=== PATIENT | female | born 1995 | race Caucasian/White ===

== ENCOUNTER 2021-01-29 19:41 | Emergency (ER) | payer OTHER, SELFPAY ==
[2021-01-29 20:25] VITALS: BP 160/96; PULSE 84; RESP 18; TEMP 36.7; O2SAT 100; BMI 58.4
--- NOTE | 2021-01-29 21:35 | ED.DIZZY ---
HPI - Dizziness General Chief Complaint: Dizziness Stated Complaint: dizziness Time Seen by Provider: 01/29/21 21:34 Source: patient Mode of arrival: ambulatory Limitations: no limitations History of Present Illness HPI Narrative: Patient complaining of sudden onset of dizziness since last night get worse when head movements feels the room is spinning feels head is heavy patient with vague complaints feels headachy head is fuzzy. Also said that she has not taken her medication for anxiety not giving her details seen the therapist 2 days ago MD elicited complaint: dizziness Onset (ago): day(s) Timing: sudden onset Severity: moderate Description: sense of movement and room spinning Context: change in body position History of similar symptoms: No Exacerbating factors: movement/ambulation and change in body position Relieving factors: remaining still Associated symptoms: denies other symptoms Related Data Allergies Allergy/AdvReac Type Severity Reaction Status Date / Time ENVIRONMENTAL Allergy Mild HIVES, Uncoded 07/14/20 19:06 ITCH EYES, REDNESS Review of Systems Review of Systems: Constitutional : No Weight loss, No Fever, No Chills ENT/Mouth : No sore throat, No Rhinorrhea Eyes: No Eye Pain, No Swelling Cardiovascular : No Chest Pain, no palpitations Respiratory : No Cough, No Sputum, no shortness of breath Gastrointestinal : no Nausea, No Vomiting, No Diarrhea, No abdominal Pain, no black stools Genitourinary : No Dysuria, No Urinary Frequency Musculoskeletal : No joint pain, No Myalgias, No Joint Swelling Skin : No Skin Lesions, No rash Neuro : No Weakness, No Numbness, + Dizziness, No Headache Psych : + Anxiety/Panic, No Depression Heme/Lymph: No Bruising, No Lymphadenopathy Endocrine : No Polyuria, No Polydipsia All other systems reviewed and are negative [facility] Past Medical History Medical History Anxiety Asthma delivery delivered IBS (irritable bowel syndrome) Surgical History History of appendectomy Social History Social History Alcohol intake: never Smoking Status: Never smoker Use of substances other than those prescribed or required for medical reasons: No Advance Directives: No Physical Exam Vital Signs: Vital Signs: Last Vital Signs Temp 98.0 F 01/29/21 22:10 Pulse 86 01/30/21 00:00 Resp 16 01/30/21 00:00 BP 135/65 01/30/21 00:00 Pulse Ox 97 01/30/21 00:00 Body Mass Index 58.4 Appearance: Alert. Oriented X3. No acute distress. Anxious , patient very vague and difficult to examine Eyes: Pupils equal, round and reactive to light. No nystagmus ENT: Pharynx normal. Neck: Normal inspection. Neck supple. CVS: Normal heart rate and rhythm. Pulses normal. Respiratory: No respiratory distress. Breath sounds normal. Abdomen: Soft and nontender. Bowel sounds are present, no mass palpable, no CVA tenderness Skin: Skin warm and dry. Normal skin color. Normal skin turgor. Extremities: No lower extremity edema. Neuro: Oriented X 3. No motor deficit. No sensory deficit. No abnormal movements MDM - Dizziness MDM Narrative Medical decision making narrative: Patient with benign positional vertigo clinically also has some psychological issues which she has not explaining to us very well says that she is not taking her medications and she has a therapist patient's boyfriend was called who does not have any idea about her medical condition. Will do basic labs and get the care team evaluation Patient labs are stable awaiting for care team evaluation Differential Diagnosis Differential diagnosis: Likely benign paroxysmal positional vertigo Lab Data Attestation: I reviewed the patient's lab results. Result diagrams: 01/30/21 00:33 01/30/21 00:33 Labs: Lab Results 01/30/21 01/30/21 Range/Units 00:33 00:33 WBC 7.9 (4.8-10.8) X10*3/uL RBC 4.50 (4.20-5.50) X10*6/uL Hgb 12.7 (12.0-16.0) g/dl Hct 38.8 (37-47) % MCV 86.2 (80-98) fL MCH 28.2 (27.0-33.0) pg MCHC 32.7 (31.0-35.0) g/dl RDW 12.8 (11.0-16.0) % Plt Count 255 (160-400) X10*3/uL MPV 9.5 (9.4-12.3) fL Immature Gran % (Auto) 0.1 (0.0-0.4) % Neut % (Auto) 64.8 (45-73) % Lymph % (Auto) 24.6 (20-40) % [place] % (Auto) 6.7 (2-11) % Eos % (Auto) 3.3 (0-4) % Baso % (Auto) 0.5 (0-2) % Lymph # (Auto) 1.9 (1.2-4.9) X10*3/uL [place] # (Auto) 0.5 (0.1-1.2) X10*3/uL Eos # (Auto) 0.3 (0.0-0.4) X10*3/uL Baso # (Auto) 0.0 (0.0-0.2) X10*3/uL Abs Immat Gran (auto) 0.01 (0.00-0.03) X10*3/uL Absolute Neuts (auto) 5.1 (2.0-8.3) X10*3/uL Absolute Nucleated RBC 0.000 (0.0-0.012) X10*3/uL Nucleated RBC % (auto) 0.0 (0.0-0.2) /100WBC Sodium 141 (135-145) mmol/L Potassium 3.7 (3.3-5.1) mmol/L Chloride 107 (96-108) mmol/L Carbon Dioxide 25 (22-29) mmol/L Anion Gap 13 (12-20) BUN 12 (9-16) mg/dL Creatinine 0.71 (0.5-1.4) mg/dL Estim Creat Clear Calc 171.5 Estimated GFR > 60 Random Glucose 93 (60-115) mg/dL Calcium 9.0 (8.4-10.2) mg/dL Total Bilirubin 0.4 (0.0-1.0) mg/dL AST 25 (5-31) U/L ALT 42 H (0-31) U/L Alkaline Phosphatase 94 (39-117) U/L Total Protein 6.5 (6.5-8.0) g/dL Albumin 4.2 (3.5-5.0) g/dL Discharge Plan Discharge Clinical Impression: Anxiety Benign paroxysmal positional vertigo Qualifiers: Laterality: unspecified laterality Qualified Code(s): H81.10 - Benign paroxysmal vertigo, unspecified ear
[2021-01-29 22:10] VITALS: BP 130/59; PULSE 76; RESP 15; TEMP 36.7
[2021-01-29] MEDS: LORazepam 1 MG TABLET PO (22:12)
[2021-01-29] MEDS: Meclizine HCl 25 MG TABLET 50 MG PO (22:12)
--- NOTE | 2021-01-29 23:30 | PC.NURSE ---
ATTEMPTING TO AMBULATE PATIENT AFTER SHE REPORTS DIZZINESS IS BETTER. PATIENT STATING SHE DOES NOT WANT TO AT THIS TIME. ASKING WHAT IS WRONG WITH ME? ASKING PATIENT WHAT SHE MEANT BY THAT. STATING THERE ARE PEOPLE IN MY BRAIN . STATING THAT SHE SAW HER THERAPIST ON SATURDAY AND TOLD THEM THAT SHE HAS STOPPED TAKING HER MEDICATIONS BECAUSE THEY ARENT HELPING HER. STATING SHE STILL REMAINS ON GABAPENTIN. PLAN IS FOR PATIENT TO HAVE LABS DRAWN AND TO MEET WITH CARE TEAM BASED ON THE FACT THAT HER AFFECT IS OFF. STATING SHE DID NOT WANT TO STAY AND TALK TO SOMEONE BUT THEN ASKING AGAIN WHAT IS WRONG WITH HER. PATIENT TOLD SHE WILL BE STATING FOR BLOOD WORK AND TO TALK TO THE CARE [facility]
[2021-01-30] VITALS: BP 135/65; PULSE 86; RESP 16; O2SAT 97
[2021-01-30 00:37] LABS: MANUAL DIFF FLAG NO
[2021-01-30 00:38] LABS: Basophils Percent Auto 0.5 % (0-2); Eosinophils Absolute Auto 0.3 X10*3/uL (0.0-0.4); Eosinophils Percent Auto 3.3 % (0-4); Hematocrit 38.8 % (37-47); Hemoglobin 12.7 g/dl (12.0-16.0); Imm Gran Abs Auto 0.01 X10*3/uL (0.00-0.03); Imm Gran Pct Auto 0.1 % (0.0-0.4); Lymphocytes Absolute Auto 1.9 X10*3/uL (1.2-4.9); Lymphocytes Percent Auto 24.6 % (20-40); Mean Corpuscular HGB Conc 32.7 g/dl (31.0-35.0); Mean Corpuscular Hemoglobin 28.2 pg (27.0-33.0); Mean Corpuscular Volume 86.2 fL (80-98); Mean Platelet Volume 9.5 fL (9.4-12.3); Monocytes Absolute Auto 0.5 X10*3/uL (0.1-1.2); Monocytes Percent Auto 6.7 % (2-11); Neutrophils Absolute Auto 5.1 X10*3/uL (2.0-8.3); Neutrophils Percent Auto 64.8 % (45-73); Platelet Count 255 X10*3/uL (160-400); Red Cell Distribution Width 12.8 % (11.0-16.0); White Blood Count 7.9 X10*3/uL (4.8-10.8)
[2021-01-30 01:07] LABS: Alanine Aminotransferase 42 U/L (0-31); Albumin Level 4.2 g/dL (3.5-5.0); Alkaline Phosphatase 94 U/L (39-117); Anion Gap 13 (12-20); Aspartate Amino Transferase 25 U/L (5-31); Bilirubin Total 0.4 mg/dL (0.0-1.0); Blood Urea Nitrogen 12 mg/dL (9-16); Carbon Dioxide 25 mmol/L (22-29); Chloride 107 mmol/L (96-108); Creatinine Clr Calc Pharmacy 171.5; Estimated Glomerular Filt Rate > 60; Glucose Random 93 mg/dL (60-115); Potassium 3.7 mmol/L (3.3-5.1); Sodium 141 mmol/L (135-145); Total Protein 6.5 g/dL (6.5-8.0)
[2021-01-30 02:00] VITALS: BP 129/68; PULSE 75; RESP 16; O2SAT 98
--- NOTE | 2021-01-30 02:25 | MHC.CARE ---
CARE team consult requested for pt who presented to ED with complaints of dizziness, then made statements about having stopped taking her psychiatric medications and wanting to speak with someone. This card writer hand met with pt in ED room 20. Pt reported that she had stopped taking her medications one at a time over the past couple weeks because she didn't feel good on them and she doesn't feel good off them, so she decided that she doesn't want to take medications if they don't change anything. Pt was taking Trileptil, Latuda, and Gabapentin. Pt reported that she had been taking these medications for a couple years, however was not great at remembering to take the medications and often missed doses to begin with. Pt reported that she was prescribed the gabapentin for anxiety, though wasn't sure what she was on the mood stabilizers for. This card writer hand denied having a formal diagnosis of bipolar or depression despite having been in treatment with individual therapy and psychiatry through [facility] for several years. Pt's affect and mood were changeable throughout the consultation. Pt would advocate for discharge and then when asked if she feels safe for discharge she would stare off vacantly before responding. Pt shared that she has a difficult time with men and when she is off medications she has negative and aggressive thoughts toward them. Pt denied hx of aggression toward men, however she shared that she has a hx of trauma that has a manifested response of opposition and repulsion toward most men. Pt stated that when the ED doctor entered the room this evening, she believed that he was going to hurt her, and reported that she has experienced this previously when she was not taking medications. This card writer hand discussed the likelihood that pt's symptoms are associated with her having discontinued taking her medications, even if pt hasn't taken them in two weeks. It was explained to pt that once a medication wears off symptoms don't generally return immediately and it can be a delayed response. Pt had hoped that she would be okay without the medications. This card writer hand recommended that pt follow up with her psychiatrist and her therapist re: the discontinuation of taking her prescribed meds and to contact crisis or return to the hospital if her symptoms persist or worsen. Diagnosis is likely borderline personality disorder. ED physician updated re: consult and recommendations.
== END 2021-01-30 05:00 | disposition home or self-care (01) ==
PROVIDERS: Emergency Provider Internal Medicine; PCP Internal Medicine
DX: H81.10 Benign paroxysmal vertigo, unspecified ear (principal); F41.9 Anxiety disorder, unspecified; Z91.14 Patient's other noncompliance with medication regimen
CPT/HCPCS: 36415; 80053; 85025; 99284

== ENCOUNTER 2021-08-10 10:41 | Inpatient (IN) | payer OTHER, SELFPAY ==
--- NOTE | ~2021-08-10 | US_ITS ---
EXAMINATION: US ABDOMEN LIMITED CLINICAL INFORMATION: Right upper quadrant pain. COMPARISON: None TECHNIQUE: Real-time imaging of the right upper quadrant abdominal viscera. FINDINGS: PANCREAS: Normal. LIVER: The liver is normal in size. The liver contour is normal. There is generalized increased echogenicity consistent with fatty infiltration. No focal hepatic lesion. There is no intrahepatic biliary duct dilatation seen. GALLBLADDER: Cholelithiasis is present. The gallbladder wall is borderline thickened at 3 mm diameter. No pericholecystic fluid is seen and no fluid within the gallbladder wall is noted. There is tenderness to palpation overlying the gallbladder. COMMON BILE DUCT: Normal in caliber measuring 0.4 cm in diameter. RIGHT KIDNEY: Normal. No hydronephrosis. No renal calculi or focal parenchymal lesions. The kidney measures 11.7 cm in maximum dimension. FREE FLUID: None. US/US abdomen limited IMPRESSION: Cholelithiasis with borderline thickened gallbladder wall and positive tenderness to palpation overlying the gallbladder. No pericholecystic fluid or fluid within the wall of the gallbladder. Above findings could represent early acute cholecystitis versus chronic findings. Fatty infiltration of liver.
--- NOTE | ~2021-08-10 | CT_ITS ---
EXAMINATION: CT ABDOMEN AND PELVIS WITH CONTRAST CLINICAL INFORMATION: Abdominal pain COMPARISON: Ultrasound of same day TECHNIQUE: Multidetector volumetric images were obtained from the superior aspect of the liver through the pubic symphysis following administration 85 mL of Omnipaque 350 intravenous contrast. Sagittal and coronal reformatted images were obtained on the technologist's workstation. Oral contrast: No This CT examination was performed using dose optimization techniques as appropriate, variously including the following: *Automated exposure control *Adjustment of mA and/or kV according to patient size (this includes techniques or standardized protocols for targeted exams where dose is matched to indication/reason for exam; i.e. extremities or head) *Use of iterative reconstruction technique DLP: 1154 mGy-cm FINDINGS: LUNG BASES: The lung bases appear unremarkable without acute parenchymal disease, pericardial effusion, or pleural effusion. LIVER, GALLBLADDER, AND BILIARY TREE: The liver is normal in size, shape, and attenuation. No focal hepatic lesion or biliary ductal dilatation is present. Gallbladder is distended. No definite radiographic calculi are seen as had been seen layering on gallbladder study and therefore these are likely cholesterol stones. About the inferior lateral aspect of the gallbladder there is question of a small amount of fluid adjacent to the gallbladder wall versus edematous wall with the findings suggestive of possible acute cholecystitis. No pericholecystic inflammatory streaking is evident. PANCREAS: Unremarkable. SPLEEN: Unremarkable. ADRENAL GLANDS: Unremarkable. KIDNEYS AND URETERS: The kidneys are normal in size, shape, and attenuation. No hydronephrosis, hydroureter, or calculi seen. No perinephric stranding. BLADDER: Unremarkable. GASTROINTESTINAL TRACT: No dilated loops of large or small bowel. No free air or free fluid. No pericolonic inflammatory change. Appendix not visualized. ABDOMINAL WALL: Small fat-containing umbilical hernia. LYMPH NODES: No lymphadenopathy appreciated. VASCULAR: Unremarkable. PELVIC VISCERA: Unremarkable. OSSEOUS STRUCTURES: No suspicious destructive bony lesions identified. CT/CT abdomen pelvis w con IMPRESSION: Finding suggestive of acute cholecystitis.
[2021-08-10 10:56] VITALS: BMI 53.1
[2021-08-10 11:03] VITALS: BP 150/66; PULSE 77; RESP 18; TEMP 36.7; O2SAT 98
--- NOTE | 2021-08-10 11:20 | ED_ITS ---
HPI - Abdominal Pain General Chief Complaint: Abdominal Pain Stated Complaint: rt side abd pain, white stool Time Seen by Provider: 08/10/21 11:06 History of Present Illness HPI narrative: Patient is 26 years old presents today with having abdominal pain. The pain is worse in the right upper quadrant. It is dull in nature. The wraps around to the back. Patient denies any fever chills. No coughing or congestion or upper respiratory symptoms. Been immunized for COVID. Patient also complained that her stool appears meléndez. It is solid however. Patient had some granola yesterday and then the pain started afterwards. No pain on urination. No change in urination frequency. No history of diabetes. No history of abdominal surgery. No vaginal discharge. Patient is not sexually active with men does not think she is . She is on control and her last menstrual period was over 2 months ago. Patient from home. No travel history. Related Data Previous Rx's Medication Instructions Recorded meclizine 25 mg tablet 25 mg PO TID PRN #20 tab 01/30/21 Allergies Allergy/AdvReac Type Severity Reaction Status Date / Time ENVIRONMENTAL Allergy Mild HIVES, Uncoded 07/14/20 19:06 ITCH EYES, REDNESS Review of Systems Review of Systems No fever no chills Positive abdominal pain Positive nausea All systems reviewed otherwise negative Physical Exam Vital Signs: Vital Signs: Last Vital Signs Temp 98.1 F 08/10/21 11:03 Pulse 77 08/10/21 11:03 Resp 18 08/10/21 11:03 BP 150/66 H 08/10/21 11:03 Pulse Ox 98 08/10/21 11:03 Body Mass Index 53.1 Appearance: Alert. Oriented X3. No acute distress. Eyes: Pupils equal, round and reactive to light. ENT: Pharynx normal. Neck: Normal inspection. Neck supple. No lymph nodes noted. No crepitus CVS: Normal heart rate and rhythm. Pulses normal. Normal S1 and S2 Respiratory: No respiratory distress. Breath sounds normal. No Wheezing. No rales Abdomen: Positive right upper quadrant pain. No rebound or guarding. No rigidity. No distention. good BS x4 Skin: Skin warm and dry. Normal skin color. Normal skin turgor. Extremities: No lower extremity edema. Neurovascular intact to all extremities. No Lacerations. No Rash Neuro: Oriented X 3. No motor deficit. No sensory deficit. Moving all extermities. No slurred speech MDM - Abdominal Pain MDM Narrative Medical decision making narrative: Patient's white count is normal. However pain is over the right upper quadrant. Ultrasound equivocal for cholecystitis CT scan consistent with cholecystitis. Will start patient on antibiotics. Patient evaluated by surgery. Will admit for further evaluation. Lab Data Result diagrams: 08/10/21 11:23 08/10/21 11:23 Labs: Lab Results 08/10/21 08/10/21 08/10/21 Range/Units 11:23 11:23 11:23 WBC 7.4 (4.8-10.8) X10*3/uL RBC 4.65 (4.20-5.50) X10*6/uL Hgb 13.1 (12.0-16.0) g/dl Hct 40.1 (37-47) % MCV 86.2 (80-98) fL MCH 28.2 (27.0-33.0) pg MCHC 32.7 (31.0-35.0) g/dl RDW 12.8 (11.0-16.0) % Plt Count 283 (160-400) X10*3/uL MPV 9.3 L (9.4-12.3) fL Immature Gran % (Auto) 0.1 (0.0-0.4) % Neut % (Auto) 76.1 H (45-73) % Lymph % (Auto) 15.7 L (20-40) % [place] % (Auto) 5.5 (2-11) % Eos % (Auto) 2.2 (0-4) % Baso % (Auto) 0.4 (0-2) % Lymph # (Auto) 1.2 (1.2-4.9) X10*3/uL [place] # (Auto) 0.4 (0.1-1.2) X10*3/uL Eos # (Auto) 0.2 (0.0-0.4) X10*3/uL Baso # (Auto) 0.0 (0.0-0.2) X10*3/uL Abs Immat Gran (auto) 0.01 (0.00-0.03) X10*3/uL Absolute Neuts (auto) 5.6 (2.0-8.3) X10*3/uL Absolute Nucleated RBC 0.000 (0.0-0.012) X10*3/uL Nucleated RBC % (auto) 0.0 (0.0-0.2) /100WBC Sodium 138 (135-145) mmol/L Potassium 4.3 (3.3-5.1) mmol/L Chloride 110 H (96-108) mmol/L Carbon Dioxide 19 L (22-29) mmol/L Anion Gap 13 (12-20) BUN 8 L (9-16) mg/dL Creatinine 0.77 (0.5-1.4) mg/dL Estim Creat Clear Calc 147.4 Estimated GFR > 60 Random Glucose 87 (60-115) mg/dL Calcium 9.1 (8.4-10.2) mg/dL Total Bilirubin 0.7 (0.0-1.0) mg/dL Direct Bilirubin 0.4 (0.0-0.5) mg/dL AST 66 H (5-31) U/L ALT 56 H (0-31) U/L Alkaline Phosphatase 103 (39-117) U/L Total Protein 7.0 (6.5-8.0) g/dL Albumin 4.2 (3.5-5.0) g/dL Lipase 6 L (8-78) U/L Urine Color YELLOW Urine Appearance CLEAR Urine pH 6.0 (5.0-8.0) Ur Specific [place] 1.015 (1.005-1.025) Urine Protein NEG (NEG-TRACE) MG/DL Urine Glucose (UA) NEG (NEG) MG/DL Urine Ketones NEG (NEG) MG/DL Urine Blood 1+ H (NEG) Urine Nitrite NEG (NEG) Ur Leukocyte Esterase NEG (NEG) Urine RBC 1-4 (0) /HPF Urine WBC 0-2 (0-4) /HPF Ur Squamous Epith Cells 1+ /LPF Urine Bacteria 2+ /LPF Urine Test (NEGATIVE) 08/10/21 Range/Units 11:23 WBC (4.8-10.8) X10*3/uL RBC (4.20-5.50) X10*6/uL Hgb (12.0-16.0) g/dl Hct (37-47) % MCV (80-98) fL MCH (27.0-33.0) pg MCHC (31.0-35.0) g/dl RDW (11.0-16.0) % Plt Count (160-400) X10*3/uL MPV (9.4-12.3) fL Immature Gran % (Auto) (0.0-0.4) % Neut % (Auto) (45-73) % Lymph % (Auto) (20-40) % [place] % (Auto) (2-11) % Eos % (Auto) (0-4) % Baso % (Auto) (0-2) % Lymph # (Auto) (1.2-4.9) X10*3/uL [place] # (Auto) (0.1-1.2) X10*3/uL Eos # (Auto) (0.0-0.4) X10*3/uL Baso # (Auto) (0.0-0.2) X10*3/uL Abs Immat Gran (auto) (0.00-0.03) X10*3/uL Absolute Neuts (auto) (2.0-8.3) X10*3/uL Absolute Nucleated RBC (0.0-0.012) X10*3/uL Nucleated RBC % (auto) (0.0-0.2) /100WBC Sodium (135-145) mmol/L Potassium (3.3-5.1) mmol/L Chloride (96-108) mmol/L Carbon Dioxide (22-29) mmol/L Anion Gap (12-20) BUN (9-16) mg/dL Creatinine (0.5-1.4) mg/dL Estim Creat Clear Calc Estimated GFR Random Glucose (60-115) mg/dL Calcium (8.4-10.2) mg/dL Total Bilirubin (0.0-1.0) mg/dL Direct Bilirubin (0.0-0.5) mg/dL AST (5-31) U/L ALT (0-31) U/L Alkaline Phosphatase (39-117) U/L Total Protein (6.5-8.0) g/dL Albumin (3.5-5.0) g/dL Lipase (8-78) U/L Urine Color Urine Appearance Urine pH (5.0-8.0) Ur Specific [place] (1.005-1.025) Urine Protein (NEG-TRACE) MG/DL Urine Glucose (UA) (NEG) MG/DL Urine Ketones (NEG) MG/DL Urine Blood (NEG) Urine Nitrite (NEG) Ur Leukocyte Esterase (NEG) Urine RBC (0) /HPF Urine WBC (0-4) /HPF Ur Squamous Epith Cells /LPF Urine Bacteria /LPF Urine Test NEGATIVE (NEGATIVE) Discharge Plan Discharge Clinical Impression: Cholecystitis Patient Disposition: Admitted As Inpatient Prescriptions: No Action meclizine 25 mg tablet 25 mg PO TID PRN (Reason: dizziness) Qty: 20 RF: 0 PMFSH Past Medical History Medical History Anxiety Asthma delivery delivered IBS (irritable bowel syndrome) Surgical History History of appendectomy Social History Social History Alcohol intake: unknown Patient Tobacco Use Status: Never used Tobacco Use of substances other than those prescribed or required for medical reasons: Unknown Advance Directives: No
[2021-08-10] MEDS: ondansetron HCL 4 MG/2 ML VIAL IVPUSH ×2 (11:30→15:32)
[2021-08-10] MEDS: 0.9 % Sodium Chloride 1,000 ML 999 ML IV (11:30)
[2021-08-10] MEDS: Ketorolac Tromethamine 30 MG/ML VIAL IVPUSH (11:30)
[2021-08-10 11:31] LABS: MANUAL DIFF FLAG NO
[2021-08-10 11:34] LABS: Basophils Percent Auto 0.4 % (0-2); Eosinophils Absolute Auto 0.2 X10*3/uL (0.0-0.4); Eosinophils Percent Auto 2.2 % (0-4); Hematocrit 40.1 % (37-47); Hemoglobin 13.1 g/dl (12.0-16.0); Imm Gran Abs Auto 0.01 X10*3/uL (0.00-0.03); Imm Gran Pct Auto 0.1 % (0.0-0.4); Lymphocytes Absolute Auto 1.2 X10*3/uL (1.2-4.9); Lymphocytes Percent Auto 15.7 % (20-40); Mean Corpuscular HGB Conc 32.7 g/dl (31.0-35.0); Mean Corpuscular Hemoglobin 28.2 pg (27.0-33.0); Mean Corpuscular Volume 86.2 fL (80-98); Mean Platelet Volume 9.3 fL (9.4-12.3); Monocytes Absolute Auto 0.4 X10*3/uL (0.1-1.2); Monocytes Percent Auto 5.5 % (2-11); Neutrophils Absolute Auto 5.6 X10*3/uL (2.0-8.3); Neutrophils Percent Auto 76.1 % (45-73); Platelet Count 283 X10*3/uL (160-400); Red Blood Count 4.65 X10*6/uL (4.20-5.50); Red Cell Distribution Width 12.8 % (11.0-16.0); White Blood Count 7.4 X10*3/uL (4.8-10.8)
[2021-08-10 11:37] LABS: Appearance Urine CLEAR; Color Urine YELLOW; Glucose Urine UA NEG (NEG); Leukocyte Esterase Urine NEG (NEG); Nitrite Urine NEG (NEG); Specific Gravity - Urine 1.015 (1.005-1.025); UACC Culture Trigger NO; Urine Blood 1+ (NEG); Urine Ketones NEG (NEG); Urine Protein NEG (NEG-TRACE)
[2021-08-10 11:41] LABS: UPreg QC Valid YES; Urine Pregnancy NEGATIVE (NEGATIVE)
[2021-08-10 11:55] LABS: Alanine Aminotransferase 56 U/L (0-31); Albumin Level 4.2 g/dL (3.5-5.0); Alkaline Phosphatase 103 U/L (39-117); Anion Gap 13 (12-20); Aspartate Amino Transferase 66 U/L (5-31); Bilirubin Direct 0.4 mg/dL (0.0-0.5); Bilirubin Total 0.7 mg/dL (0.0-1.0); Blood Urea Nitrogen 8 mg/dL (9-16); Calcium 9.1 mg/dL (8.4-10.2); Carbon Dioxide 19 mmol/L (22-29); Chloride 110 mmol/L (96-108); Creatinine Clr Calc Pharmacy 147.4; Estimated Glomerular Filt Rate > 60; Glucose Random 87 mg/dL (60-115); Lipase 6 U/L (8-78); Potassium 4.3 mmol/L (3.3-5.1); Sodium 138 mmol/L (135-145)
[2021-08-10 12:01] LABS: Bacteria Urine 2+ /LPF; Squamous Epithelial Cell Urine 1+ /LPF; WBC Urine 0-2 /HPF (0-4)
[2021-08-10] MEDS: iohexoL 350 MG/ML 100 ML INFUS..BTL IV (12:29)
[2021-08-10] MEDS: Metoclopramide HCl 10 MG/2 ML VIAL IVPUSH (12:37)
[2021-08-10] MEDS: HYDROmorphone HCl 0.5 MG/0.5 ML SYRINGE IVPUSH (12:37)
[2021-08-10] MEDS: cefTRIAXone sodium 1 GM in 0.9 % Sodium Chloride 50 ML IV (13:43)
[2021-08-10 13:49] VITALS: BP 112/61; PULSE 89; RESP 18; TEMP 37.3; O2SAT 95
[2021-08-10] MEDS: Dextrose 5 % and Lactated Ring 1,000 ML 125 ML IVCONT (13:56)
[2021-08-10 14:15] LABS: COVID-19 Test Negative (Negative); IDNOW Serial# 9DD0AD1C
[2021-08-10] MEDS: metroNIDAZOLE/NS 500 MG/100 ML PIGGYBACK 100 MG IV (14:31)
[2021-08-10] MEDS: Piperacillin Sodium/Tazobactam 3.375 GM in 0.9 % Sodium Chloride 50 ML IV ×2 (15:32→21:29)
--- NOTE | 2021-08-10 15:49 | P.HPGS_ITS ---
History of Present Illness History of Present Illness Date of Service: 08/10/21 Chief complaint: rt side abd pain, white stool Narrative: Sumaya Ugarte is a 26 year old female presenting with complaints of abdominal pain in the epigastrium and right upper quadrant. The pain is been developing over the past several weeks and increasing in severity. Food is brought on by eating food and she notes even eating mesh potatoes is causing the pain. She has a known history of gallstones and now feels the pain is becoming unbearable. She denies fever, chills, but has had nausea and vomiting. She denies changes in her bowel habits although she tends to have diarrhea. She presented to the emergency department and was noted to have gallstones with a thickened gallbladder wall on both CT and ultrasound suggestive of acute cholecystitis. Laboratories were normal however. She is admitted to the surgical service for further management of acute cholecystitis. Review of Systems Review of Systems: Yes all other systems are reviewed and are negative Constitutional: Constitutional: Reports anorexia, Denies chills, Denies fever(s) and Reports poor appetite ENT: Reports system reviewed and no additional complaints, except as documented Cardiovascular: Cardiovascular: Reports no additional cardiovascular complaints Respiratory: Comments: History of asthma Gastrointestinal: Gastrointestinal: Reports as per HPI, Reports abdominal pain, Denies hematochezia, Denies change in stool character, Denies constipation, Reports diarrhea, Reports nausea and Reports vomiting Genitourinary: Genitourinary: Reports no additional female genitourinary complaints Musculoskeletal: Musculoskeletal: Reports no additional musculoskeletal complaints [facility] Past Medical History Medical History (Updated 08/10/21 @ 15:59 by Facundo Lugo MD) Anxiety Asthma delivery delivered Cholecystitis IBS (irritable bowel syndrome) Surgical History Surgical History History of appendectomy Social History Social History Alcohol intake: unknown Patient Tobacco Use Status: Never used Tobacco Meds Allergies Allergy/AdvReac Type Severity Reaction Status Date / Time ENVIRONMENTAL Allergy Mild HIVES, Uncoded 07/14/20 19:06 ITCH EYES, REDNESS Active Medications: Current Medications Acetaminophen (Acetaminophen 325 Mg Tablet) 650 mg PO QID PRN PRN Reason: headache, temp > 101 Dextrose/Lactated Ringer's (D5lr) 1,000 mls @ 125 mls/hr IVCONT .Q8H ZHANNA Last Admin: 08/10/21 13:56 Dose: 125 mls/hr Documented by: Piperacillin Sod/Tazobactam (Sod 3.375 gm/ Sodium Chloride) 50 mls @ 100 mls/hr IV Q6H ZHANNA Last Admin: 08/10/21 15:32 Dose: 100 mls/hr Documented by: Ondansetron HCl (Ondansetron Hcl 4 Mg/2 Ml Vial) 4 mg IVPUSH Q8H PRN PRN Reason: Nausea Last Admin: 08/10/21 15:32 Dose: 4 mg Documented by: Zolpidem Tartrate (Zolpidem Tartrate 5 Mg Tablet) 5 mg PO BEDTIME PRN PRN Reason: Insomnia Physical Exam Vital Signs: Vital Signs: Last Vital Signs Temp 99.2 F 08/10/21 13:49 Pulse 89 08/10/21 13:49 Resp 18 08/10/21 13:49 BP 112/61 08/10/21 13:49 Pulse Ox 95 08/10/21 13:49 Body Mass Index 53.1 Const: General: acute distress Nutritional Appearance: obese Orientation/consciousness: patient oriented x3 Limitations: no limitations HENMT: Head: Yes normocephalic and Yes atraumatic Ears: hearing grossly normal bilaterally Neck: Neck: Yes no lymphadenopathy and Yes trachea midline Resp: Effort & Inspection: normal respiratory effort, no audible wheezes, no cough and no respiratory distress GI: Inspection: Yes normal to inspection Palpation (GI): Soft to palpation and Tenderness to palpation present (GI) in the epigastrum, in the RUQ and Leiva's sign positive; Negative for with no rebound tenderness Percussion: Yes normal to percussion Auscultation: normal bowel sounds Rectal Exam - Female: deferred Skin: General skin exam: no rashes or lesions noted and dry skin Neuro: General: patient oriented x3 Extrem: General: Yes no clubbing, cyanosis or edema Results Results Labs: Short CBC 08/10/21 Range/Units 11:23 WBC 7.4 (4.8-10.8) X10*3/uL Hgb 13.1 (12.0-16.0) g/dl Hct 40.1 (37-47) % Plt Count 283 (160-400) X10*3/uL BMP 08/10/21 11:23 Sodium 138 Potassium 4.3 Chloride 110 H Carbon Dioxide 19 L BUN 8 L Creatinine 0.77 Calcium 9.1 Liver Function 08/10/21 Range/Units 11:23 Total Bilirubin 0.7 (0.0-1.0) mg/dL Direct Bilirubin 0.4 (0.0-0.5) mg/dL AST 66 H (5-31) U/L ALT 56 H (0-31) U/L Alkaline Phosphatase 103 (39-117) U/L Albumin 4.2 (3.5-5.0) g/dL Urine 08/10/21 08/10/21 Range/Units 11:23 11:23 Urine Color YELLOW Urine Appearance CLEAR Urine pH 6.0 (5.0-8.0) Ur Specific [place] 1.015 (1.005-1.025) Urine Protein NEG (NEG-TRACE) MG/DL Urine Glucose (UA) NEG (NEG) MG/DL Urine Test NEGATIVE (NEGATIVE) Assessment and Plan (1) Cholecystitis, acute with cholelithiasis: Status: Acute (2) Morbid obesity: Status: Acute 26-year-old female patient with progressive increase in abdominal pain in the right upper quadrant epigastrium found to have gallstones and thickened gallbladder wall suggestive of acute cholecystitis. Patient has persistent pain despite IV pain medications and is requesting cholecystectomy. After discussion of the procedure, risks, and alternatives, she consents to a laparoscopic or possible open cholecystectomy. She will be admitted to the surgical service and placed on operative schedule for tomorrow as an add on. She expressed understanding and agrees with the plan. Quality Stroke Does the patient have a stroke diagnosis?: No VTE Prior VTE?: No VTE Risk Level:: Surgical - moderate VTE Device Contraindication: N/A - Device Ordered VTE Drug Contraindication: Treatment Not Indicated Procedures Date of Service Date of Service: 08/10/21
--- NOTE | 2021-08-10 16:39 | PHA.MEDREC ---
Pharmacy Consult ? Medication Reconciliation Pharmacy has completed the medication reconciliation. Spoke with patient in ED. control non - formulary... asked if patient could have someone bring it in.
[2021-08-10 18:34] VITALS: BP 145/63; PULSE 78; RESP 18; TEMP 37; O2SAT 97
--- NOTE | 2021-08-10 18:35 | PC.NURSE ---
Pt appears to be in NAD. VS obtained. Pt offered pain med for 5/10 abd pain but declined at this time. IVF infusing.
[2021-08-10 19:31] VITALS: RESP 20
[2021-08-10] MEDS: Morphine Sulfate 4 MG/ML CARTRIDGE IVPUSH (19:31)
--- NOTE | 2021-08-10 20:05 | MHC.CM.PN ---
CM met with admitted patient, with bed assignment pending. IMM reviewed and signed per protocol 08/10/21@2226. Pt has [employer] insurance. Pt lives with her brother. Uses no DME or services. No HCP. Education provided, patient declines at this time. Pt is fully vaccinated with Pfizer. D/C plan is home without services. Patient to arrange transportation home. CM to follow for d/c needs.
--- NOTE | 2021-08-10 20:09 | PC.NURSE ---
patient ate 100 % of meal
[2021-08-10 20:22] VITALS: BP 153/92; PULSE 85; RESP 16; TEMP 36.5; O2SAT 99
[2021-08-10 22:00] VITALS: BP 122/98; PULSE 69; RESP 16; TEMP 36.7; O2SAT 95
[2021-08-11] VITALS (21 sets, daily range): BP systolic 127–179; BP diastolic 61–100; PULSE 70–101; RESP 17–20; TEMP 36.1–36.9; O2SAT 93–100
[2021-08-11] MEDS: ondansetron HCL 4 MG/2 ML VIAL IVPUSH
--- NOTE | 2021-08-11 00:03 | PC.NURSE ---
Patient a/o x4, in NAD, endorses RUQ pain, morhine given per order, vitals obtained/charted. IVF infusing at this time. Pt made aware of NPO diet starting at midnight. Will continue to monitor.
[2021-08-11] MEDS: Piperacillin Sodium/Tazobactam 3.375 GM in 0.9 % Sodium Chloride 50 ML IV (04:58)
[2021-08-11] MEDS: Acetaminophen 325 MG TABLET 650 MG PO (08:22)
--- NOTE | 2021-08-11 08:24 | PC.NURSE ---
REPORT TO OR. PT C/O H/A. TYLENOL GIVEN. IV PATENT, SITE GOOD
--- NOTE | 2021-08-11 10:31 | MHC.SHP ---
Pre-Procedural Eval Section A Date of Service: 08/11/21 The patient is an INPATIENT: Yes Changes since office visit: Yes Patient answered all questions; No Cold of Flu in the past 2 weeks, No New Medical Problems and No Changes in Medication The History & Physical has been completed within 30 days and I have reviewed it.: Yes Section B Chief Complaint: acute cholecystitis, cholelithiasis Allergies: Allergies Allergy/AdvReac Type Severity Reaction Status Date / Time ENVIRONMENTAL Allergy Mild HIVES, Uncoded 07/14/20 19:06 ITCH EYES, REDNESS Plan Diagnosis/Plan: Unchanged I have reviewed the history and physical and performed a pertinent physical examination on my patient. No changes have occurred unless specified.
--- NOTE | 2021-08-11 10:55 | P.CONAN_ITS ---
HPI - Anesthesia Eval Consult details Narrative: 26 yo female patient for laparoscopic cholecystectomy PMFSH Active Problems Active Problems: All Active Problems (Updated 08/10/21 @ 15:59 by Facundo fay MD) Cholecystitis, acute with cholelithiasis (Acute) Asthma (Acute). Controlled Morbid obesity. BMI 53.1 . Denies h/o RAMEZ Anxiety (Chronic) Past Medical History Medical History (Updated 08/10/21 @ 15:59 by Facundo Lugo MD) Anxiety Asthma delivery delivered Cholecystitis IBS (irritable bowel syndrome) Family History Family history of problems with anesthesia: No Surgical History Surgical History (Updated 08/11/21 @ 11:27 by Carmen Jamison MD) H/O: History of appendectomy History of Problems with Anesthesia: No Social History Social History Alcohol intake: unknown Patient Tobacco Use Status: Never used Tobacco Use of substances other than those prescribed or required for medical reasons: Yes Substance Use Frequency: Daily Are you DNR?: Yes Advance Directives: No Advance Directives Information Provided: No service: No Current occupational status: unemployed Meds Allergies Allergy/AdvReac Type Severity Reaction Status Date / Time carboprost [From Hemabate] Allergy Severe Anaphylaxis Verified 08/11/21 10:53 ENVIRONMENTAL Allergy Mild HIVES, Uncoded 07/14/20 19:06 ITCH EYES, REDNESS Active Medications: Current Medications Acetaminophen (Acetaminophen 325 Mg Tablet) 650 mg PO QID PRN PRN Reason: headache, temp > 101 Last Admin: 08/11/21 08:22 Dose: 650 mg Documented by: Dextrose/Lactated Ringer's (D5lr) 1,000 mls @ 125 mls/hr IVCONT .Q8H ZHANNA Last Admin: 08/11/21 06:15 Dose: Not Given Documented by: Piperacillin Sod/Tazobactam (Sod 3.375 gm/ Sodium Chloride) 50 mls @ 100 mls/hr IV Q6H ZHANNA Last Infusion: 08/11/21 05:35 Dose: Infused Documented by: Morphine Sulfate (Morphine Sulfate 4 Mg/Ml Cartridge) 4 mg IVPUSH Q4H PRN; Protocol PRN Reason: Pain, Severe (Pain Scale 7-10) Last Admin: 08/11/21 00:00 Dose: 4 mg Documented by: Ondansetron HCl (Ondansetron Hcl 4 Mg/2 Ml Vial) 4 mg IVPUSH Q8H PRN PRN Reason: Nausea Last Admin: 08/11/21 00:00 Dose: 4 mg Documented by: Oxycodone HCl (Oxycodone Hcl Immed Release 5 Mg Tablet) 5 mg PO Q6H PRN PRN Reason: Pain, Moderate (Pain Scale 4-6 Pharmacy Consult (Consult Rx Perform Med Rec) 1 each MISCELLANE ONCE PRN PRN Reason: Consult order Zolpidem Tartrate (Zolpidem Tartrate 5 Mg Tablet) 5 mg PO BEDTIME PRN PRN Reason: Insomnia Home Medications Medication Instructions Recorded Confirmed Last Taken Type L norgest/E estradiol-E estrad 1 tab PO DAILY 08/10/21 08/10/21 08/09/21 History 0.15 mg-30 mcg (84)/10 mcg(7) tabs,3mos albuterol sulfate 90 mcg/actuation 2 inh INHALATION Q4H PRN 08/10/21 08/10/21 Unknown History aerosol inhaler fluticasone propionate 230 2 puff INHALATION BID 08/10/21 08/10/21 08/09/21 History mcg-salmeterol 21 mcg/actuation HFA inhaler (Advair HFA) lamotrigine 100 mg tablet 1 tab PO BID 08/10/21 08/10/21 08/09/21 History Exam Exam Date and Time: August 11, 2021 1055 Height,Weight and Vital Signs: Height 5 ft 3 in Weight 136.078 kg Last Vital Signs Temp 98.4 F 08/11/21 10:37 Pulse 76 08/11/21 10:37 Resp 18 08/11/21 10:37 BP 133/71 08/11/21 10:37 Pulse Ox 97 08/11/21 10:37 Pertinent Lab Results Pertinent Lab Results: Laboratory Tests 08/10/21 08/10/21 08/10/21 11:23 11:23 11:23 WBC 7.4 RBC 4.65 Hgb 13.1 Hct 40.1 MCV 86.2 MCH 28.2 MCHC 32.7 RDW 12.8 Plt Count 283 MPV 9.3 L Immature Gran % (Auto) 0.1 Neut % (Auto) 76.1 H Lymph % (Auto) 15.7 L [place] % (Auto) 5.5 Eos % (Auto) 2.2 Baso % (Auto) 0.4 Lymph # (Auto) 1.2 [place] # (Auto) 0.4 Eos # (Auto) 0.2 Baso # (Auto) 0.0 Abs Immat Gran (auto) 0.01 Absolute Neuts (auto) 5.6 Absolute Nucleated RBC 0.000 Nucleated RBC % (auto) 0.0 Sodium 138 Potassium 4.3 Chloride 110 H Carbon Dioxide 19 L Anion Gap 13 BUN 8 L Creatinine 0.77 Estim Creat Clear Calc 147.4 Estimated GFR > 60 Random Glucose 87 Calcium 9.1 Total Bilirubin 0.7 Direct Bilirubin 0.4 AST 66 H ALT 56 H Alkaline Phosphatase 103 Total Protein 7.0 Albumin 4.2 Lipase 6 L Urine Color YELLOW Urine Appearance CLEAR Urine pH 6.0 Ur Specific [place] 1.015 Urine Protein NEG Urine Glucose (UA) NEG Urine Ketones NEG Urine Blood 1+ H Urine Nitrite NEG Ur Leukocyte Esterase NEG Urine RBC 1-4 Urine WBC 0-2 Ur Squamous Epith Cells 1+ Urine Bacteria 2+ Urine Test COVID-19 (HELEN) COVID-SD [employer] 08/10/21 08/10/21 11:23 13:50 WBC RBC Hgb Hct MCV MCH MCHC RDW Plt Count MPV Immature Gran % (Auto) Neut % (Auto) Lymph % (Auto) [place] % (Auto) Eos % (Auto) Baso % (Auto) Lymph # (Auto) [place] # (Auto) Eos # (Auto) Baso # (Auto) Abs Immat Gran (auto) Absolute Neuts (auto) Absolute Nucleated RBC Nucleated RBC % (auto) Sodium Potassium Chloride Carbon Dioxide Anion Gap BUN Creatinine Estim Creat Clear Calc Estimated GFR Random Glucose Calcium Total Bilirubin Direct Bilirubin AST ALT Alkaline Phosphatase Total Protein Albumin Lipase Urine Color Urine Appearance Urine pH Ur Specific [place] Urine Protein Urine Glucose (UA) Urine Ketones Urine Blood Urine Nitrite Ur Leukocyte Esterase Urine RBC Urine WBC Ur Squamous Epith Cells Urine Bacteria Urine Test NEGATIVE COVID-19 (HELEN) Negative COVID-19 Clin Com See Note Airway Mallampati Class: III (Small mouth) TM Dist: >3cm Neck ROM: Full Loose/Missing/Broken Teeth: No Heart: RRR Lungs: CTAB Assessment and Plan Assessment Anesthesia Assessment: Anesthesia Plan Discussed and Chart Reviewed Final Anesthetic Review Family History of Problems with Anesthesia: No History of Problems with Anesthesia: No NPO: Yes ASA Class: III Final Preanesthetic Review: No Changes in Pt Med Stat, Meds/Allgs Chart Reviewed, Consent Obtained/Reviewed and Anes Risks/Benef Reviewed Patient Risk: Intermediate Procedure Risk: Intermediate Assessment/Block/Sedation in SS: Assess/Block/Sedation-SS Anesthetic Plan Anesthetic Plan: GA Disposition: Standard PACU
[2021-08-11] MEDS: Lactated Ringers 1,000 ML 100 ML IVCONT (11:01)
[2021-08-11] MEDS: HYDROmorphone HCl 0.5 MG/0.5 ML SYRINGE 0.25 MG IVPUSH ×2 (13:05→13:27)
[2021-08-11] MEDS: oxyCODONE HCl Immed Release 5 MG TABLET PO (13:06)
--- NOTE | 2021-08-11 13:36 | W.PM.OPN ---
Operative Note Operative Note Date of Service: 08/11/21 Narrative: Preoperative diagnosis: Acute cholecystitis, cholelithiasis Postoperative diagnosis: Same Procedure: Laparoscopic cholecystectomy Surgeon: Facundo Lugo MD Gear Milling Machine Set Up Operator: BLAKE Aguilar Anesthesia: General endotracheal Indications for procedure: 26-year-old female presenting with complaints of abdominal pain in the right upper quadrant Of increasing severity associated with eating of all foods. Patient reports nausea and vomiting but denies fever or chills. On examination the patient is tender in the right upper quadrant with a Leiva sign. Radiologic studies confirmed a thickened gallbladder wall with gallstones suggestive of acute cholecystitis. Operative findings: Acutely inflamed gallbladder with multiple stones noted at the neck of the gallbladder. Specimen: gallbladder Estimated blood loss: 2 mL Complications: none Procedure details: Patient was brought to the OR and placed in a supine position. After administering general anesthesia the patient's abdomen was prepped with ChloraPrep and draped in a sterile fashion. Local anesthesia consisting of 0.5% Sensorcaine without epinephrine was infiltrated in a periumbilical region. A 5 mm incision was made above the umbilicus in a transverse fashion. The Veress needle was then inserted while elevating abdominal cavity with towel clips. After positive drop test the abdomen was insufflated to a pressure of 15 mm of mercury. The Veress needle was then removed and a 5 mm trocar inserted. The camera was inserted in the abdomen explored. No injury was noted from the trocar insertion site. A 12 mm trocar was then placed in the epigastrium and two 5 mm trocars placed in the right upper quadrant all under direct vision. The patient was placed in reverse Trendelenburg positioning and rotated to the left. The gallbladder was grasped with the fundus and retracted cephalad.. The infundibulum was then grasped and retracted away from the liver bed. The Dolphin dissected was then used to dissect the peritoneum off the infundibulum to reveal the junction with the cystic duct. Cystic artery was noted slightly medial and posterior to the cystic duct. After obtaining a critical view the cystic duct was doubly clipped and divided. The cystic artery was then doubly clipped and divided. The gallbladder was then dissected off the liver bed using electrocautery with an L hook. Hemostasis was assured all times using the electrocautery. When the gallbladder is completely dissected off the liver bed was placed in an Endo-Catch bag and brought out through the epigastric incision. The gallbladder was sent to pathology for further examination. The abdomen was then re-examined. The liver bed was irrigated and suctioned dry. No bleeding or bile leak could be identified. CO2 was then evacuated and all trocars removed. Fascia was closed at the epigastric incision using a [id number] 0 Polysorb suture. Skin was closed in all incisions using a subcuticular 4 0 Polysorb suture. Sterile dressings consisting of Steri-Strips, 2 x 2 gauze, and Tegaderm were then applied. The patient tolerated the procedure well. Sponge instrument and needle counts reported as correct. The patient was transferred to PACU in stable condition.
[2021-08-11] MEDS: fentaNYL citrate/PF 100 MCG/2 ML VIAL 25 MCG IVPUSH (14:20)
[2021-08-11] MEDS: Dextrose 5 % and Lactated Ring 1,000 ML 125 ML IVCONT ×2 (14:57→22:17)
[2021-08-11] MEDS: Morphine Sulfate 4 MG/ML CARTRIDGE IVPUSH ×2 (17:07)
[2021-08-11] MEDS: lamoTRIgine 100 MG TABLET PO ×2 (20:41→20:43)
[2021-08-12] VITALS (9 sets, daily range): BP systolic 138–162; BP diastolic 72–98; PULSE 60–90; RESP 16–20; TEMP 36–37.1; O2SAT 96–99
--- NOTE | 2021-08-12 | ECG_ITS ---
Test Reason : CHEST PAIN Blood Pressure : / mmHG Vent. Rate : 070 BPM Atrial Rate : 070 BPM P-R Int : 132 ms QRS Dur : 090 ms QT Int : 376 ms P-R-T Axes : 057 026 010 degrees QTc Int : 406 ms Normal sinus rhythm with sinus arrhythmia RSR' or QR pattern in V1 suggests right ventricular conduction delay Otherwise normal ECG No previous ECGs available Referred By: Lizbet Donato Electronically Signed By:GABRIELLA REGALADO MD
[2021-08-12] MEDS: Dextrose 5 % and Lactated Ring 1,000 ML 125 ML IVCONT ×2 (06:19→14:01)
[2021-08-12] MEDS: Fluticasone/Vilanterol 200/25 BLST.W.DEV 1 PUFF INHALE (07:52)
[2021-08-12] MEDS: Morphine Sulfate 4 MG/ML CARTRIDGE IVPUSH ×3 (07:58→20:19)
--- NOTE | 2021-08-12 11:15 | PM.PNGS ---
Subjective Subjective Date of Service: 08/12/21 Interval history: Has not been able to eat or drink much yet. No nausea, but appetite poor. Remains on IV fluids. Feels generally achy due to fibromyalgia. Reports good control of incisional pain. Physical Exam Vital Signs: Vital Signs: Last Vital Signs Temp 98.8 F 08/12/21 07:59 Pulse 90 08/12/21 07:59 Resp 18 08/12/21 07:59 BP 162/98 H 08/12/21 07:59 Pulse Ox 99 08/12/21 07:59 Body Mass Index 53.1 Const: Other: Alert an oriented, appears uncomfortable Resp: Effort & Inspection: normal respiratory effort Auscultation: clear to auscultation bilaterally Cardio: Rate: regular rate Rhythm: regular rhythm GI: Other: Obese, soft, dressings clean, dry and intact. Appropriate incisional tenderness. Normal bowel sounds. Skin: Other: Warm and dry General skin exam: no rashes or lesions noted Procedures Date of Service Date of Service: 08/12/21 Progress Note: A&P Assessment and plan (1) Cholecystitis, acute with cholelithiasis: Status: Acute (2) Morbid obesity: Status: Acute Assessment and Plan: Day 1 post laparoscopic cholecystectomy. She appears stable postoperatively, but has not been able to take much in by mouth. Will continue IV fluid and analgesics. Anticipate discharge either later today or more likely tomorrow. Fall Risk Details Current Medications: Current Medications Acetaminophen (Acetaminophen 325 Mg Tablet) 650 mg PO QID PRN PRN Reason: headache, temp > 101 Last Admin: 08/11/21 08:22 Dose: 650 mg Documented by: Albuterol Sulfate (Albuterol Sulfate 90 Mcg 8 Gm Inhaler) 2 puff INHALE Q4H PRN PRN Reason: Shortness Of Breath Fluticasone/Vilanterol (Fluticasone/Vilanterol 200/25 Blst.W.Dev) 1 puff INHALE RDAILY COUNTS INCLUDE 234 BEDS AT THE [facility] Last Admin: 08/12/21 07:52 Dose: 1 puff Documented by: Dextrose/Lactated Ringer's (D5lr) 1,000 mls @ 125 mls/hr IVCONT .Q8H COUNTS INCLUDE 234 BEDS AT THE [facility] Last Admin: 08/12/21 06:19 Dose: 125 mls/hr Documented by: Lamotrigine (Lamotrigine 100 Mg Tablet) 100 mg PO BID ZHANNA Last Admin: 08/11/21 20:43 Dose: 100 mg Documented by: Morphine Sulfate (Morphine Sulfate 4 Mg/Ml Cartridge) 4 mg IVPUSH Q4H PRN; Protocol PRN Reason: Pain, Severe (Pain Scale 7-10) Last Admin: 08/12/21 07:58 Dose: 4 mg Documented by: Ondansetron HCl (Ondansetron Hcl 4 Mg/2 Ml Vial) 4 mg IVPUSH Q8H PRN PRN Reason: Nausea Last Admin: 08/11/21 00:00 Dose: 4 mg Documented by: Oxycodone HCl (Oxycodone Hcl Immed Release 5 Mg Tablet) 5 mg PO Q6H PRN PRN Reason: Pain, Moderate (Pain Scale 4-6 Last Admin: 08/11/21 13:06 Dose: 5 mg Documented by: Pharmacy Consult (Consult Rx Perform Med Rec) 1 each MISCELLANE ONCE PRN PRN Reason: Consult order Zolpidem Tartrate (Zolpidem Tartrate 5 Mg Tablet) 5 mg PO BEDTIME PRN PRN Reason: Insomnia Time Spent With Patient Time: Total time spent is greater than 50% in coordination of care (as documented) at patient's floor/unit and/or counseling patient: Time with patient: less than 15 minutes Quality Stroke Does the patient have a stroke diagnosis?: No VTE Prior VTE?: No VTE Risk Level:: Surgical - moderate VTE Device Contraindication: N/A - Device Ordered VTE Drug Contraindication: Treatment Not Indicated
--- NOTE | 2021-08-12 15:20 | PM.EVENT ---
Event Note Date of Service: 08/12/21 Event Note: She reports that she has been having squeezing central chest pain on and off since this morning. No shortness of breath, cough. No pleuritic component. She also reports some neck and bilateral shoulder pain as well as groin and upper thigh pain. Appetite remains poor with intermittent nausea. bp 139/92, hr 76, R 16, O2 sat 99 She is alert and does not appear to be in any acute distress Lungs-clear to auscultation Heart-regular rate and rhythm without audible murmurs Chest-symmetrical, some mild tenderness with sternal compression EKG-no acute changes seen on my review, awaiting official reading Chest pain, etiology unclear but likely to be musculoskeletal in origin. She has a history of anxiety, which is a possible cause as well. Doubt cardiac. Pain is not reminiscent of preoperative biliary colic so doubt retained stone as source. Will check lab studies, CBC, basic metabolic profile and liver profile. Blood pressure has been elevated. Plan early follow-up with PCP.
[2021-08-12] MEDS: ondansetron HCL 4 MG/2 ML VIAL IVPUSH (15:30)
[2021-08-12 16:19] LABS: Hematocrit 38.2 % (37-47); Hemoglobin 12.8 g/dl (12.0-16.0); Mean Corpuscular HGB Conc 33.5 g/dl (31.0-35.0); Mean Corpuscular Volume 86.4 fL (80-98); Mean Platelet Volume 9.4 fL (9.4-12.3); Platelet Count 253 X10*3/uL (160-400); Red Blood Count 4.42 X10*6/uL (4.20-5.50); White Blood Count 7.8 X10*3/uL (4.8-10.8)
[2021-08-12 16:41] LABS: Alanine Aminotransferase 80 U/L (0-31); Albumin Level 4.1 g/dL (3.5-5.0); Alkaline Phosphatase 136 U/L (39-117); Anion Gap 16 (12-20); Aspartate Amino Transferase 93 U/L (5-31); Bilirubin Direct 0.5 mg/dL (0.0-0.5); Bilirubin Total 0.8 mg/dL (0.0-1.0); Blood Urea Nitrogen 6 mg/dL (9-16); Calcium 9.3 mg/dL (8.4-10.2); Carbon Dioxide 22 mmol/L (22-29); Chloride 106 mmol/L (96-108); Creatinine Clr Calc Pharmacy 141.9; Estimated Glomerular Filt Rate > 60; Glucose Random 120 mg/dL (60-115); Potassium 3.6 mmol/L (3.3-5.1); Sodium 140 mmol/L (135-145); Total Protein 6.6 g/dL (6.5-8.0)
[2021-08-12] MEDS: lamoTRIgine 100 MG TABLET PO (20:18)
[2021-08-12] MEDS: Docusate Sodium 100 MG CAPSULE PO (20:18)
[2021-08-12] MEDS: Zolpidem Tartrate 5 MG TABLET PO (22:41)
[2021-08-13] VITALS (7 sets, daily range): BP systolic 132–151; BP diastolic 70–85; PULSE 62–92; RESP 16–18; TEMP 36–36.4; O2SAT 95–97
[2021-08-13] MEDS: ondansetron HCL 4 MG/2 ML VIAL IVPUSH ×2 (00:11→10:22)
[2021-08-13] MEDS: Dextrose 5 % and Lactated Ring 1,000 ML 125 ML IVCONT ×2 (00:11→07:45)
[2021-08-13] MEDS: lamoTRIgine 100 MG TABLET PO (07:45)
[2021-08-13] MEDS: Morphine Sulfate 4 MG/ML CARTRIDGE IVPUSH ×2 (07:45→13:28)
[2021-08-13 08:02] LABS: SARS COV2 IgG Negative (Negative)
--- NOTE | 2021-08-13 08:42 | HO.POSTANES ---
Post Anesthesia Evaluation Post Anesthesia Evaluation Vital Signs: Vital Signs Temp Pulse Resp BP Pulse Ox 08/13/21 07:51 97.5 F 70 16 132/82 96 08/13/21 04:00 97.1 F 63 17 143/72 H 96 08/13/21 00:00 96.8 F 62 17 133/70 95 Anesthesia: General Endotracheal-GETA and General Mental Status: Awake Pain Control: Satisfactory Nausea/Vomiting: None Hydration: Adequate Anesthesia-Related Issues: No Anes. Related Issues
[2021-08-13] MEDS: Fluticasone/Vilanterol 200/25 BLST.W.DEV 1 PUFF INHALE (08:57)
--- NOTE | 2021-08-13 11:34 | P.PNGS_ITS ---
Subjective Subjective Date of Service: 08/13/21 Interval history: Looks well. Reports generalized achiness and intermittent nausea. Not taking much p.o. Physical Exam Vital Signs: Vital Signs: Last Vital Signs Temp 97.5 F 08/13/21 07:51 Pulse 70 08/13/21 07:51 Resp 16 08/13/21 07:51 BP 132/82 08/13/21 07:51 Pulse Ox 96 08/13/21 07:51 Body Mass Index 53.1 Laboratory Results - last 24 hr 08/10/21 08/12/21 08/12/21 17:33 16:14 16:14 WBC 7.8 RBC 4.42 Hgb 12.8 Hct 38.2 MCV 86.4 MCH 29.0 MCHC 33.5 RDW 13.0 Plt Count 253 MPV 9.4 Absolute Nucleated RBC 0.000 Nucleated RBC % (a uto) 0.0 Sodium 140 Potassium 3.6 Chloride 106 Carbon Dioxide 22 Anion Gap 16 BUN 6 L Creatinine 0.80 Estim Creat Clear Calc 141.9 Estimated GFR > 60 Random Glucose 120 H Calcium 9.3 Total Bilirubin 0.8 Direct Bilirubin 0.5 AST 93 H ALT 80 H Alkaline Phosphata se 136 H D Total Protein 6.6 Albumin 4.1 SARS-CoV-2 IgG Ab Negative Const: Other: Alert, appears comfortable Resp: Effort & Inspection: normal respiratory effort Auscultation: clear to auscultation bilaterally Cardio: Rate: regular rate Rhythm: regular rhythm Skin: Other: Normal color, warm and dry General skin exam: no rashes or lesions noted Procedures Date of Service Date of Service: 08/13/21 Progress Note: A&P Assessment and plan (1) Cholecystitis, acute with cholelithiasis: Status: Acute (2) Morbid obesity: Status: Acute Assessment and Plan: 26-year-old female now postoperative day 2 following laparoscopic cholecystectomy for acute cholecystitis. She appears well clinically, but con tinues to have difficulty with nausea. P.o. intake has not been adequate for discharge. She had an episode of chest pain yesterday, etiology unclear. Did not appear to be cardiac in origin. She reports no recurrence. Blood pressure had been elevated. Improved today. Discharge home when able to tolerate adequate p.o. Fall Risk Details Current Medications: Current Medications Acetaminophen (Acetaminophen 325 Mg Tablet) 650 mg PO QID PRN PRN Reason: headache, temp > 101 Last Admin: 08/11/21 08:22 Dose: 650 mg Documented by: Albuterol Sulfate (Albuterol Sulfate 90 Mcg 8 Gm Inhaler) 2 puff INHALE Q4H PRN PRN Reason: Shortness Of Breath Docusate Sodium (Docusate Sodium 100 Mg Capsule) 100 mg PO BID [facility] Last Admin: 08/13/21 07:45 Dose: Not Given Documented by: Fluticasone/Vilanterol (Fluticasone/Vilanterol 200/25 Blst.W.Dev) 1 puff INHALE RDAILY [facility] Last Admin: 08/13/21 08:57 Dose: 1 puff Documented by: Dextrose/Lactated Ringer's (D5lr) 1,000 mls @ 125 mls/hr IVCONT .Q8H [facility] Last Admin: 08/13/21 07:45 Dose: 125 mls/hr Documented by: Lamotrigine (Lamotrigine 100 Mg Tablet) 100 mg PO BID [facility] Last Admin: 08/13/21 07:45 Dose: 100 mg Documented by: Morphine Sulfate (Morphine Sulfate 4 Mg/Ml Cartridge) 4 mg IVPUSH Q4H PRN; Protocol PRN Reason: Pain, Severe (Pain Scale 7-10) Last Admin: 08/12/21 20:19 Dose: 4 mg Documented by: Ondansetron HCl (Ondansetron Hcl 4 Mg/2 Ml Vial) 4 mg IVPUSH Q8H PRN PRN Reason: Nausea Last Admin: 08/13/21 10:22 Dose: 4 mg Documented by: Oxycodone HCl (Oxycodone Hcl Immed Release 5 Mg Tablet) 5 mg PO Q6H PRN PRN Reason: Pain, Moderate (Pain Scale 4-6 Last Admin: 08/11/21 13:06 Dose: 5 mg Documented by: Pharmacy Consult (Consult Rx Perform Med Rec) 1 each MISCELLANE ONCE PRN PRN Reason: Consult order Zolpidem Tartrate (Zolpidem Tartrate 5 Mg Tablet) 5 mg PO BEDTIME PRN PRN Reason: Insomnia Last Admin: 08/12/21 22:41 Dose: 5 mg Documented by: Time Spent With Patient Time: Total time spent is greater than 50% in coordination of care (as documented) at patient's floor/unit and/or counseling patient: Time with patient: less than 15 minutes Quality Stroke Does the patient have a stroke diagnosis?: No VTE Prior VTE?: No VTE Risk Level:: Surgical - moderate VTE Device Contraindication: N/A - Device Ordered VTE Drug Contraindication: Treatment Not Indicated
--- NOTE | 2021-08-13 14:07 | MHC.CM.PN ---
Addendum entered by Rosaura Polk 08/13/21 14:26: PATIENT AWARE OF HER DC. SHE ASKS IF SHE IS ABLE TO DRIVE HERSELF HOME. PATIENT RECENTLY ADMINISTERED MORPHINE. AGREES TO REMAIN AT [facility] [place]IL AFTER DINNER (ORDERED) IF PATIENT IS NOT SAFE TO DRIVE SELF HOME AT THIS TIME, SHE MAY BE ABLE TO HAVE [id number] TO DRIVE HER HOME. RN AWARE OF CONVERSATION. Original Note: PATIENT IS RETURNING HOME - SELF CARE. RN AWARE. IMM 08/12 IN CHART.
--- NOTE | 2021-08-17 09:23 | P.DS_ITS ---
DS: Providers Provider Date of Service: 08/13/21 Date of admission: 08/10/21 15:47 Primary care physician: Tran Donald MD Attending physician on admission: Facundo Lugo Attending physician on discharge: Lizbet Donato DS: Diagnosis Discharge Diagnosis (1) Cholecystitis, acute with cholelithiasis: Status: Acute (2) Morbid obesity: Status: Acute DS: Summary Hospital Course Hospital Course: BRIEF HPI: Sumaya Ugarte is a 26 year old female presenting with complaints of abdominal pain in the epigastrium and right upper quadrant.? The pain is been developing over the past several weeks and increasing in severity.? Food is brought on by eating food and she notes even eating mesh potatoes is causing the pain.? She has a known history of gallstones and now feels the pain is becoming unbearable.? She denies fever, chills, but has had nausea and vomiting.? She denies changes in her bowel habits although she tends to have diarrhea.? She presented to the emergency department and was noted to have gallstones with a thickened gallbladder wall on both CT and ultrasound suggestive of acute cholecystitis.? Laboratories were normal however.? HOSPITAL COURSE: She was admitted to the surgical service for further management of acute cholecystitis. Patient had persistent pain despite IV pain medications and was requesting cholecystectomy.? Laparoscopic or possible open c holecystectomy was planned and she was added onto the operative schedule for the following day as an add on.?She expressed understanding and agreed with the plan. On 08/11/21, a laparoscopic cholecystectomy was performed by Dr. Facundo Lugo without complication. The patient tolerated the procedure well, completed routine recovery in PACU and was admitted back to the medical/surgical floor for observation. She had an uncomplicated but slow recovery course. On POD#1, she had some difficulty with nausea and poor PO intake. She was clinically appearing well with a benign abd exam, appropriate post op tenderness and clean incisions. She was continued on IVF and diet as tolerated. She later developed chest pain which was thought likely to be musculoskeletal in origin.? CBC, basic metabolic p rofile and liver profile were obtained which were WNL with the exception of a mild transaminitis and EKG showed normal sinus rhythm with sinus arrhythmia without any acute changes. The chest pain resolved. She felt better the following day however she still had persistent nausea and her PO intake wasn't adequate that morning. She was reassessed later in the day and felt improved with better PO intake of liquids and some solids. She felt ready for discharge. She was discharged to home on 08/13/21 in stable condition. She is to follow up with Dr. Lugo in office in 1 week. She also had an elevated SBP during her stay and was instructed to have an early follow up with her PCP regarding further evaluation. Status at Discharge Functional status at discharge: independent ambulation Overall status at discharge: patient is progressing back to baseline Time Spent with Patient Time attestation: Total time spent providing and/or coordinating discharge services: Discharge coordination time: Greater than 30 minutes Quality: Stroke Does the patient have a stroke diagnosis?: No Physical Exam Vital Signs: Vital Signs: Last Vital Signs Temp 97.5 F 08/13/21 15:26 Pulse 72 08/13/21 15:26 Resp 17 08/13/21 15:26 BP 144/81 H 08/13/21 15:26 Pulse Ox 95 08/13/21 15:26 Body Mass Index 53.1 DS: Data Data Completed and Pending Completed studies during hospitalization [Text1]: 08/11/21 12:12 Surgical [PTH] Routine Gallbladder, cholecystectomy: Chronic cholecystitis; cholelithiasis. Discharge Plan Discharge Patient Disposition: Home, Self-Care Discharge Diagnosis: acute cholecystitis s/p laparoscopic cholecystectomy Referrals: Tran Donald MD [Primary Care Provider] - 1 Week Facundo Lugo MD [Physician] - 1 Week Discharge Medications: New oxycodone 5 mg Tablet 5 mg PO Q6H PRN (Reason: Pain, Moderate (Pain Scale 4-6) Qty: 12 RF: 0 ondansetron 4 mg tablet,disintegrating 4 mg PO Q8H PRN (Reason: nausea and vomiting) Qty: 10 RF: 0 Continued albuterol sulfate 90 mcg/actuation HFA aerosol inhaler 2 inh inhalation Q4H PRN (Reason: Shortness Of Breath) RF: 0 lamotrigine 100 mg tablet 1 tab PO BID RF: 0 L norgest/e.estradiol-e.estrad 0.15 mg-30 mcg (84)/10 mcg (7) tablets,dose pack,3 month 1 tab PO DAILY RF: 0 Advair HFA 230-21 mcg/actuation HFA aerosol inhaler 2 puff inhalation BID RF: 0 Discharge Orders: Discharge Order (Routine); Ordered 08/13/21 Ordered By: Lizbet Donato Diet: low fat, low cholesterol Activity on Discharge: No heavy lifting Stand Alone Forms: Patient Portal Discharge page Activity Restrictions/Additional Instructions: If the incision area is tender, you may apply an ice pack for short intervals (No more than 20 minutes on, followed by at least 20 minutes off). Do not apply heat. Do not use creams, lotions, or topical antibiotics unless instructed to do so by your surgeon. These can cause infection or allergic reaction. Ok to shower. Remove clear dressings 3 days following your procedure. You have steri strips (small white cloth strips) covering your incision- these will fall off ~1 week. No heavy lifting (>10lbs)! Follow up in office with Dr. Lugo in 1 week. ([phone]) Call Your Doctor If: -Your temperature exceeds 101.5? F -You experience excessive pain or swelling -You have an unexpected reaction to medication -You have excessive bleeding -You experience continued vomiting/nausea -Your incision begins to separate -Your incision shows signs of infection such as increased redness, swelling, excessive pain, drainage (light blood or clear fluid is normal) or heat Care Plan Goals: Return to baseline health and gradual return to activity following recovery period. Health Concerns: acute cholecystitis, s/p laparoscopic cholecystectomy Plan of Treatment: Discharge to home, f/u in office Assessment: Doing well post op. Discharge Date/Time: 08/13/21 17:04
== END 2021-08-13 17:04 | disposition home or self-care (01) | DRG 418 ==
LOC: HO.ED 13:51 → HO.EDOVER 16:14 → HO.S3 08-11 14:14
PROVIDERS: Surgery; Admitting Provider Surgery; Emergency Provider Emergency Medicine Emergency Medical Services; PCP Internal Medicine; Visit Provider Surgery
PROC: 0FT44ZZ Resection of Gallbladder, Percutaneous Endoscopic Approach (ICD-10-PCS; CPT 47562; principal; 2021-08-11 10:30)
DX: K80.00 Calculus of gallbladder with acute cholecystitis without obstruction (principal); Z68.43 Body mass index [BMI] 50.0-59.9, adult; E66.01 Morbid (severe) obesity due to excess calories; Z20.822 Contact with and (suspected) exposure to COVID-19; Z79.3 Long term (current) use of hormonal contraceptives; Z79.899 Other long term (current) drug therapy
CPT/HCPCS: 36415; 74177; 76705; 80048; 80076; 81001; 81025; 83690; 85025; 85027; 86769; 87635; 88304; 93005; 96361; 96365; 96375; 99024; 99285; J0696; J1100; J1170; J1885; J2250; J2270; J2405; J2543; J2550; J2765; J3010; Q9967

== ENCOUNTER 2021-09-18 11:49 | Emergency (ER) | payer OTHER, SELFPAY ==
--- NOTE | ~2021-09-18 | CT_ITS ---
EXAMINATION: CT ABDOMEN AND PELVIS WITH CONTRAST CLINICAL INFORMATION: Abdominal pain and vomiting post gallbladder removal COMPARISON: CT abdomen pelvis 08/10/2021 TECHNIQUE: Multidetector volumetric images were obtained from the superior aspect of the liver through the pubic symphysis following administration 85 mL of Omnipaque 350 intravenous contrast. Sagittal and coronal reformatted images were obtained on the technologist's workstation. Oral contrast: No This CT examination was performed using dose optimization techniques as appropriate, variously including the following: *Automated exposure control *Adjustment of mA and/or kV according to patient size (this includes techniques or standardized protocols for targeted exams where dose is matched to indication/reason for exam; i.e. extremities or head) *Use of iterative reconstruction technique DLP: 1179 mGy-cm FINDINGS: LUNG BASES: The visualized lung bases are unremarkable. LIVER, GALLBLADDER, AND BILIARY TREE: The liver is mildly enlarged at 19 cm but normal in shape and attenuation. No focal hepatic lesion or biliary ductal dilatation is present. Interval cholecystectomy without fluid collection in the gallbladder bed. Tiny amount of subdiaphragmatic fluid around the liver has decreased when compared to the prior study. PANCREAS: Unremarkable. SPLEEN: Unremarkable. ADRENAL GLANDS: Unremarkable. KIDNEYS AND URETERS: The kidneys are normal in size, shape, and attenuation. No hydronephrosis, hydroureter, or calculi seen. No perinephric stranding. BLADDER: Unremarkable. GASTROINTESTINAL TRACT: The small and large bowel are unremarkable aside from colonic diverticula without diverticulitis.. The appendix is none seen but there is no evidence of appendicitis.. ABDOMINAL WALL: No significant hernia is appreciated. There is a small periumbilical hernia seen containing only fat. LYMPH NODES: No retroperitoneal lymphadenopathy. VASCULAR: Unremarkable. PELVIC VISCERA: Normal anteverted uterus. An abnormal adnexal mass is not seen. No free intraperitoneal fluid or air is present. OSSEOUS STRUCTURES: Unremarkable. CT/CT abdomen pelvis w con IMPRESSION: Status post cholecystectomy. No postop complication to account for abdominal pain and nausea. Fleischner guidelines were followed.
[2021-09-18 13:04] VITALS: BP 175/100; PULSE 101; RESP 20; TEMP 36.6; O2SAT 98; BMI 49.6
--- NOTE | 2021-09-18 14:00 | ED_ITS ---
HPI - Nausea/Vomiting/Diarrhea General Chief complaint: Abdominal Pain Stated complaint: Vomiting/abd pain Time Seen by Provider: 09/18/21 13:51 Source: patient Mode of arrival: ambulatory Limitations: no limitations History of Present Illness MD elicited complaint: nausea, vomiting and abdominal pain Pertinent past history: other (hx of same in past thought her GB surgery in july would fix it but she still has symptoms) Onset (ago): week(s) (2) Description of vomiting: food contents and watery Associated nausea: Yes Associated abdominal pain: Yes Location of pain: epigastric Pain consistency: constant Severity: moderate Quality: stabbing Exacerbating factors: eating Relieving factors: none Context: recent surgery/procedure and history of abdominal surgery Associated symptoms: loss of appetite and nausea/vomiting Related Data Home Medications Medication Instructions Recorded Confirmed L norgest/E estradiol-E estrad 1 tab PO DAILY 08/10/21 08/10/21 0.15 mg-30 mcg (84)/10 mcg(7) tabs,3mos albuterol sulfate 90 mcg/actuation 2 inh INHALATION Q4H PRN 08/10/21 08/10/21 aerosol inhaler fluticasone propionate 230 2 puff INHALATION BID 08/10/21 08/10/21 mcg-salmeterol 21 mcg/actuation HFA inhaler (Advair HFA) lamotrigine 100 mg tablet 1 tab PO BID 08/10/21 08/10/21 Previous Rx's Medication Instructions Recorded ondansetron 4 mg disintegrating 4 mg PO Q8H PRN #10 tab 08/13/21 tablet oxycodone 5 mg tablet 5 mg PO Q6H PRN #12 tab 08/13/21 Allergies Allergy/AdvReac Type Severity Reaction Status Date / Time carboprost [From Hemabate] Allergy Severe Anaphylaxis Verified 08/11/21 10:53 ENVIRONMENTAL Allergy Mild HIVES, Uncoded 07/14/20 19:06 ITCH EYES, REDNESS Review of Systems Review of Systems: Constitutional : No Weight loss, No Fever, No Chills ENT/Mouth : No sore throat, No Rhinorrhea Eyes: No Swelling, No Redness Cardiovascular : No Chest Pain, No SOB, NoEdema Respiratory : No Cough, No Sputum, No Wheezing Gastrointestinal : Positive Nausea, pos Vomiting, no Diarrhea, positive abdominal Pain, No Hematochezia, No Melena Genitourinary : No Dysuria, No Urinary Frequency, No Hematuria, No Urgency Musculoskeletal : No joint pain, No Myalgias, No Joint Swelling Skin : No Skin Lesions, No rash Neuro : No Weakness, No Numbness, No Dizziness, No Headache Psych : No Anxiety/Panic, No Depression Heme/Lymph: No Bruising, No Lymphadenopathy Endocrine : No Polyuria, No Polydipsia All other systems reviewed and are negative. Gastrointestinal: Gastrointestinal: Reports nausea PMFSH Past Medical History Attestation statement: The following information was validated with the patient. Medical History Anxiety Asthma delivery delivered Cholecystitis Fibromyalgia IBS (irritable bowel syndrome) Surgical History H/O: History of appendectomy Social History Social History Alcohol intake: unknown Patient Tobacco Use Status: Never used Tobacco Advance Directives: No Advance Directives Information Provided: No Patient : No service: No Current occupational status: unemployed Physical Exam Vital Signs: Vital Signs: Last Vital Signs Temp 97.8 F 09/18/21 13:04 Pulse 101 H 09/18/21 13:04 Resp 20 09/18/21 13:04 BP 175/100 H 09/18/21 13:04 Pulse Ox 98 09/18/21 13:04 Body Mass Index 49.6 Appearance: Alert. Oriented X3. No acute distress. Eyes: Pupils equal, round and reactive to light. ENT: Pharynx normal. Neck: Normal inspection. Neck supple. CVS: Normal heart rate and rhythm. Pulses normal. Respiratory: No respiratory distress. Breath sounds normal. Abdomen: Soft and moderate epigastric ttp Skin: Skin warm and dry. Normal skin color. Normal skin turgor. Extremities: No lower extremity edema. No calf ttp Neuro: Oriented X 3. No motor deficit. No sensory deficit. Course Course Course Narrative: signed out to Nikkie REES pending further workup MDM - Nausea/Vomiting/Diarrhea MDM Narrative Medical decision making narrative: 26 yo female here with c/o n/v and upper abdominal pain which were the symptoms she was having prior to cholecystectomy at this time will obtain labs, hydrate, anti-emetics. CT scan for obstructi on/biloma. The patient will need workup including gastric emptying study along with h pylori testing which she can do through her GI or PCP if today's workup is negative. Lab Data Result diagrams: 09/18/21 14:20 09/18/21 14:20 Labs: Lab Results 09/18/21 09/18/21 Range/Units 14:20 14:20 WBC 10.0 (4.8-10.8) X10*3/uL RBC 4.73 (4.20-5.50) X10*6/uL Hgb 13.5 (12.0-16.0) g/dl Hct 40.8 (37.0-47.0) % MCV 86.3 (80.0-98.0) fL MCH 28.5 (27.0-33.0) pg MCHC 33.1 (31.0-35.0) g/dl RDW 12.3 (11.0-16.0) % Plt Count 320 (160-400) X10*3/uL MPV 9.4 (9.4-12.3) fL Immature Gran % (Auto) 0.2 (0.0-0.4) % Neut % (Auto) 77.6 H (45-73) % Lymph % (Auto) 15.9 L (20-40) % [place] % (Auto) 5.5 (2-11) % Eos % (Auto) 0.4 (0-4) % Baso % (Auto) 0.4 (0-2) % Lymph # (Auto) 1.6 (1.2-4.9) X10*3/uL [place] # (Auto) 0.6 (0.1-1.2) X10*3/uL Eos # (Auto) 0.0 (0.0-0.4) X10*3/uL Baso # (Auto) 0.0 (0.0-0.2) X10*3/uL Abs Immat Gran (auto) 0.02 (0.00-0.03) X10*3/uL Absolute Neuts (auto) 7.8 (2.0-8.3) x10*3/uL Absolute Nucleated RBC 0.000 (0.0-0.012) X10*3/uL Nucleated RBC % (auto) 0.0 (0.0-0.2) /100WBC Sodium 139 (135-145) mmol/L Potassium 4.1 (3.3-5.1) mmol/L Chloride 105 (96-108) mmol/L Carbon Dioxide 22 (22-29) mmol/L Anion Gap 16 (12-20) BUN 8 L (9-16) mg/dL Creatinine 0.83 (0.5-1.4) mg/dL Estim Creat Clear Calc 131.0 Estimated GFR > 60 Random Glucose 91 (60-115) mg/dL Calcium 9.7 (8.4-10.2) mg/dL Magnesium 2.0 (1.6-2.6) mg/dL Total Bilirubin 0.5 (0.0-1.0) mg/dL Direct Bilirubin 0.2 (0.0-0.5) mg/dL AST 18 D (5-31) U/L ALT 19 (0-31) U/L Alkaline Phosphatase 83 D (39-117) U/L Total Protein 7.4 (6.5-8.0) g/dL Albumin 4.7 (3.5-5.0) g/dL Lipase 5 L (8-78) U/L Discharge Plan Discharge Clinical Impression: Abdominal pain Qualifiers: Abdominal location: epigastric Qualified Code(s): R10.13 - Epigastric pain Vomiting Qualifiers: Vomiting type: unspecified Vomiting Intractability: non-intractable Nausea presence: with nausea Qualified Code(s): R11.2 - Nausea with vomiting, unspecified Instructions: Acute Nausea and Vomiting (ED), Acute Abdominal Pain (ED) Prescriptions: No Action albuterol sulfate 90 mcg/actuation HFA aerosol inhaler 2 inh inhalation Q4H PRN (Reason: Shortness Of Breath) RF: 0 lamotrigine 100 mg tablet 1 tab PO BID RF: 0 L norgest/e.estradiol-e.estrad 0.15 mg-30 mcg (84)/10 mcg (7) tablets,dose pack,3 month 1 tab PO DAILY RF: 0 Advair HFA 230-21 mcg/actuation HFA aerosol inhaler 2 puff inhalation BID RF: 0 oxycodone 5 mg Tablet 5 mg PO Q6H PRN (Reason: Pain, Moderate (Pain Scale 4-6) Qty: 12 RF: 0 ondansetron 4 mg tablet,disintegrating 4 mg PO Q8H PRN (Reason: nausea and vomiting) Qty: 10 RF: 0
[2021-09-18 14:23] LABS: MANUAL DIFF FLAG NO
[2021-09-18 14:26] LABS: Basophils Percent Auto 0.4 % (0-2); Eosinophils Percent Auto 0.4 % (0-4); Hematocrit 40.8 % (37.0-47.0); Hemoglobin 13.5 g/dl (12.0-16.0); Imm Gran Abs Auto 0.02 X10*3/uL (0.00-0.03); Imm Gran Pct Auto 0.2 % (0.0-0.4); Lymphocytes Absolute Auto 1.6 X10*3/uL (1.2-4.9); Lymphocytes Percent Auto 15.9 % (20-40); Mean Corpuscular HGB Conc 33.1 g/dl (31.0-35.0); Mean Corpuscular Hemoglobin 28.5 pg (27.0-33.0); Mean Corpuscular Volume 86.3 fL (80.0-98.0); Mean Platelet Volume 9.4 fL (9.4-12.3); Monocytes Absolute Auto 0.6 X10*3/uL (0.1-1.2); Monocytes Percent Auto 5.5 % (2-11); Neutrophils Absolute Auto 7.8 x10*3/uL (2.0-8.3); Neutrophils Percent Auto 77.6 % (45-73); Platelet Count 320 X10*3/uL (160-400); Red Blood Count 4.73 X10*6/uL (4.20-5.50); Red Cell Distribution Width 12.3 % (11.0-16.0)
[2021-09-18] MEDS: 0.9 % Sodium Chloride 1,000 ML 999 ML IVCONT (14:28)
[2021-09-18] MEDS: diphenhydrAMINE HCL 50 MG/ML VIAL 25 MG IVPUSH (14:29)
[2021-09-18] MEDS: Famotidine/PF 20 MG/2 ML VIAL IVPUSH (14:29)
[2021-09-18] MEDS: Prochlorperazine Edisylate 10 MG/2 ML VIAL IVPUSH (14:29)
[2021-09-18 14:50] LABS: Alanine Aminotransferase 19 U/L (0-31); Albumin Level 4.7 g/dL (3.5-5.0); Alkaline Phosphatase 83 U/L (39-117); Anion Gap 16 (12-20); Aspartate Amino Transferase 18 U/L (5-31); Bilirubin Direct 0.2 mg/dL (0.0-0.5); Bilirubin Total 0.5 mg/dL (0.0-1.0); Blood Urea Nitrogen 8 mg/dL (9-16); Calcium 9.7 mg/dL (8.4-10.2); Carbon Dioxide 22 mmol/L (22-29); Chloride 105 mmol/L (96-108); Estimated Glomerular Filt Rate > 60; Glucose Random 91 mg/dL (60-115); Lipase 5 U/L (8-78); Potassium 4.1 mmol/L (3.3-5.1); Sodium 139 mmol/L (135-145); Total Protein 7.4 g/dL (6.5-8.0)
[2021-09-18 16:46] LABS: HCG Quantitative < 2 mIU/mL
[2021-09-18] MEDS: iohexoL 350 MG/ML 100 ML INFUS..BTL IV (17:05)
[2021-09-18 17:41] VITALS: BP 121/62; PULSE 63; RESP 15; TEMP 36.1; O2SAT 97
== END 2021-09-18 18:52 | disposition home or self-care (01) ==
PROVIDERS: Emergency Provider Emergency Medicine; PCP Internal Medicine
DX: R10.13 Epigastric pain (principal); R11.2 Nausea with vomiting, unspecified; E66.01 Morbid (severe) obesity due to excess calories
CPT/HCPCS: 36415; 74177; 80048; 80076; 83690; 83735; 84702; 85025; 96361; 96374; 96375; 99284; J1200; Q9967

== ENCOUNTER 2022-01-16 10:21 | Outpatient (REF) | payer OTHER, SELFPAY ==
[2022-01-16 11:33] LABS: MANUAL DIFF FLAG NO
[2022-01-16 11:44] LABS: Basophils Percent Auto 0.4 % (0-2); Eosinophils Absolute Auto 0.2 X10*3/uL (0.0-0.4); Eosinophils Percent Auto 2.6 % (0-4); Hematocrit 41.7 % (37.0-47.0); Hemoglobin 13.5 g/dl (12.0-16.0); Imm Gran Abs Auto 0.04 X10*3/uL (0.00-0.03); Imm Gran Pct Auto 0.5 % (0.0-0.4); Lymphocytes Absolute Auto 1.4 X10*3/uL (1.2-4.9); Lymphocytes Percent Auto 17.4 % (20-40); Mean Corpuscular HGB Conc 32.4 g/dl (31.0-35.0); Mean Corpuscular Hemoglobin 28.4 pg (27.0-33.0); Mean Corpuscular Volume 87.8 fL (80.0-98.0); Mean Platelet Volume 9.7 fL (9.4-12.3); Monocytes Absolute Auto 0.5 X10*3/uL (0.1-1.2); Monocytes Percent Auto 5.8 % (2-11); Neutrophils Percent Auto 73.3 % (45-73); Platelet Count 302 X10*3/uL (160-400); Red Blood Count 4.75 X10*6/uL (4.20-5.50); Red Cell Distribution Width 12.9 % (11.0-16.0); White Blood Count 8.2 X10*3/uL (4.8-10.8)
[2022-01-16 12:10] LABS: TSH reflex Free T4 0.83 uIU/mL (0.32-4.0)
[2022-01-16 12:21] LABS: Alanine Aminotransferase 32 U/L (0-31); Albumin Level 4.4 g/dL (3.5-5.0); Alkaline Phosphatase 99 U/L (39-117); Anion Gap 14 (12-20); Aspartate Amino Transferase 22 U/L (5-31); Bilirubin Total 0.4 mg/dL (0.0-1.0); Blood Urea Nitrogen 14 mg/dL (9-16); Calcium 9.8 mg/dL (8.4-10.2); Carbon Dioxide 24 mmol/L (22-29); Chloride 106 mmol/L (96-108); Cholesterol 224 mg/dL; Estimated Glomerular Filt Rate > 60; Glucose Fasting 93 mg/dL (60-99); HDL Cholesterol 64 mg/dL; LDL Cholesterol Calculated 137 mg/dl; Potassium 4.5 mmol/L (3.3-5.1); Sodium 139 mmol/L (135-145); Total Protein 7.1 g/dL (6.5-8.0); Triglycerides 118 mg/dL
== END 2022-01-16 10:22 | disposition home or self-care (01) ==
LOC: HO.HMGCLDS 10:21
PROVIDERS: Visit Provider Nurse Practitioner Family
DX: I10 Essential (primary) hypertension (principal); J45.909 Unspecified asthma, uncomplicated; E78.00 Pure hypercholesterolemia, unspecified; Z91.09 Other allergy status, other than to drugs and biological substances
CPT/HCPCS: 36415; 80053; 80061; 84443; 85025

== ENCOUNTER 2022-04-05 09:35 | Outpatient (REF) | payer OTHER, SELFPAY ==
--- NOTE | ~2022-04-05 | XR_ITS ---
EXAMINATION: XR LUMBOSACRAL SPINE CLINICAL INFORMATION: Low back pain COMPARISON: None TECHNIQUE: Three views of the lumbosacral spine. FINDINGS: The vertebral bodies and posterior elements are normal. The disc spaces are preserved and the vertebral alignment is normal. The paraspinal soft tissues are normal. XR/XR lumbar spine 2-3V IMPRESSION: Unremarkable examination.
== END 2022-04-05 09:36 | disposition home or self-care (01) ==
LOC: HO.XRAY 09:35
PROVIDERS: PCP Nurse Practitioner Family; Visit Provider Nurse Practitioner Family
DX: M54.50 Low back pain, unspecified (principal)
CPT/HCPCS: 72100

== ENCOUNTER 2022-07-14 17:09 | Emergency (ER) | payer OTHER, SELFPAY ==
--- NOTE | ~2022-07-14 | CT_ITS ---
EXAMINATION: CT HEAD WITHOUT CONTRAST CLINICAL INFORMATION: New onset hypertension, headache. COMPARISON: None TECHNIQUE: Contiguous axial imaging was performed from the skull base to vertex without intravenous administration of contrast. This CT examination was performed using dose optimization techniques as appropriate, variously including the following: *Automated exposure control *Adjustment of mA and/or kV according to patient size (this includes techniques or standardized protocols for targeted exams where dose is matched to indication/reason for exam; i.e. extremities or head) *Use of iterative reconstruction technique DLP: 640 mGy-cm FINDINGS: There is no acute intra-axial, extra-axial bleed, masses or midline shift. Both lateral ventricles are symmetrical in size and configuration without enlargement. Bone windows reveal no calvarial abnormality no scalp abnormality seen. Bilateral paranasal sinuses and mastoid air cells are well-aerated. CT/CT head/brain wo IV con IMPRESSION: No acute intracranial process seen.
[2022-07-14 17:12] VITALS: BP 192/135; PULSE 125; RESP 16; TEMP 36.4; O2SAT 96; BMI 52.2
--- NOTE | 2022-07-14 18:15 | ECG_ITS ---
Test Reason : HYPERTENSION Blood Pressure : / mmHG Vent. Rate : 094 BPM Atrial Rate : 094 BPM P-R Int : 128 ms QRS Dur : 086 ms QT Int : 350 ms P-R-T Axes : 053 038 018 degrees QTc Int : 437 ms Normal sinus rhythm Normal ECG When compared with ECG of 12-AUG-2021 14:59, No significant change was found Referred By: Sarthak Shaw Electronically Signed By:LINDY SUTTON
[2022-07-14] MEDS: LORazepam 1 MG TABLET 2 MG PO (18:23)
[2022-07-14 18:30] LABS: MANUAL DIFF FLAG NO
[2022-07-14 18:32] LABS: Basophils Percent Auto 0.5 % (0-2); Eosinophils Absolute Auto 0.2 X10*3/uL (0.0-0.4); Eosinophils Percent Auto 2.1 % (0-4); Hematocrit 39.3 % (37.0-47.0); Hemoglobin 13.1 g/dl (12.0-16.0); Imm Gran Abs Auto 0.02 X10*3/uL (0.00-0.03); Imm Gran Pct Auto 0.2 % (0.0-0.4); Lymphocytes Percent Auto 22.5 % (20-40); Mean Corpuscular HGB Conc 33.3 g/dl (31.0-35.0); Mean Corpuscular Volume 86.9 fL (80.0-98.0); Mean Platelet Volume 9.2 fL (9.4-12.3); Monocytes Absolute Auto 0.6 X10*3/uL (0.1-1.2); Monocytes Percent Auto 7.3 % (2-11); Neutrophils Absolute Auto 5.9 x10*3/uL (2.0-8.3); Neutrophils Percent Auto 67.4 % (45-73); Platelet Count 290 X10*3/uL (160-400); Red Blood Count 4.52 X10*6/uL (4.20-5.50); Red Cell Distribution Width 12.4 % (11.0-16.0); White Blood Count 8.7 X10*3/uL (4.8-10.8)
[2022-07-14 18:46] VITALS: BP 141/84
[2022-07-14 18:48] LABS: Alanine Aminotransferase 44 U/L (0-31); Albumin Level 4.2 g/dL (3.5-5.0); Alkaline Phosphatase 116 U/L (39-117); Anion Gap 14 (12-20); Aspartate Amino Transferase 24 U/L (5-31); Bilirubin Total 0.3 mg/dL (0.0-1.0); Blood Urea Nitrogen 17 mg/dL (9-16); Calcium 9.3 mg/dL (8.4-10.2); Carbon Dioxide 25 mmol/L (22-29); Chloride 105 mmol/L (96-108); Creatinine Clr Calc Pharmacy 135.7; Estimated Glomerular Filt Rate > 60; Glucose Random 99 mg/dL (60-115); Lipase 10 U/L (8-78); Potassium 4.2 mmol/L (3.3-5.1); Sodium 140 mmol/L (135-145); Total Protein 6.7 g/dL (6.5-8.0)
[2022-07-14 20:31] LABS: Appearance Urine Cloudy; Color Urine Yellow; Glucose Urine UA Negative (Negative); Leukocyte Esterase Urine Trace (Negative); Nitrite Urine Negative (Negative); PH 7.5 (5.0-9.0); Specific Gravity - Urine 1.025 (1.005-1.025); UMIC TRIGGER UACC YES; Urine Blood Moderate (2+) (Negative); Urine Ketones Trace mg/dL (Negative); Urine Protein Trace mg/dL (Neg-Trace)
--- NOTE | 2022-07-14 20:32 | ED_ITS ---
HPI - General Adult General Chief complaint: Altered Mental Status Stated complaint: elevated blood pressure,headache Time Seen by Provider: 07/14/22 17:50 Source: patient Mode of arrival: ambulatory Limitations: no limitations History of Present Illness HPI narrative: 27-year-old female who presents emergency department for evaluation of headache and high blood pressure. Patient states that earlier in the day she had a ?weird ? sensation in her head. She describes the sensation as ?a strange pressure-like feeling ?. She states that she does have a history of headaches but this felt different than her normal headaches. The patient states that she takes her blood pressure every morning since past she had high blood pressure when she was on control pills but this resolved after stopping her control pill. She states that her blood pressure was 180/100 which was high for her. She states she then took multiple blood pressures throughout the day which continued to be high. This made her very concerned so she came to the emergency department for evaluation. At the time my evaluation she states that she has a foggy feeling in her brain but denied pressure or pain. She denied fever, ch ills, rhinorrhea, sore throat, cough. She states that she has nausea vomiting and diarrhea daily and this is secondary to her IBS. She states she does have anxiety and agoraphobia. Related Data Home Medications Medication Instructions Recorded Confirmed albuterol sulfate 90 mcg/actuation 2 inh inhalation Q4H PRN Shortness 08/10/21 04/05/22 aerosol inhaler Of Breath cetirizine 10 mg tablet 10 mg PO DAILY 01/15/22 04/05/22 bupropion HCl 300 mg 24 hr tablet, 300 mg PO DAILY PRN 05/05/22 extended release Previous Rx's Medication Instructions Recorded fluticasone propionate 230 2 puff inhalation BID #12 grams 01/15/22 mcg-salmeterol 21 mcg/actuation HFA inhaler (Advair HFA) sodium chloride 0.65 % nasal spray 1 spray intranasal BID PRN dry 01/15/22 aerosol (Saline Nasal) nasal passages #44 mL acetaminophen 500 mg tablet 500 - 1,000 mg PO Q6H PRN pain #30 04/05/22 tabs tizanidine 2 mg tablet 2 - 4 mg PO BEDTIME PRN muscle 05/03/22 spasticity #20 tabs ketorolac 10 mg tablet 10 mg PO ONCE pain 7 days #7 tabs 05/05/22 fluticasone propionate 50 2 spray intranasal DAILY PRN for 05/11/22 mcg/actuation nasal allergies #16 mL spray,suspension Allergies Allergy/AdvReac Type Severity Reaction Status Date / Time carboprost [From Hemabate] Allergy Severe Anaphylaxis Verified 05/05/22 09:28 gluten Allergy Mild celiac Verified 05/05/22 09:28 disease ENVIRONMENTAL Allergy Mild HIVES, Uncoded 05/05/22 09:28 ITCH EYES, REDNESS Review of Systems Review of Systems: Yes all other systems are reviewed and are negative [facility] Past Medical History [facility] Narrative: Past medical history: Reviewed below, she also has Chronic lower back pain, agoraphobia. Past surgical history: Reviewed below. Social history: She denies tobacco and alcohol use. She states she smokes marijuana once or twice a week. Medical History Anxiety Asthma delivery delivered Cholecystitis Fibromyalgia IBS (irritable bowel syndrome) Surgical History H/O: History of appendectomy History of cholecystectomy Family History Family History Mother Arthritis Substance use disorder Father HTN (hypertension) Substance use disorder Maternal Grandmother Cancer Other Mental health disorder Social History Social History Housing: House Alcohol intake: never Patient Tobacco Use Status: Former Tobacco user e-Cigarette/Vaping Use: Never Used Second Hand Smoke Exposure: No Advance Directives: No Advance Directives Information Provided: No service: No Current occupational status: unemployed Cognitive needs: No Hearing needs: No Vision needs: Yes (glasses) Physical Exam ED Vital Signs: Vital Signs - 24 hr 07/14/22 17:12 07/14/22 18:46 Temperature 97.5 F Pulse Rate 125 H Respiratory Rate 16 Blood Pressure 192/135 H 141/84 H Pulse Oximetry 96 Oxygen Delivery Method Room Air BMI result Body Mass Index 52.2 Const General: cooperative and no acute distress Orientation/consciousness: oriented to person and oriented to place Limitations: no limitations HENMT Head: Yes normal to inspection, Yes normocephalic and Yes atraumatic Ears: external ears normal General nose exam: Normal external nose present Face and sinus: Yes normal facial exam Mouth: Normal oral and palatal mucosa present Throat: Yes posterior oropharynx normal Eyes General: appearance normal, both eyes and all related structures Pupils: Equal, round and reactive pupils present Neck Neck: Yes normal visual inspection, Yes no lymphadenopathy, Yes trachea midline and Yes supple Chest Chest palpation & inspection: normal inspection of the chest and normal palpation of entire chest wall Resp Effort & Inspection: normal respiratory effort and able to speak in complete sentences Auscultation: clear to auscultation bilaterally Cardio Rate: regular rate Rhythm: regular rhythm Heart sounds: S1 normal heart sound present, S2 normal heart sound present and no murmurs GI Inspection: Yes normal to inspection Palpation (GI): Soft to palpation, nontender and no guarding Auscultation: normal bowel sounds General: Yes no CVA tenderness Back/Spine/Pelvis Back: no CVA tenderness Skin General skin exam: no rashes or lesions noted Neuro General: oriented to person and oriented to place Cranial nerves: Yes CN's II-XII intact bilaterally and Yes Equal, round and reactive pupils present Cognition (Neuro): normal cognition Motor exam (neuro): 5/5 motor strength present throughout Extrem General: Yes normal to inspection Psych Appearance: grossly normal Speech and movement: Normal speech and movement present Affect: normal affect Attitude: cooperative Thought process: Normal thought process present Thought content: Normal thought content present Course Course Course Narrative: 27-year-old female who presents emergency department for evaluation of headache and elevated blood pressure. The patient had a history in the past of elevated blood pressure which was felt to be secondary to her control pills which she has since discontinued and now has normal blood pressure . She did take blood pressures throughout the day which were elevated this concerned her causing her to come to the emergency department. The patient's initial blood pressure was elevated at 192/135 with an elevated pulse of 125.. Patient's exam was otherwise unremarkable with a normal neurologic exam. The the the patient was treated with Ativan 2 mg orally and repeat blood pressure is improved to 141/84 but her pulse remains elevated. I did order laboratory evaluation to include CBC, CMP, CK, lipase, urinalysis. [address] scan was also ordered. 2038: Laboratory evaluation: CBC was normal. CMP was unremarkable. CK was only slightly elevated at 189. Urinalysis revealed 2+ blood, trace leukocyte esterase 2113: Radiology evaluation: CT scan of the brain was interpreted by the radiologist has ?no acute intracranial process seen ?. The patient is feeling better after being treated with Ativan orally. The patient's symptoms are most likely secondary to anxiety and I did discuss this with the patient. The patient was discharged home with printed and verbal instructions. Medical Decision Making Medical Records Medical records reviewed: Yes I reviewed the patient's medical records. Lab Data Lab results reviewed: Yes I reviewed the patient's lab results. Result diagrams: 07/14/22 18:23 07/14/22 18:23 Labs: Lab Results 07/14/22 07/14/22 07/14/22 Range/Units 18:23 18:23 20:13 WBC 8.7 (4.8-10.8) X10*3/uL RBC 4.52 (4.20-5.50) X10*6/uL Hgb 13.1 (12.0-16.0) g/dl Hct 39.3 (37.0-47.0) % MCV 86.9 (80.0-98.0) fL MCH 29.0 (27.0-33.0) pg MCHC 33.3 (31.0-35.0) g/dl RDW 12.4 (11.0-16.0) % Plt Count 290 (160-400) X10*3/uL MPV 9.2 L (9.4-12.3) fL Immature Gran % (Auto) 0.2 (0.0-0.4) % Neut % (Auto) 67.4 (45-73) % Lymph % (Auto) 22.5 (20-40) % [place] % (Auto) 7.3 (2-11) % Eos % (Auto) 2.1 (0-4) % Baso % (Auto) 0.5 (0-2) % Lymph # (Auto) 2.0 (1.2-4.9) X10*3/uL [place] # (Auto) 0.6 (0.1-1.2) X10*3/uL Eos # (Auto) 0.2 (0.0-0.4) X10*3/uL Baso # (Auto) 0.0 (0.0-0.2) X10*3/uL Abs Immat Gran (auto) 0.02 (0.00-0.03) X10*3/uL Absolute Neuts (auto) 5.9 (2.0-8.3) x10*3/uL Absolute Nucleated RBC 0.000 (0.0-0.012) X10*3/uL Nucleated RBC % (auto) 0.0 (0.0-0.2) /100WBC Sodium 140 (135-145) mmol/L Potassium 4.2 (3.3-5.1) mmol/L Chloride 105 (96-108) mmol/L Carbon Dioxide 25 (22-29) mmol/L Anion Gap 14 (12-20) BUN 17 H (9-16) mg/dL Creatinine 0.82 (0.5-1.4) mg/dL Estim Creat Clear Calc 135.7 Estimated GFR > 60 Random Glucose 99 (60-115) mg/dL Calcium 9.3 (8.4-10.2) mg/dL Total Bilirubin 0.3 (0.0-1.0) mg/dL AST 24 (5-31) U/L ALT 44 H (0-31) U/L Alkaline Phosphatase 116 (39-117) U/L Total Creatine Kinase 189 H (26-140) U/L Total Protein 6.7 (6.5-8.0) g/dL Albumin 4.2 (3.5-5.0) g/dL Lipase 10 (8-78) U/L Urine Color Yellow Urine Appearance Cloudy Urine pH 7.5 (5.0-9.0) Ur Specific [place] 1.025 (1.005-1.025) Urine Protein Trace (Neg-Trace) mg/dL Urine Glucose (UA) Negative (Negative) mg/dL Urine Ketones Trace (Negative) mg/dL Urine Blood Moderate (2+) H (Negative) Urine Nitrite Negative (Negative) Ur Leukocyte Esterase Trace H (Negative) ECG Data Attestation: I personally reviewed and interpreted this ECG as follows: Interpretation: 2002: Normal sinus rhythm with a rate of 94, normal TN interval, QRS duration QTC interval, inverted T-wave in lead 3 and V1, no ST segment elevation, no ST s egment depression, no PACs, no PVCs, this is a normal EKG. Discharge Plan Discharge Clinical Impression: Headache, Anxiety Patient Disposition: Home, Self-Care Additional Instructions: Your laboratory evaluation was unremarkable. Your EKG was normal. The CT scan of your brain was normal as well. This is very reassuring, at this time, I suspect that your blood pressure was high secondary to anxiety and also probably triggered by your headache. Take ibuprofen 200 mg pills, 3 pills every 6 hours as needed for pain. Take Tylenol (acetaminophen) 500 mg pills, 2 pills every 4 to 6 hours as needed for pain. Follow-up with your doctor in 2 days. Please return to the emergency department if your symptoms get worse or if you develop any symptoms that are concerning to you. Prescriptions: No Action tizanidine 2 mg tablet 2 - 4 mg PO BEDTIME PRN (Reason: muscle spasticity) Qty: 20 0RF fluticasone propionate 50 mcg/actuation spray,suspension 2 spray intranasal DAILY PRN (Reason: for allergies) Qty: 16 1RF albuterol sulfate 90 mcg/actuation HFA aerosol inhaler 2 inh inhalation Q4H PRN (Reason: Shortness Of Breath) acetaminophen 500 mg tablet 500 - 1,000 mg PO Q6H PRN (Reason: pain) Qty: 30 0RF bupropion HCl 300 mg tablet extended release 24 hr 300 mg PO DAILY PRN ketorolac 10 mg tablet 10 mg PO ONCE 7 Days Qty: 7 0RF cetirizine 10 mg tablet 10 mg PO DAILY Saline Nasal 0.65 % aerosol,spray 1 spray intranasal BID PRN (Reason: dry nasal passages) Qty: 44 1RF Advair HFA 230-21 mcg/actuation HFA aerosol inhaler 2 puff inhalation BID Qty: 12 1RF
[2022-07-14 22:50] LABS: Bacteria Urine None Seen (None Seen); Hyaline Casts Urine 0-2 /LPF (0-2); Other Crystals Urine Present; Squamous Epithelial Cell Urine 0-2 /HPF (0-2); WBC Urine 0-5 /HPF (0-5)
== END 2022-07-14 21:50 | disposition home or self-care (01) ==
PROVIDERS: Emergency Provider Emergency Medicine Emergency Medical Services
DX: R51.9 Headache, unspecified (principal); F41.9 Anxiety disorder, unspecified; Z79.899 Other long term (current) drug therapy
CPT/HCPCS: 36415; 70450; 80053; 81001; 82550; 83690; 85025; 87040; 87147; 87205; 93005; 99283; 99284

== ENCOUNTER → 2022-08-28 10:47 | Outpatient (BNVA) | payer OTHER, SELFPAY | PROVIDERS: PCP Nurse Practitioner Family; Referring Provider Nurse Practitioner Family; Visit Provider Physician Assistant | DX: E66.01 Morbid (severe) obesity due to excess calories (principal); M79.7 Fibromyalgia; K58.9 Irritable bowel syndrome, unspecified; F41.9 Anxiety disorder, unspecified; F32.A Depression, unspecified; J45.909 Unspecified asthma, uncomplicated; Z68.43 Body mass index [BMI] 50.0-59.9, adult | CPT/HCPCS: 99202; 99211 ==

== ENCOUNTER 2022-08-28 14:54 | Outpatient (REF) | payer OTHER, SELFPAY ==
[2022-08-29 12:17] LABS: H Pylori Breath Test Negative (Negative)
== END 2022-08-28 14:55 | disposition home or self-care (01) ==
LOC: HO.LNP 14:54
PROVIDERS: Visit Provider Physician Assistant
DX: K21.9 Gastro-esophageal reflux disease without esophagitis (principal); E66.01 Morbid (severe) obesity due to excess calories; J45.998 Other asthma; Z68.43 Body mass index [BMI] 50.0-59.9, adult; Z11.0 Encounter for screening for intestinal infectious diseases
CPT/HCPCS: 83013

== ENCOUNTER 2022-08-29 08:39 | Outpatient (REF) | payer OTHER, SELFPAY ==
--- NOTE | ~2022-08-29 | XR_ITS ---
EXAMINATION: XR CHEST CLINICAL INFORMATION: Gastroesophageal reflux disease COMPARISON: Previous chest x-ray October 2019 TECHNIQUE: 2 views of the chest were obtained. FINDINGS: No significant abnormality is noted involving the heart, lungs, mediastinum, bony thorax or soft tissues. XR/XR chest 2V IMPRESSION: Unremarkable examination.
[2022-08-29 08:55] LABS: MANUAL DIFF FLAG NO
[2022-08-29 09:33] LABS: Basophils Percent Auto 0.4 % (0-2); Eosinophils Absolute Auto 0.2 X10*3/uL (0.0-0.4); Eosinophils Percent Auto 2.3 % (0-4); Hematocrit 40.1 % (37.0-47.0); Hemoglobin 13.4 g/dl (12.0-16.0); Imm Gran Abs Auto 0.02 X10*3/uL (0.00-0.03); Imm Gran Pct Auto 0.3 % (0.0-0.4); Lymphocytes Absolute Auto 1.4 X10*3/uL (1.2-4.9); Lymphocytes Percent Auto 18.5 % (20-40); Mean Corpuscular HGB Conc 33.4 g/dl (31.0-35.0); Mean Corpuscular Hemoglobin 29.2 pg (27.0-33.0); Mean Corpuscular Volume 87.4 fL (80.0-98.0); Mean Platelet Volume 9.6 fL (9.4-12.3); Monocytes Absolute Auto 0.5 X10*3/uL (0.1-1.2); Monocytes Percent Auto 6.5 % (2-11); Neutrophils Absolute Auto 5.5 x10*3/uL (2.0-8.3); Platelet Count 273 X10*3/uL (160-400); Red Blood Count 4.59 X10*6/uL (4.20-5.50); Red Cell Distribution Width 12.3 % (11.0-16.0); White Blood Count 7.7 X10*3/uL (4.8-10.8)
[2022-08-29 09:59] LABS: Estimated Average Glucose 94 mg/dL; Hemoglobin A1c % 4.9 %
[2022-08-29 10:19] LABS: Alanine Aminotransferase 23 U/L (0-31); Albumin Level 4.4 g/dL (3.5-5.0); Alkaline Phosphatase 99 U/L (39-117); Anion Gap 14 (12-20); Aspartate Amino Transferase 21 U/L (5-31); Bilirubin Total 0.6 mg/dL (0.0-1.0); Blood Urea Nitrogen 12 mg/dL (9-16); C Reactive Protein 0.49 mg/dL (< or = 0.50); Calcium 9.5 mg/dL (8.4-10.2); Carbon Dioxide 23 mmol/L (22-29); Chloride 106 mmol/L (96-108); Cholesterol 188 mg/dL; Estimated Glomerular Filt Rate > 60; Glucose Random 90 mg/dL (60-115); HDL Cholesterol 52 mg/dL; Iron 85 mcg/dL (30-160); LDL Cholesterol Calculated 120 mg/dl; Percent Iron Saturation 19 % (15-50); Potassium 4.1 mmol/L (3.3-5.1); Sodium 139 mmol/L (135-145); Total Iron Binding Capacity 451 mcg/dL (228-428); Total Protein 6.8 g/dL (6.5-8.0); Triglycerides 81 mg/dL; Unsaturated Iron Binding 366 ug/dL
[2022-08-29 10:23] LABS: Ferritin 78 ng/mL (10-122); Insulin 16 uU/mL (2-29); TSH reflex Free T4 1.34 uIU/mL (0.32-4.0); Vitamin D 25-OH Total 17.3 ng/mL (>30)
[2022-08-29 10:37] LABS: Folate 16.2 ng/mL (> or = 4.0); Vitamin B12 210 pg/mL (200-900)
[2022-08-30 15:57] LABS: Calcium (PTHI) 9.6 mg/dL (8.6-10.2); PTHI 85 pg/mL (16-77)
[2022-09-01 16:06] LABS: Zinc 65 mcg/dL (60-130)
[2022-09-02 10:27] LABS: Vitamin B1 22 nmol/L (8-30)
[2022-09-05 23:26] LABS: Vitamin A 43 mcg/dL (38-98)
== END 2022-08-29 08:40 | disposition home or self-care (01) ==
LOC: HO.LAB 08:39
PROVIDERS: PCP Nurse Practitioner Family; Visit Provider Physician Assistant
DX: K21.9 Gastro-esophageal reflux disease without esophagitis (principal); E66.01 Morbid (severe) obesity due to excess calories; J45.998 Other asthma; Z68.43 Body mass index [BMI] 50.0-59.9, adult
CPT/HCPCS: 36415; 71046; 80053; 80061; 82306; 82607; 82728; 82746; 83036; 83525; 83540; 83970; 84425; 84443; 84590; 84630; 85025; 86140

== ENCOUNTER 2022-08-31 08:39 | Outpatient (REF) | payer OTHER, SELFPAY ==
--- NOTE | ~2022-08-31 | US_ITS ---
EXAMINATION: US COMPLETE ABDOMEN WITH LIVER ELASTOGRAPHY CLINICAL INFORMATION: Morbid obesity COMPARISON: CT abdomen pelvis 09/18/2021 TECHNIQUE: Real-time imaging of the abdominal viscera. Noninvasive ultrasound liver fibrosis assessment is performed using [employer] ElastPQ point quantification shear wave elastography (2D-SWE) with a C5-2 MHz transducer. Multiple elastography samples are obtained. FINDINGS: PANCREAS: Normal. The visualized pancreatic head and body are normal in appearance. The remainder of the pancreas is obscured from visualization by the overlying bowel gas. ABDOMINAL AORTA: Visualized proximal and mid aorta are normal. Distal aorta obscured by bowel gas. INFERIOR VENA CAVA: Visualized portions are normal. LIVER: Diffusely increased hepatic echogenicity and sound attenuation consistent with diffuse hepatic steatosis. No focal lesion seen. Smooth hepatic contour. The right lobe measures 18.6 cm in length. The left lobe measures 12.4 cm in length. Portal flow is towards the liver (hepatopetal). Shear wave liver elastography median stiffness is 1.57 m/s (reference: normal median stiffness is 1.3 m/s or less). IQR/median stiffness to assess sampling precision is 0.1 (reference: good quality data set is IQR/median stiffness of 0.15 or less). GALLBLADDER: Surgically absent. COMMON BILE DUCT: Normal in caliber measuring 0.4 cm in diameter. RIGHT KIDNEY: Normal. No hydronephrosis. No renal calculi or focal parenchymal lesions. The kidney measures 11.1 cm in maximum dimension. LEFT KIDNEY: Normal. No hydronephrosis. No renal calculi or focal parenchymal lesions. The kidney measures 11.7 cm in maximum dimension. SPLEEN: Normal. The spleen measures 13.4 cm in maximum dimension. FREE FLUID: None. US/US abdomen comp w elastography IMPRESSION: 1. Sonographic appearance consistent with diffuse hepatic steatosis. 2. Liver elastography: In the absence of other known clinical signs, measurements rule out compensated advanced chronic liver disease. If there are known clinical signs, further testing may be needed for confirmation. No prior elastography for comparison. REFERENCE: Society of Radiologists in Ultrasound Liver Stiffness Thresholds (2020): LIVER STIFFNESS THRESHOLDS: *Liver Stiffness equal or less than 1.3 m/s: High probability of being normal. *Liver Stiffness less than 1.7 m/s: In the absence of other known clinical signs, rules out compensated advanced chronic liver disease. *Liver Stiffness 1.7-2.1 m/s: Suggestive of compensated advanced chronic liver disease but need further test for confirmation. *Liver Stiffness over 2.1 m/s: Rules in compensated advanced chronic liver disease. *Liver Stiffness over 2.4 m/s: Suggestive of clinically significant portal hypertension. QUALITY OF DATA SET: *IQR/Median value equal or less than 0.15 implies a quality data set. *IQR/Median value over 0.15 implies a poor quality data set. SIGNIFICANT CHANGE FROM PRIOR EXAM: Significant change if liver stiffness measurement is 10% or greater from prior exam. OTHER CONSIDERATIONS: The stage of liver fibrosis may be overestimated in the setting of acute hepatitis, liver inflammation, elevated liver function tests, hepatic vascular congestion, obstructive cholestasis, non-fasting state, and infiltrative diseases such as amyloidosis and lymphoma. In some patients with NAFLD, the liver stiffness thresholds for compensated advanced chronic liver disease may be lower. In causes other than viral hepatitis and NAFLD, liver stiffness thresholds are not well established.
--- NOTE | ~2022-08-31 | FL_ITS ---
PROCEDURE: XR FLUOROSCOPY UPPER GI WITH AIR CLINICAL INFORMATION: Heartburn/reflux. COMPARISON: None TECHNIQUE: Air-contrast upper GI examination. FINDINGS: There was normal apposition of the vocal cords while saying E . There is normal elevation of the soft palate while saying candy . Patient swallowed thin and thick barium and half-inch diameter barium tablet without difficulty. No nasopharyngeal reflux or tracheal aspiration identified. There was esophageal hypomotility present. No evidence of persistent stricture or ulcerations/erosions. No hiatal hernia was identified. There is noted to be mild gastroesophageal reflux within the distal third of the esophagus which cleared slowly. The stomach demonstrated normal distensibility without evidence of abnormal mass or ulceration. There was no delay in gastric emptying. The duodenal bulb and sweep appeared unremarkable. FLUOROSCOPY TIME: 1.6 minutes DOSE AREA PRODUCT: 18.755 Gy-cm2 (mleéndez-centimeter squared) FL/FL upper GI w air IMPRESSION: Mild esophageal hypomotility. Gastroesophageal reflux within the distal third of the esophagus.
== END 2022-08-31 08:40 | disposition home or self-care (01) ==
LOC: HO.US 08:39
PROVIDERS: PCP Nurse Practitioner Family; Visit Provider Physician Assistant
DX: E66.01 Morbid (severe) obesity due to excess calories (principal); Z68.43 Body mass index [BMI] 50.0-59.9, adult; J45.998 Other asthma; K21.9 Gastro-esophageal reflux disease without esophagitis
CPT/HCPCS: 74246; 76705; 76981

== ENCOUNTER → 2022-09-18 09:00 | Outpatient (BNVA) | payer OTHER, SELFPAY | PROVIDERS: PCP Nurse Practitioner Family; Visit Provider Counselor Mental Health | DX: F43.10 Post-traumatic stress disorder, unspecified (principal); F33.1 Major depressive disorder, recurrent, moderate; E66.01 Morbid (severe) obesity due to excess calories; Z68.43 Body mass index [BMI] 50.0-59.9, adult | CPT/HCPCS: 90791 ==

== ENCOUNTER → 2022-09-26 11:03 | Outpatient (BNVA) | payer OTHER, SELFPAY | PROVIDERS: PCP Nurse Practitioner Family; Visit Provider Dietitian, Registered | DX: E66.01 Morbid (severe) obesity due to excess calories (principal) | CPT/HCPCS: 97802 ==

== ENCOUNTER → 2022-10-09 11:30 | Outpatient (BNVA) | payer OTHER, SELFPAY | PROVIDERS: PCP Nurse Practitioner Family; Visit Provider Counselor Mental Health | DX: F43.10 Post-traumatic stress disorder, unspecified (principal); F33.1 Major depressive disorder, recurrent, moderate; E66.01 Morbid (severe) obesity due to excess calories; Z68.43 Body mass index [BMI] 50.0-59.9, adult | CPT/HCPCS: 90832 ==

== ENCOUNTER 2022-10-26 20:38 | Emergency (ER) | payer OTHER, SELFPAY ==
--- NOTE | ~2022-10-26 | XR_ITS ---
EXAMINATION: XR CHEST CLINICAL INFORMATION: Shortness of breath COMPARISON: Chest x-ray 08/29/2022 TECHNIQUE: 2 views of the chest were obtained. FINDINGS: No significant abnormality is noted involving the heart, lungs, mediastinum, bony thorax or soft tissues. XR/XR chest 2V IMPRESSION: Unremarkable examination.
[2022-10-26 20:40] VITALS: BP 152/101; PULSE 106; RESP 22; TEMP 36.1; O2SAT 94; BMI 49.6
--- NOTE | 2022-10-26 20:40 | ED_ITS ---
HPI - Asthma General Chief Complaint: Asthma Stated Complaint: Shortness of breath Time Seen by Provider: 10/26/22 21:49 Related Data Home Medications Medication Instructions Recorded Confirmed cetirizine 10 mg tablet 10 mg PO DAILY 01/15/22 08/15/22 bupropion HCl 300 mg 24 hr tablet, 350 mg PO DAILY PRN 08/15/22 08/15/22 extended release lorazepam 0.5 mg tablet (Ativan) 0.5 mg PO DAILY PRN 08/15/22 08/15/22 aripiprazole 2 mg tablet 2 mg PO DAILY 08/22/22 bupropion HCl 150 mg 24 hr tablet, 150 mg PO QAM 08/22/22 extended release Previous Rx's Medication Instructions Recorded fluticasone propionate 230 2 puff inhalation BID #12 grams 01/15/22 mcg-salmeterol 21 mcg/actuation HFA inhaler (Advair HFA) sodium chloride 0.65 % nasal spray 1 spray intranasal BID PRN dry 01/15/22 aerosol (Saline Nasal) nasal passages #44 mL acetaminophen 500 mg tablet 500 - 1,000 mg PO Q6H PRN pain #30 04/05/22 tabs ketorolac 10 mg tablet 10 mg PO ONCE pain 7 days #7 tabs 05/05/22 albuterol sulfate 90 mcg/actuation 2 inh inhalation Q4H PRN Shortness 08/15/22 aerosol inhaler Of Breath #8.5 grams cholecalciferol (vitamin D3) 50 50 mcg PO DAILY #30 caps 08/30/22 mcg (2,000 unit) capsule cyanocobalamin (vitamin B-12) 500 500 mcg PO DAILY #30 tabs 08/30/22 mcg tablet albuterol sulfate 2.5 mg/3 mL 2.5 mg (3 mL) inhalation Q6H #75 mL 10/26/22 (0.083 %) solution for nebulization albuterol sulfate 90 mcg/actuation 2 inh inhalation Q4-6H PRN 10/26/22 breath activated powder inhaler shortness of breath or wheezing #1 ea prednisone 20 mg tablet 40 mg PO DAILY 5 days #10 tabs 10/26/22 Allergies Allergy/AdvReac Type Severity Reaction Status Date / Time carboprost [From Hemabate] Allergy Severe Anaphylaxis Verified 10/26/22 20:42 gluten Allergy Mild celiac Verified 10/26/22 20:42 disease ENVIRONMENTAL Allergy Mild HIVES, Uncoded 10/26/22 20:42 ITCH EYES, REDNESS PMFSH Past Medical History Medical History Anxiety Asthma delivery delivered Cholecystitis Fibromyalgia IBS (irritable bowel syndrome) Surgical History H/O: History of appendectomy History of cholecystectomy Family History Family History Mother Arthritis Substance use disorder Father HTN (hypertension) Substance use disorder Maternal Grandmother Cancer Other Mental health disorder Social History Social History Housing: House Alcohol intake: never Patient Tobacco Use Status: Former Tobacco user Smoked in Last 30 Days: No e-Cigarette/Vaping Use: Never Used Second Hand Smoke Exposure: No Use of substances other than those prescribed or required for medical reasons: No Advance Directives: No Advance Directives Information Provided: No Patient : No service: No Current occupational status: unemployed Cognitive needs: No Hearing needs: No Vision needs: Yes (glasses) Physical Exam Vital Signs: Vital Signs: Last Vital Signs Temp 96.9 F 10/26/22 20:40 Pulse 89 10/26/22 22:48 Resp 18 10/26/22 22:48 BP 125/65 10/26/22 22:48 Pulse Ox 99 10/26/22 22:48 O2 Del Method 10/26/22 20:40 BMI result Body Mass Index 49.6 Course Course Course Narrative: This is an RME: Additional HPI, ROS, PE not included below will be deferred to primary provider. Patient is a 27-year-old female with a past medical history of asthma presenting to emergency department with complaints of asthma exacerbation. Symptom onset 5 days ago, progressively worsening. Reporting shortness of breath, cough, back pain. Feels consistent with asthma exacerbation. Last used inhaler nebulizer 1 hour ago without improvement. Reports she took canal who COVID-19 test which wa s negative. Denies fevers, chills, sore throat, chest pain. Reports son has been recently ill with similar symptoms. PE: Lung sounds are type a bilaterally with expiratory wheezing, mildly tachycardic 105, O2 saturation 95% on room air. Plan: Viral testing, chest x-ray, albuterol nebulizer, prednisone Medications Administered Discontinued Medications Generic Name Dose Route Start Last Admin Trade Name Freq PRN Reason Stop Dose Admin Albuterol Sulfate 5 mg/ 7.5 mg 10/26/22 20:44 10/26/22 21:58 Albuterol Sulfate 2.5 mg INHALE 10/26/22 20:45 7.5 mg ONCE ONE Administration Albuterol Sulfate 7.5 mg/ 10 mg 10/26/22 22:30 10/26/22 22:54 Albuterol Sulfate 2.5 mg INHALE 10/26/22 22:31 10 mg ONCE ONE Administration Albuterol/Ipratropium 3 ml 10/26/22 20:44 10/26/22 21:58 Albuterol/Iprat 2.5/0.5mg 3 Ml Ampul.Neb INHALE 10/26/22 20:45 3 ml ONCE ONE Administration Medical Decision Making Lab Data Result Diagrams: 10/26/22 22:20 10/26/22 22:20 Labs: Lab Results 10/26/22 10/26/22 10/26/22 Range/Units 20:58 20:58 22:20 WBC 9.2 (4.8-10.8) X10*3/uL RBC 4.96 (4.20-5.50) X10*6/uL Hgb 14.3 (12.0-16.0) g/dl Hct 43.2 (37.0-47.0) % MCV 87.1 (80.0-98.0) fL MCH 28.8 (27.0-33.0) pg MCHC 33.1 (31.0-35.0) g/dl RDW 12.2 (11.0-16.0) % Plt Count 242 (160-400) X10*3/uL MPV 9.3 L (9.4-12.3) fL Immature Gran % (Auto) 0.2 (0.0-0.4) % Neut % (Auto) 74.2 H (45-73) % Lymph % (Auto) 14.2 L (20-40) % [place] % (Auto) 7.2 (2-11) % Eos % (Auto) 3.7 (0-4) % Baso % (Auto) 0.5 (0-2) % Lymph # (Auto) 1.3 (1.2-4.9) X10*3/uL [place] # (Auto) 0.7 (0.1-1.2) X10*3/uL Eos # (Auto) 0.3 (0.0-0.4) X10*3/uL Baso # (Auto) 0.1 (0.0-0.2) X10*3/uL Abs Immat Gran (auto) 0.02 (0.00-0.03) X10*3/uL Absolute Neuts (auto) 6.8 (2.0-8.3) x10*3/uL Absolute Nucleated RBC 0.000 (0.0-0.012) X10*3/uL Nucleated RBC % (auto) 0.0 (0.0-0.2) /100WBC D-Dimer High Sensitivty NG/ML Sodium (135-145) mmol/L Potassium (3.3-5.1) mmol/L Chloride (96-108) mmol/L Carbon Dioxide (22-29) mmol/L Anion Gap (12-20) BUN (9-16) mg/dL Creatinine (0.5-1.4) mg/dL Estim Creat Clear Calc Estimated GFR Random Glucose (60-115) mg/dL Calcium (8.4-10.2) mg/dL Total Bilirubin (0.0-1.0) mg/dL AST (5-31) U/L ALT (0-31) U/L Alkaline Phosphatase (39-117) U/L Troponin I High Sens (<3.5-17.0) ng/L B-Natriuretic Peptide (<100) pg/mL Total Protein (6.5-8.0) g/dL Albumin (3.5-5.0) g/dL COVID-19 (HELEN) Negative (Negative) COVID-19 Clin Com See Note Influenza Type A (ATIYA) Negative (Negative) Influenza Type B (ATIYA) Negative (Negative) Influenza A & B Note See Note 10/26/22 10/26/22 10/26/22 Range/Units 22:20 22:20 22:20 WBC (4.8-10.8) X10*3/uL RBC (4.20-5.50) X10*6/uL Hgb (12.0-16.0) g/dl Hct (37.0-47.0) % MCV (80.0-98.0) fL MCH (27.0-33.0) pg MCHC (31.0-35.0) g/dl RDW (11.0-16.0) % Plt Count (160-400) X10*3/uL MPV (9.4-12.3) fL Immature Gran % (Auto) (0.0-0.4) % Neut % (Auto) (45-73) % Lymph % (Auto) (20-40) % Newport % (Auto) (2-11) % Eos % (Auto) (0-4) % Baso % (Auto) (0-2) % Lymph # (Auto) (1.2-4.9) X10*3/uL [place] # (Auto) (0.1-1.2) X10*3/uL Eos # (Auto) (0.0-0.4) X10*3/uL Baso # (Auto) (0.0-0.2) X10*3/uL Abs Immat Gran (auto) (0.00-0.03) X10*3/uL Absolute Neuts (auto) (2.0-8.3) x10*3/uL Absolute Nucleated RBC (0.0-0.012) X10*3/uL Nucleated RBC % (auto) (0.0-0.2) /100WBC D-Dimer High Sensitivty < 150 NG/ML Sodium 142 (135-145) mmol/L Potassium 4.0 (3.3-5.1) mmol/L Chloride 108 (96-108) mmol/L Carbon Dioxide 25 (22-29) mmol/L Anion Gap 13 (12-20) BUN 18 H (9-16) mg/dL Creatinine 0.90 (0.5-1.4) mg/dL Estim Creat Clear Calc 119.7 Estimated GFR > 60 Random Glucose 97 (60-115) mg/dL Calcium 9.5 (8.4-10.2) mg/dL Total Bilirubin 0.5 (0.0-1.0) mg/dL AST 20 (5-31) U/L ALT 20 (0-31) U/L Alkaline Phosphatase 112 (39-117) U/L Troponin I High Sens < 3.5 (<3.5-17.0) ng/L B-Natriuretic Peptide (<100) pg/mL Total Protein 7.2 (6.5-8.0) g/dL Albumin 4.6 (3.5-5.0) g/dL COVID-19 (HELEN) (Negative) COVID-19 Clin Com Influenza Type A (ATIYA) (Negative) Influenza Type B (ATIYA) (Negative) Influenza A & B Note 10/26/22 Range/Units 22:20 WBC (4.8-10.8) X10*3/uL RBC (4.20-5.50) X10*6/uL Hgb (12.0-16.0) g/dl Hct (37.0-47.0) % MCV (80.0-98.0) fL MCH (27.0-33.0) pg MCHC (31.0-35.0) g/dl RDW (11.0-16.0) % Plt Count (160-400) X10*3/uL MPV (9.4-12.3) fL Immature Gran % (Auto) (0.0-0.4) % Neut % (Auto) (45-73) % Lymph % (Auto) (20-40) % Newport % (Auto) (2-11) % Eos % (Auto) (0-4) % Baso % (Auto) (0-2) % Lymph # (Auto) (1.2-4.9) X10*3/uL [place] # (Auto) (0.1-1.2) X10*3/uL Eos # (Auto) (0.0-0.4) X10*3/uL Baso # (Auto) (0.0-0.2) X10*3/uL Abs Immat Gran (auto) (0.00-0.03) X10*3/uL Absolute Neuts (auto) (2.0-8.3) x10*3/uL Absolute Nucleated RBC (0.0-0.012) X10*3/uL Nucleated RBC % (auto) (0.0-0.2) /100WBC D-Dimer High Sensitivty NG/ML Sodium (135-145) mmol/L Potassium (3.3-5.1) mmol/L Chloride (96-108) mmol/L Carbon Dioxide (22-29) mmol/L Anion Gap (12-20) BUN (9-16) mg/dL Creatinine (0.5-1.4) mg/dL Estim Creat Clear Calc Estimated GFR Random Glucose (60-115) mg/dL Calcium (8.4-10.2) mg/dL Total Bilirubin (0.0-1.0) mg/dL AST (5-31) U/L ALT (0-31) U/L Alkaline Phosphatase (39-117) U/L Troponin I High Sens (<3.5-17.0) ng/L B-Natriuretic Peptide 29 (<100) pg/mL Total Protein (6.5-8.0) g/dL Albumin (3.5-5.0) g/dL COVID-19 (HELEN) (Negative) COVID-19 Clin Com Influenza Type A (ATIYA) (Negative) Influenza Type B (ATIYA) (Negative) Influenza A & B Note Discharge Plan Discharge Clinical Impression: Asthma, Viral infection Patient Disposition: Home, Self-Care Instructions: Asthma (ED), Viral Syndrome (ED) Additional Instructions: Take your medications as prescribed. If you were prescribed antibiotics today, it is important that you take your medication to their entirety, do not skip any doses, do not finish them early. Follow-up with your primary care provider this week. Return to the emergency department with new or worsening symptoms. Such as fevers, chills, chest pain, shortness of breath, nausea, vomiting, dizziness, headache, vision changes, lethargy In case of emergency call 911 Prednisone and albuterol have been sent to her pharmacy, please take these as prescribed. Return with new or worsening symptoms. Prescriptions: New albuterol sulfate 2.5 mg /3 mL (0.083 %) solution for nebulization 2.5 mg inhalation Q6H Qty: 75 0RF albuterol sulfate 90 mcg/actuation aerosol powdr breath activated 2 inh inhalation Q4-6H PRN (Reason: shortness of breath or wheezing) Qty: 1 0RF prednisone 20 mg tablet 40 mg PO DAILY 5 Days Qty: 10 0RF No Action cholecalciferol (vitamin D3) 50 mcg (2,000 unit) capsule 50 mcg PO DAILY Qty: 30 5RF cyanocobalamin (vitamin B-12) 500 mcg tablet 500 mcg PO DAILY Qty: 30 5RF acetaminophen 500 mg tablet 500 - 1,000 mg PO Q6H PRN (Reason: pain) Qty: 30 0RF ketorolac 10 mg tablet 10 mg PO ONCE 7 Days Qty: 7 0RF bupropion HCl 300 mg tablet extended release 24 hr 350 mg PO DAILY PRN lorazepam [Ativan] 0.5 mg tablet 0.5 mg PO DAILY PRN albuterol sulfate 90 mcg/actuation HFA aerosol inhaler 2 inh inhalation Q4H PRN (Reason: Shortness Of Breath) Qty: 8.5 1RF cetirizine 10 mg tablet 10 mg PO DAILY Saline Nasal 0.65 % aerosol,spray 1 spray intranasal BID PRN (Reason: dry nasal passages) Qty: 44 1RF Advair HFA 230-21 mcg/actuation HFA aerosol inhaler 2 puff inhalation BID Qty: 12 1RF aripiprazole 2 mg tablet 2 mg PO DAILY bupropion HCl 150 mg tablet extended release 24 hr 150 mg PO QAM Referrals: Physician,Unknown J [Primary Care Provider] - 1 week Stand Alone Forms: Work/School Release Interventions: ED Discharge Assessment Last Done: 10/26/22 23:18 Discharge Date/Time: 10/26/22 23:19
--- OUTSIDE RECORDS SUMMARY | 2022-10-26 21:04 | XMS_ITS ---
:1995 Author Organization [facility] Address [address] [place] [address] Care Team Providers Name Role Phone SOCORRO DAVIS Unavailable Unavailable PROBLEMS Type Condition ICD9-CM Code [id number] Code Onset Condition SNO MED Code Dates Status Problem Tachycardia, R00.0 Active 5349302 unspecified Problem Eating disorder, F50.9 Active 723 78597 unspecified Problem Body mass index Z68.43 Active 4085 28967 (BMI) 50-59.9 , adult Problem Bipolar II F31.81 Active 04184508 disorder Problem Insomnia, G47.00 Active 103949974 unspecified Problem Body mass index Z68.42 Active 4085 83273 (BMI) 45.0-49.9, adult ALLERGIES Substance Reaction Event Type Date Status cat dander Unknown Non Drug Allergy Apr, Active wheat Unknown Non Drug Allergy Apr, Active dog dander Unknown Non Drug Allergy Apr, Active dust mites Unknown Non Drug Allergy Apr, Active ENCOUNTERS Encounter Location Date Diagnosis [facility] [address] [facility] Apr, [place] [address] [facility] [address] [facility] Apr, Body mass index (BMI) [place] 45.0-49.9, adult Z68.42 [id number] and Dietary coun seling and surveillance Z71 .[address] Mar, [place] [address] [facility] [address] [facility] Mar, Body mass index (BMI) [place] 45.0-49.9, adult Z68.42 [address] and Dietary coun seling and surveillance Z71 .[address] February, [place] [facility] [address] [facility] February, Body mass index (BMI) ALDO James 45.0-49.9, adult Z68.42 [id number] and Dietary coun seling and surveillance Z71 .[address] Jan, [place] [address] Jan, Body mas s index (BMI) ALDO JAMES 45.0-49.9, adult Z68.42 [id number] [facility] [address] [facility] Jan, Body mass index (BMI) ALDO James 45.0-49.9, adult Z68.42 ; [address] Tachycardia, uns pecified R00.0 and Eating disorder, unspecified F50. [address] Dec, Body mas s index (BMI) [place] JAMES 45.0-49.9, adult Z68.42 [id number] Dec, LONGALDO ZAVALA [address] Dec, Body mas s index (BMI) [place] J[place] 45.0-49.9, adult Z68.42 [id number] [facility] [address] [facility] Dec, Body mass index (BMI) ALDO James 45.0-49.9, adult Z68.42 [address] and Dietary coun seling and surveillance Z71 .3 [facility] [address] [facility] Nov, Body mass index (BMI) ALDO James 45.0-49.9, adult Z68.42 [address] and Dietary coun seling and surveillance Z71 .[address] Nov, Body mas s index (BMI) ALDO JAMES 45.0-49.9, adult Z68.42 [phone] Oct, Body mass index (BMI) ALDO James 45.0-49.9, adult Z68.42 [address] and Dietary coun seling and surveillance Z71 .[address] Apr, Body mas s index (BMI) ALDO JAMES 50-59.9 , adult Z68.43 ; [address] Bipolar II disor jamaal F31.81 ; Insomnia, unsp ecified G47.00 and Dieta ry counseling and surveillance Z71 .[address] Mar, Body mas s index (BMI) ALDO JAMES 50-59.9 , adult Z68.43 ; [address] Bipolar II disor jamaal F31.81 ; Insomnia, unsp ecified G47.00 and Dieta ry counseling and surveillance Z71 .[address] February, Body mas s index (BMI) ALDO JAMES 50-59.9 , adult Z68.43 ; [address] Bipolar II disor jamaal F31.81 and Dietary coun seling and surveillance Z71 .[address] February, [place] [phone] February, Morbid ( severe) obesity ALDO JAMES due to excess ca lories E66.01 and Body mass index (BMI) 50-59.9 , adult Z68.43 IMMUNIZATIONS No Known Immunizations SOCIAL HISTORY Qualifiers Date Never Smoker REASON FOR REFERRAL FUNCTIONAL STATUS PLAN OF CARE Activity Details Follow Up 4 Weeks Reason: Future Test Phosphorus, Serum 20180318 Future Test Vitamin D, 25-Hydroxy Future Test TSH 20180318 Future Test Magnesium, Serum 20180318 Future Test CBC 20180318 Future Test COMPREHENSIVE METABOLIC PANE L 20180318 Future Test Lipid Panel [id number] VITAL SIGNS Heart Rate 91 /min 2019-04-28 Heart Rate 87 /min 2019-04-07 Heart Rate 89 /min 2019-03-04 Heart Rate 105 /min 2019-02-04 Heart Rate 90 /min 2019-01-07 Heart Rate 99 /min 2018-12-10 Heart Rate 92 /min 2018-11-25 Heart Rate 96 /min 2018-05-06 Heart Rate 90 /min 2018-04-08 Heart Rate 90 /min 2018-03-25 Heart Rate 98 /min 2018-03-18 Weight 269.5 lbs 2019-04-28 Weight 268.8 lbs 2019-04-07 Weight 269.7 lbs 2019-03-04 Weight 274.4 lbs 2019-02-04 Weight 278.7 lbs 2019-01-07 Weight 278.9 lbs 2018-12-10 Weight 276.4 lbs 2018-11-25 Weight 312.10 lbs 2018-05-06 Weight 320.90 lbs 2018-04-08 Weight 329.10 lbs 2018-03-25 Weight 331.3 lbs 2018-03-18 BMI 46.46 kg/m2 2019-04-28 BMI 46.34 kg/m2 2019-04-07 BMI 46.49 kg/m2 2019-03-04 BMI 47.3 kg/m2 2019-02-04 BMI 48.04 kg/m2 2019-01-07 BMI 48.08 kg/m2 2018-12-10 BMI 47.65 kg/m2 2018-11-25 BMI 53.8 kg/m2 2018-05-06 BMI 55.32 kg/m2 2018-04-08 BMI 56.73 kg/m2 2018-03-25 BMI 58.22 kg/m2 2018-03-18 Height 63.86 in 2019-04-28 Height 63.86 in 2019-04-07 Height 63.86 in 2019-03-04 Height 63.86 in 2019-02-04 Height 63.86 in 2019-01-07 Height 63.86 in 2018-12-10 Height 63.86 in 2018-11-25 Height 63.86 in 2018-05-06 Height 63.86 in 2018-04-08 Height 63.86 in 2018-03-25 Height 5'3.25 in 2018-03-18 Oximetry 100 % 2019-04-28 Oximetry 99 % 2019-04-07 Oximetry 100 % 2019-03-04 Oximetry 99 % 2019-02-04 Oximetry 99 % 2019-01-07 Oximetry 99 % 2018-12-10 Oximetry 98 % 2018-11-25 Oximetry 98 % 2018-05-06 Oximetry 98 % 2018-04-08 Oximetry 98 % 2018-03-25 Oximetry 98 % 2018-03-18 Blood pressure systolic 108 mm Hg 2019-04-28 Blood pressure diastolic 68 mm Hg 2019-04-28 MEDICATIONS Medication Instructions Dosage Frequency Start End Duration Statu s Date Date Phentermine HCl Orally Once a 1 capsule 24h Mar, Active 15 MG day 2018 Topamax 100 MG Orally bid as directed 12h 90 Ac tive Niacin 500 MG Orally Once a 1 tablet 24h Act aysha day with food Vitamin B6 200 MG Orally Once a 1 tablet 24h Active day Trileptal 600 MG Orally three 1 tablet 8h 30 day(s) Active times a day Accolate 20 MG Orally Twice a 1 tablet 12h A ctive day after meals Magnesium 400 MG as directed Act aysha Triamcinolone as directed Active Acetonide 50 MG/ML Vitamin B-12 5000 Orally Once a 1 tablet 24h 30 day( s) Active MCG day Latuda 120 MG Orally Once a 1 tablet 24h 30 day(s) A ctive day with food metFORMIN HCl ER Orally Once a 1 tablet 24h 90 Active 500 MG day with evening meal Vitamin C 1000 MG Orally Once a 1 tablet 24h Active day Zinc 100 MG Orally Once a 1 tablet 24h Activ e day Vitamin D 2000 Orally Once a 1 tablet 24h 30 day(s) Active UNIT day Multivitamin as directed Active Adults - Prazosin HCl 5 MG Orally Once a 2 capsule 24h 30 day (s) Active day at bedtime Fetzima 80 MG Orally Once a 1 capsule 24h 30 day(s) Active day PROCEDURES Procedure Date Ordered Result Body Site P/M 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, JABARI 15 MIN March 18, 2018 RESULTS Name Result Date Reference Range 25OH VITAMIN D 2019-02-04 25OH VITAMIN D 26.6 (20-50) COMPREHENSIVE METABOLIC PANEL 2019-02-04 GLUCOSE 94 (70-99) BUN 17 (6-20) CREATININE 0.9 (0.5-1.0) SODIUM 142 (133-145) POTASSIUM 4.4 (3.6-5.2) CHLORIDE 109 (98-107) BICARBONATE 22 (22-29) ANION GAP 11 (4-17) ALBUMIN 4.8 (3.4-4.8) CALCIUM 9.4 (8.6-10.5) BILIRUBIN,TOTAL 0.2 (0-1.2) TOTAL PROTEIN 7.2 (6.2-8.2) AG RATIO 2.0 AST 28 (0-32) ALK PHOS 119 (35-104) ALT 43 (0-33) EST GFR NON 89 EST GFR 103 LIPID PANEL 2019-02-04 CHOLESTEROL, TOTAL 181 (<200) TRIGLYCERIDE 66 (<150) HDL CHOL 68 (>39) LDL CHOLESTEROL, CALCULATED 100 (0-1 30) NON HDL CHOLESTEROL (CALC) 113 (<160 ) TSH 2019-02-04 TSH 2.30 (0.40-4.00) MAGNESIUM 2019-02-04 MAGNESIUM 2.2 (1.6-2.3) CBC (COMPLETE BLOOD COUNT) 2019-02-04 WBC 6.1 (4.0-11.0) RBC 4.50 (4.20-5.40) HGB 12.9 (11.7-15.5) HCT 40.8 (35.7-45.8) MCV 90.7 (80.0-100.0) MCH 28.7 (27.0-34.0) MCHC 31.6 (33.0-37.0) PLT 214 (150-460) RDW-SD 46.1 (<47.0) MPV 9.7 (9.4-12.4) AUTOMATED NRBC 0.0 ABS. NRBC 0.0 PHOSPHORUS 2019-02-04 PHOSPHORUS 3.5 (2.5-4.5) REASON FOR VISIT weight management, weight management, weight management, pt is on Topamax 100 mg BID, Metformin 500 mg, and Phentermine 15 mg, pt has lost a total of 62 lbs, gained 1 lb since last visit, weight management, pt is on Metformin 500 and Topamax 100 mg, pt has lost a total of 63 lbs, 1 lb since last visit, 4 weeks, weight management, pt is on Topamax 100mg BID, she has lost a total of 62 lbs, 5 lbs sincelast visit, weight management, pt is on Phentermine 15 mg, and Topamax 100 BID, pt has lost a total of 57 lbs, 4 lbs since last visit, weight management, pt is on Topamax 50 BID, she has lost a total of 52 lbs, 0 lbs since last visit, weight management, pt is on Topamax 25 mg BID, pt has lost a total o f 53 lbs, she gained 2 lbs since last visit, 2 WEEKS, weight management, pt is no longer on any weight loss medications. pt has not seen us since April due to insurance, pt has lost a total of 54.9 lbs according to our records but since she has been trying to loose weight it is 60 lbs total, she lost 35.7 since last visit, weight management, weight management, Pt is on Phentermine 37.5 mg, she has lost 19 lbs, weight management, weight management, weight management Insurance Providers [facility] Health Member Patient Patient Patient Patient Patient Subscriber Subscriber Subscriber Group Insurance Plan Plan Plan Plan ID Relationship Address Phone Name Date of ID Name Date of No Type Insurance Insurance Insurance Coverage to Subscriber Address Phone Name Dates Medicare [address] Medicare self Sumaya 1995 [id number] [place] [address] [facility] [address] [facility] self Sumaya 1994 [id number] tts Shanel 6 Medicaid [place] [id number] [place] [phone] Hannah self Sumaya 1995 [id number] Medical [id number] Medical Shanel [facility] [address] Health Plan I Plan I
[2022-10-26 21:17] LABS: COVID-19 Test Negative (Negative); IDNOW Serial# 55D5AD1C
[2022-10-26 21:18] LABS: IDNOW Serial# 6674DD1D; Influenza A Negative (Negative); Influenza B2 Negative (Negative)
[2022-10-26] MEDS: Albuterol Sulfate 5 MG, Albuterol Sulfate (0.083%) 2.5 MG 7.5 MG INHALE (21:58)
[2022-10-26] MEDS: Albuterol/Iprat 2.5/0.5MG 3 ML AMPUL.NEB INHALE (21:58)
[2022-10-26 22:25] LABS: MANUAL DIFF FLAG NO
[2022-10-26 22:27] LABS: Basophils Absolute Auto 0.1 X10*3/uL (0.0-0.2); Basophils Percent Auto 0.5 % (0-2); Eosinophils Absolute Auto 0.3 X10*3/uL (0.0-0.4); Eosinophils Percent Auto 3.7 % (0-4); Hematocrit 43.2 % (37.0-47.0); Hemoglobin 14.3 g/dl (12.0-16.0); Imm Gran Abs Auto 0.02 X10*3/uL (0.00-0.03); Imm Gran Pct Auto 0.2 % (0.0-0.4); Lymphocytes Absolute Auto 1.3 X10*3/uL (1.2-4.9); Lymphocytes Percent Auto 14.2 % (20-40); Mean Corpuscular HGB Conc 33.1 g/dl (31.0-35.0); Mean Corpuscular Hemoglobin 28.8 pg (27.0-33.0); Mean Corpuscular Volume 87.1 fL (80.0-98.0); Mean Platelet Volume 9.3 fL (9.4-12.3); Monocytes Absolute Auto 0.7 X10*3/uL (0.1-1.2); Monocytes Percent Auto 7.2 % (2-11); Neutrophils Absolute Auto 6.8 x10*3/uL (2.0-8.3); Neutrophils Percent Auto 74.2 % (45-73); Platelet Count 242 X10*3/uL (160-400); Red Blood Count 4.96 X10*6/uL (4.20-5.50); Red Cell Distribution Width 12.2 % (11.0-16.0); White Blood Count 9.2 X10*3/uL (4.8-10.8)
--- NOTE | 2022-10-26 22:32 | ED.ASTHMA ---
HPI - Asthma General Chief Complaint: Asthma Stated Complaint: Shortness of breath Time Seen by Provider: 10/26/22 21:49 Source: patient Mode of arrival: ambulatory Limitations: no limitations History of Present Illness HPI Narrative: 27-year-old female history of depression, asthma, obesity, GERD, anxiety, IBS, fibromyalgia presented to the emergency department with complaints of shortness of 4 continue. Patient also reports associated congestion, dry cough. She tells me her shortness of breath improved after an albuterol treatment which was given to her in triage. She denies any sick contacts. Patient denies chest pain, lower extremity swelling, fevers, chills, nausea, vomiting, headache, vision changes, dizziness, weakness, abdominal pain. Eating and drinking well. Related Data Home Medications Medication Instructions Recorded Confirmed cetirizine 10 mg tablet 10 mg PO DAILY 01/15/22 08/15/22 bupropion HCl 300 mg 24 hr tablet, 350 mg PO DAILY PRN 08/15/22 08/15/22 extended release lorazepam 0.5 mg tablet (Ativan) 0.5 mg PO DAILY PRN 08/15/22 08/15/22 aripiprazole 2 mg tablet 2 mg PO DAILY 08/22/22 bupropion HCl 150 mg 24 hr tablet, 150 mg PO QAM 08/22/22 extended release Previous Rx's Medication Instructions Recorded fluticasone propionate 230 2 puff inhalation BID #12 grams 01/15/22 mcg-salmeterol 21 mcg/actuation HFA inhaler (Advair HFA) sodium chloride 0.65 % nasal spray 1 spray intranasal BID PRN dry 01/15/22 aerosol (Saline Nasal) nasal passages #44 mL acetaminophen 500 mg tablet 500 - 1,000 mg PO Q6H PRN pain #30 04/05/22 tabs ketorolac 10 mg tablet 10 mg PO ONCE pain 7 days #7 tabs 05/05/22 albuterol sulfate 90 mcg/actuation 2 inh inhalation Q4H PRN Shortness 08/15/22 aerosol inhaler Of Breath #8.5 grams cholecalciferol (vitamin D3) 50 50 mcg PO DAILY #30 caps 08/30/22 mcg (2,000 unit) capsule cyanocobalamin (vitamin B-12) 500 500 mcg PO DAILY #30 tabs 08/30/22 mcg tablet albuterol sulfate 2.5 mg/3 mL 2.5 mg (3 mL) inhalation Q6H #75 mL 10/26/22 (0.083 %) solution for nebulization albuterol sulfate 90 mcg/actuation 2 inh inhalation Q4-6H PRN 10/26/22 breath activated powder inhaler shortness of breath or wheezing #1 ea prednisone 20 mg tablet 40 mg PO DAILY 5 days #10 tabs 10/26/22 Allergies Allergy/AdvReac Type Severity Reaction Status Date / Time carboprost [From Hemabate] Allergy Severe Anaphylaxis Verified 10/26/22 20:42 gluten Allergy Mild celiac Verified 10/26/22 20:42 disease ENVIRONMENTAL Allergy Mild HIVES, Uncoded 10/26/22 20:42 ITCH EYES, REDNESS Review of Systems Review of Systems: Constitutional : No Weight loss, No Fever, No Chills, No Fatigue, No Malaise ENT/Mouth : No sore throat, No Rhinorrhea, + congestion Eyes: No Eye Pain, No Swelling, No Redness Cardiovascular : No Chest Pain, + SOB, No Dyspnea on Exertion, No Orthopnea, No Edema, No Palpitations Respiratory : + Cough, No Sputum, No Wheezing Gastrointestinal : No Nausea, No Vomiting, No Diarrhea, No Constipation, No abdominal Pain, No Hematochezia, No Melena Genitourinary : No Dysuria, No Urinary Frequency, No Hematuria, Musculoskeletal : No joint pain, No Myalgias, No Joint Swelling Skin : No Skin Lesions, No rash Neuro : No Weakness, No Numbness, No Dizziness, No Headache Psych : No Anxiety/Panic, No Depression All other systems reviewed and are negative Yes all other systems are reviewed and are negative [facility] Past Medical History Attestation statement: The following information was validated with the patient. Source: old records reviewed and nursing notes reviewed Medical History Anxiety Asthma delivery delivered Cholecystitis Fibromyalgia IBS (irritable bowel syndrome) Surgical History H/O: History of appendectomy History of cholecystectomy Family History Family History Mother Arthritis Substance use disorder Father HTN (hypertension) Substance use disorder Maternal Grandmother Cancer Other Mental health disorder Social History Social History Housing: House Alcohol intake: never Patient Tobacco Use Status: Former Tobacco user e-Cigarette/Vaping Use: Never Used Second Hand Smoke Exposure: No Advance Directives: No Advance Directives Information Provided: No service: No Current occupational status: unemployed Cognitive needs: No Hearing needs: No Vision needs: Yes (glasses) Physical Exam Vital Signs: Vital Signs: Last Vital Signs Temp 96.9 F 10/26/22 20:40 Pulse 89 10/26/22 22:48 Resp 18 10/26/22 22:48 BP 125/65 10/26/22 22:48 Pulse Ox 99 10/26/22 22:48 O2 Del Method 10/26/22 20:40 BMI result Body Mass Index 49.6 Patient is noted to be hypertensive and tachycardic tachycardia likely secondary to albuterol which patient has been taking. Appearance: Alert.? Oriented X3.? No acute distress.? Head: Normocephalic, atraumatic, no step-offs or deformities Eyes: Pupils equal, round and reactive to light.? CVS: Normal heart rate and rhythm.? Pulses normal.? Respiratory: No respiratory distress.? Breath sounds with faint expiratory wheezing bilaterally Abdomen: Soft and nontender.? Skin: Skin warm and dry.? Normal skin color.? Normal skin turgor.? Extremities: No lower extremity edema.? No calf ttp, negative Marilou bilaterally. 5/5 strength to bilateral upper and lower extremities Neuro: Oriented X 3.? No motor deficit.? No sensory deficit. CN 2-12 intact Course Reevaluation(s) Reevaluation #1: Chest x-ray unremarkable. CBC with no acute findings. Chemistry with no acute electrolyte abnormalities requiring intervention. D-dimer negative. Normal troponin and BNP. Patient receiving 2nd treatment. Time: 22:36 Reevaluation #2: Patient saturating 99% after 2nd treatment, blood pressure improved, no longer tachycardic, patient feeling much better. At this time likely asthma with superimposed viral infection. At this time patient will be discharged home advised to return with new or worsening symptoms. Educated patient on diagnosis and treatment plan, answered all question, patient verbalizes understanding. At this time patient will be discharged home, advised to return with new or worsening symptoms. Educated on worrisome signs and symptoms and when to return. At this time I feel comfortable discharge home. Time: 22:54 Medications Administered Discontinued Medications Generic Name Dose Route Start Last Admin Trade Name Kyle PRN Reason Stop Dose Admin Albuterol Sulfate 5 mg/ 7.5 mg 10/26/22 20:44 10/26/22 21:58 Albuterol Sulfate 2.5 mg INHALE 10/26/22 20:45 7.5 mg ONCE ONE Administration Albuterol/Ipratropium 3 ml 10/26/22 20:44 10/26/22 21:58 Albuterol/Iprat 2.5/0.5mg 3 Ml Ampul.Neb INHALE 10/26/22 20:45 3 ml ONCE ONE Administration Medical Decision Making Medical Decision Making [facility] Narrative: 2218 27-year-old female presents with congestion, dry cough, shortness of breath times 3-4 days. Denies sick contacts. Physical examination with faint expiratory wheezing bilaterally. Vital signs stable. She is noted to be hypertensive and tachycardic tachycardia likely secondary to albuterol treatments, hypertension likely secondary to anxiety will repeat blood pressure prior to patient's discharge. Suspected viral infection versus asthma versus bronchitis. Unlikely PE, pneumonia, ACS. Plan at this time is to give patient another albuterol treatment and re-evaluate. Lab Data Result Diagrams: 10/26/22 22:20 10/26/22 22:20 Labs: Lab Results 10/26/22 10/26/22 10/26/22 Range/Units 20:58 20:58 22:20 WBC 9.2 (4.8-10.8) X10*3/uL RBC 4.96 (4.20-5.50) X10*6/uL Hgb 14.3 (12.0-16.0) g/dl Hct 43.2 (37.0-47.0) % MCV 87.1 (80.0-98.0) fL MCH 28.8 (27.0-33.0) pg MCHC 33.1 (31.0-35.0) g/dl RDW 12.2 (11.0-16.0) % Plt Count 242 (160-400) X10*3/uL MPV 9.3 L (9.4-12.3) fL Immature Gran % (Auto) 0.2 (0.0-0.4) % Neut % (Auto) 74.2 H (45-73) % Lymph % (Auto) 14.2 L (20-40) % Liberty % (Auto) 7.2 (2-11) % Eos % (Auto) 3.7 (0-4) % Baso % (Auto) 0.5 (0-2) % Lymph # (Auto) 1.3 (1.2-4.9) X10*3/uL Liberty # (Auto) 0.7 (0.1-1.2) X10*3/uL Eos # (Auto) 0.3 (0.0-0.4) X10*3/uL Baso # (Auto) 0.1 (0.0-0.2) X10*3/uL Abs Immat Gran (auto) 0.02 (0.00-0.03) X10*3/uL Absolute Neuts (auto) 6.8 (2.0-8.3) x10*3/uL Absolute Nucleated RBC 0.000 (0.0-0.012) X10*3/uL Nucleated RBC % (auto) 0.0 (0.0-0.2) /100WBC D-Dimer High Sensitivty NG/ML Sodium (135-145) mmol/L Potassium (3.3-5.1) mmol/L Chloride (96-108) mmol/L Carbon Dioxide (22-29) mmol/L Anion Gap (12-20) BUN (9-16) mg/dL Creatinine (0.5-1.4) mg/dL Estim Creat Clear Calc Estimated GFR Random Glucose (60-115) mg/dL Calcium (8.4-10.2) mg/dL Total Bilirubin (0.0-1.0) mg/dL AST (5-31) U/L ALT (0-31) U/L Alkaline Phosphatase (39-117) U/L Troponin I High Sens (<3.5-17.0) ng/L B-Natriuretic Peptide (<100) pg/mL Total Protein (6.5-8.0) g/dL Albumin (3.5-5.0) g/dL COVID-19 (HELEN) Negative (Negative) COVID-19 Clin Com See Note Influenza Type A (ATIYA) Negative (Negative) Influenza Type B (ATIYA) Negative (Negative) Influenza A & B Note See Note 10/26/22 10/26/22 10/26/22 Range/Units 22:20 22:20 22:20 WBC (4.8-10.8) X10*3/uL RBC (4.20-5.50) X10*6/uL Hgb (12.0-16.0) g/dl Hct (37.0-47.0) % MCV (80.0-98.0) fL MCH (27.0-33.0) pg MCHC (31.0-35.0) g/dl RDW (11.0-16.0) % Plt Count (160-400) X10*3/uL MPV (9.4-12.3) fL Immature Gran % (Auto) (0.0-0.4) % Neut % (Auto) (45-73) % Lymph % (Auto) (20-40) % Liberty % (Auto) (2-11) % Eos % (Auto) (0-4) % Baso % (Auto) (0-2) % Lymph # (Auto) (1.2-4.9) X10*3/uL Liberty # (Auto) (0.1-1.2) X10*3/uL Eos # (Auto) (0.0-0.4) X10*3/uL Baso # (Auto) (0.0-0.2) X10*3/uL Abs Immat Gran (auto) (0.00-0.03) X10*3/uL Absolute Neuts (auto) (2.0-8.3) x10*3/uL Absolute Nucleated RBC (0.0-0.012) X10*3/uL Nucleated RBC % (auto) (0.0-0.2) /100WBC D-Dimer High Sensitivty < 150 NG/ML Sodium 142 (135-145) mmol/L Potassium 4.0 (3.3-5.1) mmol/L Chloride 108 (96-108) mmol/L Carbon Dioxide 25 (22-29) mmol/L Anion Gap 13 (12-20) BUN 18 H (9-16) mg/dL Creatinine 0.90 (0.5-1.4) mg/dL Estim Creat Clear Calc 119.7 Estimated GFR > 60 Random Glucose 97 (60-115) mg/dL Calcium 9.5 (8.4-10.2) mg/dL Total Bilirubin 0.5 (0.0-1.0) mg/dL AST 20 (5-31) U/L ALT 20 (0-31) U/L Alkaline Phosphatase 112 (39-117) U/L Troponin I High Sens < 3.5 (<3.5-17.0) ng/L B-Natriuretic Peptide (<100) pg/mL Total Protein 7.2 (6.5-8.0) g/dL Albumin 4.6 (3.5-5.0) g/dL COVID-19 (HELEN) (Negative) COVID-19 Clin Com Influenza Type A (ATIYA) (Negative) Influenza Type B (ATIYA) (Negative) Influenza A & B Note 10/26/22 Range/Units 22:20 WBC (4.8-10.8) X10*3/uL RBC (4.20-5.50) X10*6/uL Hgb (12.0-16.0) g/dl Hct (37.0-47.0) % MCV (80.0-98.0) fL MCH (27.0-33.0) pg MCHC (31.0-35.0) g/dl RDW (11.0-16.0) % Plt Count (160-400) X10*3/uL MPV (9.4-12.3) fL Immature Gran % (Auto) (0.0-0.4) % Neut % (Auto) (45-73) % Lymph % (Auto) (20-40) % Liberty % (Auto) (2-11) % Eos % (Auto) (0-4) % Baso % (Auto) (0-2) % Lymph # (Auto) (1.2-4.9) X10*3/uL Liberty # (Auto) (0.1-1.2) X10*3/uL Eos # (Auto) (0.0-0.4) X10*3/uL Baso # (Auto) (0.0-0.2) X10*3/uL Abs Immat Gran (auto) (0.00-0.03) X10*3/uL Absolute Neuts (auto) (2.0-8.3) x10*3/uL Absolute Nucleated RBC (0.0-0.012) X10*3/uL Nucleated RBC % (auto) (0.0-0.2) /100WBC D-Dimer High Sensitivty NG/ML Sodium (135-145) mmol/L Potassium (3.3-5.1) mmol/L Chloride (96-108) mmol/L Carbon Dioxide (22-29) mmol/L Anion Gap (12-20) BUN (9-16) mg/dL Creatinine (0.5-1.4) mg/dL Estim Creat Clear Calc Estimated GFR Random Glucose (60-115) mg/dL Calcium (8.4-10.2) mg/dL Total Bilirubin (0.0-1.0) mg/dL AST (5-31) U/L ALT (0-31) U/L Alkaline Phosphatase (39-117) U/L Troponin I High Sens (<3.5-17.0) ng/L B-Natriuretic Peptide 29 (<100) pg/mL Total Protein (6.5-8.0) g/dL Albumin (3.5-5.0) g/dL COVID-19 (HELEN) (Negative) COVID-19 Clin Com Influenza Type A (ATIYA) (Negative) Influenza Type B (ATIYA) (Negative) Influenza A & B Note Critical Care Time Critical Care Time Critical Care Time: No Discharge Plan Discharge Clinical Impression: Asthma, Viral infection Patient Disposition: Home, Self-Care Instructions: Asthma (ED), Viral Syndrome (ED) Additional Instructions: Take your medications as prescribed. If you were prescribed antibiotics today, it is important that you take your medication to their entirety, do not skip any doses, do not finish them early. Follow-up with your primary care provider this week. Return to the emergency department with new or worsening symptoms. Such as fevers, chills, chest pain, shortness of breath, nausea, vomiting, dizziness, headache, vision changes, lethargy In case of emergency call 911 Prednisone and albuterol have been sent to her pharmacy, please take these as prescribed. Return with new or worsening symptoms. Prescriptions: New albuterol sulfate 2.5 mg /3 mL (0.083 %) solution for nebulization 2.5 mg inhalation Q6H Qty: 75 0RF albuterol sulfate 90 mcg/actuation aerosol powdr breath activated 2 inh inhalation Q4-6H PRN (Reason: shortness of breath or wheezing) Qty: 1 0RF prednisone 20 mg tablet 40 mg PO DAILY 5 Days Qty: 10 0RF No Action cholecalciferol (vitamin D3) 50 mcg (2,000 unit) capsule 50 mcg PO DAILY Qty: 30 5RF cyanocobalamin (vitamin B-12) 500 mcg tablet 500 mcg PO DAILY Qty: 30 5RF acetaminophen 500 mg tablet 500 - 1,000 mg PO Q6H PRN (Reason: pain) Qty: 30 0RF ketorolac 10 mg tablet 10 mg PO ONCE 7 Days Qty: 7 0RF bupropion HCl 300 mg tablet extended release 24 hr 350 mg PO DAILY PRN lorazepam [Ativan] 0.5 mg tablet 0.5 mg PO DAILY PRN albuterol sulfate 90 mcg/actuation HFA aerosol inhaler 2 inh inhalation Q4H PRN (Reason: Shortness Of Breath) Qty: 8.5 1RF cetirizine 10 mg tablet 10 mg PO DAILY Saline Nasal 0.65 % aerosol,spray 1 spray intranasal BID PRN (Reason: dry nasal passages) Qty: 44 1RF Advair HFA 230-21 mcg/actuation HFA aerosol inhaler 2 puff inhalation BID Qty: 12 1RF aripiprazole 2 mg tablet 2 mg PO DAILY bupropion HCl 150 mg tablet extended release 24 hr 150 mg PO QAM Referrals: Physician,Unknown J [Primary Care Provider] - 1 week Stand Alone Forms: Work/School Release
[2022-10-26 22:40] LABS: D Dimer High Sensitivity < 150 NG/ML
[2022-10-26 22:43] LABS: Alanine Aminotransferase 20 U/L (0-31); Albumin Level 4.6 g/dL (3.5-5.0); Alkaline Phosphatase 112 U/L (39-117); Anion Gap 13 (12-20); Aspartate Amino Transferase 20 U/L (5-31); Bilirubin Total 0.5 mg/dL (0.0-1.0); Blood Urea Nitrogen 18 mg/dL (9-16); Calcium 9.5 mg/dL (8.4-10.2); Carbon Dioxide 25 mmol/L (22-29); Chloride 108 mmol/L (96-108); Creatinine Clr Calc Pharmacy 119.7; Estimated Glomerular Filt Rate > 60; Glucose Random 97 mg/dL (60-115); Sodium 142 mmol/L (135-145); Total Protein 7.2 g/dL (6.5-8.0)
[2022-10-26 22:48] VITALS: BP 125/65; PULSE 89; RESP 18; O2SAT 99
[2022-10-26 22:50] LABS: B Type Natriuretic Peptide 29 pg/mL (<100); Troponin-I High Sensitivity < 3.5 ng/L (<3.5-17.0)
[2022-10-26] MEDS: Albuterol Sulfate 7.5 MG, Albuterol Sulfate (0.083%) 2.5 MG 10 MG INHALE (22:54)
--- NOTE | 2022-10-26 23:17 | PC.NURSE ---
pt ambulatory at time of discharge. pt partner at bedside. VSS. work note and discharge packet provided to pt. pt verbalized understanding of discharge plan.
== END 2022-10-26 23:19 | disposition home or self-care (01) ==
PROVIDERS: Nurse Practitioner Family; Physician Assistant; Emergency Provider Emergency Medicine
DX: B34.9 Viral infection, unspecified (principal); J45.909 Unspecified asthma, uncomplicated; R06.02 Shortness of breath; R05.9 Cough, unspecified; Z20.822 Contact with and (suspected) exposure to COVID-19; Z79.899 Other long term (current) drug therapy
CPT/HCPCS: 36415; 71046; 80053; 83880; 84484; 85025; 85379; 87502; 87635; 99284; 99285

== ENCOUNTER 2023-02-09 00:33 | Inpatient (IN) | payer OTHER, SELFPAY ==
[2023-02-09] VITALS (16 sets, daily range): BP systolic 125–147; BP diastolic 64–87; PULSE 73–126; RESP 16–98; TEMP 36.1–37.1; O2SAT 18–100; BMI 53.1
--- NOTE | ~2023-02-09 | XR_ITS ---
EXAMINATION: XR CHEST CLINICAL INFORMATION: Short of breath COMPARISON: 10/26/2022 TECHNIQUE: Frontal view of the chest was obtained. FINDINGS: The lungs are well expanded. There is no focal consolidation, edema, or effusion. No pneumothorax. The cardiomediastinal silhouette is within normal limits. No acute osseous abnormality. XR/XR chest 1V IMPRESSION: Clear lungs.
--- NOTE | 2023-02-09 00:39 | ED.SOB ---
HPI - SOB/Dyspnea General Chief Complaint: Dyspnea Stated Complaint: Asthma Attack Time Seen by Provider: 02/09/23 00:33 Source: patient Mode of arrival: EMS Limitations: no limitations History of Present Illness HPI Narrative: Patient comes to the ED c/o SOB. Patient states that she has been having an asthma exacerbation for couple of days. Patient used her neb machine and her inhaler without any relief. Patient is chest pain, denies any other symptoms. Last asthma exacerbation was almost 4 years ago. Per EMS, patient's oxygen saturation was in the high 70s on RA. EMS gave the pt one albuterol neb and was given a nonrebreather mask. Related Data Home Medications Medication Instructions Recorded Confirmed cetirizine 10 mg tablet 10 mg PO DAILY 01/15/22 08/15/22 bupropion HCl 300 mg 24 hr tablet, 350 mg PO DAILY PRN 08/15/22 08/15/22 extended release lorazepam 0.5 mg tablet (Ativan) 0.5 mg PO DAILY PRN 08/15/22 08/15/22 aripiprazole 2 mg tablet 2 mg PO DAILY 08/22/22 bupropion HCl 150 mg 24 hr tablet, 150 mg PO QAM 08/22/22 extended release Previous Rx's Medication Instructions Recorded fluticasone propionate 230 2 puff inhalation BID #12 grams 01/15/22 mcg-salmeterol 21 mcg/actuation HFA inhaler (Advair HFA) sodium chloride 0.65 % nasal spray 1 spray intranasal BID PRN dry 01/15/22 aerosol (Saline Nasal) nasal passages #44 mL acetaminophen 500 mg tablet 500 - 1,000 mg PO Q6H PRN pain #30 04/05/22 tabs ketorolac 10 mg tablet 10 mg PO ONCE pain 7 days #7 tabs 05/05/22 cholecalciferol (vitamin D3) 50 50 mcg PO DAILY #30 caps 08/30/22 mcg (2,000 unit) capsule cyanocobalamin (vitamin B-12) 500 500 mcg PO DAILY #30 tabs 08/30/22 mcg tablet albuterol sulfate 2.5 mg/3 mL 2.5 mg (3 mL) inhalation Q6H #75 mL 10/26/22 (0.083 %) solution for nebulization albuterol sulfate 90 mcg/actuation 2 inh inhalation Q4-6H PRN 10/26/22 breath activated powder inhaler shortness of breath or wheezing #1 ea prednisone 20 mg tablet 40 mg PO DAILY 5 days #10 tabs 10/26/22 albuterol sulfate 90 mcg/actuation 2 inh inhalation Q4H PRN Shortness 12/06/22 aerosol inhaler Of Breath #8.5 grams Allergies Allergy/AdvReac Type Severity Reaction Status Date / Time carboprost [From Hemabate] Allergy Severe Anaphylaxis Verified 10/26/22 20:42 gluten Allergy Mild celiac Verified 10/26/22 20:42 disease ENVIRONMENTAL Allergy Mild HIVES, Uncoded 10/26/22 20:42 ITCH EYES, REDNESS Review of Systems Review of Systems: Constitutional : No Weight loss, No Fever, No Chills, No Night Sweats, No Fatigue, No Malaise ENT/Mouth : No Hearing loss, No Ear Pain, No Nasal Congestion, No Sinus Pain, No Hoarseness, No sore throat, No Rhinorrhea, No Swallowing Difficulty Eyes: No Eye Pain, No Swelling, No Redness, No Foreign Body, No Discharge, No Vision Changes Cardiovascular : No Chest Pain, No SOB, No Dyspnea on Exertion, No Orthopnea, No Edema, No Palpitations Respiratory : Cough, no sputum production, wheezing and shortness of breath/chest tightness Gastrointestinal : No Nausea, No Vomiting, No Diarrhea, No Constipation, No abdominal Pain, No Hematochezia, No Melena Genitourinary : no irregular bleeding, No Dysuria, No Urinary Frequency, No Hematuria, No Urinary Incontinence, No Urgency, No Flank Pain, No Urinary Flow Changes, No Hesitancy Musculoskeletal : No joint pain, No Myalgias, No Joint Swelling Skin : No Skin Lesions, No rash Neuro : No Weakness, No Numbness, No Paresthesias, No Loss of Consciousness, No Dizziness, No Headache Psych : No Anxiety/Panic, No Depression, No SI/HI/AH/VH, No Social Issues, Heme/Lymph: No Bruising, No Bleeding,No Lymphadenopathy Endocrine : No Polyuria, No Polydipsia, No Temperature Intolerance [facility] Past Medical History Medical History Anxiety Asthma delivery delivered Cholecystitis Fibromyalgia IBS (irritable bowel syndrome) Surgical History H/O: History of appendectomy History of cholecystectomy Family History Family History Mother Arthritis Substance use disorder Father HTN (hypertension) Substance use disorder Maternal Grandmother Cancer Other Mental health disorder Social History Social History Housing: House Alcohol intake: never Patient Tobacco Use Status: Former Tobacco user e-Cigarette/Vaping Use: Never Used Second Hand Smoke Exposure: No Advance Directives: No Advance Directives Information Provided: Yes service: No Current occupational status: unemployed Cognitive needs: No Hearing needs: No Vision needs: Yes (glasses) Physical Exam Vital Signs: Vital Signs: Last Vital Signs Pulse 123 H 02/09/23 01:59 Resp 26 H 02/09/23 01:59 BP 130/70 02/09/23 01:35 Pulse Ox 93 02/09/23 01:35 O2 Del Method Room Air 02/09/23 01:35 Oxygen Flow Rate 15 02/09/23 00:37 BMI result Body Mass Index 53.1 Const: Other: Appearance: Alert. Oriented X3. No acute distress. Eyes: Pupils equal, round and reactive to light. ENT: Pharynx normal. Neck: Normal inspection. Neck supple. No lymph nodes noted. No crepitus CVS: Normal heart rate and rhythm. Pulses normal. Normal S1 and S2 Respiratory: Mild respiratory distress, oxygen saturation 100% on a non-rebreather. Patient has significant tightness, decreased air breathing, wheezing present Abdomen: Soft and nontender. No rigidity. No distention. Skin: Skin warm and dry. Normal skin color. Normal skin turgor. Extremities: No lower extremity edema. No Lacerations. No Rash Neuro: Oriented X 3. No motor deficit. No sensory deficit. Moving all extremities. No slurred speech. CN 2 through 12 grossly intact Psych: calm, cooperative, normal affect Medications Administered Generic Name Dose Route Start Last Admin Trade Name Freq PRN Reason Stop Dose Admin Magnesium Sulfate 2 gm in 50 mls @ 25 mls/hr 02/09/23 00:38 02/09/23 00:57 Magnesium Sulfate/H2o IV 02/09/23 02:37 25 mls/hr ONCE ONE Administration Discontinued Medications Generic Name Dose Route Start Last Admin Trade Name Freq PRN Reason Stop Dose Admin Albuterol Sulfate 10 mg 02/09/23 00:38 02/09/23 00:49 Albuterol Sulfate (0.083%) 2.5 Mg/3 Ml Vial.Neb INHALE 02/09/23 00:39 10 mg ONCE ONE Administration Albuterol Sulfate 10 mg 02/09/23 01:47 02/09/23 01:57 Albuterol Sulfate (0.083%) 2.5 Mg/3 Ml Vial.Neb INHALE 02/09/23 01:48 10 mg ONCE ONE Administration Methylprednisolone Sodium Succinate 125 mg 02/09/23 00:38 02/09/23 00:51 Methylprednisolone Sod Succ 125 Mg/2 Ml Vial IVPUSH 02/09/23 00:39 125 mg ONCE ONE Administration Medical Decision Making Medical Decision Making [facility] Narrative: -on arrival, patient speaking in full sentences but still seems to be short of breath. -patient was given an hour long nebulization treatments, Solu-Medrol and magnesium. -patient's labs and chest x-ray are pending. -patient is on her 2nd our long nebulization treatment, oxygen saturation 97%. However, on physical exam, on auscultation patient is still very tight and still wheezing. -patient to be reassessed after the nebulization treatment, it is possible that patient may need to be hospitalized. -sign out given to Dr. Flaherty. Also Dr. Diaz aware of possible admission, Dr Flaherty will f/u and dispo pt Differential Diagnosis Differential Diagnoses: The differential diagnosis associated with the presentation includes (Asthma) Lab Data 02/09/23 01:57 02/09/23 01:57 Discharge Plan Discharge Clinical Impression: Asthma Patient Disposition: Still a Patient Prescriptions: No Action cholecalciferol (vitamin D3) 50 mcg (2,000 unit) capsule 50 mcg PO DAILY Qty: 30 5RF cyanocobalamin (vitamin B-12) 500 mcg tablet 500 mcg PO DAILY Qty: 30 5RF albuterol sulfate 90 mcg/actuation HFA aerosol inhaler 2 inh inhalation Q4H PRN (Reason: Shortness Of Breath) Qty: 8.5 1RF albuterol sulfate 2.5 mg /3 mL (0.083 %) solution for nebulization 2.5 mg inhalation Q6H Qty: 75 0RF albuterol sulfate 90 mcg/actuation aerosol powdr breath activated 2 inh inhalation Q4-6H PRN (Reason: shortness of breath or wheezing) Qty: 1 0RF prednisone 20 mg tablet 40 mg PO DAILY 5 Days Qty: 10 0RF acetaminophen 500 mg tablet 500 - 1,000 mg PO Q6H PRN (Reason: pain) Qty: 30 0RF ketorolac 10 mg tablet 10 mg PO ONCE 7 Days Qty: 7 0RF bupropion HCl 300 mg tablet extended release 24 hr 350 mg PO DAILY PRN lorazepam [Ativan] 0.5 mg tablet 0.5 mg PO DAILY PRN cetirizine 10 mg tablet 10 mg PO DAILY Saline Nasal 0.65 % aerosol,spray 1 spray intranasal BID PRN (Reason: dry nasal passages) Qty: 44 1RF Advair HFA 230-21 mcg/actuation HFA aerosol inhaler 2 puff inhalation BID Qty: 12 1RF aripiprazole 2 mg tablet 2 mg PO DAILY bupropion HCl 150 mg tablet extended release 24 hr 150 mg PO QAM
[2023-02-09] MEDS: Albuterol Sulfate (0.083%) 2.5 MG/3 ML VIAL.NEB 10 MG INHALE ×2 (00:49→01:57)
[2023-02-09] MEDS: methylPREDNISolone Sod Succ 125 MG/2 ML VIAL IVPUSH (00:51)
[2023-02-09] MEDS: Magnesium Sulfate/H2O 2 GM/50 ML PIGGYBACK IV (00:57)
--- NOTE | 2023-02-09 01:34 | PC.NURSE ---
Addendum entered by Kelle Cummings 02/09/23 01:37: Pt with oxygen saturation of 91-93% on room air. Dr. Blount made aware and plan for additional hour long neb tx. Respiratory called. Original Note: Pt relates feeling better after neb tx.
[2023-02-09 02:06] LABS: MANUAL DIFF FLAG NO
[2023-02-09 02:17] LABS: Basophils Absolute Auto 0.1 X10*3/uL (0.0-0.2); Basophils Percent Auto 0.4 % (0-2); Eosinophils Absolute Auto 0.2 X10*3/uL (0.0-0.4); Eosinophils Percent Auto 1.9 % (0-4); Hematocrit 37.4 % (37.0-47.0); Hemoglobin 12.2 g/dl (12.0-16.0); Imm Gran Abs Auto 0.04 X10*3/uL (0.00-0.03); Imm Gran Pct Auto 0.4 % (0.0-0.4); Lymphocytes Absolute Auto 0.9 X10*3/uL (1.2-4.9); Lymphocytes Percent Auto 7.7 % (20-40); Mean Corpuscular HGB Conc 32.6 g/dl (31.0-35.0); Mean Corpuscular Hemoglobin 28.4 pg (27.0-33.0); Mean Platelet Volume 9.3 fL (9.4-12.3); Monocytes Absolute Auto 0.4 X10*3/uL (0.1-1.2); Monocytes Percent Auto 3.2 % (2-11); Neutrophils Absolute Auto 9.8 x10*3/uL (2.0-8.3); Neutrophils Percent Auto 86.4 % (45-73); Platelet Count 250 X10*3/uL (160-400); Red Cell Distribution Width 12.9 % (11.0-16.0); White Blood Count 11.4 X10*3/uL (4.8-10.8)
[2023-02-09 02:23] LABS: Anion Gap 13 (12-20); Blood Urea Nitrogen 15 mg/dL (9-16); Calcium 8.6 mg/dL (8.4-10.2); Carbon Dioxide 24 mmol/L (22-29); Chloride 109 mmol/L (96-108); Creatinine Clr Calc Pharmacy 126.4; Estimated Glomerular Filt Rate > 60; Glucose Random 156 mg/dL (60-115); Potassium 3.7 mmol/L (3.3-5.1); Sodium 142 mmol/L (135-145)
--- NOTE | 2023-02-09 04:32 | P.HPHOSP_ITS ---
History of Present Illness Date of Service: 02/09/23 Chief Complaint: Dyspnea This is a 27-year-old female with pertinent history of asthma, mood disorder presents to the emergency department for evaluation of dyspnea. Patient states she has been having shortness of breath, worse with exertion for the last 2 days . It has been progressive and not relieved with home inhalers. She has been having associated wheezing. Patient denies fever, chills, cough, chest discomfort, palpitations, abdominal pain, changes in urinary or bowel habits. Patient states she has never been hospitalized for asthma exacerbation. Patient was found to be satting in the 70s as per EMS on room air. In the emergency department, patient requiring 2 L supplemental oxygen Review of Systems Constitutional: Constitutional: Reports no additional constitutional complaints Cardiovascular: Cardiovascular: Reports no additional cardiovascular complaints and Reports dyspnea on exertion Respiratory: Respiratory: Reports dyspnea on exertion and Reports wheezing Gastrointestinal: Gastrointestinal: Reports no additional gastrointestinal complaints Genitourinary: Genitourinary: Reports no additional female genitourinary complaints Allergic/Immunologic: Allergic/Immunologic: Reports wheezing [facility] Medical History Anxiety Asthma delivery delivered Cholecystitis Fibromyalgia IBS (irritable bowel syndrome) Functional capacity: independent ambulation Family History Mother Arthritis Substance use disorder Father HTN (hypertension) Substance use disorder Maternal Grandmother Cancer Other Mental health disorder Surgical History H/O: History of appendectomy History of cholecystectomy Social History Housing: House Alcohol intake: never Patient Tobacco Use Status: Former Tobacco user e-Cigarette/Vaping Use: Never Used Second Hand Smoke Exposure: No Advance Directives: No Advance Directives Information Provided: Yes service: No Current occupational status: unemployed Cognitive needs: No Hearing needs: No Vision needs: Yes (glasses) Meds Allergies Allergy/AdvReac Type Severity Reaction Status Date / Time carboprost [From Hemabate] Allergy Severe Anaphylaxis Verified 10/26/22 20:42 gluten Allergy Mild celiac Verified 10/26/22 20:42 disease ENVIRONMENTAL Allergy Mild HIVES, Uncoded 10/26/22 20:42 ITCH EYES, REDNESS Active Medications: Current Medications Acetaminophen (Acetaminophen 325 Mg Tablet) 650 mg PO Q6H PRN PRN Reason: Pain, Mild (Pain Scale 1-3) Sodium Chloride (Ns) 1,000 mls @ 999 mls/hr IV .Q1H1M ONE Stop: 02/09/23 05:29 Melatonin (Melatonin 3 Mg Tablet) 6 mg PO BEDTIME PRN PRN Reason: Insomnia Ondansetron HCl (Ondansetron Hcl 4 Mg/2 Ml Vial) 4 mg IVPUSH Q8H PRN PRN Reason: Nausea and Vomiting Pharmacy Consult (Consult Rx Perform Med Rec) 1 each MISCELLANE ONCE PRN PRN Reason: Consult order Sodium Chloride (0.9 % Sodium Chloride Flush 3 Ml Syringe) 3 ml IVFLUSH [facility] Medications Medication Instructions Recorded Confirmed Last Taken Type cetirizine 10 mg tablet 10 mg PO DAILY 01/15/22 08/15/22 Unknown History bupropion HCl 300 mg 24 hr tablet, 350 mg PO DAILY PRN 08/15/22 08/15/22 Unknown History extended release lorazepam 0.5 mg tablet (Ativan) 0.5 mg PO DAILY PRN 08/15/22 08/15/22 Unknown History aripiprazole 2 mg tablet 2 mg PO DAILY 08/22/22 Unknown History bupropion HCl 150 mg 24 hr tablet, 150 mg PO QAM 08/22/22 Unknown History extended release Physical Exam Vital Signs and Narrative: Vital Signs: Last Vital Signs Temp 98.3 F 02/09/23 03:52 Pulse 125 H 02/09/23 03:52 Resp 24 H 02/09/23 03:52 BP 147/83 H 02/09/23 03:52 Pulse Ox 95 02/09/23 03:52 O2 Del Method Nasal Cannula 02/09/23 03:52 O2 Flow Rate 2 02/09/23 03:52 Oxygen Flow Rate 15 02/09/23 00:37 BMI result Body Mass Index 53.1 Middle-aged female lying in bed in mild distress on supplemental oxygen Neck supple, no JVD Regular rate and rhythm, S1-S2 heard Bilateral wheezing without crackles Abdomen soft nontender, no guarding, no rigidity Patient is awake, alert and oriented to self, place, time and person ; no focal motor deficit Psych: Normal mood No pedal edema Results Labs 02/09/23 01:57 02/09/23 01:57 Labs: Laboratory Results - last 24 hr 02/09/23 02/09/23 01:57 01:57 MCV 87.0 MCH 28.4 MCHC 32.6 RDW 12.9 Plt Count 250 MPV 9.3 L Immature Gran % (Auto) 0.4 Neut % (Auto) 86.4 H Lymph % (Auto) 7.7 L [place] % (Auto) 3.2 Eos % (Auto) 1.9 Baso % (Auto) 0.4 Lymph # (Auto) 0.9 L [place] # (Auto) 0.4 Eos # (Auto) 0.2 Baso # (Auto) 0.1 Abs Immat Gran (auto) 0.04 H Absolute Neuts (auto) 9.8 H Absolute Nucleated RBC 0.000 Nucleated RBC % (auto) 0.0 Anion Gap 13 Estim Creat Clear Calc 126.4 Estimated GFR > 60 Random Glucose 156 H Calcium 8.6 D Imaging Radiologist's Impressions: Impressions Chest X-Ray 02/09/23 02:26 IMPRESSION: Clear lungs. Assessment and Plan (1) Asthma: Status: Acute Plan This is a 27-year-old female with pertinent history of asthma, mood disorder presents to the emergency department for evaluation of dyspnea. #. Acute hypoxemic respiratory failure secondary to acute asthma exacerbation: Will admit patient with supplemental oxygen. Scheduled and p.r.n. DuoNebs. Continue systemic steroids and home inhaler. Monitor and wean oxygen as tolerated #. Mood disorder: Continue home mood stabilizers #. Morbid obesity: Counseled regarding weight loss #. Reactive leukocytosis Med rec pending DVT prophylaxis: None. Patient is ambulatory Full code Regular diet Admit as inpatient and will require two night minimum hospital stay for supplemental oxygen Time Spent With Patient Time: Total time managing care of this patient today ____ minutes. Quality Stroke Does the patient have a stroke diagnosis?: No VTE Prior VTE?: No VTE Risk Level:: Medical - low VTE Device Contraindication: Treatment Not Indicated VTE Drug Contraindication: Treatment Not Indicated
[2023-02-09] MEDS: 0.9 % Sodium Chloride 1,000 ML 999 ML IV (04:34)
[2023-02-09 05:48] LABS: Basophils Percent Auto 0.3 % (0-2); Eosinophils Percent Auto 0.1 % (0-4); Hematocrit 37.7 % (37.0-47.0); Hemoglobin 12.6 g/dl (12.0-16.0); Imm Gran Abs Auto 0.05 X10*3/uL (0.00-0.03); Imm Gran Pct Auto 0.4 % (0.0-0.4); Lymphocytes Absolute Auto 0.4 X10*3/uL (1.2-4.9); MANUAL DIFF FLAG SCAN; Mean Corpuscular HGB Conc 33.4 g/dl (31.0-35.0); Mean Corpuscular Hemoglobin 28.8 pg (27.0-33.0); Mean Corpuscular Volume 86.3 fL (80.0-98.0); Mean Platelet Volume 9.2 fL (9.4-12.3); Monocytes Absolute Auto 0.1 X10*3/uL (0.1-1.2); Monocytes Percent Auto 0.7 % (2-11); Neutrophils Absolute Auto 11.9 x10*3/uL (2.0-8.3); Neutrophils Percent Auto 95.5 % (45-73); Platelet Count 254 X10*3/uL (160-400); Red Blood Count 4.37 X10*6/uL (4.20-5.50); SCAN SMEAR FLAG 1; White Blood Count 12.4 X10*3/uL (4.8-10.8)
[2023-02-09 06:00] LABS: Anion Gap 13 (12-20); Blood Urea Nitrogen 14 mg/dL (9-16); Calcium 8.7 mg/dL (8.4-10.2); Carbon Dioxide 20 mmol/L (22-29); Chloride 110 mmol/L (96-108); Estimated Glomerular Filt Rate > 60; Glucose Random 145 mg/dL (60-115); Potassium 3.4 mmol/L (3.3-5.1); Sodium 140 mmol/L (135-145)
[2023-02-09 06:11] LABS: COVID-19 Test Negative (Negative); IDNOW Serial# BCCEAD1C
[2023-02-09 06:14] LABS: SLIDE REVIEW VERIFIED
[2023-02-09] MEDS: methylPREDNISolone Sod Succ 40 MG/ML VIAL IVPUSH (06:16)
--- NOTE | 2023-02-09 06:20 | PC.NURSE ---
Pt ambulatory to restroom with steady gait. Relates SOB after returning to room. Oxygen saturation 97% on 2L.
[2023-02-09] MEDS: Albuterol Sulfate (0.083%) 2.5 MG/3 ML VIAL.NEB INHALE ×3 (08:12→16:09)
--- NOTE | 2023-02-09 09:00 | PHA.MEDREC ---
Addendum entered by Afia Bull RPh 02/09/23 09:31: REVIEWED BY [facility] Original Note: Pharmacy Consult ? Medication Reconciliation Pharmacy has completed the medication reconciliation. spoke with patient. Her clonidine 0.1 mg is prescribed for 1 tablet at bedtime however she claims to take 2 tablets as needed.
[2023-02-09] MEDS: Acetaminophen 325 MG TABLET 650 MG PO ×2 (09:23→15:48)
[2023-02-09] MEDS: methylPREDNISolone Sod Succ 125 MG/2 ML VIAL 60 MG IVPUSH ×3 (09:23→20:37)
--- NOTE | 2023-02-09 12:34 | PM.EVENT ---
Event Note Date of Service: 02/09/23 Event Note: Chart reviewed; patient examined. Agree with history and physical exam and plan as outlined. Time Spent With Patient Time: Total time managing care of this patient today ____ minutes.
--- NOTE | 2023-02-09 12:54 | MHC.CM.PN ---
PT REPORTS SHE LIVES WITH FAMILY AND IS INDEPENDENT WITH CARE SHE HAS A NEBULIZER FOR DME AND A CCA CM THAT CHECKS IN A COUPLE OF TIMES PER YEAR SHE DECLINES TO COMPLETE A HCP SHE IS COVID [facility] PCP: EZEQUIEL TSAI IMM DELIVERED CURRENT DC PLAN IS HOME WITH NO SERVICES [facility] TO TRANSPORT
[2023-02-09] MEDS: 0.9 % Sodium Chloride Flush 3 ML SYRINGE IVFLUSH ×2 (15:49→20:36)
[2023-02-10] MEDS: methylPREDNISolone Sod Succ 125 MG/2 ML VIAL 60 MG IVPUSH ×2 (02:26→09:41)
[2023-02-10 03:32] VITALS: BP 132/67; PULSE 86; RESP 17; TEMP 36.3; O2SAT 95
[2023-02-10 07:58] VITALS: BP 121/62; PULSE 70; RESP 19; TEMP 36.3; O2SAT 92
[2023-02-10] MEDS: Albuterol Sulfate (0.083%) 2.5 MG/3 ML VIAL.NEB INHALE (07:58)
[2023-02-10 07:59] VITALS: PULSE 70; RESP 18; O2SAT 92
[2023-02-10] MEDS: buPROPion HCl XL 150 MG TAB.ER.24H PO (09:39)
[2023-02-10] MEDS: ARIPiprazole 2 MG TABLET PO (09:39)
[2023-02-10] MEDS: Methylphenidate HCl 10 MG TABLET 20 MG PO (09:39)
[2023-02-10] MEDS: Escitalopram Oxalate 10 MG TABLET PO (09:39)
[2023-02-10] MEDS: 0.9 % Sodium Chloride Flush 3 ML SYRINGE IVFLUSH (09:40)
--- NOTE | 2023-02-10 09:53 | PM.DS ---
DS: Providers Provider Date of Service: 02/10/23 Date of admission: 02/09/23 04:30 Primary care physician: DAJA Tang DS: Diagnosis Discharge Diagnosis (1) Asthma exacerbation: Status: Acute DS: Summary Hospital Course Hospital Course: Admission note HPI This is a 27-year-old female with pertinent history of asthma, mood disorder presents to the emergency department for evaluation of dyspnea.? Patient states she has been having shortness of breath, worse with exertion for the last 2 days.? It has been progressive and not relieved with home inhalers.? She has been having associated wheezing.? Patient denies fever, chills, cough, chest discomfort, palpitations, abdominal pain, changes in urinary or bowel habits.? Patient states she has never been hospitalized for asthma exacerbation.? Patient was found to be satting in the 70s as per EMS on room air. Hospital course Admitted for hypoxia secondary to asthma exacerbation. treated with steroids and nebulizers with good response over the course of hospital stay as she was weaned off oxygen and able to ambulate with no reported SOB or dyspnea. reports she ran out of Advair 3 weeks ago which will be prescribed for her again on discharge. The patient made significant and quick improvement and will not need 2 overnight hospital stay as a result of that. Start Advair Continue Prednisone use nebulizer every 4-6 hours for the next 3 days Time Spent with Patient Time attestation: Total time managing care of this patient today ____ minutes. Discharge coordination time: Less than 30 minutes Quality: Safe Use of Opioids Does Pt have an Active Cancer Diagnosis on the Problem List?: No Quality: Stroke Does the patient have a stroke diagnosis?: No Physical Exam Vital Signs: Vital Signs: Last Vital Signs Temp 97.3 F 02/10/23 07:58 Pulse 70 02/10/23 07:59 Resp 18 02/10/23 07:59 BP 121/62 02/10/23 07:58 Pulse Ox 92 02/10/23 07:58 O2 Del Method Room Air 02/10/23 07:58 O2 Flow Rate 3 02/09/23 11:32 Oxygen Flow Rate 15 02/09/23 00:37 BMI result Body Mass Index 53.1 Const: Other: Constitutional : Awake, interactive, obese, not in distress Neck : Normal inspection, Supple Cardiovascular : RRR, no JVP, no lower extremity edema Respiratory : good bilateral air entry, no crackles, wheezes or rhonchi Gastrointestinal: soft, lax, Normal bowel sounds, Non tender Skin : Warm, Dry Neurological : Alert & oriented x3, No focal deficit DS: Data Data Completed and Pending Completed studies during hospitalization [Text1]: Procedures Resection of Gallbladder, Percutaneous Endoscopic Approach (08/10/21) Imaging Chest x-ray: Radiologist's impression: ITS Impressions Chest X-Ray 02/09/23 02:26 IMPRESSION: Clear lungs. Discharge Plan Discharge Anticipated Discharge Date/Time: 02/10/23 09:50 Patient Disposition: Home, Self-Care Discharge Diagnosis: Asthma exacerbation Referrals: Anne Marie Thompson FNP [Primary Care Provider] - 1 Week Discharge Medications: New prednisone 20 mg tablet 40 mg PO DAILY Qty: 6 0RF Continued albuterol sulfate 90 mcg/actuation HFA aerosol inhaler 2 inh inhalation Q4H PRN (Reason: Shortness Of Breath) Qty: 8.5 1RF albuterol sulfate 2.5 mg /3 mL (0.083 %) solution for nebulization 2.5 mg inhalation Q6H Qty: 75 0RF clonidine HCl 0.1 mg tablet 0.1 mg PO BEDTIME methylphenidate HCl 20 mg tablet 20 mg PO DAILY escitalopram oxalate 10 mg tablet 10 mg PO DAILY fluticasone propion-salmeterol 230-21 mcg/actuation HFA aerosol inhaler 2 puff inhalation BID Qty: 12 3RF acetaminophen 500 mg tablet 500 - 1,000 mg PO Q6H PRN (Reason: pain) Qty: 30 0RF bupropion HCl 300 mg tablet extended release 24 hr 300 mg PO DAILY aripiprazole 2 mg tablet 2 mg PO DAILY bupropion HCl 150 mg tablet extended release 24 hr 150 mg PO DAILY Discharge Orders: Discharge Order (Routine); Ordered 02/10/23 Ordered By: Jose Alberto Mckee Diet: Advance to usual diet Activity on Discharge: As tolerated Stand Alone Forms: Patient Portal Discharge page Care Plan Goals: Read below Health Concerns: Read below Plan of Treatment: Read below Assessment: Start Advair Continue Prednisone use nebulizer every 4-6 hours for the next 3 days
--- NOTE | 2023-02-10 10:23 | MHC.CM.PN ---
PT WILL DC HOME TODAY WITH NO SERVICES S/O TO TRANSPORT
== END 2023-02-10 11:26 | disposition home or self-care (01) | DRG 202 ==
LOC: HO.ED 02:14 → HO.EDOVER 04:35 → HO.IMC 06:52
PROVIDERS: Admitting Provider Student in an Organized Health Care Education/Training Program; Emergency Provider Emergency Medicine; PCP Nurse Practitioner Family; Visit Provider Student in an Organized Health Care Education/Training Program
DX: J45.902 Unspecified asthma with status asthmaticus (principal); J96.01 Acute respiratory failure with hypoxia; Z68.43 Body mass index [BMI] 50.0-59.9, adult; D72.829 Elevated white blood cell count, unspecified; E66.01 Morbid (severe) obesity due to excess calories; Z20.822 Contact with and (suspected) exposure to COVID-19; Z87.891 Personal history of nicotine dependence; Z79.51 Long term (current) use of inhaled steroids; Z79.899 Other long term (current) drug therapy
CPT/HCPCS: 36415; 71045; 80048; 85025; 87635; 94640; 99285; J2920; J2930; J3475

== ENCOUNTER → 2023-04-23 09:52 | Outpatient (REF) | payer OTHER, SELFPAY | LOC: HO.SL 09:52 | PROVIDERS: PCP Nurse Practitioner Family; Visit Provider Nurse Practitioner Family | DX: R06.83 Snoring (principal) | CPT/HCPCS: 95806 ==

== ENCOUNTER 2023-06-04 08:29 | Outpatient (REF) | payer OTHER, SELFPAY ==
[2023-06-04 09:21] LABS: MANUAL DIFF FLAG NO
[2023-06-04 09:46] LABS: Basophils Absolute Auto 0.1 X10*3/uL (0.0-0.2); Basophils Percent Auto 0.9 % (0-2); Eosinophils Absolute Auto 0.5 X10*3/uL (0.0-0.4); Eosinophils Percent Auto 6.4 % (0-4); Hematocrit 40.3 % (37.0-47.0); Hemoglobin 12.9 g/dl (12.0-16.0); Imm Gran Abs Auto 0.02 X10*3/uL (0.00-0.03); Imm Gran Pct Auto 0.3 % (0.0-0.4); Lymphocytes Absolute Auto 1.7 X10*3/uL (1.2-4.9); Lymphocytes Percent Auto 21.8 % (20-40); Mean Corpuscular Hemoglobin 28.2 pg (27.0-33.0); Mean Corpuscular Volume 88.2 fL (80.0-98.0); Mean Platelet Volume 9.3 fL (9.4-12.3); Monocytes Absolute Auto 0.5 X10*3/uL (0.1-1.2); Monocytes Percent Auto 5.9 % (2-11); Neutrophils Absolute Auto 5.2 x10*3/uL (2.0-8.3); Neutrophils Percent Auto 64.7 % (45-73); Platelet Count 276 X10*3/uL (160-400); Red Blood Count 4.57 X10*6/uL (4.20-5.50); Red Cell Distribution Width 12.4 % (11.0-16.0)
[2023-06-04 10:26] LABS: Erythrocyte Sedimentation Rate 4 MM/HR (0-20)
[2023-06-06 18:22] LABS: Immunoglobulin E 543 kU/L (<OR=114)
== END 2023-06-04 08:30 | disposition home or self-care (01) ==
LOC: HO.LAB 08:29
PROVIDERS: PCP Nurse Practitioner Family; Visit Provider Hospitalist
DX: J45.901 Unspecified asthma with (acute) exacerbation (principal); G47.33 Obstructive sleep apnea (adult) (pediatric); Z91.09 Other allergy status, other than to drugs and biological substances
CPT/HCPCS: 36415; 82785; 85025; 85652; 86003; 99202

== ENCOUNTER 2023-06-04 08:29 | Outpatient (AMB) | payer OTHER, SELFPAY ==
[2023-06-04 08:34] VITALS: PULSE 86; O2SAT 98; BMI 55.9
--- NOTE | 2023-06-04 08:34 | A.OFFVIS_ITS ---
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 The patient is a 28-year-old young woman with a history of asthma. Apparently her asthma has been more active. She states that back in September she was evaluated in the ER and she was treated and discharged. Subsequently after that her asthma is been more active require more prednisone. In January of this year the patient ended up going to the ER and she was kept in the hospital for an asthma exacerbation. Her blood work was reviewed and no significant eosinophils noted. The viral testing was negative. Her x-ray was relatively clear although showed some errors of bronchitis when I personally reviewed. The patient has been discharged. She has been on Advair. She has wheezing every day. She uses a rescue inhaler several times a day. Feels like the Advair is no longer working. Will go ahead and optimize her respiratory therapy. In addition to that the patient continues to have daytime drowsiness. Her [place] score is elevated 11/24. She has had a sleep study actually 2 home sleep studies. Although very fragmented sleep with this home sleep studies. She feels like she is not able to fall asleep with them. She feels like they are not accurate. She does have headaches in the morning. The patient will have an in-lab study in order to better assess her degree of sleep apnea in view of her comorbidities will be important to note to go to be over treat her. She did desaturate down to 69% during her home sleep study and she also had significant tachycardia up to 115 beats per minute while sleeping which is not normal. The patient will be optimized to Trelegy inhaler. In addition to that will follow-up after PFTs blood work and allergy testing in addition to her sleep study. [facility] Medical History Anxiety Asthma delivery delivered Cholecystitis Encounter to establish care Fibromyalgia IBS (irritable bowel syndrome) Surgical History H/O: History of appendectomy History of cholecystectomy Family History Mother Arthritis Substance use disorder Father HTN (hypertension) Substance use disorder Maternal Grandmother Cancer Other Mental health disorder Social History Household Members: Family and Children Housing: House Do you presently have visiting nurse or other home services: No Alcohol intake: never Patient Tobacco Use Status: Former Tobacco user Tobacco use type: Cigarette Cigarette Packs Per Day: 2 Cigarettes Per Day: 40.0 e-Cigarette/Vaping Use: Former Use Second Hand Smoke Exposure: No service: No Current occupational status: unemployed Cognitive needs: No Hearing needs: No Vision needs: Yes (glasses) Review of Systems Const Denies body aches, Denies chills, Denies fever(s) and Denies headache(s) Eyes Denies change in vision ENT Denies dizziness, Denies otalgia, Denies headache(s), Denies nasal discharge, Denies sinus pain and Denies sore throat Card Denies chest pain, Denies edema, Denies lightheadedness and Denies dyspnea Resp Reports as per HPI, Denies chest congestion, Denies cough, Denies dyspnea and Reports wheezing GI Denies abdominal pain, Denies constipation, Denies diarrhea, Denies nausea and Denies vomiting Musc Denies myalgias Skin/Breast Denies lesions and Denies rash Neuro Denies dizziness and Denies headache(s) Aller/Immun Reports wheezing Physical Exam Vital Signs: Last Vital Signs Pulse 86 06/04/23 08:34 Pulse Ox 98 06/04/23 08:34 Oxygen Delivery Method Room Air 06/04/23 08:34 BMI result Body Mass Index 55.9 Const General: comfortable HEENT Head: Yes normocephalic Neck Neck: Yes supple Chest Chest palpation & inspection: normal inspection of the chest Resp Effort & Inspection: normal respiratory effort Auscultation: wheezes and diminished lung sounds Cardio Rate: regular rate Rhythm: regular rhythm Heart sounds: S1 normal heart sound present and S2 normal heart sound present GI Palpation (GI): Soft to palpation Skin General skin exam: no rashes or lesions noted Extrem General: Yes no clubbing, cyanosis or edema Assessment & Plan Assessment & Plan (1) RAMEZ (obstructive sleep apnea): Code(s): G47.33 - Obstructive sleep apnea (adult) (pediatric) (2) Asthma, persistent controlled: Code(s): J45.998 - Other asthma (3) Environmental allergies: Code(s): Z91.09 - Other allergy status, other than to drugs and biological substances Plan Stop Advair Start Trelegy 200 DUY as needed has a nebulizer contiue singulair Home PSG non diagnostic, requesting in-lab PSG bloodwork/ allergy testing PFTs F/U 2-3 months Orders: Orders PFT pulmonary function test Today J45.901 - Unspecified asthma with (acute) exacerbation RT PSG in-lab sleep study Today G47.33 - Obstructive sleep apnea (adult) (pediatric) Rast Allergen Today J45.901 - Unspecified asthma with (acute) exacerbation Immunoglobulin E Today J45.901 - Unspecified asthma with (acute) exacerbation Erythrocyte Sedimentation Rate Today J45.901 - Unspecified asthma with (acute) exacerbation Complete Blood Count Auto Diff Today J45.901 - Unspecified asthma with (acute) exacerbation Medications: New [id number] 200-62.5-25 mcg (Trelegy Ellipta) 1 inh inhalation DAILY 30 days 60 ea 12RF Discontinued albuterol sulfate 2.5 mg (3 mL) inhalation Q6H 75 mL 0RF fluticasone propion-salmeterol 230-21 mcg/actuation 2 puffs inhalation BID 12 grams 1RF Coding Level of Care Code New Pt Level 4 (55759) Diagnoses RAMEZ (obstructive sleep apnea) G47.33 Asthma, persistent controlled J45.998 Environmental allergies Z91.09 Time Spent (min) 40
== END 2023-06-04 09:12 | disposition home or self-care (01) ==
PROVIDERS: PCP Nurse Practitioner Family; Visit Provider Hospitalist
DX: G47.33 Obstructive sleep apnea (adult) (pediatric) (principal); J45.998 Other asthma; Z91.09 Other allergy status, other than to drugs and biological substances
CPT/HCPCS: 99204

== ENCOUNTER 2023-06-27 09:43 | Outpatient (AMB) | payer OTHER, SELFPAY ==
[2023-06-27 09:48] VITALS: PULSE 76; O2SAT 95; BMI 55.8
--- NOTE | 2023-06-27 09:48 | MHC.OFFVIS ---
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 Apparently her asthma has been more active. She states that back in September she was evaluated in the ER and she was treated and discharged. Subsequently after that her asthma is been more active require more prednisone. In January of this year the patient ended up going to the ER and she was kept in the hospital for an asthma exacerbation. Her blood work was reviewed and no significant eosinophils noted. The viral testing was negative. Her x-ray was relatively clear although showed some errors of bronchitis when I personally reviewed. The patient has been discharged. She has been on Advair. She has wheezing every day. She uses a rescue inhaler several times a day. Feels like the Advair is no longer working. Will go ahead and optimize her respiratory therapy. In addition to that the patient continues to have daytime drowsiness. Her [place] score is elevated 11/24. She has had a sleep study actually 2 home sleep studies. Although very fragmented sleep with this home sleep studies. She feels like she is not able to fall asleep with them. She feels like they are not accurate. She does have headaches in the morning. The patient will have an in-lab study in order to better assess her degree of sleep apnea in view of her comorbidities will be important to note to go to be over treat her. She did desaturate down to 69% during her home sleep study and she also had significant tachycardia up to 115 beats per minute while sleeping which is not normal. The patient will be optimized to Trelegy inhaler. In addition to that will follow-up after PFTs blood work and allergy testing in addition to her sleep study. 06/27/2023 the patient is here for a pulmonary follow-up visit. She has been having hard time with her asthma. Having significant chest tightness and wheezing. At times feeling like she will need to go to the ER. She did start the Trelegy inhaler. She completed the prednisone. When she was off the prednisone her symptoms were restarting. The patient did have blood work including allergy testing. She has extremely severe allergies to cats and also severe allergies to dogs. The patient does live with her brother who has a cat and the cat does going to her bedroom. The patient understands that she needs to avoid the cat and a catcher not going to her bedroom. She should also get an air purifier for now. I did provide her with a letter to see if she can find a place since her CV allergies can be detrimental. We did teach her how to use the EpiPen to have 1 available in case she has a severe reaction again. And in the meantime we also repeat her blood work she does have an elevated eosinophil count and elevated IgE count. The patient does have significant sinusitis and therefore she will benefit from starting biologic therapy. I will request Dupixent to start as soon as possible. In the meantime she will need additional prednisone because of her wheezing and will also start her on budesonide nebs to try to help augment her respiratory therapy. The patient also also having daytime drowsiness. Her [place] score is elevated 24. She is scheduled to undergo an in-lab sleep study. At this point since her asthma so severe and uncontrolled will hold off on the PFTs at this time. [facility] Medical History Anxiety Asthma delivery delivered Cholecystitis Encounter to establish care Fibromyalgia IBS (irritable bowel syndrome) Surgical History H/O: History of appendectomy History of cholecystectomy Family History Mother Arthritis Substance use disorder Father HTN (hypertension) Substance use disorder Maternal Grandmother Cancer Other Mental health disorder Social History Household Members: Family and Children Housing: House Do you presently have visiting nurse or other home services: No Alcohol intake: never Patient Tobacco Use Status: Former Tobacco user Tobacco use type: Cigarette Cigarette Packs Per Day: 2 Cigarettes Per Day: 40.0 e-Cigarette/Vaping Use: Former Use Second Hand Smoke Exposure: No service: No Current occupational status: unemployed Cognitive needs: No Hearing needs: No Vision needs: Yes (glasses) Review of Systems Const Denies body aches, Denies chills, Denies fever(s) and Denies headache(s) Eyes Denies change in vision ENT Denies dizziness, Denies otalgia, Denies headache(s), Reports nasal congestion, Reports nasal discharge, Denies sinus pain, Reports sinus pressure and Denies sore throat Card Denies chest pain, Denies edema, Denies lightheadedness and Reports dyspnea on exertion Resp Reports as per HPI, Denies chest congestion, Reports cough, Reports dyspnea on exertion and Reports wheezing GI Denies abdominal pain, Denies constipation, Denies diarrhea, Denies nausea and Denies vomiting Musc Denies myalgias Skin/Breast Denies lesions and Denies rash Neuro Denies dizziness and Denies headache(s) Aller/Immun Reports wheezing Physical Exam Vital Signs: Last Vital Signs Pulse 76 06/27/23 09:48 Pulse Ox 95 06/27/23 09:48 Oxygen Delivery Method Room Air 06/27/23 09:48 BMI result Body Mass Index 55.8 Const General: comfortable HEENT Head: Yes normocephalic Neck Neck: Yes supple Chest Chest palpation & inspection: normal inspection of the chest Resp Effort & Inspection: normal respiratory effort Auscultation: wheezes throughout and diminished lung sounds Cardio Rate: regular rate Rhythm: regular rhythm Heart sounds: S1 normal heart sound present and S2 normal heart sound present GI Palpation (GI): Soft to palpation Skin General skin exam: no rashes or lesions noted Extrem General: Yes no clubbing, cyanosis or edema Results Reviewed Results Reviewed: personally reviewed CXR 01/2023-no acute disease Assessment & Plan Assessment & Plan (1) Asthma exacerbation: Code(s): J45.901 - Unspecified asthma with (acute) exacerbation Qualifiers: Asthma severity: severe Asthma persistence: persistent Qualified Code(s): J45.51 - Severe persistent asthma with (acute) exacerbation (2) RAMEZ (obstructive sleep apnea): Code(s): G47.33 - Obstructive sleep apnea (adult) (pediatric) (3) Environmental allergies: Code(s): Z91.09 - Other allergy status, other than to drugs and biological substances Plan continue Trelegy 200 DUY as needed has a nebulizer gali restrepo in-lab PSG start prednisone start BUdesonide nebs BID start dupixent PFTs on hold for now severe allergies to cats and dogs, needs to avoid Epipen provided, teaching provided F/U 2-3 months Medications: New epinephrine (EpiPen 2-Ben) for 2 doses 0.3 mg (0.3 mL) IM Q10M 30 days PRN 2 ea 6RF anaphylaxis J45.40 - Moderate persistent asthma, uncomplicated budesonide 0.5 mg (2 mL) inhalation BID 30 days 120 mL 11RF J44.9 - Chronic obstructive pulmonary disease, unspecified prednisone PO daily; Take 2 tabs daily x 5 days, then 1 tablet daily x 5 days 10 days 15 tabs 0RF Discontinued albuterol sulfate 2.5 mg (3 mL) inhalation Q6H 75 mL 0RF fluticasone propion-salmeterol 230-21 mcg/actuation 2 puffs inhalation BID 12 grams 1RF Coding Level of Care Code Est Pt Level 5 (86426) Diagnoses Asthma exacerbation J45.51 Asthma severity: severe Asthma persistence: persistent RAMEZ (obstructive sleep apnea) G47.33 Environmental allergies Z91.09 Time Spent (min) 40
== END 2023-06-27 10:20 | disposition home or self-care (01) ==
PROVIDERS: PCP Nurse Practitioner Family; Visit Provider Hospitalist
DX: J45.51 Severe persistent asthma with (acute) exacerbation (principal); G47.33 Obstructive sleep apnea (adult) (pediatric)
CPT/HCPCS: 99214

== ENCOUNTER → 2023-06-27 09:43 | Outpatient (BNVA) | payer OTHER, SELFPAY | PROVIDERS: PCP Nurse Practitioner Family; Visit Provider Hospitalist | DX: J45.51 Severe persistent asthma with (acute) exacerbation (principal); G47.33 Obstructive sleep apnea (adult) (pediatric); Z91.09 Other allergy status, other than to drugs and biological substances; Z79.899 Other long term (current) drug therapy | CPT/HCPCS: 99212 ==

== ENCOUNTER → 2023-07-12 21:16 | Outpatient (BNV) | payer OTHER, SELFPAY | PROVIDERS: PCP Nurse Practitioner Family; Visit Provider Internal Medicine | DX: G47.33 Obstructive sleep apnea (adult) (pediatric) (principal) | CPT/HCPCS: 95810 ==

== ENCOUNTER → 2023-07-12 21:16 | Outpatient (REF) | payer OTHER, SELFPAY | LOC: HO.SL 21:16 | PROVIDERS: PCP Nurse Practitioner Family; Visit Provider Hospitalist | DX: G47.33 Obstructive sleep apnea (adult) (pediatric) (principal) | CPT/HCPCS: 95810 ==

== ENCOUNTER 2023-07-15 08:39 | Outpatient (AMB) | payer OTHER, SELFPAY ==
--- NOTE | 2023-07-15 10:11 | MHC.OFFVIS ---
Intake Vital Signs 07/15/23 10:12 Weight 142 kg Pulse 88 Pulse Source Pulse Oximeter Pulse Oximetry (%) 96 Oxygen Delivery Method Room Air Intake Visit Reasons: Dupixent Teaching Allergies carboprost [From Hemabate] Allergy (Severe, Verified 07/15/23 10:18) Anaphylaxis gluten Allergy (Mild, Verified 07/15/23 10:18) celiac disease ENVIRONMENTAL Allergy (Mild, Uncoded 07/15/23 10:18) HIVES, ITCH EYES, REDNESS Medication List - Last Reconciled 07/15/23 by Hannah Maxwell LPN acetaminophen 500 - 1,000 mg (1 - 2 x 500 mg) PO Q6H PRN albuterol sulfate 90 mcg/actuation 2 inhalations inhalation Q4H PRN albuterol sulfate 2.5 mg (3 mL) inhalation Q6H aripiprazole 2 mg PO DAILY budesonide 0.5 mg (2 mL) inhalation BID 30 days bupropion HCl 300 mg PO DAILY cetirizine 10 mg PO DAILY dupilumab 300 mg (2 mL) subcut Q2W dupilumab 600 mg (4 mL) subcut ONCE epinephrine 0.3 mg (0.3 mL) IM Q10M PRN 30 days escitalopram oxalate 10 mg PO DAILY fluticasone propion-salmeterol 230-21 mcg/actuation 2 puffs inhalation BID rxduimzizyi-opxovbzls-zzqspmww 200-62.5-25 mcg (Trelegy Ellipta) 1 inh inhalation DAILY 30 days methylphenidate HCl 20 mg PO DAILY methylphenidate HCl 10 mg PO DAILY miscellaneous medical supply 1 ea miscellaneous DAILY montelukast (Singulair) 10 mg PO BEDTIME nebulizers As directed prednisone PO daily; Take 2 tabs daily x 5 days, then 1 tablet daily x 5 days 10 days HPI Dupixent Teaching HPI Details Sumaya is here for a Dupixent teach she was educated on hand washing, injection preparation, administration, and disposal.?Sumaya was able to return demonstrate proper technique for hand washing, injection preparation, administration and disposal of needle and states she has no questions at this time. Medication Dupixent 300mg/2mL pre-filled pen (patient?s own meds) Loading dose of 600mg given by the patient in 2 SQ injections; injection #1 L abdomen;? injection #2 R abdomen? Lot# [id number] expires 04/26/2025. Patient aware her next injection is in 15 days. Nurse visit only.? PFSH Medical History Anxiety Asthma delivery delivered Cholecystitis Encounter to establish care Fibromyalgia IBS (irritable bowel syndrome) Surgical History H/O: History of appendectomy History of cholecystectomy Family History Mother Arthritis Substance use disorder Father HTN (hypertension) Substance use disorder Maternal Grandmother Cancer Other Mental health disorder Social History Household Members: Family and Children Housing: House Do you presently have visiting nurse or other home services: No Alcohol intake: never Patient Tobacco Use Status: Former Tobacco user Tobacco use type: Cigarette Cigarette Packs Per Day: 2 Cigarettes Per Day: 40.0 e-Cigarette/Vaping Use: Former Use Second Hand Smoke Exposure: No service: No Current occupational status: unemployed Cognitive needs: No Hearing needs: No Vision needs: Yes (glasses) Assessment & Plan Assessment & Plan (1) Asthma, persistent controlled: Code(s): J45.998 - Other asthma Coding Level of Care Code Established Pt Est Pt Level 1 (72355) Patient Type Established Diagnoses Asthma, persistent controlled J45.998 Comment NURSE VISIT ONLY
[2023-07-15 10:12] VITALS: PULSE 88; O2SAT 96
== END 2023-07-15 09:14 | disposition home or self-care (01) ==
PROVIDERS: PCP Nurse Practitioner Family; Visit Provider Hospitalist
DX: J45.998 Other asthma (principal)

== ENCOUNTER → 2023-07-15 08:39 | Outpatient (BNVA) | payer OTHER, SELFPAY | PROVIDERS: PCP Nurse Practitioner Family; Visit Provider Hospitalist | DX: Z71.89 Other specified counseling (principal); J45.998 Other asthma | CPT/HCPCS: 99211 ==

== ENCOUNTER 2023-07-30 08:31 | Outpatient (REF) | payer OTHER, SELFPAY ==
--- NOTE | 2023-07-30 09:18 | PFT_ITS ---
INDICATION: Asthma. SPIROMETRY: FEV1 to FVC 79% with an FEV1 of 2.61 L, which is 84% predicted and FVC of 3.29 L, which is 90% predicted. Post bronchodilator there was a significant response to the bronchodilators noted. The FEF 25 to 75 prior to bronchodilators was 47%. A maximum voluntary ventilation 56% predicted. LUNG VOLUMES: Total lung capacity 87% predicted with a residual volume 113% predicted and expiratory volume of 8% predicted. DIFFUSION CAPACITY: DLCO of 112% predicted. INTERPRETATION: No obstructive nor restrictive ventilatory defect identified. There was a significant response to bronchodilators noted. In addition, to that significant evidence of small airway disease suggestive of the diagnosis of asthma. The patient also has a moderate decrease in maximum voluntary ventilation secondary to likely deconditioning. Lung volumes are normal except for a decrease in the expiratory reserve volume suggesting her elevated BMI and there is also a trend of air trapping noted likely secondary to the small airway disease. Diffusion capacity is within normal limits. Clinical correlation warranted. MD MANISHA Mckenzie/JENNIFER / [phone]
== END 2023-07-30 08:32 | disposition home or self-care (01) ==
LOC: HO.RESP 08:31
PROVIDERS: PCP Nurse Practitioner Family; Visit Provider Hospitalist
DX: J45.901 Unspecified asthma with (acute) exacerbation (principal)
CPT/HCPCS: 94010; 94727; 94729

== ENCOUNTER → 2023-07-30 09:18 | Outpatient (BNV) | payer OTHER, SELFPAY | PROVIDERS: PCP Nurse Practitioner Family; Visit Provider Hospitalist | DX: J45.909 Unspecified asthma, uncomplicated (principal) | CPT/HCPCS: 94060; 94727; 94729 ==

== ENCOUNTER → 2023-08-13 08:39 | Outpatient (BNVA) | payer OTHER, SELFPAY | PROVIDERS: PCP Nurse Practitioner Family; Visit Provider Hospitalist | DX: J45.901 Unspecified asthma with (acute) exacerbation (principal); G47.33 Obstructive sleep apnea (adult) (pediatric) ==

== ENCOUNTER 2023-09-05 10:50 | Outpatient (AMB) | payer OTHER, SELFPAY ==
--- NOTE | 2023-09-05 11:12 | A.OFFVIS_ITS ---
Intake Vital Signs 09/05/23 11:13 Height 5 ft 3 in Weight 300 lb BMI 53.1 Pulse 86 Pulse Source Pulse Oximeter Pulse Oximetry (%) 97 Oxygen Delivery Method Room Air Intake Visit Reasons: Asthma follow-up Ged Instructor Required: No Allergies carboprost [From Hemabate] Allergy (Severe, Verified 09/05/23 11:14) Anaphylaxis gluten Allergy (Mild, Verified 09/05/23 11:14) celiac disease ENVIRONMENTAL Allergy (Mild, Uncoded 09/05/23 11:14) HIVES, ITCH EYES, REDNESS HPI HPI Comments History of Present Illness Details The patient is a 28-year-old young woman with a history of asthma. Apparently her asthma has been more active. She states that back in September she was evaluated in the ER and she was treated and discharged. Subsequently after that her asthma is been more active require more prednisone. In January of this year the patient ended up going to the ER and she was kept in the hospital for an asthma exacerbation. Her blood work was reviewed and no significant eosinophils noted. The viral testing was negative. Her x-ray was relatively clear although showed some errors of bronchitis when I personally reviewed. The patient has been discharged. She has been on Advair. She has wheezing every day. She uses a rescue inhaler several times a day. Feels like the Advair is no longer working. Will go ahead and optimize her respiratory therapy. In addition to that the patient continues to have daytime drowsiness. Her [place] score is elevated 09/20. She has had a sleep study actually 2 home sleep studies. Although very fragmented sleep with this home sleep studies. She feels like she is not able to fall asleep with them. She feels like they are not accurate. She does have headaches in the morning. The patient will have an in-lab study in order to better assess her degree of sleep apnea in view of her comorbidities will be important to note to go to be over treat her. She did desaturate down to 69% during her home sleep study and she also had significant tachycardia up to 115 beats per minute while sleeping which is not normal. The patient will be optimized to Trelegy inhaler. In addition to that will follow- up after PFTs blood work and allergy testing in addition to her sleep study. 06/27/2023 the patient is here for a pulm onary follow-up visit. She has been having hard time with her asthma. Having significant chest tightness and wheezing. At times feeling like she will need to go to the ER. She did start the Trelegy inhaler. She completed the prednisone. When she was off the prednisone her symptoms were restarting. The patient did have blood work including allergy testing. She has extremely severe allergies to cats and also severe allergies to dogs. The patient does live with her brother who has a cat and the cat does going to her bedroom. The patient understands that she needs to avoid the cat and a catcher not going to her bedroom. She should also get an air purifier for now. I did provide her with a letter to see if she can find a place since her CV allergies can be detrimental. We did teach her how to use the EpiPen to have 1 available in case she has a severe reaction again. And in the meantime we also repeat her blood work she does have an elevated eosinophil count and elevated IgE count. The patient does have significant sinusitis and therefore she will benefit from starting biologic therapy. I will request Dupixent to start as soon as possible. In the meantime she will need additional prednisone because of her wheezing and will also start her on budesonide nebs to try to help augment her respiratory therapy. The patient also also having daytime drowsiness. Her [place] score is elevated 09/20. She is scheduled to undergo an in-lab sleep study. At this point since her asthma so severe and uncontrolled will hold off on the PFTs at this time. 09/05/2023 the patient is here for a pulm onary follow-up visit. The patient has been feeling a lot better. She started the Dupixent about 6 weeks ago. No adverse reaction to the Dupixent at this time. She has been off prednisone. She has been now will to be weaned off the budesonide nebs as well. She continues on the Trelegy. Although she still requires her short-acting beta agonist as needed but less than 2 times a week. She also did undergo a in-lab sleep study. 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 The patient can consider sleep aid to try the scene pillow deeper to avoid the frequent awakenings. At this point the patient does not need CPAP therapy she can continue with positional therapy. We did talk about a wedge pillow just to help her with her airway. Patient also underwent pulmonary function studies demonstrating small airways disease consistent with her asthma but a significant response to bronchodilators noted consistent with again with her asthma otherwise PFTs are reassuring. [facility] Medical History Anxiety Asthma delivery delivered Cholecystitis Encounter to establish care Fibromyalgia IBS (irritable bowel syndrome) Surgical History H/O: History of appendectomy History of cholecystectomy Family History Mother Arthritis Substance use disorder Father HTN (hypertension) Substance use disorder Maternal Grandmother Cancer Other Mental health disorder Social History Household Members: Family and Children Housing: House Do you presently have visiting nurse or other home services: No Alcohol intake: never Patient Tobacco Use Status: Former Tobacco user Tobacco use type: Cigarette Cigarette Packs Per Day: 2 Cigarettes Per Day: 40.0 e-Cigarette/Vaping Use: Former Use Second Hand Smoke Exposure: No service: No Current occupational status: unemployed Cognitive needs: No Hearing needs: No Vision needs: Yes (glasses) Review of Systems Const Denies body aches, Denies chills, Denies fever(s) and Denies headache(s) Eyes Denies change in vision ENT Denies dizziness, Denies otalgia, Denies headache(s), Denies nasal congestion, Denies nasal discharge, Denies sinus pain, Denies sinus pressure and Denies sore throat Card Denies chest pain, Denies edema, Denies lightheadedness and Denies dyspnea on exertion Resp Reports as per HPI, Denies chest congestion, Reports cough, Denies dyspnea on exertion and Reports wheezing GI Denies abdominal pain, Denies constipation, Denies diarrhea, Denies nausea and Denies vomiting Musc Denies myalgias Skin/Breast Denies lesions and Denies rash Neuro Denies dizziness and Denies headache(s) Aller/Immun Reports wheezing Physical Exam Vital Signs: Last Vital Signs Pulse 86 09/05/23 11:13 Pulse Ox 97 09/05/23 11:13 Oxygen Delivery Method Room Air 09/05/23 11:13 BMI result Body Mass Index 53.1 Const General: comfortable HEENT Head: Yes normocephalic Neck Neck: Yes supple Chest Chest palpation & inspection: normal inspection of the chest Resp Effort & Inspection: normal respiratory effort Auscultation: no wheezes and diminished lung sounds Cardio Rate: regular rate Rhythm: regular rhythm Heart sounds: S1 normal heart sound present and S2 normal heart sound present GI Palpation (GI): Soft to palpation Skin General skin exam: no rashes or lesions noted Extrem General: Yes no clubbing, cyanosis or edema Assessment & Plan Assessment & Plan (1) Asthma, persistent controlled: Code(s): J45.998 - Other asthma (2) Asthma exacerbation: Code(s): J45.901 - Unspecified asthma with (acute) exacerbation Qualifiers: Asthma severity: severe Asthma persistence: persistent Qualified Code(s): J45.51 - Severe persistent asthma with (acute) exacerbation (3) RAMEZ (obstructive sleep apnea): Code(s): G47.33 - Obstructive sleep apnea (adult) (pediatric) (4) Environmental allergies: Code(s): Z91.09 - Other allergy status, other than to drugs and biological substances Plan continue Trelegy 200 DUY as needed has a nebulizer contiue singulair stop BUdesonide nebs BID continue dupixent severe allergies to cats and dogs, needs to avoid Epipen provided, teaching provided F/U 4-6 months Medications: Refilled epinephrine for 2 doses 0.3 mg (0.3 mL) IM Q10M 30 days PRN 2 ea 6RF anaphylaxis J45.40 - Moderate persistent asthma, uncomplicated Coding Level of Care Code Est Pt Level 4 (35074) Diagnoses Asthma, persistent controlled J45.998 Severe persistent asthma with exacerbation J45.51 Asthma severity: severe Asthma persistence: persistent RAMEZ (obstructive sleep apnea) G47.33 Environmental allergies Z91.09 Time Spent (min) 16
[2023-09-05 11:13] VITALS: PULSE 86; O2SAT 97; BMI 53.1
== END 2023-09-05 11:33 | disposition home or self-care (01) ==
PROVIDERS: PCP Nurse Practitioner Family; Visit Provider Hospitalist
DX: J45.998 Other asthma (principal); J45.51 Severe persistent asthma with (acute) exacerbation; G47.33 Obstructive sleep apnea (adult) (pediatric); Z91.09 Other allergy status, other than to drugs and biological substances
CPT/HCPCS: 99214

== ENCOUNTER → 2023-09-05 10:50 | Outpatient (BNVA) | payer OTHER, SELFPAY | PROVIDERS: PCP Nurse Practitioner Family; Visit Provider Hospitalist | DX: J45.51 Severe persistent asthma with (acute) exacerbation (principal); G47.33 Obstructive sleep apnea (adult) (pediatric); Z91.09 Other allergy status, other than to drugs and biological substances | CPT/HCPCS: 99212 ==

== ENCOUNTER 2023-10-10 10:10 | Outpatient (AMB) | payer OTHER, SELFPAY ==
[2023-10-10 10:25] VITALS: BP 136/70; PULSE 69; O2SAT 100; BMI 59.3
--- NOTE | 2023-10-10 10:25 | MHC.PC.OV ---
Vital Signs 10/10/23 10:25 Height 5 ft 3 in Weight 335 lb BMI 59.3 BP 136/70 Blood Pressure Location Lt radial Position Sitting Pulse 69 Pulse Source Pulse Oximeter Pulse Oximetry (%) 100 Oxygen Delivery Method Room Air Intake Visit Reasons: 6 month f/u Biomedical Photographer Required: No Allergies carboprost [From Hemabate] Allergy (Severe, Verified 10/10/23 10:48) Anaphylaxis gluten Allergy (Mild, Verified 10/10/23 10:48) celiac disease ENVIRONMENTAL Allergy (Mild, Uncoded 10/10/23 10:48) HIVES, ITCH EYES, REDNESS Medication List - Last Reconciled 10/10/23 by DAJA Tang acetaminophen 500 - 1,000 mg (1 - 2 x 500 mg) PO Q6H PRN albuterol sulfate 90 mcg/actuation 2 inhalations inhalation Q4H PRN albuterol sulfate 2.5 mg (3 mL) inhalation Q6H aripiprazole 2 mg PO DAILY budesonide 0.5 mg (2 mL) inhalation BID 30 days bupropion HCl 300 mg PO DAILY cetirizine 10 mg PO DAILY dupilumab 300 mg (2 mL) subcut Q2W epinephrine 0.3 mg (0.3 mL) IM Q10M PRN 30 days escitalopram oxalate 10 mg PO DAILY fluticasone propion-salmeterol 230-21 mcg/actuation 2 puffs inhalation BID wxvcupldgqg-uozggybxe-kbvzmtch 200-62.5-25 mcg (Trelegy Ellipta) 1 inh inhalation DAILY 30 days methylphenidate HCl 10 mg PO DAILY miscellaneous medical supply 1 ea miscellaneous DAILY montelukast (Singulair) 10 mg PO BEDTIME nebulizers As directed Tobacco use date assessed: 10/10/23 Dental Screening Dental Screen Date: 10/10/23 Did you have a dental visit in the last 12 months?: No Did you have a dental problem in the last 6 months where you did not have access to dental care?: No Was dental information given to patient?: Patient has dentist HPI 6 month f/u HPI Details Patient is a 28-year-old female who presents today for a routine follow-up. Medical history significant for anxiety, morbid obesity, asthma-followed by pulmonology, depression, fibromyalgia, low back pain, GERD among others. Patient reports that she is compliant with medications and denies side effects. Not interested in weight management referral at this time. Denies concerns today. [facility] Medical History Encounter to establish care Fibromyalgia Cholecystitis delivery delivered Anxiety IBS (irritable bowel syndrome) Asthma Surgical History History of cholecystectomy H/O: History of appendectomy Family History Mother Arthritis Substance use disorder Father HTN (hypertension) Substance use disorder Maternal Grandmother Cancer Other Mental health disorder Social History Household Members: Family and Children Housing: House Do you presently have visiting nurse or other home services: No Alcohol intake: never Patient Tobacco Use Status: Former Tobacco user Tobacco use type: Cigarette Cigarette Packs Per Day: 2 Cigarettes Per Day: 40.0 e-Cigarette/Vaping Use: Former Use Second Hand Smoke Exposure: No service: No Current occupational status: unemployed Cognitive needs: No Hearing needs: No Vision needs: Yes (glasses) Questionnaire Thrive Questionnaire Date Thrive assessed: 04/09/23 AUDIT C Alcohol Use Questionnaire (AUDIT-C) 1. How often do you have a drink containing alcohol?: Never Total Score: 0 Score Reviewed/Action Taken: No QI-7 AMB Questionnaire QI-7 Date QI - 7 assessed: 03/18/23 Feeling nervous, anxious, or on edge: 3 = Nearly every day Not being able to stop or control worryin = Nearly every day Worrying too much about different things: 3 = Nearly every day Trouble relaxin = Nearly every day Being so restless that it is hard to sit still: 3 = Nearly every day Becoming easily annoyed or irritable: 3 = Nearly every day Feeling afraid as if something awful might happen: 3 = Nearly every day Total QI-7 score (0-4 normal; 5-9 mild; 10-14 moderate; 15-21 severe): 21 Source: Developed by Drs. Cooper Walters, Zully Montgomery, Frankie Zazueta and colleagues, with an educational kristy from [email or web address]. QI-7 Assessment Billing QI-7 Assessment Tool: QI-7 Assessment 32241 Review of Systems Const Denies body aches, Denies chills, Denies fever(s) and Denies headache(s) ENT Denies dizziness, Denies otalgia, Denies headache(s), Denies nasal discharge, Denies sinus pain and Denies sore throat Card Denies chest pain, Denies edema, Denies lightheadedness and Denies dyspnea Resp Denies cough, Denies dyspnea and Denies wheezing GI Denies abdominal pain Musc Denies myalgias Skin/Breast Denies rash Neuro Denies dizziness and Denies headache(s) Aller/Immun Denies wheezing Physical exam (Primary Care) Vital Signs: Last Vital Signs Pulse 69 10/10/23 10:25 BP 136/70 10/10/23 10:25 Pulse Ox 100 10/10/23 10:25 Oxygen Delivery Method Room Air 10/10/23 10:25 BMI result Body Mass Index 59.3 Tobacco/Smoking Status: Tobacco use Status Tobacco use date assessed 10/10/23 10/10/23 10:30 Patient Tobacco Use Status Former Tobacco user 10/10/23 10:30 Tobacco use type Cigarette 10/10/23 10:30 e-Cigarette/Vaping Use Former Use 10/10/23 10:30 Thrive Assessment: Date of Thrive Assessment Date Thrive assessed 04/09/23 10/10/23 10:30 Const General: cooperative and no acute distress Orientation/consciousness: patient oriented x3 HENMT Head: Yes normocephalic and Yes atraumatic Face and sinus: Yes sinuses nontender Mouth: oropharynx normal and moist mucous membranes Throat: Yes posterior oropharynx normal Eyes General: appearance normal, both eyes and all related structures Neck Neck: Yes normal visual inspection and Yes full ROM Resp Effort & Inspection: normal respiratory effort and able to speak in complete sentences Auscultation: clear to auscultation bilaterally, no crackles, no rales, no rhonchi and no wheezes Cardio Rate: regular rate Rhythm: regular rhythm Heart sounds: S1 normal heart sound present and S2 normal heart sound present GI Auscultation: normal bowel sounds Skin General skin exam: no rashes or lesions noted Neuro General: patient oriented x3 Gait exam (Neuro): Normal gait present Extrem General: Yes full ROM and No edema Office Procedures Flu Questionnaire Does the patient have a severe egg allergy?: No Does the patient have severe life threatening allergies?: No Does the patient have a fever or illness today?: No Has the patient ever had Guillain-[place] Syndrome?: No Has the patient ever had any past reaction to a flu shot?: No Immunizations flu vacc [id number] 6mos up(PF) 60 mcg(15 mcgx4)/0.5 mL IM syringe Performing Provider: DAJA Tang [facility] Administered by: LENA Sweet on 10/10/23 10:31 Dose Route Admin Location Dispensed Lot Number Expiration Date NDC Waters[employer] Coordinator 0.5 mL IM Left Deltoid 0.5 mL [id number] 04/26/24 53725-474-63 [employer] VIS Given Date VIS Provided VIS Publication Date 10/10/23 Single Vaccine 21 Eligibility Eligibility Date Funding Source Not [facility] Eligible 10/10/23 Private Assessment and Plan Assessment & Plan (1) Morbid obesity with BMI of 50.0-59.9, adult: Code(s): E66.01 - Morbid (severe) obesity due to excess calories; Z68.43 - Body mass index [BMI] 50.0-59.9, adult Plan: Reinforced healthy food choices and exercise as tolerated (2) Anxiety and depression: Code(s): F41.9 - Anxiety disorder, unspecified; F32.A - Depression, unspecified Plan: Continue to follow-up with psychiatry and therapist Psychiatry manages mental health medications (3) Asthma, persistent controlled: Code(s): J45.998 - Other asthma Plan: Stable Continue current treatment as prescribed by pulmonology Continue to follow-up with pulmonology Plan Keep appointment as scheduled Orders: Orders Influenza [id number] Immunization Today Z23 - Encounter for immunization Medications: Refilled albuterol sulfate 90 mcg/actuation 2 inhalations inhalation Q4H PRN 8.5 grams 1RF Shortness Of Breath J45.909 - Unspecified asthma, uncomplicated Coding Level of Care Code Est Pt Level 3 (81980) Diagnoses Morbid obesity with BMI of 50.0-59.9, adult E66.01; Z68.43 Anxiety and depression F41.9; F32.A Asthma, persistent controlled J45.998 Additional Codes QI-7 Assessment Billing - QI-7 Assessment Tool: QI-7 Assessment 86630 ([id number])
== END 2023-10-10 11:21 | disposition home or self-care (01) ==
PROVIDERS: PCP Nurse Practitioner Family; Visit Provider Nurse Practitioner Family
DX: J45.998 Other asthma (principal); E66.01 Morbid (severe) obesity due to excess calories; F41.9 Anxiety disorder, unspecified; Z23 Encounter for immunization; Z68.43 Body mass index [BMI] 50.0-59.9, adult; F32.A Depression, unspecified
CPT/HCPCS: 90471; 90686; 96127; 99213

== ENCOUNTER 2024-03-03 09:47 | Outpatient (AMB) | payer OTHER, SELFPAY ==
[2024-03-03 10:04] VITALS: PULSE 87; O2SAT 96; BMI 53.1
--- NOTE | 2024-03-03 10:04 | MHC.OFFVIS ---
Vital Signs 03/03/24 10:04 Height 5 ft 3 in Weight 300 lb BMI 53.1 Pulse 87 Pulse Source Pulse Oximeter Pulse Oximetry (%) 96 Oxygen Delivery Method Room Air Intake Visit Reasons: Asthma follow-up Rehabilitation Therapy Aide Required: No Allergies carboprost [From Hemabate] Allergy (Severe, Verified 03/03/24 10:05) Anaphylaxis gluten Allergy (Mild, Verified 03/03/24 10:05) celiac disease ENVIRONMENTAL Allergy (Mild, Uncoded 03/03/24 10:05) HIVES, ITCH EYES, REDNESS HPI Comments Details: The patient is a 28-year-old young woman with a history of asthma. Apparently her asthma has been more active. She states that back in September she was evaluated in the ER and she was treated and discharged. Subsequently after that her asthma is been more active require more prednisone. In January of this year the patient ended up going to the ER and she was kept in the hospital for an asthma exacerbation. Her blood work was reviewed and no significant eosinophils noted. The viral testing was negative. Her x-ray was relatively clear although showed some errors of bronchitis when I personally reviewed. The patient has been discharged. She has been on Advair. She has wheezing every day. She uses a rescue inhaler several times a day. Feels like the Advair is no longer working. Will go ahead and optimize her respiratory therapy. In addition to that the patient continues to have daytime drowsiness. Her [place] score is elevated 09/20. She has had a sleep study actually 2 home sleep studies. Although very fragmented sleep with this home sleep studies. She feels like she is not able to fall asleep with them. She feels like they are not accurate. She does have headaches in the morning. The patient will have an in-lab study in order to better assess her degree of sleep apnea in view of her comorbidities will be important to note to go to be over treat her. She did desaturate down to 69% during her home sleep study and she also had significant tachycardia up to 115 beats per minute while sleeping which is not normal. The patient will be optimized to Trelegy inhaler. In addition to that will follow-up after PFTs blood work and allergy testing in addition to her sleep study. 06/27/2023 the patient is here for a pulmonary follow-up visit. She has been having hard time with her asthma. Having significant chest tightness and wheezing. At times feeling like she will need to go to the ER. She did start the Trelegy inhaler. She completed the prednisone. When she was off the prednisone her symptoms were restarting. The patient did have blood work including allergy testing. She has extremely severe allergies to cats and also severe allergies to dogs. The patient does live with her brother who has a cat and the cat does going to her bedroom. The patient understands that she needs to avoid the cat and a catcher not going to her bedroom. She should also get an air purifier for now. I did provide her with a letter to see if she can find a place since her CV allergies can be detrimental. We did teach her how to use the EpiPen to have 1 available in case she has a severe reaction again. And in the meantime we also repeat her blood work she does have an elevated eosinophil count and elevated IgE count. The patient does have significant sinusitis and therefore she will benefit from starting biologic therapy. I will request Dupixent to start as soon as possible. In the meantime she will need additional prednisone because of her wheezing and will also start her on budesonide nebs to try to help augment her respiratory therapy. The patient also also having daytime drowsiness. Her [place] score is elevated 09/20. She is scheduled to undergo an in-lab sleep study. At this point since her asthma so severe and uncontrolled will hold off on the PFTs at this time. 09/05/2023 the patient is here for a pulmonary follow-up visit. The patient has been feeling a lot better. She started the Dupixent about 6 weeks ago. No adverse reaction to the Dupixent at this time. She has been off prednisone. She has been now will to be weaned off the budesonide nebs as well. She continues on the Trelegy. Although she still requires her short-acting beta agonist as needed but less than 2 times a week. She also did undergo a in-lab sleep study. 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 The patient can consider sleep aid to try the scene pillow deeper to avoid the frequent awakenings. At this point the patient does not need CPAP therapy she can continue with positional therapy. We did talk about a wedge pillow just to help her with her airway. Patient also underwent pulmonary function studies demonstrating small airways disease consistent with her asthma but a significant response to bronchodilators noted consistent with again with her asthma otherwise PFTs are reassuring. 03/03/2024 the patient is here for a pulmonary follow-up visit. She Dupixent injections every 2 weeks have been very affecting beneficial for her. She has had a few bouts of asthma exacerbations however. Mainly due to viral syndromes. She required prednisone 20 3 times since last spoke to her. The patient continues use her Trelegy. She has not had to use her nebulizer which is reassuring. Also has been using her CPAP. CPAP therapy continues to be affecting beneficial. She does use it for more than 4 hours a night. She has been getting supplies. I will make sure that she has all her medications the pharmacy will follow-up in the springtime. If she has any worsening symptoms she will call for earlier assessment. [facility] Medical History Encounter to establish care Fibromyalgia Cholecystitis delivery delivered Anxiety IBS (irritable bowel syndrome) Asthma Surgical History History of cholecystectomy H/O: History of appendectomy Family History Mother Arthritis Substance use disorder Father HTN (hypertension) Substance use disorder Maternal Grandmother Cancer Other Mental health disorder Social History Household Members: Family and Children Housing: House Do you presently have visiting nurse or other home services: No Alcohol intake: never Patient Tobacco Use Status: Former Tobacco user Tobacco use type: Cigarette Cigarette Packs Per Day: 2 Cigarettes Per Day: 40.0 e-Cigarette/Vaping Use: Former Use Second Hand Smoke Exposure: No service: No Current occupational status: unemployed Cognitive needs: No Hearing needs: No Vision needs: Yes (glasses) Review of Systems Const Denies body aches, Denies chills, Denies fever(s) and Denies headache(s) Eyes Denies change in vision ENT Denies dizziness, Denies otalgia, Denies headache(s), Denies nasal congestion, Denies nasal discharge, Denies sinus pain, Denies sinus pressure and Denies sore throat Card Denies chest pain, Denies edema, Denies lightheadedness and Denies dyspnea on exertion Resp Reports as per HPI, Denies chest congestion, Reports cough, Denies dyspnea on exertion and Reports wheezing GI Denies abdominal pain, Denies constipation, Denies diarrhea, Denies nausea and Denies vomiting Musc Denies myalgias Skin/Breast Denies lesions and Denies rash Neuro Denies dizziness and Denies headache(s) Aller/Immun Reports wheezing Physical Exam Vital Signs: Last Vital Signs Pulse 87 03/03/24 10:04 Pulse Ox 96 03/03/24 10:04 Oxygen Delivery Method Room Air 03/03/24 10:04 BMI result Body Mass Index 53.1 Const General: comfortable HEENT Head: Yes normocephalic Neck Neck: Yes supple Chest Chest palpation & inspection: normal inspection of the chest Resp Effort & Inspection: normal respiratory effort Auscultation: no wheezes and diminished lung sounds Cardio Rate: regular rate Rhythm: regular rhythm Heart sounds: S1 normal heart sound present and S2 normal heart sound present GI Palpation (GI): Soft to palpation Skin General skin exam: no rashes or lesions noted Extrem General: Yes no clubbing, cyanosis or edema Assessment & Plan Assessment & Plan (1) Asthma, persistent controlled: Comment: severe persistent Code(s): J45.998 - Other asthma Category: Medical (2) RAMEZ (obstructive sleep apnea): Code(s): G47.33 - Obstructive sleep apnea (adult) (pediatric) Category: Medical (3) Environmental allergies: Code(s): Z91.09 - Other allergy status, other than to drugs and biological substances Category: Medical Plan continue Trelegy 100 DUY as needed has a nebulizer contiue singulair continue dupixent severe allergies to cats and dogs, needs to avoid Epipen provided, teaching provided F/U 8-10 months Medications: Changed From montelukast (Singulair) 10 mg PO BEDTIME 30 tabs 0RF J45.998 - Other asthma To montelukast (Singulair) 10 mg PO BEDTIME 90 days 90 tabs 3RF J45.998 - Other asthma Refilled albuterol sulfate 2.5 mg (3 mL) inhalation Q6H 75 mL 3RF Coding Level of Care Code Est Pt Level 4 (13532) Diagnoses Asthma, persistent controlled J45.998 RAMEZ (obstructive sleep apnea) G47.33 Environmental allergies Z91.09 Time Spent (min) 16
== END 2024-03-03 10:13 | disposition home or self-care (01) ==
PROVIDERS: PCP Nurse Practitioner Family; Visit Provider Hospitalist
DX: J45.998 Other asthma (principal); G47.33 Obstructive sleep apnea (adult) (pediatric); Z91.09 Other allergy status, other than to drugs and biological substances
CPT/HCPCS: 99214

== ENCOUNTER → 2024-03-03 09:47 | Outpatient (BNVA) | payer OTHER, SELFPAY | PROVIDERS: PCP Nurse Practitioner Family; Visit Provider Hospitalist | DX: J45.50 Severe persistent asthma, uncomplicated (principal); G47.33 Obstructive sleep apnea (adult) (pediatric); Z91.09 Other allergy status, other than to drugs and biological substances; Z79.899 Other long term (current) drug therapy | CPT/HCPCS: 99212 ==

== ENCOUNTER 2024-11-24 09:59 | Outpatient (AMB) | payer OTHER, SELFPAY ==
[2024-11-24 10:53] VITALS: BP 114/80; PULSE 75; RESP 16; TEMP 36.6; O2SAT 99; BMI 54.2
--- NOTE | 2024-11-24 10:53 | MHC.PC.OV ---
Vital Signs 11/24/24 10:53 Height 5 ft 3 in Weight 306 lb BMI 54.2 BP 114/80 Blood Pressure Location Lt brachial Position Sitting Respiration 16 Pulse 75 Pulse Source Pulse Oximeter Temp 97.9 F Temp Source Oral Pulse Oximetry (%) 99 Oxygen Delivery Method Room Air Int[facility]Annual PE Intake Note: Pt is here today for a PE transfer from [facility] Is last menstrual period known: Yes Last menstrual period: 11/10/24 Allergies carboprost [From Hemabate] Allergy (Severe, Verified 11/24/24 11:22) Anaphylaxis gluten Allergy (Mild, Verified 11/24/24 11:22) celiac disease ENVIRONMENTAL Allergy (Mild, Uncoded 11/24/24 11:22) HIVES, ITCH EYES, REDNESS Medication List - Last Reconciled 11/24/24 by Yasmine Mobley MD acetaminophen 500 - 1,000 mg (1 - 2 x 500 mg) PO Q6H PRN albuterol sulfate 90 mcg/actuation 2 inhalations inhalation Q4H PRN albuterol sulfate 2.5 mg (3 mL) inhalation Q6H aripiprazole 2 mg PO DAILY budesonide 0.5 mg (2 mL) inhalation BID 30 days bupropion HCl XL 300 mg PO DAILY cetirizine 10 mg PO DAILY clonidine HCl mg PO DAILY dupilumab 300 mg (2 mL) subcut Q2W epinephrine 0.3 mg (0.3 mL) IM Q10M PRN 30 days escitalopram oxalate 15 mg PO DAILY pyrffaarpzi-mjvijwkpj-ztugqsqi 200-62.5-25 mcg (Trelegy Ellipta) 1 inh inhalation DAILY 30 days methylphenidate HCl 10 mg PO DAILY miscellaneous medical supply 1 ea miscellaneous DAILY montelukast (Singulair) 10 mg PO BEDTIME 90 days nebulizers As directed [s-ketamoine 86 mg nasal spray once a week at [facility]] Tobacco use date assessed: 11/24/24 Dental Screening Dental Screen Date: 11/24/24 Did you have a dental visit in the last 12 months?: No Did you have a dental problem in the last 6 months where you did not have access to dental care?: No Was dental information given to patient?: Patient has dentist [facility]PI [facility]/Annual PE HPI Details 29year-old female with past medical history significant for anxiety/depression, followed by Psychiatry, morbid obesity, asthma-followed by pulmonology, and fibromyalgia, here today to establish care with a new PCP and for physical exam. [facility] Medical History (Updated 11/24/24 @ 11:42 by Yasmine Mobley MD) ADD (attention deficit disorder) History of cholecystitis Fibromyalgia Cholecystitis Anxiety IBS (irritable bowel syndrome) Surgical History History of cholecystectomy H/O: History of appendectomy Family History (Updated 11/24/24 @ 11:55 by Yasmine Mobley MD) Mother Arthritis Substance use disorder Mental health disorder Father HTN (hypertension) Substance use disorder Maternal Grandmother Cancer Social History Household Members: Family and Children Housing: House Do you presently have visiting nurse or other home services: No Alcohol intake: never Patient Tobacco Use Status: Former Tobacco user Tobacco use type: Cigarette Cigarette Packs Per Day: 2 Cigarettes Per Day: 40.0 e-Cigarette/Vaping Use: Former Use Second Hand Smoke Exposure: No service: No Current occupational status: unemployed Cognitive needs: No Hearing needs: No Vision needs: Yes (glasses) Female Reproductive History Menstrual Date of last menstrual period: 11/10/24 Questionnaire PHQ-9 Over the last 2 weeks, how often have you been bothered by any of the following problems? 1. Little interest or pleasure in doing things: several days 2. Feeling down, depressed, or hopeless: several days 3. Trouble falling or staying asleep, or sleeping too much: several days 4. Feeling tired or having little energy: nearly every day 5. Poor appetite or overeating: nearly every day 6. Feeling bad about yourself - or that you are a failure or have let yourself or your family down: more than half the days 7. Trouble concentrating on things, such as reading the newspaper or watching television: more than half the days 8. Moving or speaking so slowly that other people could have noticed. Or the opposite - being so fidgety or restless that you have been moving around a lot more than usual: several days 9. Thoughts that you would be better off or of hurting yourself in some way: not at all Total score: 14 Depression Screening Interpretation: Positive (sees psych and therapist at [facility]) Depression Screening Done: Yes Source: Developed by Drs. Cooper Walters, Zully Montgomery, Frankie Zazueta and colleagues, with an educational kristy from [employer]. Thrive Questionnaire Date Thrive assessed: 11/17/24 I am a: Patient What is your living situation today?: I have a steady place to live Within the past 12 months, did the food you bought not last and you didn't have the money to get more?: Often true Within the past 12 months, did you worry whether your food would run out before you got money to buy more?: Often true Do you have trouble paying for medicines?: No Do you have trouble getting transportation to medical appointments?: No Do you have trouble paying your heating and electricity bill?: No Do you have trouble taking care of your child, family member or friend?: No Do you have trouble with day-to-day activities such as bathing, preparing meals, shopping, managing finances, etc.?: Yes Are you currently unemployed and looking for a job?: No Are you interested in more education?: Yes Please select the resources that you would like help with: Education Currently or been in a relationship where the following occur: No concerns reported THRIVE Score: 2 AUDIT C Alcohol Use Questionnaire (AUDIT-C) 1. How often do you have a drink containing alcohol?: Never 3. How often do you have six or more drinks on one occasion?: Never Total Score: 0 QI-7 AMB Questionnaire QI-7 Date QI - 7 assessed: 11/24/24 Feeling nervous, anxious, or on edge: 3 = Nearly every day Not being able to stop or control worryin = Several days Worrying too much about different things: 3 = Nearly every day Trouble relaxin = Nearly every day Being so restless that it is hard to sit still: 0 = Not at all Becoming easily annoyed or irritable: 3 = Nearly every day Feeling afraid as if something awful might happen: 1 = Several days Total QI-7 score (0-4 normal; 5-9 mild; 10-14 moderate; 15-21 severe): 14 Source: Developed by Drs. Cooper Walters, Zully Montgomery, Frankie Zazueta and colleagues, with an educational kristy from [employer]. QI-7 Assessment Billing QI-7 Assessment Tool: QI-7 Assessment 62802 Physical exam (Primary Care) Vital Signs: Last Vital Signs Temp 97.9 F 11/24/24 10:53 Pulse 75 11/24/24 10:53 Resp 16 11/24/24 10:53 BP 114/80 11/24/24 10:53 Pulse Ox 99 11/24/24 10:53 Oxygen Delivery Method Room Air 11/24/24 10:53 BMI result Body Mass Index 54.2 Tobacco/Smoking Status: Tobacco use Status Tobacco use date assessed 11/24/24 11/24/24 11:02 Patient Tobacco Use Status Former Tobacco user 11/24/24 11:02 Tobacco use type Cigarette 11/24/24 11:02 e-Cigarette/Vaping Use Former Use 11/24/24 11:02 PHQ-9: PHQ-9 Score PHQ-9: Total score 14 11/24/24 11:02 Depression Screening Interpretation: Positive (sees psych [facility] at [facility]) Thrive Assessment: Date of Thrive Assessment Date Thrive assessed 11/17/24 11/24/24 11:02 Currently or been in a relationship where the following occur: No concerns reported Advance Care Planning discussion: Completed/Scanned Date of discussion: 11/24/24 Who was present: Patient Forms completed: Health Care Proxy Time spent: 16-45 minutes Actual minutes spent: 3 Office Procedures Flu Questionnaire Does the patient have a severe egg allergy?: No Does the patient have severe life threatening allergies?: No Does the patient have a fever or illness today?: No Has the patient ever had Guillain-[place] Pool Syndrome?: No Has the patient ever had any past reaction to a flu shot?: No Immunizations Fluarix Triv [id number] (PF) 45 mcg (15 mcg x 3)/0.5 mL IM syringe Performing Provider: Yasmine Mobley MD Performing Location: [facility] Administered by: Anne Marie Reyna CMA on 11/24/24 11:54 Dose Route Admin Location Dispensed Lot Number Expiration Date [facility] [employer] 0.5 mL IM Left Deltoid 0.5 mL [id number] 04/26/25 [id number] [employer] VIS Given Date VIS Provided VIS Publication Date 11/24/24 Single Vaccine 21 Eligibility Eligibility Date Funding Source Not [facility] Eligible 11/24/24 Private Coding Level of Care Code Est Pt Prev Care 18-39y(15481) Diagnoses Annual visit for general adult medical examination with abnormal findings Z00.01 Fibromyalgia M79.7 De Quervain's tenosynovitis, left M65.4 Environmental allergies Z91.09 Asthma, persistent controlled J45.998 Morbid obesity with BMI of 50.0-59.9, adult E66.01; Z68.43 Major depressive disorder, recurrent, moderate F33.1 ADD (attention deficit disorder) F98.8 Encounter for counseling regarding advance directives Z71.89 Screening for malignant neoplasm of cervix Z12.4 Additional Codes QI-7 Assessment Billing - QI-7 Assessment Tool: QI-7 Assessment 23959 ([id number]) Vital Signs *Quality* - Advance Care Planning discussion: Completed/Scanned ([id number]) Vital Signs *Quality* - Time spent: 16-45 minutes ([id number]) Assessment & Plan Assessment & Plan (1) Annual visit for general adult medical examination with abnormal findings: Code(s): Z00.01 - Encounter for general adult medical examination with abnormal findings (2) Fibromyalgia: Code(s): M79.7 - Fibromyalgia Category: Medical (3) De Quervain's tenosynovitis, left: Code(s): M65.4 - Radial styloid tenosynovitis [de Quervain] Category: Medical (4) Environmental allergies: Code(s): Z91.09 - Other allergy status, other than to drugs and biological substances Category: Medical (5) Asthma, persistent controlled: Comment: severe persistent Code(s): J45.998 - Other asthma Category: Medical (6) Morbid obesity with BMI of 50.0-59.9, adult: Code(s): E66.01 - Morbid (severe) obesity due to excess calories; Z68.43 - Body mass index [BMI] 50.0-59.9, adult Category: Medical (7) Major depressive disorder, recurrent, moderate: Code(s): F33.1 - Major depressive disorder, recurrent, moderate Category: Medical (8) ADD (attention deficit disorder): Code(s): F98.8 - Other specified behavioral and emotional disorders with onset usually occurring in childhood and adolescence Category: Medical (9) Encounter for counseling regarding advance directives: Code(s): Z71.89 - Other specified counseling (10) Screening for malignant neoplasm of cervix: Code(s): Z12.4 - Encounter for screening for malignant neoplasm of cervix Orders: Orders Influenza [id number] Immunization Today Z23 - Encounter for immunization Basic Metabolic Panel Fasting Today E66.01 - Morbid (severe) obesity due to excess calories, F33.1 - Major depressive disorder, recurrent, moderate, F98.8 - Other specified behavioral and emotional disorders with onset usually occurring in childhood and adolescence, J45.998 - Other asthma, M79.7 - Fibromyalgia, Z00.01 - Encounter for general adult medical examination with abnormal findings, Z13.1 - Encounter for screening for diabetes mellitus, Z13.220 - Encounter for screening for lipoid disorders, Z68.43 - Body mass index [BMI] 50.0-59.9, adult, Z91.09 - Other allergy status, other than to drugs and biological substances Lipid Panel Today E66.01 - Morbid (severe) obesity due to excess calories, F33.1 - Major depressive disorder, recurrent, moderate, F98.8 - Other specified behavioral and emotional disorders with onset usually occurring in childhood and adolescence, J45.998 - Other asthma, M79.7 - Fibromyalgia, Z00.01 - Encounter for general adult medical examination with abnormal findings, Z13.1 - Encounter for screening for diabetes mellitus, Z13.220 - Encounter for screening for lipoid disorders, Z68.43 - Body mass index [BMI] 50.0-59.9, adult, Z91.09 - Other allergy status, other than to drugs and biological substances Aspartate Amino Transferase Today E66.01 - Morbid (severe) obesity due to excess calories, F33.1 - Major depressive disorder, recurrent, moderate, F98.8 - Other specified behavioral and emotional disorders with onset usually occurring in childhood and adolescence, J45.998 - Other asthma, M79.7 - Fibromyalgia, Z00.01 - Encounter for general adult medical examination with abnormal findings, Z13.1 - Encounter for screening for diabetes mellitus, Z13.220 - Encounter for screening for lipoid disorders, Z68.43 - Body mass index [BMI] 50.0-59.9, adult, Z91.09 - Other allergy status, other than to drugs and biological substances Alanine Aminotransferase Today E66.01 - Morbid (severe) obesity due to excess calories, F33.1 - Major depressive disorder, recurrent, moderate, F98.8 - Other specified behavioral and emotional disorders with onset usually occurring in childhood and adolescence, J45.998 - Other asthma, M79.7 - Fibromyalgia, Z00.01 - Encounter for general adult medical examination with abnormal findings, Z13.1 - Encounter for screening for diabetes mellitus, Z13.220 - Encounter for screening for lipoid disorders, Z68.43 - Body mass index [BMI] 50.0-59.9, adult, Z91.09 - Other allergy status, other than to drugs and biological substances Vitamin D 25-OH Total Today E66.01 - Morbid (severe) obesity due to excess calories, F33.1 - Major depressive disorder, recurrent, moderate, F98.8 - Other specified behavioral and emotional disorders with onset usually occurring in childhood and adolescence, J45.998 - Other asthma, M79.7 - Fibromyalgia, Z00.01 - Encounter for general adult medical examination with abnormal findings, Z13.1 - Encounter for screening for diabetes mellitus, Z13.220 - Encounter for screening for lipoid disorders, Z68.43 - Body mass index [BMI] 50.0-59.9, adult, Z91.09 - Other allergy status, other than to drugs and biological substances TSH reflex Free T4 Today E66.01 - Morbid (severe) obesity due to excess calories, F33.1 - Major depressive disorder, recurrent, moderate, F98.8 - Other specified behavioral and emotional disorders with onset usually occurring in childhood and adolescence, J45.998 - Other asthma, M79.7 - Fibromyalgia, Z00.01 - Encounter for general adult medical examination with abnormal findings, Z13.1 - Encounter for screening for diabetes mellitus, Z13.220 - Encounter for screening for lipoid disorders, Z68.43 - Body mass index [BMI] 50.0-59.9, adult, Z91.09 - Other allergy status, other than to drugs and biological substances Referrals [facility] Referral E66.01 - Morbid (severe) obesity due to excess calories, F33.1 - Major depressive disorder, recurrent, moderate, F98.8 - Other specified behavioral and emotional disorders with onset usually occurring in childhood and adolescence, J45.998 - Other asthma, M65.4 - Radial styloid tenosynovitis [de Quervain], M79.7 - Fibromyalgia, Z00.01 - Encounter for general adult medical examination with abnormal findings, Z12.4 - Encounter for screening for malignant neoplasm of cervix, Z68.43 - Body mass index [BMI] 50.0-59.9, adult, Z71.89 - Other specified counseling, Z91.09 - Other allergy status, other than to drugs and biological substances
== END 2024-11-24 12:22 | disposition home or self-care (01) ==
PROVIDERS: PCP Nurse Practitioner Family; Visit Provider Internal Medicine
DX: Z23 Encounter for immunization (principal)

== ENCOUNTER 2024-11-24 09:59 | Outpatient (REF) | payer OTHER, SELFPAY ==
--- OUTSIDE RECORDS SUMMARY | 2024-11-25 08:56 | XMS_ITS | Data Portability ---
Author Organization [employer] [place] Address [address] [place] [phone] Care Team Providers Care Lumber Racker Name Role Phone [facility] Primary Care Provider Assessment Encounter Date Assessment Date Assessment LastModified by Organization Details LastModified Time 04/26/2023 04/26/2023 Called to leonardo wilson 27 y/o f w asthma who c/o SOB. VS- Sat 93% RA Lungs: wheezes UL, moving air Given duoneb x 1 Clinical picture c/w asthma exacerbation, give duoneb x 1 w some relief. Given prednisone 40mg x 1, plan to treat with burst. Pt advised to follow with PCP w/in 1-2 weeks to discuss potential optimization of her current regimen. Alarm signs reviewed, advised to call 911 if onset. [email or web address] Not available 04/26/2023 21:01:55 06/26/2023 06/26/2023 I provided real -time medical direction via phone for this encounter, and was available for additional phone based assistance as needed. I have reviewed and agree with the Assessment and Plan as documented by the Commercial Banker. Patient given the opportunity to ask questions. . Advised -needs to call [employer] internship tomorrow -if develops CP/severe SOB/turning blue/uncontrolle d n/v/d or black/bloody emesis or stool/ AMS/ syncope/ hi fever to call 911- verbalized understanding of instructions [email or web address] Not available 06/26/2023 15:36:38 11/18/2023 11/18/2023 I provided real -time medical direction via phone for this encounter, and was available for additional phone based assistance as needed. I have reviewed and agree with the Assessment and Plan as documented by the Commercial Banker. We discussed the diagnostic uncertainty of home visits and the risk associated with this. In this case the patient and I felt this to be an acceptable and reasonable amount of risk given the benefit of avoiding an ED visit. The patient given the opportunity to ask questions. Advised close follow-up with PCP however if develops increasing CP/severe SOB/turning blue/uncontrolle d n/v/d or black/bloody emesis or stool/ AMS/ syncope/ hi fever unresponsive to APAP to call 911- verbalized understanding of instructions [email or web address] Not available 11/19/2023 23:31:54 Plan of Treatment Reminders Order Date Submit Date Provider Last Modified By Organization Details Last Modified Time Details Appointments None recorded. Lab rapid SARS CoV 2 Ag, QL IA, respiratory specimen 2022 023 [email or web address] [facility], [address] [place] [address], [id number], 3 11:55:14 rapid flu (A+B) 2022 023 [email or web address] 0 [facility], [address] [place] [address], [id number], 3 11:55:14 rapid strep group A, throat 2022 023 [email or web address] 0 [facility], [address] [place] [address], [id number], 3 11:55:14 rapid flu (A+B) 2023 024 [email or web address] 0 [facility], [address] [place] [address], [id number], 4 11:42:04 rapid SARS CoV 2 Ag, QL IA, respiratory specimen 2023 024 [email or web address] 0 [facility], [address] [place] [address], [id number], 4 11:42:03 Referral None recorded. Procedures None recorded. Surgeries None recorded. Imaging None recorded. Medication Orders ProAir HFA 90 mcg/actuati on aerosol inhaler [address] [facility] #[id number], [address] [facility], [place], [address], 3 11:21:07 ipratropium 0.5 mg-albutero l 3 mg (2.5 mg base)/3 mL nebulizatio n soln [address] [facility]/Pharmacy #2339, [address] [facility], [place], [address], 3 11:21:07 ipratropium 0.5 mg-albutero l 3 mg (2.5 mg base)/3 mL nebulizatio n soln 2022 023 [email or web address] [facility]/Pharmacy #2339, [address] [place] [address], [place], [address], 3 11:21:26 prednisone 20 mg tablet 2022 023 [email or web address]/Pharmacy #2339, [address] [place] [address], [place], [address], 3 10:47:43 prednisone 20 mg tablet [address] [facility]/Pharmacy #2339, [address] [facility], [place], [address], 3 10:47:46 ipratropium 0.5 mg-albutero l 3 mg (2.5 mg base)/3 mL nebulizatio n soln 2022 023 [email or web address] [facility]/Pharmacy #2339, [address] [place] [address], [address], 3 20:33:19 prednisone 20 mg tablet [address] [facility]/Pharmacy #2339, [address] [place] [address], [address], 3 21:01:46 doxycycline monohydrate 100 mg capsule 2022 023 [email or web address] 0 [facility]armacy #2339, [address] [place] [address], [place], [address], 3 15:13:20 prednisone 20 mg tablet [address] [facility]/Pharmacy #2339, [address] [facility], [place], [address], 3 11:54:39 benzonatate 200 mg capsule [address] [facility]/Pharmacy #2339, [address] [facility], [place], [address], 3 11:54:39 ipratropium 0.5 mg-albutero l 3 mg (2.5 mg base)/3 mL nebulizatio n soln 2022 023 [email or web address] 0 [facility]acy #2339, [address] [place] [address], [place], [address], 3 15:14:29 benzonatate 100 mg capsule 2022 023 [email or web address] 0 [facility]armacy #2339, [address] [place] [address], [place], [address], 3 15:14:29 prednisone 20 mg tablet 2022 023 [email or web address] 0 [facility]/Pharmacy #2339, [address] [facility], [place], [address], 3 15:14:29 doxycycline monohydrate 100 mg capsule 2022 023 [email or web address] 0 [facility]/Pharmacy #2339, [address] [place] [address], [place], [address], 3 15:14:29 prednisone 20 mg tablet 2023 024 [email or web address] 0 [facility]acy #2339, [address] [place] [address], [place], [address], 4 11:48:45 prednisone 10 mg tablet 2023 024 [facility] [address] [place] [address], [address], 4 11:48:52 ipratropium 0.5 mg-albutero l 3 mg (2.5 mg base)/3 mL nebulizatio n soln 2023 024 [email or web address] 0 [facility] [address] [place] [address], [place], [address], 4 11:48:45 albuterol sulfate 2.5 mg/3 mL (0.083 %) solution for nebulizatio n 2023 024 [facility], [address] [place] [address], [place], [address], 4 11:48:52 benzonatate 200 mg capsule 2023 024 [facility], [address] [place] [address], [place], [address], 4 11:53:56 Patient TargetsNo targets recorded. Patient InstructionsNo instructions recorded. Reason for Referral None Reported. Results Created Date Observation Date Name Description Value Unit Range Abnormal Flag Note LastModifiedBy Organization Detail LastModifiedTime 06/26/20 23 06/26/2023 rapid strep group A, throa t Strep negati ve Not Available [facility] [address] [place] [address], [address], 06/26/2023 11:54:41 06/26/20 23 06/26/2023 rapid flu (A+B) Flu negati ve Not Available [facility] [address] [place] [address], [address], 06/26/2023 11:54:39 06/26/20 23 06/26/2023 rapid SARS CoV 2 Ag, QL IA, respi rator y speci men rapid SARS CoV 2 Ag, QL IA, respiratory specimen negati ve Not Available [facility] [address] [place] [address], [address], 06/26/2023 11:54:38 11/18/19 24 11/18/2023 rapid SARS CoV 2 Ag, QL IA, respi rator y speci men rapid SARS CoV 2 Ag, QL IA, respiratory specimen negati ve Not Available [facility] ed [address] [place] [address], [address], 11/18/2023 11:41:47 11/18/19 24 11/18/2023 rapid flu (A+B) Flu negati ve Not Available [facility] ed [address] [place] [address], [address], 11/18/2023 11:41:46 06/26/20 23 01/24/2023 progr ess disch arge summa ry* No observ ation record ed. [email or web address] Not Available 2022 18:12:58 Result Notes None recorded. Procedures Surgical History None recorded. Imaging Results Imaging Date Name Status LastModified by Organiz ation Details LastModified Time 01/24/2023 progress discharge summary* completed [email or web address] Information not available 06/26/2023 18:12:58 Procedure Notes None recorded. Medical Equipment None Reported. Allergies No known drug allergies Medications Name Sig Start Date Stop Date Status Note LastModified by Organization Details LastModified Time clonidine HCl 0.1 mg tablet TAKE 1 TABLET BY MOUTH EVERYDAY AT BEDTIME active Not Available Not Available No t Available prednisone 10 mg tablet TAKE 4 TABS DAILY WITH FOOD X 3, 3 TABS DAILY X 3, 2 TABS DAILY X 3, 1 TAB DAILY X 3. START 11/19/23 active Not Available Not Available No t Available ipratropium 0.5 mg-albuterol 3 mg (2.5 mg base)/3 mL nebulization soln Inhale 3 mL by nebulizatio n route. 2023 active Not Available Not Available Not Avai lable tizanidine 2 mg tablet TAKE 1 TO 2 TABS (2 - 4 MG) ORALLY BEDTIME NEEDED FOR MUSCLE SPASTICITY active Not Available Not Available N ot Available albuterol sulfate 2.5 mg/3 mL (0.083 %) solution for nebulization INHALE 3 ML BY NEBULIZATIO N ROUTE EVERY 4 TO 6 HOURS NEEDED active Not Available Not Available No t Available cetirizine 10 mg tablet TAKE 1 TABLET BY MOUTH EVERY DAY active Not Available Not Available No t Available benzonatate 200 mg capsule Take 1 capsule 3 times a day by oral route as needed. 2023 active Not Available Not Available Not Avai lable methylphenid ate 10 mg tablet TAKE 1 TABLET BY MOUTH TWICE A DAY PART OF A 30 MG DOSE active Not Available Not Available N ot Available methylphenid ate 20 mg tablet TAKE 1 TABLET TWICE A DAY PART OF A 30 MG DOSE active Not Available Not Available No t Available prednisone 20 mg tablet 60 mg po now 2023 active Not Available Not Available Not Avai lable Vitamin B-12 500 mcg tablet TAKE 1 TABLET BY MOUTH EVERY DAY active Not Available Not Available No t Available ketorolac 10 mg tablet TAKE 1 TABLET BY MOUTH ONCE DAILY- NOT COVERED active Not Available Not Available No t Available clonidine HCl 0.2 mg tablet TAKE 1 TABLET BY MOUTH EVERY DAY AT NIGHT active Not Available Not Available No t Available lorazepam 0.5 mg tablet TAKE 1 TABLET BY MOUTH AT BEDTIME AND ONCE DAILY NEEDED FOR ANXIETY active Not Available Not Available Not Available benzonatate 100 mg capsule 200 mg now 2022 active Not Available Not Available Not Avai lable doxycycline monohydrate 100 mg capsule TAKE 1 CAPSULE BY MOUTH TWICE A DAY FOR 9 DAYS BEGINNING 06/27/2023 active Not Available Not Available No t Available budesonide 0.5 mg/2 mL suspension for nebulization INHALE 1 AMP VIA NEBULIZER 2 TIMES A DAY FOR 30 DAYS active Not Available Not Available Not Available montelukast 10 mg tablet TAKE 1 TABLET BY MOUTH AT BEDTIME active Not Available Not Available No t Available epinephrine 0.3 mg/0.3 mL injection, auto-injecto r INJECT 0.3 MG (0.3 ML) INTRAMUSCUL BEATRIS EVERY 10 MINUTES NEEDED FOR ANAPHYLAXIS FOR 30 DAYS active Not Available Not Available Not Available albuterol sulfate HFA 90 mcg/actuatio n aerosol inhaler INHALE 2 PUFFS INTO LUNGS EVERY 4 HOURS NEEDED FOR SHORTNESS OF BREATH active Not Available Not Available No t Available fluticasone propionate 50 mcg/actuatio n nasal spray,suspen keron USE 2 SPRAYS IN EACH NOSTRIL DAILY NEEDED FOR ALLERGIES active Not Available Not Available No t Available nabumetone 500 mg tablet TAKE 1 TABLET BY MOUTH TWICE A DAY active Not Available Not Available No t Available escitalopram 10 mg tablet TAKE 1 TABLET BY MOUTH EVERY DAY WITH MEALS active Not Available Not Available No t Available cyclobenzapr ine 5 mg tablet TAKE 1 TABLET BY MOUTH AT BEDTIME active Not Available Not Available No t Available aripiprazole 5 mg tablet TAKE 1 TABLET BY MOUTH EVERY DAY WITH MEALS active Not Available Not Available No t Available bupropion HCl XL 300 mg 24 hr tablet, extended release TAKE 1 TABLET BY MOUTH EVERY MORNING WITH A MEAL active Not Available Not Available Not Available bupropion HCl XL 150 mg 24 hr tablet, extended release TAKE 1 TABLET BY MOUTH EVERY MORNING WITH MEALS (WITH WB 300 MG TOTAL 450 MG DAILY) active Not Available Not Available No t Available Advair HFA 230 mcg-21 mcg/actuatio n aerosol inhaler INHALE 2 PUFFS 2 TIMES A DAY active Not Available Not Available Not Available aripiprazole 2 mg tablet TAKE 1 TABLET BY MOUTH EVERY DAY WITH MEALS (ONLY 1 BOTTLE COME IN) active Not Available Not Available No t Available cholecalcife rol (vitamin D3) 50 mcg (2,000 unit) capsule TAKE 1 CAPSULE BY MOUTH EVERY DAY active Not Available Not Available No t Available Dupixent 300 mg/2 mL subcutaneous pen injector active Not Available Not Available Not Available Trelegy Ellipta 200 mcg-62.5 mcg-25 mcg powder for inhalation INHALE 1 PUFF INTO LUNGS ONCE DAILY FOR 30 DAYS active Not Available Not Available No t Available Vitals Date Recorded Heart rate Respiratory rate Oxygen saturation Oxygen saturation in Arterial blood by Pulse oximetry Systolic blood pressure Diastolic blood pressure Provider Name and Address Organization Details Last Updated DateTime 3 98 /min 20 /min 97 % 97 % 139 mm[Hg] 88 mm[Hg] Not Available [facility] 3 10:45:28 Date Recorded Oxygen saturation Oxygen saturation in Arterial blood by Pulse oximetry Body weight Respiratory rate Heart rate Body temperature Heart rate Body temperature Oxygen saturation Oxygen saturation in Arterial blood by Pulse oximetry Body weight Respiratory rate Heart rate Body temperature Oxygen saturation Oxygen saturation in Arterial blood by Pulse oximetry Respiratory rate Body weight Systolic blood pressure Diastolic blood pressure Systolic blood pressure Diastolic blood pressure Systolic blood pressure Diastolic blood pressure Provider Name and Address Organization Details Last Updated DateTime 3 93 % 93 % 916462. 92 g 16 /min 119 /min 98.4 [degF] 119 /min 98.4 [degF] 93 % 93 % 545711. 92 g 16 /min 119 /min 98.4 [degF] 93 % 93 % 16 /min 994250. 92 g 135 mm[Hg] 82 mm[Hg] 135 mm[Hg] 82 mm[Hg] 135 mm[Hg] 82 mm[Hg] Not Available [employer] 3 21:15:59 Date Recorded Oxygen saturation Oxygen saturation in Arterial blood by Pulse oximetry Body temperature Body weight Body height Heart rate Respiratory rate Systolic blood pressure Diastolic blood pressure Provider Name and Address Organization Details Last Updated DateTime 3 93 % 93 % 97.1 [degF] 980580. 48 g 160.02 cm 112 /min 18 /min 143 mm[Hg] 96 mm[Hg] Not Available [employer] 3 11:50:37 Date Recorded Body height Body temperature Oxygen saturation Oxygen saturation in Arterial blood by Pulse oximetry Body weight Respiratory rate Heart rate Systolic blood pressure Diastolic blood pressure Provider Name and Address Organization Details Last Updated DateTime 4 160.02 cm 98.5 [degF] 95 % 95 % 163631. 36 g 18 /min 118 /min 133 mm[Hg] 88 mm[Hg] Not Available [employer] 4 11:39:14 Date Recorded Body weight Respiratory rate Body temperature Heart rate Oxygen saturation Oxygen saturation in Arterial blood by Pulse oximetry Respiratory rate Heart rate Body weight Oxygen saturation Oxygen saturation in Arterial blood by Pulse oximetry Body temperature Systolic blood pressure Diastolic blood pressure Systolic blood pressure Diastolic blood pressure Provider Name and Address Organization Details Last Updated DateTime 3 962754. 6 g 18 /min 98.4 [degF] 89 /min 99 % 99 % 18 /min 89 /min 563161. 6 g 99 % 99 % 98.4 [degF] 146 mm[Hg] 106 mm[Hg] 146 mm[Hg] 106 mm[Hg] Not Available [employer] 3 11:29:56 Social History None recorded. Functional Status None recorded. Mental Status None recorded. Family History Nothing Reported. Medical History No medical history recorded. Gynecological HistoryNo gynecological history recorded. Obstetrics History GPAL:G 0 P 0 0 0 0 Past Encounters Encounter ID Performer Location Encounter Start Date Encounter Closed Date Diagnosis/Indication Diagnosis SNOMED-CT Code Diagnosis ICD10 Code Diagnosis Note [id number] Kalyan Chase MD [facility] [address] [place] [phone] 02/19/2023 10:55:35 02/21/2023 11:46:14 Asthma 789177769 J45.909 Reports a hospitaliz ation about a week ago. Has run out of her albuterol and ipratropiu m and although she has refills at the pharmacy, reports that they are on hold . Significan t triggers in the house (multiple cats, dogs, and tobacco smoke). Recently completed course of steroids. 99% on room air with mild expiratory wheezes per enterprise systems architect. Plan to give inhaled bronchodil ators, closely monitor. I will send Rx to the pharmacy in case that helps with the issue, doubt much benefit to steroids at this point given well appearance , normal sats, and finished about a week ago. [id number] Suraj Xiao MD [facility] [address] [place] [phone] 04/05/2023 10:45:24 04/08/2023 13:10:37 Exacerbation of intermittent asthma [id number] J45.21 27yo woman with asthma presents with worsening dyspnea and wheezing in setting of her nebulizer machine breaking and poor air quality recently. No clear infection. On examinatio n by enterprise systems architect she has inspriator y and expiratory wheezing.A ssessment: asthma exacerbati on- DuoNeb administer ed with improvemen t.- Prednisone 40mg QD x 5 days; first dose given by enterprise systems architect [id number] Deanne Wells MD [facility] [address] [place] [phone] 04/26/2023 20:27:47 04/29/2023 10:19:37 Exacerbation of intermittent asthma [id number] J45.21 [id number] Hannah Ghotra MD [facility] [address] [place] [phone] 06/26/2023 11:50:34 06/26/2023 23:58:41 Moderate acute exacerbation of asthma 702375340 J45.901 W/ BRONCHITIS -given that she has dark phlegm I feel antibiotic s are indicated /advised to rest increase fluids- gargle with warms salt water /Status post DuoNeb the wheezing cleared and she had coarse rhonchi at the [facility] ed if symptoms continue she should be retested for COVID in 48 hours, she is always welcome to call for another visit with us as needed advised to use her nebulizer every 4 hours as needed while she is ill-she requested a cough suppressan t, she is aware that benzonatat e is not covered by insurance [id number] Hannah Ghotra MD [facility] [address] [place] [address] 11/18/2023 11:39:11 11/21/2023 09:19:32 Viral upper respiratory tract infection [id number] J06.9 Since she is on day 5 of symptoms, would be unable to start antivirals if PCR is positive as the results would not return to late.-Advi sed to treat symptomati дмитрий. Moderate a cute exacerbation of asthma [id number] J45.901 Status post DuoNeb, patient lungs are clear. She feels better. Needs new Rx for albuterol for her nebulizer -sent to pharmacy. Advised to use albuterol 4 times a day while ill and her budesonide she should be using twice a day. She rad any possibilit y of . She is becoming due for her menses- LMP less than 1 month ago, but is not currently sexually active. Advised to rest increase fluids. Advised if symptoms continue she is always welcome to call for another visit with us as needed advised to use her nebulizer every 4 hours as needed while she is ill-she requested a cough suppressan t, she is aware that benzonatat e is not covered by insurance- it has worked well for her before. Will also cover with prednisone which usually helps she reports with her asthma attacks Health Concerns Section Related Observation LastModified by Organization Detai ls LastModified Time None Recorded Concern Status LastModified by Organization Details LastModified Time None Recorded Advance Directives Directive None Recorded Payers Encounter Date Sequence Insurance Name Policy Number Policy Moreno Covered Member ID Moreno Member ID Guarantor Name 02/19/2023 1 [facility] - DOS PRIOR TO 2023 - DUAL ELIGIBLE (MEDICARE REPLACEMENT/ADV ANTAGE - HMO) Sumaya Shanel [id number] Sumaya Mota Shanel 04/05/2023 1 [facility] - DOS ON OR AFTER 2023 - DUAL ELIGIBLE - CARE HOME OPTIONS AND ONE CARE (MEDICARE REPLACEMENT/ADV ANTAGE - HMO) Sumaya Shanel [id number] Sumaya Mota Shanel 04/26/2023 1 [facility] - DOS ON OR AFTER 2023 - DUAL ELIGIBLE - CARE HOME OPTIONS AND ONE CARE (MEDICARE REPLACEMENT/ADV ANTAGE - HMO) Sumaya Ugarte [id number] Sumaya Mota Shanel 06/26/2023 1 [facility] - DOS ON OR AFTER 2023 - DUAL ELIGIBLE - CARE HOME OPTIONS AND ONE CARE (MEDICARE REPLACEMENT/ADV ANTAGE - HMO) Sumaya Ugarte [id number] Sumaya Mota Shanel 11/18/2023 1 [facility] - DOS ON OR AFTER 2023 - DUAL ELIGIBLE - CARE HOME OPTIONS AND ONE CARE (MEDICARE REPLACEMENT/ADV ANTAGE - HMO) Sumaya Ugarte [id number] Sumaya Svetlana Ugarte Notes Date Note Type Note Provider Name and Address Organization Details Recorded Time 02/19/2023 text/html HPI: Was admitted to hospital last week for asthma attack I needed oxygen. My o2 is never going above 93 even dipping to 90 at times when I? m just sitting down. I don? t want to go back to the ER if not needed hopping someone can see me at home .................... .................... .................... .................... .................... .................... .................... . [facility] Nursing Assessment: Patient Reports: History of asthma, increased use of inhaler Chief Complaints: Shortness of Breath/Dyspnea PMH: COPD/Asthma Allergies: Unknown Comments: Member calling with request for eval for wheezing and SOB with exertion attempt nebulizer treatments with fair effect. Speaking full sentences no distress noted. Request [facility] visit 02/19/23. Discuss if symptoms progress to seek emergent care.-verbalize understanding. Verify member name/- .................... .................... .................... .................... .................... .................... .................... . Commercial Banker Note From Abimael Ma: Pt presents A@Ox4 . [place] warm and dry clear airway with equal chest rise and fall. Pt c/o SOB and wheezing. Pt sts ran out of inhaler (proair). Pt denies CP Fever cough. Pt is allergic to dogs and cats and lives with 3 of them. Pt sts she feels the animals are causing her SOB. Baseline vitals assessed and recorded. Lungs assessed slight wheezing in upper heard only on the back side. Sating 99% RA. [facility] contacted and DEON kevin given pt still had scme minor wheezing. Pt sts she felt some relief. Prescription for proair called in. Pt educated in signs that would indicate the ER. Pt advised to move up her appt with PCP .................... .................... .................... .................... .................... .................... .................... . Disposition: Fulfilled Kalyan Chase MD [address] [place] [address],[address], [place], [phone], [employer] 02/19/2023 12:39:18 04/05/2023 text/html HPI: Short of breath/wheezing .................... .................... .................... .................... .................... .................... .................... . [facility] Nursing Assessment: Reason For Request: sob Patient Reports: Cough, fever greater than 2 days ; History of asthma, increased use of inhaler; Sputum increase ; Cough; Shortness of breath with exertion Denies: Lower extremity swelling COPD COVID Exposure Chief Complaints: Asthma, Shortness of Breath/Dyspnea PMH: COPD/Asthma Allergies: Unknown Comments: Member c/o sob with tightness and exp wheeze, has a cough and sputum. Members nebs just broke , has a rescue inhaler and takes advair. MEmber does have URI symptoms with a sore throat with congestion , no fever. chills Verified identified Suraj Xiao MD [address] [place] [address],[address] [facility], [place], [phone], [employer] 04/05/2023 10:48:03 04/26/2023 text/html HPI: Asthma exacerbation .................... .................... .................... .................... .................... .................... .................... . [facility] Nursing Assessment: Reason For Request: SOB Chief Complaints: Shortness of Breath/Dyspnea, Asthma PMH: COPD/Asthma Allergies: Unknown Comments: Member c/o sob and tight breathing . o2 sat in low 90's. Member does not have nebs on hand Member has exp wheeze, just finished a course of predisone .................... .................... .................... .................... .................... .................... .................... . Commercial Banker Note From Leonidas Mcgee: PI PATTI shortness of breath for 3 - 4 days. Pt is an asthmatic. Pt stated that her nebulizer is broken and is in the process of getting a new one. Pt states her lungs feel tight and said that her 02 was in the 90s, no specific number given. Pt has been using her daily inhaler and her rescue inhaler with some rellef. Pt able to speak in full sentences without difficulty. Pt was on prechisone 3 weeks ago for 4 days, doms a day Pt stated that helped . Bi - lat upper lungs wheezing, Bi - lat lower lungs clear, stable vitals. Pt was given a duonel via nebulizer with some relief, Pt was given 40mg prednisone PO. Discussed with Pt about contacting her PCP to discuss her asthma medications to see if they need to be adiwsted. Discussed with Pt about red flags. Educated Pt on supportive care. pt understood dill Instructions .................... .................... .................... .................... .................... .................... .................... . Disposition: Fulfilled Deanne Wells MD [address] [facility],[address], [place], [address], [employer] 04/29/2023 11:13:25 06/26/2023 text/html HPI: Asthma exacerbated due to cold or possible bronchitis. Severe wheezing been using nebulizer every four hours round the clock with no relief .................... .................... .................... .................... .................... .................... .................... . CRC Nursing Assessment: Reason For Request: Asthma Chief Complaints: Asthma, Cough, Shortness of Breath/Dyspnea PMH: COPD/Asthma Allergies: No Known Comments: Member requesting visit via portal, member called back by this nurse and identified via /name. Member with ongoing asthma symptoms, and intermittent cold symptoms that exacerbate her asthma. Member with audible wheezing and PORRAS, congestion, productive cough, o2 sat around 93% at present. She uses her neb and inhalers, las steroids course 2 months ago. Member saw pulmonology 2 weeks ago and was given Trelegy but she does not feel like it is given any relief, she has reached out to office with no response. Member would like to be evaluated. .................... .................... .................... .................... .................... .................... .................... . Commercial Banker Note From Tres Blackmon: Pt reports three days of cough, sinus pressure, runny nose and mild sore throat. Pt sts cough became productive today, producing brown sputum. Pt had one vomiting episode yesterday but denies hematemesis . Pt denies CP, SOB at rest , fevers, chills or diarrhea. Pt has mba internship f/u tomorrow . Pt is alert, NAD. VSS. Afebrile . Neuro exam and gait normal. No sinus tenderness. Throat unremarkable. Initial LS: diffuse wheezing . ABD unremarkable . No LLE. Rapid covid, flu and strep negative. Duoneb administered with pt endorsing improved breathing. LS post Duoneb: bilateral lower lobe coarse rhonchi, no wheezing. Pt treated with 200 mg doxycycline PO, 60 mg prednisone PO, and 200 mg benzonatate PO. Pt instructed to keep mba internship appointment tomorrow and to seek emergent medical care for new or worsening sx, which are reviewed with her. .................... .................... .................... .................... .................... .................... .................... . Disposition: FulfilledSEGMD: As above.-Patient denies any possibility of . Although she vomited once yesterday post ssive, she is able to eat and drink today. She denies diarrhea she denies hematemesis, melena or hematochezia Hannah Ghotra MD [address] [facility],[address], [place], [address], [employer] 06/26/2023 15:37:45 11/18/2023 text/html HPI: Baseline has been usual but I am currently sick, tested neg for COVID-19, Low 02 readings 88-92 with shortness of breath, I will call 911 if I get worse before the morning .................... .................... .................... .................... .................... .................... .................... . CRC Nurse Triage Notes (Ade Rm): Reason For Request: Worsening SOB, URI, Chief Complaints: URI PMH: COPD/Asthma Allergies: Unknown Comments: Called back member at 0905, 28 year old female with PMH of Asthma. CC of cold symptoms, started of and not feeling any better. No fever, 02 sat 90-93% , no home 02 use, has been using nebulizer (albuterol/Proair), not getting any better, has been seen before by Miguel A, possible need for steroids for asthma exac. verified address//phone # Hpatterson ELIU .................... .................... .................... .................... .................... .................... .................... . Commercial Banker Note From Jeanette Helms: Sent to a call for a pt complaining of URI symptoms. SC8 arrives on scene, pt is alert and oriented, airway is patent, gait is steady. Pt has hx of asthma and recently dx: Celiac disease. Pt complains of headache, intermittent nasal congestion (none currently), cough with clear phlegm (intermittent brown spots), bilateral cp with cough, worsening sob mostly with exertion, spO2 88-93% RA, baseline diarrhea (3-10 times daily), and body pain. Pt denies dizziness, sinus pain, runny nose, sore throat, n/v, abd pain, black/bloody stool, fever, or loc. Pt has been eating and drinking, and states her HR usually increases when she is sick. Pt has been using albuterol neb approx 2 times daily, budesonide neb intermittently (last used once yesterday), and albuterol inhaler 2 times daily. Pt states she last saw Rental Coordinator in Nov and next appt is approx 2months away. (sitting) BP:133/88, P:118 reg, RR:18, SpO2:95% RA, T:98.5; (standing) BP:126/82, P:124, SpO2:95% RA; Head: no sinus tenderness; Chest: no tenderness; Lung sounds: diminished bilaterally; Abdomen: soft, non-tender, no distention; Back: unremarkable; Extremities: no peripheral edema; Skin: pink, warm, dry; Rapid covid test: neg; Rapid flu test: neg; [facility] consulted and orders Duo Neb and Prednisone 60mg PO. [facility] sends script to pt's pharmacy for Albuterol neb solution, prednisone taper, and Tessalon Perles. Pt advised to use Budesonide BID, Albuterol nebs: 4 times daily or q 4hrs if needed. Pt advised to follow up with PCP and mba internship leroy. Duo neb administered with improvement per pt. Lung sounds: clear bilaterally; SpO2 w/ ambulation 94-96% RA; Pt eats small snack, and prednisone 60mg PO administered without incident. Pt advised not to start prednisone prescription until tomorrow. Red flags discussed. Pt has no further questions. [facility] Lab Orders: rapid flu (A+B): Performed rapid SARS CoV 2 Ag, QL IA, respiratory specimen: Performed .................... .................... .................... .................... .................... .................... .................... . Disposition: Fulfilled Hannah Ghotra MD [address] [facility],[address], [place], [address], [employer] 11/19/2023 23:33:11 OBGyn Episode No OBEpisode recorded.
--- OUTSIDE RECORDS SUMMARY | 2024-11-25 08:56 | XMS_ITS | Clinical Summary ---
Author Organization [facility] Address [address] [place] [address] Care Team Providers Care Grinding And Polishing Laborer Name Role Phone Belle Juan MD Primary Care Provider [phone] Surgical History Surgery Date Site/Laterality Comments [place]EDURE[place]EDURE[place] CHOLECYSTECTOMY PROCEDURE: HISTORICAL CHOLECYSTECTOMY; [place] [facility] [place] [facility]EDURE: HISTORICAL CHOLECYSTECTOMY Medical History Medical History Date Comments Depression DX:Depression; C OMMENT: f/u psychiatrist Dr. Lopez Insomnia DX:Insomnia Anxiety DX:Anxiety; COMM ENT: prescribed by Dr. Lopez Chronic post-traumatic stres s disorder (PTSD) DX:Chronic post-traumatic st ress disorder (PTSD) Bipolar 2 disorder, major de pressive episode (CMS/HCC) DX:Bipolar 2 disorder, major depressive episode (HCC) Morbid obesity with BMI of 5 0.0-59.9, adult (CMS/HCC) 09/27/2016 DX:Morbid obesity with BMI o f 50.0-59.9, adult ([facility]) Borderline hypertension 10/12/2016 DX:Borde rline hypertension Borderline personality disor jamaal ([facility]/HCC) 12/24/2016 DX:Borderline personality di sorder (HCC) Dissociative identity disord er ([facility]/HCC) 12/24/2016 DX:Dissociative identity dis order (HCC) Eczema 12/02/2017 DX:Eczema; COMME NT: Follows with dermatology History of suicidal tendencies 12/24/2016 D X:History of suicidal tendencies; COMMENT: Cutting herself and taking pills Inpatient admission 12/2017 Heavy alcohol use 11/05/2018 DX:Heavy alcoh ol use Frequent loose stools 11/26/2018 DX:Frequen t loose stools; COMMENT: Normal EGD and CNSP 11/24/2018 Celiac disease 11/30/2018 DX:Celiac diseas e; COMMENT: S/p EGD positive biopsy 11/2018 Moderate persistent asthma 12/16/2018 DX:Mo derate persistent asthma Morbid obesity with BMI of 4 5.0-49.9, adult ([facility]) 02/27/2019 DX:Morbid obesity with BMI o f 45.0-49.9, adult ([facility]) Family History Medical History Relation Name Comments Asthma Brother Other: allergic rhinitis Brother Hypertension Father Ankylosing spon dylitis Other: allergic rhinitis Father Bipolar disorder Mother arthritis Asthma Son Relation Name Status Comments Brother Father Mother Son Social History Tobacco Use Types Packs/Day Years Used Date Smoking Tobacco: Former Cigarettes 0.5 3.7 0 10/28/2009 - 07/17/2013 Smokeless Tobacco: Never Alcohol Use Standard Drinks/Week Comments Not Currently 0 (1 standard drink = 0.6 oz pur e alcohol) Sex and Gender Information Value Date Recorded Sex Assigned at Not on file Gender Identity Not on file Sexual Orientation Not on file Obstetrics History Last Filed Vital Signs Vital Sign Reading Time Taken Comments Blood Pressure 134/92 12/27/2021 9:06 AM EST Pulse 84 12/27/2021 9:06 AM EST Temperature - - Respiratory Rate - - Oxygen Saturation - - Inhaled Oxygen Concentration - - Weight 134 kg (295 lb) 12/27/2021 9:06 AM EST Height - - Body Mass Index - - Plan of Treatment Health Maintenance Due Date Last Done Comments Hepatitis B Vaccines (1 of 3 - 19+ 3-dose series) 2012 Cervical Cancer Screening: P ap Smear 2014 Pneumococcal Vaccine: Pediatrics (0 to 5 Years) and At-Risk Patients (6 to 64 Years) (2 of 2 - PCV) 08/29/2018 08/29/2017 Depression Screening 10/06/2022 HIV Screening 10/06/2022 Hepatitis C Screening 10/06/2022 Social Influencers of Health Screening 10/06/2022 COVID-19 Vaccine (3 - 2023-2 5 season) 2024 12/30/2020, 12/09/2020 Influenza Vaccine (#1) 2024 8, 08/29/2017, 09/27/2016 DTaP,Tdap,and Td Vaccines (2 - Td or Tdap) 09/27/2026 09/27/2016 HIB Vaccines Aged Out No longer eligi ble based on patient's age to complete this topic HPV Vaccines Aged Out No longer eligi ble based on patient's age to complete this topic Hepatitis A Vaccines Aged Out No long er eligible based on patient's age to complete this topic IPV Vaccines Aged Out No longer eligi ble based on patient's age to complete this topic MMR Vaccines Aged Out No longer eligi ble based on patient's age to complete this topic Meningococcal ACWY Vaccine Aged Out N o longer eligible based on patient's age to complete this topic RSV Immunization Patients Under 20 months Aged Out No longer eligible b ased on patient's age to complete this topic Varicella Vaccines Aged Out No longer eligible based on patient's age to complete this topic Care Teams Grinding And Polishing Laborer Relationship Specialty Start Date End Date Belle Juan MD [address] [place] [address] PCP - General Internal Medicine 11/17/21
== END 2024-11-24 10:00 | disposition home or self-care (01) ==
LOC: HO.HMGCLDS 09:59
PROVIDERS: PCP Nurse Practitioner Family; Visit Provider Internal Medicine
DX: Z00.01 Encounter for general adult medical examination with abnormal findings (principal); Z23 Encounter for immunization; M79.7 Fibromyalgia; M65.4 Radial styloid tenosynovitis [de Quervain]; J45.998 Other asthma; E66.01 Morbid (severe) obesity due to excess calories; Z68.43 Body mass index [BMI] 50.0-59.9, adult; F33.1 Major depressive disorder, recurrent, moderate; F98.8 Other specified behavioral and emotional disorders with onset usually occurring in childhood and adolescence; K21.9 Gastro-esophageal reflux disease without esophagitis; Z91.09 Other allergy status, other than to drugs and biological substances; Z71.89 Other specified counseling
CPT/HCPCS: 90471; 90656; 96127; 99497

== ENCOUNTER 2024-11-25 08:47 | Outpatient (REF) | payer OTHER, SELFPAY ==
--- OUTSIDE RECORDS SUMMARY | 2024-11-25 09:37 | XMS_ITS | Clinical Summary ---
Author Organization [facility] Address [address] [place] [address] Care Team Providers Care Inserting Operator Name Role Phone Belle Juan MD Primary Care Provider [phone] Surgical History Surgery Date Site/Laterality Comments [place] CHOLECYSTECTOMY PROCEDURE: HISTORICAL CHOLECYSTECTOMY; [place] [facility] [place]ED[place]: HISTORICAL CHOLECYSTECTOMY Medical History [...] obesity with BMI o f 50.0-59.9, adult ([facility]) Borderline hypertension 10/12/2016 DX:Borde rline hypertension Borderline personality disor jamaal ([facility]/HCC) 12/24/2016 DX:Borderline personality di sorder (HCC) Dissociative identity disord er ([facility]/HCC) 12/24/2016 DX:Dissociative identity dis order (HCC) Eczema [...] obesity with BMI of 4 5.0-49.9, adult ([facility]) 02/27/2019 DX:Morbid obesity with BMI o f 45.0-49.9, adult ([facility]) Family History Medical History Relation [...] age to complete this topic Care Teams Inserting Operator Relationship Specialty Start Date End Date Belle Juan MD [address] [place] [address] PCP - General Internal Medicine 11/17/21
[2024-11-25 11:09] LABS: Alanine Aminotransferase 36 U/L (0-31); Anion Gap 9 (12-20); Aspartate Amino Transferase 38 U/L (5-31); Blood Urea Nitrogen 14 mg/dL (9-16); Calcium 9.4 mg/dL (8.4-10.2); Carbon Dioxide 27 mmol/L (22-29); Chloride 106 mmol/L (96-108); Cholesterol 195 mg/dL (<200); Estimated Glomerular Filt Rate > 60; Glucose Fasting 91 mg/dL (60-99); HDL Cholesterol 49 mg/dL (>40); LDL Cholesterol Calculated 124 mg/dL (<100); Potassium 4.2 mmol/L (3.3-5.1); Sodium 138 mmol/L (135-145); Triglycerides 111 mg/dL (<150)
[2024-11-25 11:24] LABS: TSH reflex Free T4 1.16 uIU/mL (0.32-4.0); Vitamin D 25-OH Total 26.1 ng/mL (>30)
== END 2024-11-25 08:48 | disposition home or self-care (01) ==
LOC: HO.HMGCLDS 08:47
PROVIDERS: PCP Internal Medicine; Visit Provider Internal Medicine
DX: Z00.01 Encounter for general adult medical examination with abnormal findings (principal); F33.1 Major depressive disorder, recurrent, moderate; E66.01 Morbid (severe) obesity due to excess calories; Z68.43 Body mass index [BMI] 50.0-59.9, adult; M79.7 Fibromyalgia; J45.998 Other asthma; Z91.09 Other allergy status, other than to drugs and biological substances; Z13.220 Encounter for screening for lipoid disorders; Z13.1 Encounter for screening for diabetes mellitus; F98.8 Other specified behavioral and emotional disorders with onset usually occurring in childhood and adolescence
CPT/HCPCS: 36415; 80048; 80061; 82306; 84443; 84450; 84460

== ENCOUNTER 2025-03-03 10:02 | Outpatient (AMB) | payer OTHER, SELFPAY ==
[2025-03-03 10:07] VITALS: BP 130/78; PULSE 104; O2SAT 97; BMI 59.2
--- NOTE | 2025-03-03 10:07 | A.OFFVIS_ITS ---
Vital Signs 03/03/25 10:07 Height 5 ft 3 in Weight 334 lb 0.005 oz BMI 59.2 BP 130/78 Blood Pressure Location Rt radial Pulse 104 H Pulse Source Pulse Oximeter Pulse Oximetry (%) 97 Oxygen Delivery Method Room Air Intake Visit Reasons: Asthma follow-up Early Childhood Specialist Required: No Accompanied by: Self / Same As Patient Allergies carboprost [From Hemabate] Allergy (Severe, Verified 03/03/25 10:10) Anaphylaxis gluten Allergy (Mild, Verified 03/03/25 10:10) celiac disease ENVIRONMENTAL Allergy (Mild, Uncoded 11/24/24 11:22) HIVES, ITCH EYES, REDNESS HPI Comments Details: The patient is a 29-year-old young woman with a history of asthma. Apparently her asthma has been more active. She states that back in September she was evaluated in the ER and she was treated and discharged. Subsequently after that her asthma is been more active require more prednisone. In January of this year the patient ended up going to the ER and she was kept in the hospital for an asthma exacerbation. Her blood work was reviewed and no significant eosinophils noted. The viral testing was negative. Her x-ray was relatively clear although showed some errors of bronchitis when I personally reviewed. The patient has been discharged. She has been on Advair. She has wheezing every day. She uses a rescue inhaler several times a day. Feels like the Advair is no longer working. Will go ahead and optimize her respiratory therapy. In addition to that the patient continues to have daytime drowsiness. Her Paris score is elevated 11/24. She has had a sleep study actually 2 home sleep studies. Although very fragmented sleep with this home sleep studies. She feels like she is not able to fall asleep with them. She feels like they are not accurate. She does have headaches in the morning. The patient will have an in-lab study in order to better assess her degree of sleep apnea in view of her comorbidities will be important to note to go to be over treat her. She did desaturate down to 69% during her home sleep study and she also had significant tachycardia up to 115 beats per minute while sleeping which is not normal. The patient will be optimized to Trelegy inhaler. In addition to that will follow-up after PFTs blood work and allergy testing in addition to her sleep study. 06/27/2023 the patient is here for a pulmonary follow-up visit. She has been having hard time with her asthma. Having significant chest tightness and wheezing. At times feeling like she will need to go to the ER. She did start the Trelegy inhaler. She completed the prednisone. When she was off the prednisone her symptoms were restarting. The patient did have blood work including allergy testing. She has extremely severe allergies to cats and also severe allergies to dogs. The patient does live with her brother who has a cat and the cat does going to her bedroom. The patient understands that she needs to avoid the cat and a catcher not going to her bedroom. She should also get an air purifier for now. I did provide her with a letter to see if she can find a place since her CV allergies can be detrimental. We did teach her how to use the EpiPen to have 1 available in case she has a severe reaction again. And in the meantime we also repeat her blood work she does have an elevated eosinophil count and elevated IgE count. The patient does have significant sinusitis and therefore she will benefit from starting biologic therapy. I will request Dupixent to start as soon as possible. In the meantime she will need additional prednisone because of her wheezing and will also start her on budesonide nebs to try to help augment her respiratory therapy. The patient also also having dayt dino drowsiness. Her Paris score is elevated 09/20. She is scheduled to undergo an in-lab sleep study. At this point since her asthma so severe and uncontrolled will hold off on the PFTs at this time. 09/05/2023 the patient is here for a pulmonary follow-up visit. The patient has been feeling a lot better. She started the Dupixent about 6 weeks ago. No adverse reaction to the Dupixent at this time. She has been off prednisone. She has been now will to be weaned off the budesonide nebs as well. She continues on the Trelegy. Although she still requires her short-acting beta agonist as needed but less than 2 times a week. She also did undergo a in-lab sleep study. 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 The patient can consider sleep aid to try the scene pillow deeper to avoid the frequent awakenings. At this point the patient does not need CPAP therapy she can continue with positional therapy. We did talk about a wedge pillow just to help her with her airway. Patient also underwent pulmonary function studies demonstrating small airways disease consistent with her asthma but a significant response to bronchodilators noted consistent with again with her asthma otherwise PFTs are reassuring. 03/03/2024 the patient is here for a pulmonary follow-up visit. She Dupixent injections every 2 weeks have been very affecting beneficial for her. She has had a few bouts of asthma exacerbations however. Mainly due to viral syndromes. She required prednisone 20 3 times since last spoke to her. The patient continues use her Trelegy. She has not had to use her nebulizer which is reassuring. Also has been using her CPAP. CPAP therapy continues to be affecting beneficial. She does use it for more than 4 hours a night. She has been getting supplies. I will make sure that she has all her medications the pharmacy will follow-up in the springtime. If she has any worsening symptoms she will call for earlier assessment. 03/03/2025 the patient is here for a pulmonary follow-up visit. Overall she is doing very well. Dupixent injections have been very affecting beneficial. No adverse effects she can noticed. Her eyes are fine no rashes. Sometimes she does inject wrong in the medication does feel and she gets upset. But otherwise has been working very well. At some point she did stop the Trelegy but she noticed that her breathing got worse. Specially now going to the springtime she does need her inhalers again. Will go ahead and deescalate her to Symbicort and she can use it twice a day. She also needs her rescue inhaler. She denies any issues with snoring although she does have significant issues with her sleep. She sleeps only like 3-4 hours a night. She is working on making changes to her lifestyle to allow her to have better sleep quality. She did have sleep study back in 2022 which demonstrated no significant sleep apnea that point. The there was an adequate in-lab study. Patient follow-up in a year's time if she has any issues prior to that she will call for an earlier assessment. [facility] Medical History ADD (attention deficit disorder) History of cholecystitis Fibromyalgia IBS (irritable bowel syndrome) Surgical History History of cholecystectomy H/O: History of appendectomy Family History Mother Arthritis Substance use disorder Mental health disorder Father HTN (hypertension) Substance use disorder Maternal Grandmother Cancer Social History Household Members: Family and Children Housing: House Do you presently have visiting nurse or other home services: No Alcohol intake: never Patient Tobacco Use Status: Former Tobacco user Tobacco use type: Cigarette Cigarette Packs Per Day: 2 Cigarettes Per Day: 40.0 e-Cigarette/Vaping Use: Former Use Second Hand Smoke Exposure: No service: No Current occupational status: unemployed Cognitive needs: No Hearing needs: No Vision needs: Yes (glasses) Review of Systems Const Denies chills, Denies fatigue, Denies fever(s), Reports weight gain and Denies weight loss Eyes Denies change in vision ENT Denies dizziness Card Denies chest pain, Denies leg edema, Denies lightheadedness, Denies palpitations, Reports dyspnea on exertion, Denies orthopnea and Denies other Resp Denies cough, Reports dyspnea on exertion and Reports wheezing GI Denies hematochezia and Denies change in stool character Musc Denies abnormal gait, Denies muscle weakness, Denies numbness, Denies radiating pain into limb and Denies tingling Skin/Breast Denies lesions and Denies rash Neuro Denies abnormal gait, Denies dizziness, Denies numbness and Denies tingling Endo Denies fatigue and Denies palpitations Aller/Immun Reports wheezing Physical Exam Vital Signs: Last Vital Signs Pulse 104 H 03/03/25 10:07 BP 130/78 03/03/25 10:07 Pulse Ox 97 03/03/25 10:07 Oxygen Delivery Method Room Air 03/03/25 10:07 BMI result Body Mass Index 59.2 Const General: comfortable HEENT Head: Yes normocephalic Neck Neck: Yes supple Chest Chest palpation & inspection: normal inspection of the chest Resp Effort & Inspection: normal respiratory effort Auscultation: no wheezes and diminished lung sounds Cardio Rate: regular rate Rhythm: regular rhythm Heart sounds: S1 normal heart sound present and S2 normal heart sound present GI Palpation (GI): Soft to palpation Skin General skin exam: no rashes or lesions noted Extrem General: Yes no clubbing, cyanosis or edema Assessment & Plan Assessment & Plan (1) Asthma, persistent controlled: Comment: severe persistent Code(s): J45.998 - Other asthma Category: Medical (2) Environmental allergies: Code(s): Z91.09 - Other allergy status, other than to drugs and biological substances Category: Medical Plan stop Trelegy 100 start Symbicort DUY as needed has a nebulizer contiue singulair continue dupixent severe allergies to cats and dogs, needs to avoid Epipen provided, teaching provided F/U 8-12 months Medications: New budesonide-formoterol 160-4.5 mcg/actuation (Symbicort) 2 puffs inhalation BID 10.2 grams 11RF 30 days J44.89 - Other specified chronic obstructive pulmonary disease Refilled albuterol sulfate 90 mcg/actuation 2 inhalations inhalation Q4H PRN 1 ea 11RF Shortness Of Breath J45.909 - Unspecified asthma, uncomplicated Coding Level of Care Code Est Pt Level 4 (69095) Diagnoses Asthma, persistent controlled J45.998 Environmental allergies Z91.09 Time Spent (min) 16
--- OUTSIDE RECORDS SUMMARY | 2025-03-03 11:11 | XMS_ITS | Data Portability ---
Author Organization Agent Partner, [employer] [facility] [employer] Address [address] [place] [address] Care Team Providers Care Dancing Master Name Role Phone [facility] Primary Care Provider [phone] Assessment Encounter Date Assessment Date Assessment LastModified [...] Assessment and Plan as documented by the Fishing Manager. Patient given the opportunity to ask questions. . Advised -needs to call microsoft net developer tomorrow -if develops CP/severe SOB/turning blue/uncontrolle d n/v/d or black/bloody emesis or stool/ AMS/ syncope/ hi fever to call 911- verbalized understanding of instructions [email or web address] Not available 06/26/2023 15:36:38 11/18/2023 11/18/2023 I provided real -time medical direction via phone for this encounter, and was available for additional phone based assistance as needed. I have reviewed and agree with the Assessment and Plan as documented by the Fishing Manager. We discussed the diagnostic uncertainty of home [...] to call 911- verbalized understanding of instructions [email or web address] Not available 11/19/2023 23:31:54 Plan of Treatment Reminders Order Date Submit Date Provider Last Modified By Organization Details Last Modified Time Details Appointments None recorded. Lab rapid flu (A+B) 2023 024 [email or web address] 0 [facility], [address] [place] [address], [id number] 4 11:42:04 rapid SARS CoV 2 Ag, QL IA, respiratory specimen 2023 024 [email or web address] 0 [facility], [address] [place] [address], [id number] 4 11:42:03 rapid SARS CoV 2 Ag, QL IA, respiratory specimen 2022 023 [email or web address] 0 [facility], [address] [place] [address], [id number] 3 11:55:14 rapid flu (A+B) 2022 023 [email or web address] 0 [facility], [address] [place] [address], [id number] 3 11:55:14 rapid strep group A, throat 2022 023 [email or web address] 0 [facility], [address] [place] [address], [id number] 3 11:55:14 Referral None recorded. Procedures None recorded. Surgeries None recorded. Imaging None recorded. Medication Orders prednisone 20 mg tablet 2023 024 [email or web address] 0 [facility], [address] [place], [address], 4 11:48:45 prednisone 10 mg tablet 2023 024 [email or web address] [facility], [address] [place], [address], 4 11:48:52 ipratropium 0.5 mg-albutero l 3 mg (2.5 mg base)/3 mL nebulizatio n soln 2023 024 [email or web address] 0 [facility], [address] [facility], [place], [address], 4 11:48:45 albuterol sulfate 2.5 mg/3 mL (0.083 %) solution for nebulizatio n 2023 024 [facility], [address] [facility], [place], [address], 4 11:48:52 benzonatate 200 mg capsule 2023 024 [facility], [address] [facility], [place], [address], 4 11:53:56 doxycycline monohydrate 100 mg capsule 2022 023 [email or web address] 0 [facility], [address] [facility], [place], [address], 3 15:13:20 prednisone 20 mg tablet 2022 023 [facility], [address] [facility] [place], [address], 3 11:54:39 benzonatate 200 mg capsule 2022 023 [facility], [address] [facility], [place], [address], 3 11:54:39 ipratropium 0.5 mg-albutero l 3 mg (2.5 mg base)/3 mL nebulizatio n soln 2022 023 [email or web address] 0 [facility], [address] [place], [address], 3 15:14:29 benzonatate 100 mg capsule 2022 023 [email or web address] 0 [facility], [address] [place] [address], [address], 3 15:14:29 prednisone 20 mg tablet 2022 023 [email or web address] 0 [facility], [address] [place] [address], [address], 3 15:14:29 doxycycline monohydrate 100 mg capsule 2022 023 [email or web address] 0 [facility], [address] [place] [address], [place], [address], 3 15:14:29 ipratropium 0.5 mg-albutero l 3 mg (2.5 mg base)/3 mL nebulizatio n soln 2022 023 [email or web address] [facility], [address] [place] [address], [address], 3 20:33:19 prednisone 20 mg tablet 2022 023 [facility], [facility] [place], [address], 3 21:01:46 prednisone 20 mg tablet 2022 023 [email or web address], [facility] [place], [address], 3 10:47:43 prednisone 20 mg tablet 2022 023 [facility], [facility] [place], [address], 3 10:47:46 ProAir HFA 90 mcg/actuati on aerosol inhaler 2022 023 [facility], [address] [place] [address], [address], 3 11:21:07 ipratropium 0.5 mg-albutero l 3 mg (2.5 mg base)/3 mL nebulizatio n soln 2022 023 [facility], [address] [place] [address], [address], 3 11:21:07 ipratropium 0.5 mg-albutero l 3 mg (2.5 mg base)/3 mL nebulizatio n soln 2022 023 [facility]39, [address] [place] [address], [address], 11:21:26 Patient TargetsNo targets recorded. Patient InstructionsNo instructions recorded. Reason for Referral None Reported. Results Created Date Observation Date Name Description Value Unit Range Abnormal Flag Note LastModifiedBy Organization Detail LastModifiedTime 06/26/20 23 06/26/2023 rapid strep group A, throa t Strep negati ve Not Available [facility] ed [address] [place] [address], [id number] 06/26/2023 11:54:41 06/26/20 23 06/26/2023 rapid flu (A+B) Flu negati ve Not Available [facility] ed [address] [place] [address], [id number] 06/26/2023 11:54:39 06/26/20 23 06/26/2023 rapid SARS CoV 2 Ag, QL IA, respi rator y speci men rapid SARS CoV 2 Ag, QL IA, respiratory specimen negati ve Not Available [facility] ed [address] [place] [address], [id number] 06/26/2023 11:54:38 11/18/19 24 11/18/2023 rapid SARS CoV 2 Ag, QL IA, respi rator y speci men rapid SARS CoV 2 Ag, QL IA, respiratory specimen negati ve Not Available [facility] ed [address] [place] [address], [id number] 11/18/2023 11:41:47 11/18/19 24 11/18/2023 rapid flu (A+B) Flu negati ve Not Available [facility] ed [address] [place] [address], [id number] 11/18/2023 11:41:46 06/26/20 23 01/24/2023 progr ess [...] Updated DateTime 3 93 % 93 % 216002. 92 g 16 /min 119 /min 98.4 [degF] 119 /min 98.4 [degF] 93 % 93 % 358214. 92 g 16 /min 119 /min 98.4 [degF] 93 % 93 % 16 /min 937990. 92 g 135 mm[Hg] 82 mm[Hg] 135 mm[Hg] 82 mm[Hg] 135 mm[Hg] 82 mm[Hg] Not Available [facility] 3 21:15:59 Date Recorded Oxygen saturation Oxygen saturation in Arterial blood by Pulse oximetry Body temperature Body weight Body height Heart rate Respiratory rate Systolic blood pressure Diastolic blood pressure Provider Name and Address Organization Details Last Updated DateTime 3 93 % 93 % 97.1 [degF] 436894. 48 g 160.02 cm 112 /min 18 /min 143 mm[Hg] 96 mm[Hg] Not Available [employer] 3 11:50:37 Date Recorded Body height Body temperature Oxygen saturation Oxygen saturation in Arterial blood by Pulse oximetry Body weight Respiratory rate Heart rate Systolic blood pressure Diastolic blood pressure Provider Name and Address Organization Details Last Updated DateTime 4 160.02 cm 98.5 [degF] 95 % 95 % 849395. 36 g 18 /min 118 /min 133 mm[Hg] 88 mm[Hg] Not Available [employer] 4 11:39:14 Date Recorded Body weight Respiratory rate Body temperature Heart rate Oxygen saturation Oxygen saturation in Arterial blood by Pulse oximetry Respiratory rate Heart rate Body weight Oxygen saturation Oxygen saturation in Arterial blood by Pulse oximetry Body temperature Systolic blood pressure Diastolic blood pressure Systolic blood pressure Diastolic blood pressure Provider Name and Address Organization Details Last Updated DateTime 3 281654. 6 g 18 /min 98.4 [degF] 89 /min 99 % 99 % 18 /min 89 /min 918420. 6 g 99 % 99 % 98.4 [degF] 146 mm[Hg] 106 mm[Hg] 146 mm[Hg] 106 mm[Hg] Not Available [employer] 3 11:29:56 Social History None recorded. Functional [...] [id number] Kalyan Chase MD [facility] [address] [place] [address] 02/19/2023 10:55:35 02/21/2023 11:46:14 Asthma [id number] J45.909 Reports a hospitaliz ation about a week ago. Has run out of her albuterol and ipratropiu m and although she has refills at the pharmacy, reports that they are on hold . Significan t triggers in the house (multiple cats, dogs, and tobacco smoke). Recently completed course of steroids. 99% on room air with mild expiratory wheezes per splunk dashboard developer. Plan to give inhaled bronchodil ators, closely monitor. I will send Rx to the pharmacy in case that helps with the issue, doubt much benefit to steroids at this point given well appearance , normal sats, and finished about a week ago. [id number] Suraj Xiao MD [facility] [address] [place] [phone] 04/05/2023 10:45:24 04/08/2023 13:10:37 Exacerbation of intermittent asthma [id number] J45.21 27yo woman with asthma presents with worsening dyspnea and wheezing in setting of her nebulizer machine breaking and poor air quality recently. No clear infection. On examinatio n by splunk dashboard developer she has inspriator y and expiratory wheezing.A ssessment: asthma exacerbati on- DuoNeb administer ed with improvemen t.- Prednisone 40mg QD x 5 days; first dose given by splunk dashboard developer [id number] Deanne Wells MD [facility] [address] [place] [address] 04/26/2023 20:27:47 04/29/2023 10:19:37 Exacerbation of intermittent asthma [id number] J45.21 [id number] Hannah Ghotra MD [facility] [address] [place] [phone] 06/26/2023 11:50:34 06/26/2023 23:58:41 Moderate acute exacerbation of asthma 817127268 J45.901 W/ BRONCHITIS -given that she has dark phlegm I feel antibiotic s are indicated /advised to rest increase fluids- gargle with warms salt water /Status post DuoNeb the wheezing cleared and she had coarse rhonchi at the basesAdvis ed if symptoms continue she should be retested for COVID in 48 hours, she is always welcome to call for another visit with us as needed advised to use her nebulizer every 4 hours as needed while she is ill-she requested a cough suppressan t, she is aware that benzonatat e is not covered by insurance [id number] Hannah Ghotra MD [facility] [address] [place] [address] 11/18/2023 11:39:11 11/21/2023 09:19:32 Viral upper respiratory tract infection [id number] J06.9 Since she is on day 5 of symptoms, would be unable to start antivirals if PCR is positive as the results would not return to late.-Advi sed to treat symptomati дмитрий. Moderate a cute exacerbation of asthma [id number] J45.901 Status post DuoNeb, patient lungs are [...] Recorded Advance Directives Directive None Recorded Payers Insurance Date Sequence Insurance Name Policy Number Policy Moreno Covered Member ID Moreno Member ID Guarantor Name 11/18/2023 1 [facility] - DOS ON OR AFTER 2023 - DUAL ELIGIBLE - ALF OPTIONS AND ONE CARE (MEDICARE REPLACEMENT/ADV ANTAGE - HMO) Sumaya Ugarte [id number] Sumaya Ugarte 04/05/2023 1 [facility] - DOS PRIOR TO 2023 - DUAL ELIGIBLE (MEDICARE REPLACEMENT/ADV ANTAGE - HMO) Sumaya Ugarte [id number] Sumaya Ugarte Notes Date Note Type Note Provider [...] .................... .................... .................... .................... .................... .................... . Fishing Manager Note From Abimael Ma: Pt presents A@Ox4 . [place] warm and dry clear airway with equal [...] on the back side. Sating 99% RA. C contacted and DEON kevin given pt still had scme minor wheezing. Pt sts she felt some relief. Prescription for proair called in. Pt educated in signs that would indicate the ER. Pt advised to move up her appt with PCP .................... .................... .................... .................... .................... .................... .................... . Disposition: Fulfilled Kalyan Chase MD [address] [place] [address],[address], [place], [address], Agent Partner 02/19/2023 12:39:18 04/05/2023 text/html HPI: Short of [...] fever. chills Verified identified Suraj Xiao MD [address] [facility],[address], [place], [address], [employer] 04/05/2023 10:48:03 04/26/2023 text/html HPI: Asthma exacerbation [...] .................... .................... .................... .................... .................... .................... . Fishing Manager Note From Leonidas Mcgee: PI CO shortness of breath for 3 - 4 [...] .................... . Disposition: Fulfilled Deanne Wells MD [address] [place] [address],[address], [place], [address], [employer] 04/29/2023 11:13:25 06/26/2023 text/html HPI: Asthma exacerbated [...] .................... .................... .................... .................... .................... .................... . Fishing Manager Note From Tres Blackmon: Pt reports three days of cough, sinus pressure, runny nose and mild sore throat. Pt sts cough became productive today, producing brown sputum. Pt had one vomiting episode yesterday but denies hematemesis . Pt denies CP, SOB at rest , fevers, chills or diarrhea. Pt has microsoft net developer f/u tomorrow . Pt is alert, NAD. [...] mg benzonatate PO. Pt instructed to keep microsoft net developer appointment tomorrow and to seek emergent medical care for new or worsening sx, which are reviewed with her. .................... .................... .................... .................... .................... .................... .................... . Disposition: FulfilledSEGMD: As above.-Patient denies any possibility of . Although she vomited once yesterday post tussive, she is able to eat and drink today. She denies diarrhea she denies hematemesis, melena or hematochezia Hannah Ghotra MD [address] [place] [address],[address], [place], [address], [employer] 06/26/2023 15:37:45 11/18/2023 text/html HPI: Baseline has [...] any better, has been seen before by [facility], possible need for steroids for asthma exac. verified address//phone # Hpatterson ELIU .................... .................... .................... .................... .................... .................... .................... . Fishing Manager Note From Jeanette Helms: Sent to a [...] times daily. Pt states she last saw Pawn Broker in Nov and next appt is approx 2months away. (sitting) BP:133/88, P:118 reg, RR:18, SpO2:95% RA, T:98.5; (standing) BP:126/82, P:124, SpO2:95% RA; Head: no sinus tenderness; Chest: no tenderness; Lung sounds: diminished bilaterally; Abdomen: soft, non-tender, no distention; Back: unremarkable; Extremities: no peripheral edema; Skin: pink, warm, dry; Rapid covid test: neg; Rapid flu test: neg; [facility] consulted and orders Duo Neb and Prednisone 60mg PO. [facility] sends script to pt's pharmacy for Albuterol neb solution, prednisone taper, and Tessalon Perles. Pt advised to use Budesonide BID, Albuterol nebs: 4 times daily or q 4hrs if needed. Pt advised to follow up with PCP and microsoft net developer leroy. Duo neb administered with improvement per pt. Lung sounds: clear bilaterally; SpO2 w/ ambulation 94-96% RA; Pt eats small snack, and prednisone 60mg PO administered without incident. Pt advised not to start prednisone prescription until tomorrow. Red flags discussed. Pt has no further questions. [facility] Lab Orders: rapid flu (A+B): Performed rapid SARS CoV 2 Ag, QL IA, respiratory specimen: Performed .................... .................... .................... .................... .................... .................... .................... . Disposition: Fulfilled Hannah Ghotra MD [address] [facility],[address], [place], [address], Agent Partner 11/19/2023 23:33:11 OBGyn Episode No OBEpisode recorded.
--- OUTSIDE RECORDS SUMMARY | 2025-03-03 11:11 | XMS_ITS | Clinical Summary ---
Author Organization [facility] Address [address] [place] [address] Care Team Providers Care Frontend Engineer Name Role Phone Belle Juan MD Primary Care Provider [phone] Surgical History Surgery Date Site/Laterality Comments APPENDECTOMY PROCEDURE: [place] APPENDECTOM[place] SE[place] PROCEDURE: [place] DELIVERY ONLY CHOLECYSTECTOMY PROCEDURE: HISTORICAL CHOLECYSTECTOMY; COMMENT: [facility] CHOLECYSTECTOMY PROCEDURE: HISTORICAL CHOLECYSTECTOMY Medical History Medical History Date Comments Depression DX:Depression; C OMMENT: f/u psychiatrist Dr. Lopez Insomnia DX:Insomnia Anxiety DX:Anxiety; COMM ENT: prescribed by Dr. Lopez Chronic post-traumatic stres s disorder (PTSD) DX:Chronic post-traumatic st ress disorder (PTSD) Bipolar 2 disorder, major de pressive episode ([facility] V24, [facility] V28) DX:Bipolar 2 disord er, major depressive episode (HCC) Morbid obesity with BMI of 5 0.0-59.9, adult ([facility] V24, [facility] V28) 09/27/2016 DX:Morbid obesity wit h BMI of 50.0-59.9, adult ([facility]) Borderline hypertension 10/12/2016 DX:Borde rline hypertension Borderline personality disor jamaal ([facility] V24, [facility] V28) 12/24/2016 DX:Borderline personality d isorder ([facility]) Dissociative identity disord er ([facility] V24, [facility] V28) 12/24/2016 DX:Dissociative identity di sorder ([facility]) Eczema 12/02/2017 DX:Eczema; COMME NT: Follows with [...] obesity with BMI of 4 5.0-49.9, adult ([facility] V24, [facility] V28) 02/27/2019 DX:Morbid obesity wit h BMI of 45.0-49.9, adult ([facility]) Family History Medical History Relation [...] drink = 0.6 oz pur e alcohol) Comments Unknown Sex and Gender Information Value Date Recorded Sex Assigned at Not on file Legal Sex Female 3:28 AM EST Gender Identity Not on file Sexual Orientation [...] 5 season) 2024 12/30/2020, 12/09/2020 Influenza Vaccine (Season Ended) 2025 07/18/2018, 08/29/2017, 09/27/2016 DTaP,Tdap,and Td Vaccines (2 - [...] patient's age to complete this topic Meningococcal B Vaccine Aged Out No l onger eligible based on patient's age to complete this topic RSV Immunization Patients Under 20 months Aged Out No longer eligible b ased on patient's age to complete this topic Varicella Vaccines Aged Out No longer eligible based on patient's age to complete this topic Care Teams Frontend Engineer Relationship Specialty Start Date End Date Belle Juan MD [address] [place] [address] PCP - General Internal Medicine 11/17/21
== END 2025-03-03 10:48 | disposition home or self-care (01) ==
LOC: HO.HPS 10:02
PROVIDERS: PCP Nurse Practitioner Family; Visit Provider Hospitalist
DX: J45.998 Other asthma (principal); Z91.09 Other allergy status, other than to drugs and biological substances
CPT/HCPCS: 99214

== ENCOUNTER → 2025-03-03 10:02 | Outpatient (BNVA) | payer OTHER, SELFPAY | PROVIDERS: PCP Nurse Practitioner Family; Visit Provider Hospitalist | DX: J44.89 Other specified chronic obstructive pulmonary disease (principal); J45.998 Other asthma; Z91.09 Other allergy status, other than to drugs and biological substances | CPT/HCPCS: 99212 ==

== ENCOUNTER 2025-03-22 01:09 | Emergency (ER) | payer OTHER, SELFPAY ==
--- NOTE | ~2025-03-22 | XR_ITS ---
CLINICAL HISTORY: pain --- Additional Notes or Special Instructions: constipation? ABDOMINAL X-RAY FRONTAL VIEW COMPARISON: None. FINDINGS: Single frontal view of the abdomen was performed. Surgical clips are noted in the right aspect of the abdomen. A surgical clip is noted in the pelvis. There is gas scattered within bowel, without evidence of a bowel obstruction or free air. Small to moderate amount of stool is noted within the proximal colon. Calcified phleboliths are noted in the pelvis. Osseous structures are unremarkable. IMPRESSION: 1. No acute disease in the abdomen. This document has been electronically signed by: Cuong Flores M.D. on 03/22/2025 03:34:07
[2025-03-22 01:12] VITALS: BP 123/81; PULSE 112; RESP 14; TEMP 36.3; O2SAT 96; BMI 61.3
[2025-03-22 01:45] LABS: Basophils Absolute Auto 0.1 X10*3/uL (0.0-0.2); Basophils Percent Auto 0.6 % (0-2); Eosinophils Absolute Auto 0.3 X10*3/uL (0.0-0.4); Eosinophils Percent Auto 2.9 % (0-4); Hematocrit 38.7 % (37.0-47.0); Hemoglobin 12.9 g/dl (12.0-16.0); Imm Gran Abs Auto 0.02 X10*3/uL (0.00-0.03); Imm Gran Pct Auto 0.2 % (0.0-0.4); Lymphocytes Absolute Auto 2.2 X10*3/uL (1.2-4.9); MANUAL DIFF FLAG NO; Mean Corpuscular HGB Conc 33.3 g/dl (31.0-35.0); Mean Corpuscular Hemoglobin 28.8 pg (27.0-33.0); Mean Corpuscular Volume 86.4 fL (80.0-98.0); Mean Platelet Volume 9.1 fL (9.4-12.3); Monocytes Absolute Auto 0.7 X10*3/uL (0.1-1.2); Monocytes Percent Auto 7.8 % (2-11); Neutrophils Absolute Auto 5.6 x10*3/uL (2.0-8.3); Neutrophils Percent Auto 63.5 % (45-73); Platelet Count 248 X10*3/uL (160-400); Red Blood Count 4.48 X10*6/uL (4.20-5.50); White Blood Count 8.8 X10*3/uL (4.8-10.8)
[2025-03-22 02:08] LABS: Alanine Aminotransferase 30 U/L (0-31); Anion Gap 13 (12-20); Aspartate Amino Transferase 28 U/L (5-31); Bilirubin Direct < 0.2 mg/dL (0.0-0.5); Bilirubin Total 0.2 mg/dL (0.0-1.0); Blood Urea Nitrogen 15 mg/dL (9-16); Calcium 8.5 mg/dL (8.4-10.2); Carbon Dioxide 22 mmol/L (22-29); Chloride 109 mmol/L (96-108); Creatinine Clr Calc Pharmacy 151.8; Estimated Glomerular Filt Rate > 60; Glucose Random 105 mg/dL (60-115); HCG Quantitative < 2 mIU/mL; Lipase 16 U/L (8-78); Magnesium 2.1 mg/dL (1.6-2.6); Potassium 3.7 mmol/L (3.3-5.1); Sodium 140 mmol/L (135-145); Total Protein 6.4 g/dL (6.5-8.0)
[2025-03-22 02:10] LABS: Alkaline Phosphatase 110 U/L (39-117)
[2025-03-22] MEDS: Sucralfate Oral Suspension 1 GM/10 ML ORAL.SUSP PO (02:52)
--- NOTE | 2025-03-22 02:54 | ED_ITS ---
HPI - General Adult General Chief complaint: Abdominal Pain Stated complaint: abd pain Time Seen by Provider: 03/22/25 01:40 Source: patient Limitations: no limitations History of Present Illness ED Provider: Ana Mckay PA-C HPI narrative: 29-year-old female with a history of morbid obesity, ADD, depression, PTSD, chronic low back pain, fibromyalgia, IBS, GERD and asthma presents with the abdominal pain x1 day. Pain over epigastric region, described as a ?gnawing sensation and ?. Pain migrates to mid back at times, is intermittent fluctuates in intensity. Eating exacerbates pain and causes nausea. Denies fever or constipation. Patient is status post cholecystectomy 2 years ago, she had concurrent gallstones. Related Data Home Medications ?Medication ?Instructions ?Recorded ?Confirmed bupropion HCl 300 mg 24 hr tablet, 300 mg PO DAILY 08/15/22 11/24/24 extended release aripiprazole 2 mg tablet 2 mg PO DAILY 08/22/22 11/24/24 cetirizine 10 mg tablet 10 mg PO DAILY 06/04/23 11/24/24 nebulizers 06/04/23 11/24/24 clonidine HCl 0.1 mg tablet mg PO DAILY 03/03/24 11/24/24 escitalopram oxalate 10 mg tablet 15 mg PO DAILY 11/24/24 11/24/24 s-ketamoine intranasal .once a week 11/24/24 lisdexamfetamine 50 mg capsule 50 mg PO DAILY 03/03/25 (Vyvanse) Previous Rx's ?Medication ?Instructions ?Recorded acetaminophen 500 mg tablet 500 - 1,000 mg (1 - 2 x 500 mg) PO 04/05/22 Q6H PRN pain #30 tabs miscellaneous medical supply 1 ea miscellaneous DAILY #1 ea 04/09/23 fluticasone fur. 200 mcg-umeclid 1 inh inhalation DAILY 30 days #60 06/04/23 62.5 mcg-vilant 25 mcg ea inhalat.powder (Trelegy Ellipta) budesonide 0.5 mg/2 mL suspension 0.5 mg (2 mL) inhalation BID 30 06/27/23 for nebulization days #120 mL epinephrine 0.3 mg/0.3 mL 0.3 mg (0.3 mL) IM Q10M PRN 11/09/23 injection, auto-injector anaphylaxis 30 days #2 ea albuterol sulfate 2.5 mg/3 mL 2.5 mg (3 mL) inhalation Q6H #75 mL 03/03/24 (0.083 %) solution for nebulization montelukast 10 mg tablet 10 mg PO BEDTIME 90 days #90 tabs 03/03/24 (Singulair) dupilumab 300 mg/2 mL subcutaneous 300 mg (2 mL) subcut Q2W #4 mL 01/29/25 pen injector albuterol sulfate 90 mcg/actuation 2 inh inhalation Q4H PRN Shortness 03/03/25 aerosol inhaler Of Breath #1 ea budesonide-formoterol HFA 160 2 puff inhalation BID 30 days 03/03/25 mcg-4.5 mcg/actuation aerosol #10.2 grams inhaler (Symbicort) Allergies Allergy/AdvReac Type Severity Reaction Status Date / Time carboprost [From Hemabate] Allergy Severe Anaphylaxis Verified 03/22/25 01:16 gluten Allergy Mild celiac Verified 03/22/25 01:16 disease ENVIRONMENTAL Allergy Mild HIVES, Uncoded 11/24/24 11:22 ITCH EYES, REDNESS Review of Systems 2 Review of Systems: Yes all other systems are reviewed and are negative Constitutional: Constitutional: Denies fatigue and Denies fever(s) Cardiovascular: Cardiovascular: Denies chest pain and Denies dyspnea Respiratory: Respiratory: Denies cough and Denies dyspnea Gastrointestinal: Gastrointestinal: Reports abdominal pain, Denies constipation, Reports diarrhea (Chronic), Reports nausea and Denies vomiting Endocrine: Endocrine: Denies fatigue PMFSH Past Medical History Attestation statement: The following information was validated with the patient. Medical History ADD (attention deficit disorder) History of cholecystitis Fibromyalgia IBS (irritable bowel syndrome) Surgical History History of cholecystectomy H/O: History of appendectomy Family History Family History Mother Arthritis Substance use disorder Mental health disorder Father HTN (hypertension) Substance use disorder Maternal Grandmother Cancer Social History Social History Household Members: Family and Children Housing: House Do you presently have visiting nurse or other home services: No Alcohol intake: never Patient Tobacco Use Status: Former Tobacco user Tobacco use type: Cigarette Cigarette Packs Per Day: 2 Cigarettes Per Day: 40.0 e-Cigarette/Vaping Use: Former Use Second Hand Smoke Exposure: No Advance Directives: No Do you have a plan to hurt others: No Plan service: No Current occupational status: unemployed Cognitive needs: No Hearing needs: No Vision needs: Yes (glasses) Physical Exam ED Vital Signs: Vital Signs - 24 hr 03/22/25 01:12 03/22/25 03:37 Temperature 97.4 F 98.0 F Pulse Rate 112 H 92 Respiratory Rate 14 16 Blood Pressure 123/81 114/67 Pulse Oximetry 96 96 Oxygen Delivery Method Room Air Room Air BMI result Body Mass Index 61.3 Const Other: Alert, appears older than stated age Orientation/consciousness: patient oriented x3 Resp Effort & Inspection: normal respiratory effort Cardio Other: Normal peripheral perfusion GI Other: Abdomen is soft, obese, mild to moderate tenderness epigastric with no guarding Skin Other: Warm dry no rash Neuro General: patient oriented x3, gait normal, no focal motor deficits and CN's II- XI intact bilaterally Psych Other: Emotionally labile, patient became upset and cried with the palpation of the abdomen Medications Administered Discontinued Medications Generic Name Dose Route Start Last Admin Trade Name Freq PRN Reason Stop Dose Admin Sucralfate 1 gm 03/22/25 02:00 03/22/25 02:52 Sucralfate Oral Suspension 1 Gm/10 Ml Oral.Susp PO 03/22/25 02:01 1 gm ONCE ONE Administration Medical Decision Making Medical Decision Making MDM Narrative: 29-year-old female with a history of morbid obesity, ADD, depression, PTSD, chronic low back pain, fibromyalgia, IBS, GERD and asthma presents with the abdominal pain x1 day. Pain over epigastric region, described as a ?gnawing sensation and ?. Pain migrates to mid back at times, is intermittent fluctuates in intensity. Eating exacerbates pain and causes nausea. Denies fever or constipation. Patient is status post cholecystectomy 2 years ago, she had concurrent gallstones. Problem: Psychiatric illness, morbid obesity, chronic pain, GERD , IBS History: Per patient I have considered the following differential diagnoses: Poorly controlled GERD, constipation, choledocholithiasis, pancreatitis, viral gastroenteritis, Plan: Screening labs in process, I am ordering a KUB. The patient has known underlying GERD, it sounds as if it is exacerbated. She could be concurrently constipation despite denying that she could be. We will give Carafate and reassess. I do not feel she requires a CT scan at this time, we will reassess once labs return. I have independently reviewed the following tests: Labs: No leukocytosis, not anemic, no electrolyte abnormality noted, not , LFTs normal KUB:FINDINGS: Single frontal view of the abdomen was performed. Surgical clips are noted in the right aspect of the abdomen. A surgical clip is noted in the pelvis. There is gas scattered within bowel, without evidence of a bowel obstruction or free air. Small to moderate amount of stool is noted within the proximal colon. Calcified phleboliths are noted in the pelvis. Osseous structures are unremarkable. IMPRESSION: 1. No acute disease in the abdomen. Lab Data 03/22/25 01:38 03/22/25 01:38 Labs: Lab Results 03/22/25 Range/Units 01:38 WBC 8.8 (4.8-10.8) X10*3/uL RBC 4.48 (4.20-5.50) X10*6/uL Hgb 12.9 (12.0-16.0) g/dl Hct 38.7 (37.0-47.0) % MCV 86.4 (80.0-98.0) fL MCH 28.8 (27.0-33.0) pg MCHC 33.3 (31.0-35.0) g/dl RDW 13.0 (11.0-16.0) % Plt Count 248 (160-400) X10*3/uL MPV 9.1 L (9.4-12.3) fL Immature Gran % (Auto) 0.2 (0.0-0.4) % Neut % (Auto) 63.5 (45-73) % Lymph % (Auto) 25.0 (20-40) % [place] % (Auto) 7.8 (2-11) % Eos % (Auto) 2.9 (0-4) % Baso % (Auto) 0.6 (0-2) % Lymph # (Auto) 2.2 (1.2-4.9) X10*3/uL [place] # (Auto) 0.7 (0.1-1.2) X10*3/uL Eos # (Auto) 0.3 (0.0-0.4) X10*3/uL Baso # (Auto) 0.1 (0.0-0.2) X10*3/uL Abs Immat Gran (auto) 0.02 (0.00-0.03) X10*3/uL Absolute Neuts (auto) 5.6 (2.0-8.3) x10*3/uL Absolute Nucleated RBC 0.000 (0.0-0.012) X10*3/uL Nucleated RBC % (auto) 0.0 (0.0-0.2) /100WBC Sodium 140 (135-145) mmol/L Potassium 3.7 (3.3-5.1) mmol/L Chloride 109 H (96-108) mmol/L Carbon Dioxide 22 (22-29) mmol/L Anion Gap 13 (12-20) BUN 15 (9-16) mg/dL Creatinine 0.77 (0.5-1.4) mg/dL Estim Creat Clear Calc 151.8 Estimated GFR > 60 Random Glucose 105 (60-115) mg/dL Calcium 8.5 D (8.4-10.2) mg/dL Magnesium 2.1 (1.6-2.6) mg/dL Total Bilirubin 0.2 (0.0-1.0) mg/dL Direct Bilirubin < 0.2 (0.0-0.5) mg/dL AST 28 (5-31) U/L ALT 30 (0-31) U/L Alkaline Phosphatase 110 (39-117) U/L Total Protein 6.4 L (6.5-8.0) g/dL Albumin 4.0 (3.5-5.0) g/dL Lipase 16 (8-78) U/L Beta HCG, Quant < 2 mIU/mL Discharge Plan Discharge Clinical Impression: Constipation, GERD (gastroesophageal reflux disease) Patient Disposition: Home, Self-Care Instructions: GERD (Gastroesophageal Reflux Disease) (DC), Constipation (ED) Additional Instructions: You were found to be constipated on the x-ray. Being constipated can exacerbate acid reflux symptoms. See home care instructions.You need to use [id number] Colace, this is a stool softener, twice a day. In addition you should purchase [id number] MiraLax, drink it 4 times a day, until you begin having multiple large volume bowel movements. Diet, weight loss and exercise are instrumental in preventing both acid reflux exacerbation and constipation. You had no lab abnormalities Follow up with your healthcare providers as needed. Prescriptions: No Action dupilumab 300 mg/2 mL pen injector 300 mg subcut Q2W Qty: 4 11RF escitalopram oxalate 10 mg tablet 15 mg PO DAILY acetaminophen 500 mg tablet 500 - 1,000 mg PO Q6H PRN (Reason: pain) Qty: 30 0RF miscellaneous medical supply Misc 1 ea miscellaneous DAILY Qty: 1 0RF Rx Instructions: nebulizer machine with tubing bupropion HCl 300 mg tablet extended release 24 hr 300 mg PO DAILY aripiprazole 2 mg tablet 2 mg PO DAILY cetirizine 10 mg tablet 10 mg PO DAILY (DME) nebulizers Misc See Rx Instructions .Route Rx Instructions: As directed Trelegy Ellipta 200-62.5-25 mcg blister with device 1 inh inhalation DAILY 30 Days Qty: 60 12RF budesonide 0.5 mg/2 mL suspension for nebulization 0.5 mg inhalation BID 30 Days Qty: 120 11RF epinephrine 0.3 mg/0.3 mL auto-injector 0.3 mg IM Q10M PRN (Reason: anaphylaxis) 30 Days Qty: 2 6RF Rx Instructions: for 2 doses clonidine HCl 0.1 mg tablet PO DAILY albuterol sulfate 2.5 mg /3 mL (0.083 %) solution for nebulization 2.5 mg inhalation Q6H Qty: 75 3RF montelukast [Singulair] 10 mg tablet 10 mg PO BEDTIME 90 Days Qty: 90 3RF lisdexamfetamine [Vyvanse] 50 mg capsule 50 mg PO DAILY budesonide-formoterol [Symbicort] 160-4.5 mcg/actuation HFA aerosol inhaler 2 puff inhalation BID 30 Days Qty: 10.2 11RF albuterol sulfate 90 mcg/actuation HFA aerosol inhaler 2 inh inhalation Q4H PRN (Reason: Shortness Of Breath) Qty: 1 11RF s-ketamoine 86 mg inhaler intranasal .once a week Rx Instructions: 86 mg nasal spray once a week at service net Print Language: Upper Sorbian
[2025-03-22 03:37] VITALS: BP 114/67; PULSE 92; RESP 16; TEMP 36.7; O2SAT 96
[2025-03-22 04:05] VITALS: BP 114/67; PULSE 92; RESP 16; TEMP 36.7; O2SAT 96
== END 2025-03-22 04:07 | disposition home or self-care (01) ==
PROVIDERS: Emergency Provider Emergency Medicine Emergency Medical Services; PCP Internal Medicine
DX: K59.00 Constipation, unspecified (principal); K21.9 Gastro-esophageal reflux disease without esophagitis; R10.13 Epigastric pain; J45.909 Unspecified asthma, uncomplicated; Z87.891 Personal history of nicotine dependence; Z79.899 Other long term (current) drug therapy
CPT/HCPCS: 36415; 74018; 80053; 82248; 83690; 83735; 84702; 85025; 99283

== ENCOUNTER → 2025-03-22 02:00 | Outpatient (BNV) | payer OTHER, SELFPAY | PROVIDERS: Emergency Provider Emergency Medicine Emergency Medical Services; PCP Internal Medicine; Visit Provider Radiology Diagnostic Radiology | DX: R10.9 Unspecified abdominal pain (principal) | CPT/HCPCS: 74018 ==

== ENCOUNTER 2025-08-30 08:51 | Outpatient (REF) | payer OTHER, SELFPAY ==
--- OUTSIDE RECORDS SUMMARY | 2025-08-30 12:55 | XMS_ITS | Encounter Summary ---
Author Organization [facility] Address [address] [place] [address] Care Team Providers Care Occupational Therapist Name Role Phone Tran Donald MD Primary Care Provider Belle Bourgeois MD Primary Care Provider Cornelius jorge Encounter Details Date Type Department Care Team Description 10/20/2018 Hospital Medical Records [address] [place] [address] Mainor Jurado MD Social History Tobacco Use Types Packs/Day Years Used Date Smoking Tobacco: Former Cigarettes 0.5 3 0 10/28/2009 - 07/17/2013 Smokeless Tobacco: Never Alcohol Use Standard Drinks/Week Comments Not Currently 0 (1 standard drink = 0.6 oz pure alcohol) previous binge drinking, stopped 01/2021 Alcohol Habits Answer Date Recorded How often do you have a drink containing alcohol ? Never 04/15/2020 How many drinks containing a lcohol do you have on a typical day when you are drinking? Not asked How often do you have six or more drinks on one occasion? Not asked Sex Assigned at Date Recorded Female 11/27/2020 9:[address] Job Start Date Occupation Industry Not on file Not on file Not on file documented as of this encounter Plan of Treatment Not on file documented as of this encounter Visit Diagnoses Not on filedocumented in this encounter Care Teams Occupational Therapist Relationship Specialty Start Date End Date Tran Donald MD PCP - General Internal Medicine 09/04/16 11/16/21 Belle Juan MD PCP - General Internal Medicine 11/17/21 documented as of this encounter
--- OUTSIDE RECORDS SUMMARY | 2025-08-30 12:55 | XMS_ITS | Encounter Summary ---
Author Organization [facility] Address [address] [place] [address] Care Team Providers Care Packer Dried Beef Name Role Phone Jose Donald MD Primary Care Provider Belle Bourgeois MD Primary Care Provider Cornelius jorge Reason for Visit * Reason Onset Date Comments medication problems 10/29/2019 Encounter Details Date Type Department Care Team Description 10/29/2019 Telephone Adult Medicine [address] [address] Jose Donald MD medication problems Social History Tobacco Use Types Packs/Day Years Used Date Smoking Tobacco: Former Cigarettes Q uit: 07/17/2013 Smokeless Tobacco: Never Alcohol Use Standard Drinks/Week Comments Yes 0 (1 standard drink = 0.6 oz pur e alcohol) rare Alcohol Habits Answer Date Recorded How often [...] on file documented as of this encounter Miscellaneous Notes * Telephone Encounter - Cierra Dc M.A. - 10/30/2019 2:54 PM EST Only covered for post herpetic neuralgia, there is the 4% otc [place] [phone] Prior Adilene Dc M.A. Regional Prior Authorizations Ext [phone] Fax: [phone] [place] [phone] Prior dAilene mason * Telephone Encounter - Amilcarlinda Doreen - 10/29/2019 4:54 PM EST What is the name of the medication patient is having a problem with?: lidocaine (LIDODERM) 5 % What is the problem?: not covered under insurance. Pharmacy states it needs pcp approval and reasonit is being prescribed. Is the patient calling about the problem? YES If the patient is not the caller who is? Is this a NEW medication?: YES How long has the patient been taking this medication? Who prescribed this medication for the patient? JOSE DONALD Who is patients PCP?: JOSE DONALD Payor: [facility] / Plan: [facility] / Product Type: HMO [id number] documented in this encounter Plan of Treatment Not on file documented as of this encounter Visit Diagnoses Not on filedocumented in this encounter Care Teams Packer Dried Beef Relationship Specialty Start Date End Date Jose Donald MD PCP - General Internal Medicine 09/04/16 11/16/21 Belle Juan MD PCP - General Internal Medicine 11/17/21 documented as of this encounter
--- OUTSIDE RECORDS SUMMARY | 2025-08-30 12:55 | XMS_ITS | Encounter Summary ---
Author Organization [facility] Address [address] [place] [address] Care Team Providers Care Tag Stringer Name Role Phone Belle Juan MD Primary Care Provider Cornelius jorge Reason for Visit * Reason Onset Date Comments APPOINTMENT 06/25/2022 Encounter Details Date Type Department Care Team Description 06/25/2022 Refill Gastroenterology - [place] [address] [facility] [address] [place] [address] Sonu Sheldon MD [address] [facility] [address] [place] [address] APPOINTMENT Social History Tobacco Use Types Packs/Day Years [...] encounter Miscellaneous Notes * Telephone Encounter - Karla Narayanan M.A. - 06/26/2022 4:33 PM EDT Please call to schedule and update PCP, thank you! * Telephone Encounter - Elizabeth Bull PA-C - 06/26/2022 2:22 PM EDT Denied, pt needs appt. Carmel, please respond to the staff message I sent you. Yu no longer is with [facility]. I have taken care of this request. It is denied. However I soul stilllike you torespond to the staff message so I can help you out. Thank you * Telephone Encounter - Carmel Fraser - 06/26/2022 1:48 PM EDT Please review and advise LVM for pt to return call back to office In RE Pt last saw you on 11/20/21 pt pcp is no longer apart on [facility] would you be willing to refill? * Telephone Encounter - Elizabeth Bull PA-C - 06/26/2022 1:[address] Juan no longer works for [employer]. Please reroute accordingly. Thank you * Telephone Encounter - Carmel Fraser - 06/26/2022 11:22 AM EDT Last ordered: 9 months ago by Sonu Sheldon MD Last refill: 01/09/2022 No recent labs documented in this encounter Plan of Treatment Not on file documented as of this encounter Visit Diagnoses Not on filedocumented in this encounter Care Teams Tag Stringer Relationship Specialty Start Date End Date Belle Juan MD PCP - General Internal Medicine 11/17/21 documented as of this encounter
--- OUTSIDE RECORDS SUMMARY | 2025-08-30 12:55 | XMS_ITS | Encounter Summary ---
Author Organization [facility] Address [address] [facility] [place] [address] Care Team Providers Care Aircraft Design Engineer Name Role Phone Community, Pcp Primary Care Provider Tran Rojas MD Primary Care Provider Unavail able Tran Donald MD Primary Care Provider Unavail able Belle Juan MD Primary Care Provider Cornelius jorge Encounter Details Date Type Department Care Team Description 01/04/2016 Hospital Medical Records [address] [place] [address] Car Hazel MD Social History Tobacco Use Types Packs/Day [...] on filedocumented in this encounter Care Teams Aircraft Design Engineer Relationship Specialty Start Date End Date Community, Pcp PCP - General Internal Medicine 01/06/16 07/28/16 Tran Donald MD PCP - General Internal Medicine 09/04/16 11/16/21 Tran Donald MD PCP - General 07/29/16 09/03/16 Belle Juan MD PCP - General Internal Medicine 11/17/21 documented as of this encounter
--- OUTSIDE RECORDS SUMMARY | 2025-08-30 12:55 | XMS_ITS | Encounter Summary ---
Author Organization [facility] Address [address] [place] [address] Care Team Providers Care Personnel Associate Name Role Phone Tran Donald MD Primary Care Provider Belle Bourgeois MD Primary Care Provider Cornelius jorge Encounter Details Date Type Department Care Team Description 11/01/2016 Orders Only Medical Records [address] [place] [address] Tran Donald MD Social History Tobacco Use Types Packs/Day Years Used Date Smoking Tobacco: Never Alcohol Use Standard Drinks/Week Comments [...] on file documented as of this encounter Procedures Procedure Name Priority Date/Time Associated Diagnosis Comments OUTSIDE SLEEP STUDY Routine 10/22/2016 documented in this encounter Results * OUTSIDE SLEEP STUDY (10/22/2016) Tran Donald MD PULMONOLOGY documented in this encounter Visit Diagnoses Not on filedocumented in this encounter Care Teams Personnel Associate Relationship Specialty Start Date End Date Tran Donald MD PCP - General Internal Medicine 09/04/16 11/16/21 Belle Juan MD PCP - General Internal Medicine 11/17/21 documented as of this encounter
--- OUTSIDE RECORDS SUMMARY | 2025-08-30 12:55 | XMS_ITS | Encounter Summary ---
Author Hub Email Address Preferred Language Slovak Marital Status Single Religion Affiliation Unknown Race White Ethnic Group Not or Lati no Author Organization [facility] Address [address] [place] [address] Care Team Providers Care Electrician Assistant Name Role Phone Tran Donald MD Primary Care Provider Belle Bourgeois MD Primary Care Provider Cornelius jorge Reason for Visit * Reason Onset Date Comments Faxed Refill 11/18/2019 zafirlukast (ACC OLATE) 20 MG tablet Encounter Details Date Type Department Care Team Description 11/18/2019 Refill Pulmonology - [place] [address] [facility] [address] [place] [address] Bear He MD [address] [facility] [address] [place] [address] Faxed Refill (zafirlukast (ACCOLATE) 20 MG tablet) Social History Tobacco Use Types Packs/Day Years [...] encounter Miscellaneous Notes * Telephone Encounter - Donna Gale - 11/18/2019 11:59 AM EST Patient would like script to be: E-PRESCRIBED/FAXED TO PHARMACY WHEN WAS THE PATIENT'S LAST APPOINTMENT WITH THE PRESCRIBING PROVIDER? 03/19/19 Does patient have an upcoming appointment? Yes 01/08/2020 (THE MEDICATION REQUESTED IS ON THE MED LIST ABOVE) All of the medications requested were on the CURRENT MEDS list Did you check the Pharmacy information above?: YES Patient wants: 30 -day supply Is this a mail order prescription request ? NO Patients current insurance carrier is: Payor: [facility] M[facility] / Plan: [facility] / Product Type: HMO [id number] documented in this encounter Plan of Treatment Not on file documented as of this encounter Visit Diagnoses Diagnosis Moderate persistent asthma without complication Unspecified asthma Bipolar 2 disorder, major depressive episode (HCC) Other bipolar disorders Eczema, unspecified type Allergic rhinitis due to pollen, unspecified seasonality Post-nasal drainage Unspecified sinusitis (chronic) Snoring Other dyspnea and respiratory abnormality Morbid obesity (HCC) Morbid obesity documented in this encounter Care Teams Electrician Assistant Relationship Specialty Start Date End Date Tran Donald MD PCP - General Internal Medicine 09/04/16 11/16/21 Belle Juan MD PCP - General Internal Medicine 11/17/21 documented as of this encounter
--- OUTSIDE RECORDS SUMMARY | 2025-08-30 12:55 | XMS_ITS | Encounter Summary ---
Author Organization [facility] Address [address] [place] [address] Care Team Providers Care Pipe Roller Name Role Phone Tran Donald MD Primary Care Provider Belle Bourgeois MD Primary Care Provider Cornelius jorge Encounter Details Date Type Department Care Team Description 09/22/2018 Orders Only Adult Medicine [address] [address] Tran Donald MD Screening for hypercholesterolemia (Primary Dx) Social History Tobacco Use Types Packs/Day Years Used Date Smoking Tobacco: Never Smokeless Tobacco: Never Alcohol Use Standard Drinks/Week [...] on file documented as of this encounter Results * COMPREHENSIVE METABOLIC PANEL (09/23/2018 10:31 AM EST) [facility] GLUCOSE 94 70 - 100 mg/dL 09/23/2018 1:[address] [facility] Comment: Reference range applicable to fasting specimens only Based on recommendations from the ADA and AACE, the fasting glucose reference range has been changed to 70-100 mg/dL. This change is effective March 13, 2010 BUN 14 5 - 25 mg/dL 09/23/2018 1:54 PM EST [facility] CREAT 0.8 0.7 - 1.5 mg/dL 09/23/2018 1:54 PM EST [facility] BUN/CREAT RATIO 17.5 6.0 - 20.0 09/23/2018 1:54 PM EST [facility] GFR > 60 >60 09/23/2018 1:54 PM EST [facility] Comment: If patient is -Omani, multiply result by 1.21 Chronic Kidney Disease: < 60 ml/min/1.73 square meters Kidney Failure: < 15 ml/min/1.73 square meters Sodium 139 133 - 145 mEq/L 09/23/2018 1:54 PM EST [facility] Potassium 4.5 3.5 - 5.5 mEq/L 09/23/2018 1:54 PM EST [facility] Chloride 102 96 - 108 mEq/L 09/23/2018 1:54 PM EST [facility] CO2 24.4 21.0 - 32.0 mEq/L 09/23/2018 1:54 PM EST [facility] CALCIUM 9.5 8.5 - 10.5 mg/dL 09/23/2018 1:54 PM EST [facility] TOTAL PROTEIN 6.7 6.0 - 8.3 gm/dL 09/23/2018 1:54 PM EST [facility] Albumin 4.5 3.2 - 5.6 gm/dL 09/23/2018 1:54 PM EST [facility] GLOBULIN 2.2 1.9 - 4.4 gm/dL 09/23/2018 1:54 PM EST [facility] A/G RATIO 2.0 1.1 - 2.3 09/23/2018 1:54 PM EST [facility] BILI,TOTAL 0.3 0.0 - 1.2 mg/dL 09/23/2018 1:54 PM EST [facility] AST (SGOT) 21 10 - 42 U/L 09/23/2018 1:54 PM EST [facility] ALT( SGPT) 25 10 - 60 U/L 09/23/2018 1:54 PM EST [facility] ALK PHOS 101 42 - 121 U/L 09/23/2018 1:54 PM EST [facility] 09/23/2018 10:3 1 AM EST 09/23/2018 10:32 AM EST Tran Donald MD LAB Performing Organization Address City/State/[facility] Co de Phone Number [facility] [address] [facility] * CBC (AUTO DIFF PLATELET) (09/23/2018 10:31 AM EST) WBC 6.3 4.8 - 10.8 x10-3 09/23/2018 10:46 AM EST [facility] RBC 4.1 3.8 - 4.8 x10-6 09/23/2018 10:46 AM EST [facility] HGB 12.0 11.5 - 16.0 g/dl 09/23/2018 10:46 AM EST [facility] HCT 37.3 35 - 47 % 09/23/2018 10:46 AM EST [facility] MCV 90.5 79 - 98 fl 09/23/2018 10:46 AM EST [facility] MCH 29.1 27 - 32 pg 09/23/2018 10:46 AM EST [facility] MCHC 32.2 32 - 37 g/dl 09/23/2018 10:46 AM EST [facility] RDW 12.6 11 - 15 % 09/23/2018 10:46 AM EST [facility] PLT COUNT 197 130 - 400 x10-3 09/23/2018 10:46 AM EST [facility] MEAN PLATELET VOLUME 9.4 7 - 11 fl 09/23/2018 10:46 AM EST [facility] NEUT % 67.8 41 - 85 % 09/23/2018 10:46 AM EST [facility] LYMPH % 20.5 15 - 48 % 09/23/2018 10:46 AM EST [facility] MONO % 6.3 0 - 12 % 09/23/2018 10:46 AM EST [facility] EOS % 4.9 0 - 5 % 09/23/2018 10:46 AM EST [facility] BASO % 0.5 0 - 2 % 09/23/2018 10:46 AM EST [facility] 09/23/2018 10:3 1 AM EST 09/23/2018 10:32 AM EST Tran Donald MD LAB Performing Organization Address [facility] Co de Phone Number [address] * LIPID PROFILE (09/23/2018 10:31 AM EST) Cholesterol 171 0 - 200 mg/dL 09/23/2018 1:54 PM EST [facility] TRIGLYCERIDES 108 0 - 150 mg/dL 09/23/2018 1:54 PM EST [facility] HDL CHOLESTEROL 53 >40 mg/dL 8 1:54 PM EST [facility] LDL CALCULATED 96 0 - 100 mg/dL 09/23/2018 1:54 PM EST [facility] TC-HDLC RATIO 3 0.0 - 4.4 mg/dL 09/23/2018 1:54 PM EST [facility] 09/23/2018 10:3 1 AM EST 09/23/2018 10:32 AM EST Tran Donald MD LAB Performing Organization Address [facility] Co de Phone Number [address] documented in this encounter Visit Diagnoses Diagnosis Screening for hypercholesterolemia- Primary Screening for lipoid disorders documented in this encounter Care Teams Pipe Roller Relationship Specialty Start Date End Date Tran Donald MD PCP - General Internal Medicine 09/04/16 11/16/21 Belle Juan MD PCP - General Internal Medicine 11/17/21 documented as of this encounter
--- OUTSIDE RECORDS SUMMARY | 2025-08-30 12:55 | XMS_ITS | Encounter Summary ---
Author Organization [facility] Address [address] [place] [address] Care Team Providers Care Basketball Scout Name Role Phone Tran Donald MD Primary Care Provider Belle Bourgeois MD Primary Care Provider Cornelius jorge Encounter Details Date Type Department Care Team Description 10/20/2018 Hospital Medical Records [address] [place] [address] Social History Tobacco Use Types Packs/Day Years [...] on filedocumented in this encounter Care Teams Basketball Scout Relationship Specialty Start Date End Date Tran Donald MD PCP - General Internal Medicine 09/04/16 11/16/21 Belle Juan MD PCP - General Internal Medicine 11/17/21 documented as of this encounter
--- OUTSIDE RECORDS SUMMARY | 2025-08-30 12:55 | XMS_ITS | Encounter Summary ---
Author Organization [facility] Address [address] [place] [address] Care Team Providers Care Title I Coordinator Name Role Phone Tran Donald MD Primary Care Provider Belle Bourgeois MD Primary Care Provider Cornelius jorge Reason for Referral * EXTERNAL (Routine) - Authorized/Booked Specialty Diagnoses / Procedures Referred By Contreyna t Referred To Contact Nutrition Procedures REFERRAL TO NUTRITION Tran Donald MD [address] [place] [address] Annamarie Rodriges, DEVIKA, LDN [address] [address] Referral ID Status Reason Start Date Expiration Date V isits Requested Visits Authorized SEE NOTE Authorized/B ooked 07/21/2018 10/21/2018 1 1 Encounter Details Date Type Department Care Team Description 07/21/2018 Orders Only Adult Medicine [address] [address] Tran Donald MD Social History Tobacco Use [...] on filedocumented in this encounter Care Teams Title I Coordinator Relationship Specialty Start Date End Date Tran Donald MD PCP - General Internal Medicine 09/04/16 11/16/21 Belle Juan MD PCP - General Internal Medicine 11/17/21 documented as of this encounter
--- OUTSIDE RECORDS SUMMARY | 2025-08-30 12:55 | XMS_ITS | Encounter Summary ---
Author Organization [facility] Address [address] [place] [address] Care Team Providers Care Child Care Counselor Name Role Phone Tran Donald MD Primary Care Provider Belle Bourgeois MD Primary Care Provider Cornelius jorge Reason for Visit * Reason Onset Date Comments Care Management 02/05/2018 Encounter Details Date Type Department Care Team Description 02/05/2018 Telephone Adult Medicine [address] [address] Tran Donald MD Care Management Social History Tobacco Use Types Packs/Day Years [...] encounter Miscellaneous Notes * Telephone Encounter - Ingrid Mohan R.N. - 02/19/2018 8:43 AM EDT Complex Care Management Summary Date: 02/19/2018 CCM: Ingrid Mohan RN CWA: Felipe Laboy Patient Background: Asthma, Obesity, borderline htn, depression, PTSD, Hx of SI Brief Summary of interventions: Patient would like assistance with housing, employment/education and food resources (food sharif). Primary Concern: At this time, I am most concerned about patient medication (Latuda) not being covered by her insurance. Patient stated she has been feeling more stable on the medication and is worried about the med not being covered. CCM will f/u with the Plan to determine if she is at risk of losing coverage and if so if anything can be done to avoid that. Plan for Follow Up: Provide patient support with becoming involved with [employer], applying for housing and food sharif resources. Contact her insurance to discuss coverage of Latuda. Ingrid Mohan R.N. Complex Yard Pipe Grader-[facility] Medicaid ACO- [place] office Phone extension: [phone] * Telephone Encounter - Ingrid Mohan R.N. - 02/05/2018 12:17 PM EDT TC to offer CCM program and schedule an ED f/u appt. Patient accepted care management and agreed to a home visit on 02/14/18 @ 1pm. ED f/u appt scheduled for 02/12/18 @ 11am per patient request. Ingrid Mohan RN Complex Yard Pipe Grader with [facility] [place] [employer] @ [facility] documented in this encounter Plan of Treatment Not on file documented as of this encounter Visit Diagnoses Not on filedocumented in this encounter Care Teams Child Care Counselor Relationship Specialty Start Date End Date Tran Donald MD PCP - General Internal Medicine 09/04/16 11/16/21 Belle Juan MD PCP - General Internal Medicine 11/17/21 documented as of this encounter
--- OUTSIDE RECORDS SUMMARY | 2025-08-30 12:55 | XMS_ITS | Encounter Summary ---
Author Organization [facility] Address [address] [place] [address] Care Team Providers Care Podiatric Medicine Doctor Name Role Phone Tran Donald MD Primary Care Provider Belle Bourgeois MD Primary Care Provider Cornelius jorge Encounter Details Date Type Department Care Team Description 10/01/2016 Pt. Non Urgent Medical Question General Surgery [address] [place] [address] Pablo Whitaker MD [address] [place] [id number] Social History Tobacco Use Types Packs/Day Years [...] on filedocumented in this encounter Care Teams Podiatric Medicine Doctor Relationship Specialty Start Date End Date Tran Donald MD PCP - General Internal Medicine 09/04/16 11/16/21 Belle Juan MD PCP - General Internal Medicine 11/17/21 documented as of this encounter
--- OUTSIDE RECORDS SUMMARY | 2025-08-30 12:55 | XMS_ITS | Encounter Summary ---
Author Organization [facility] Address [address] [place] [address] Care Team Providers Care Manager Ethics Name Role Phone Tran Donald MD Primary Care Provider eBlle Bourgeois MD Primary Care Provider Cornelius jorge Encounter Details Date Type Department Care Team Description 12/16/2018 Orders Only Adult Medicine [address] [address] Tran Donald MD Social History Tobacco Use [...] on filedocumented in this encounter Care Teams Manager Ethics Relationship Specialty Start Date End Date Tran Donald MD PCP - General Internal Medicine 09/04/16 11/16/21 Belle Juan MD PCP - General Internal Medicine 11/17/21 documented as of this encounter
--- OUTSIDE RECORDS SUMMARY | 2025-08-30 12:55 | XMS_ITS | Encounter Summary ---
Author Organization [facility] Address [address] [place] [address] Care Team Providers Care Ballistics Expert Name Role Phone Tran Donald MD Primary Care Provider Belle Bourgeois MD Primary Care Provider Cornelius jorge Encounter Details Date Type Department Care Team Description 12/07/2017 Hospital Medical Records [address] [place] [address] Henrry Ramesh, DONNELL Social History Tobacco Use Types Packs/Day Years [...] on filedocumented in this encounter Care Teams Ballistics Expert Relationship Specialty Start Date End Date Tran Donald MD PCP - General Internal Medicine 09/04/16 11/16/21 Belle Juan MD PCP - General Internal Medicine 11/17/21 documented as of this encounter
--- OUTSIDE RECORDS SUMMARY | 2025-08-30 12:55 | XMS_ITS | Encounter Summary ---
Author Organization [facility] Address [address] [facility] [place] [address] Care Team Providers Care Naphthalene Operator Name Role Phone Tran Donald MD Primary Care Provider Belle Bourgeois MD Primary Care Provider Cornelius jorge Encounter Details Date Type Department Care Team Description 09/09/2017 Release of Information Medical Records [address] [place] [address] Abstract, Provider Social History Tobacco Use Types Packs/Day Years [...] on filedocumented in this encounter Care Teams Naphthalene Operator Relationship Specialty Start Date End Date Tran Donald MD PCP - General Internal Medicine 09/04/16 11/16/21 Belle Juan MD PCP - General Internal Medicine 11/17/21 documented as of this encounter
--- OUTSIDE RECORDS SUMMARY | 2025-08-30 12:55 | XMS_ITS | Encounter Summary ---
Author Organization [facility] Address [address] [place] [address] Care Team Providers Care Lending Manager Name Role Phone Tran Donald MD Primary Care Provider Belle Bourgeois MD Primary Care Provider Cornelius jorge Reason for Visit * Reason Onset Date Comments Appointment-Internal Referral 12/17/2018 Encounter Details Date Type Department Care Team Description 12/17/2018 Telephone Gastroenterology - [address] [place] [address] Rema Mireles MD [address] [place] [address] Appointment-Internal Referral Social History Tobacco Use Types Packs/Day Years [...] * Telephone Encounter - Donna Gale - 12/17/2018 1:49 PM EST Good Afternoon Dr. Mireles, First I would like to say thank you for your internal referral of this patient to Nutrition. But due to Medicare guidelines, we are unable to make an appointment with this patient. Per guidelines, she has to have a diagnosis of either CKD or DM, she does not have either diagnosis. I called and offered to make an appointment with the patient, with her paying for the appointment out of pocket, but she declined. Again thank you for your referral and have a wonderful day. documented in this encounter Plan of Treatment Not on file documented as of this encounter Visit Diagnoses Not on filedocumented in this encounter Care Teams Lending Manager Relationship Specialty Start Date End Date Tran Donald MD PCP - General Internal Medicine 09/04/16 11/16/21 Belle Juan MD PCP - General Internal Medicine 11/17/21 documented as of this encounter
--- OUTSIDE RECORDS SUMMARY | 2025-08-30 12:55 | XMS_ITS | Encounter Summary ---
Author Organization [facility] Address [address] [facility] [place] [address] Care Team Providers Care Command And Control Systems Integrator Name Role Phone Tran Donald MD Primary Care Provider [facility] Belle Nation MD Primary Care Provider Cornelius jorge Encounter Details Date Type Department Care Team Description 04/10/2017 Equipment Service Lead Report Medical Records [address] [place] [address] Abstract, Provider Social History Tobacco Use Types [...] on filedocumented in this encounter Care Teams Command And Control Systems Integrator Relationship Specialty Start Date End Date Tran Donald MD PCP - General Internal Medicine 09/04/16 11/16/21 Belle Juan MD PCP - General Internal Medicine 11/17/21 documented as of this encounter
--- OUTSIDE RECORDS SUMMARY | 2025-08-30 12:55 | XMS_ITS | Encounter Summary ---
Author Organization [facility] Address [address] [place] [address] Care Team Providers Care Social Worker Assistant Name Role Phone Tran Donald MD Primary Care Provider Belle Bourgeois MD Primary Care Provider Cornelius jorge Encounter Details Date Type Department Care Team Description 12/07/2019 Laceworker Report Medical Records [address] [place] [address] Rehab., [place] Social History Tobacco Use Types Packs/Day Years [...] on filedocumented in this encounter Care Teams Social Worker Assistant Relationship Specialty Start Date End Date Tran Donald MD PCP - General Internal Medicine 09/04/16 11/16/21 Belle Juan MD PCP - General Internal Medicine 11/17/21 documented as of this encounter
--- OUTSIDE RECORDS SUMMARY | 2025-08-30 12:55 | XMS_ITS | Clinical Summary ---
Author Organization [facility] Address [address] [place] [address] Care Team Providers Care Guide Name Role Phone Unavailable Primary Care Provider Unavailabl e Source Comments PLEASE NOTE, if this patient is a minor, it may be UNLAWFUL to discuss sensitive information that is contained in these records (such as FAMILY PLANNING, MENTAL HEALTH or SUBSTANCE ABUSE) with the minor patient's parent or other person without the patient's specific authorization.[facility] Social History Tobacco Use Types Packs/Day Years Used Date Smoking Tobacco: Never Assessed Comments Unknown Sex and Gender Information Value Date Recorded Sex Assigned at Not on file Legal Sex Female 8:01 AM PDT Gender Identity Not on file Sexual Orientation Not on file Plan of Treatment Health Maintenance Due Date Last Done Comments Anxiety Screening 1993 HPV Screening 1993 Hepatitis C Screening 1993 Pap + HPV 1993 Tobacco Screening 1993 HIV Screening 2008 Relationship Safety Screening/Counseling 2008 Hypertension Screening (#1) 2011 Medicare Annual Wellness Visit 2011 Imm-Hepatitis B (1 of 3 - 19 + 3-dose series) 2012 Cervical Cancer Screening 2014 Pap Smear 2014 Imm-HPV (1 - 3-dose SCDM series) 2020 Alcohol and Drug Screen 10/28/2024 Depression Annual Screen 10/28/2024 [id number] ( season) 2025 021, 12/09/2020 Imm-Influenza (#1) 2025 09/27/2016 Imm-DTaP/Tdap/Td (2 - Td or Tdap) 09/27/2026 016 Cervical Ablation/Cold-Knife Conization Discontinued Cervical Cryotherapy Discontinued Colposcopy Discontinued Endometrial Biopsy Discontinued Excision/Leep Discontinued HPV Genotyping Discontinued Vaginal Pap Discontinued Vulvoscopy Discontinued Insurance [facility]
--- OUTSIDE RECORDS SUMMARY | 2025-08-30 12:55 | XMS_ITS | Encounter Summary ---
Author Organization [facility] Address [address] [place] [address] Care Team Providers Care Etiquette Teacher Name Role Phone Belle Juan MD Primary Care Provider Cornelius jorge Reason for Visit * Reason Onset Date Comments APPOINTMENT 12/27/2021 Encounter Details Date Type Department Care Team Description 12/27/2021 Telephone OBGYN - [place] [address] [place] [address] Mireya Anne CN [address] [place], [place] [id number] APPOINTMENT Social History Tobacco Use Types Packs/Day [...] file Not on file Not on file COVID-19 Exposure Response Date Recorded In the last month, have you been in contact with someone who was confirmed or suspected to have Coronavirus / COVID-19? No / Unsure 12/27/2021 8:52 AM EST documented as of this encounter Miscellaneous Notes * Telephone Encounter - Tayler Gardner M.A. - 12/29/2021 9:54 AM EST Patient is aware of results and has appt booked. -PHILIP * Telephone Encounter - Tayler Gardner M.A. - 12/27/2021 4:41 PM EST Left message to call office, patient needs appt for IUD insert Mirena with [facility]. Mirena is covered.-KM documented in this encounter Plan of Treatment Not on file documented as of this encounter Visit Diagnoses Not on filedocumented in this encounter Care Teams Etiquette Teacher Relationship Specialty Start Date End Date Belle Juan MD PCP - General Internal Medicine 11/17/21 documented as of this encounter
--- OUTSIDE RECORDS SUMMARY | 2025-08-30 12:55 | XMS_ITS | Encounter Summary ---
Author Organization [facility] Address [address] [place] [address] Care Team Providers Care Net Front End Developer Name Role Phone Tran Donald MD Primary Care Provider Belle Bourgeois MD Primary Care Provider Cornelius jorge Encounter Details Date Type Department Care Team Description 08/11/2021 [facility] Medical Records [address] [place] [address] Facundo Lugo MD Social History Tobacco Use Types Packs/Day [...] have Coronavirus / COVID-19? No / Unsure 08/02/2021 9:24 AM EDT documented as of this encounter Plan of Treatment Not on file documented as of this encounter Visit Diagnoses Not on filedocumented in this encounter Care Teams Net Front End Developer Relationship Specialty Start Date End Date Tran Donald MD PCP - General Internal Medicine 09/04/16 11/16/21 Belle Juan MD PCP - General Internal Medicine 11/17/21 documented as of this encounter
--- OUTSIDE RECORDS SUMMARY | 2025-08-30 12:55 | XMS_ITS | Encounter Summary ---
Author Organization [facility] Address [address] [place] [address] Care Team Providers Care Academic Affairs Vice President Name Role Phone Tran Donald MD Primary Care Provider Belle Bourgeois MD Primary Care Provider Cornelius jorge Reason for Visit * Reason Comments E-prescribe Rx Request Encounter Details Date Type Department Care Team Description 04/15/2020 Refill Allergy [place] [address] [place] [phone] Joanna Licea MD E-prescribe Rx Request Social History Tobacco Use Types Packs/Day Years Used Date Smoking Tobacco: Former Cigarettes Q uit: 07/17/2013 Smokeless Tobacco: Never Alcohol Use Standard Drinks/Week Comments No 0 [...] encounter Miscellaneous Notes * Telephone Encounter - Annamarie Davison M.A. - 04/18/2020 8:40 AM EDT [place] 03/23/2020 NOV 04/28/2020 documented in this encounter Plan of Treatment Not on file documented as of this encounter Visit Diagnoses Not on filedocumented in this encounter Care Teams Academic Affairs Vice President Relationship Specialty Start Date End Date Tran Donald MD PCP - General Internal Medicine 09/04/16 11/16/21 Belle Juan MD PCP - General Internal Medicine 11/17/21 documented as of this encounter
--- OUTSIDE RECORDS SUMMARY | 2025-08-30 12:55 | XMS_ITS | Encounter Summary ---
Author Organization [facility] Address [address] [place] [address] Care Team Providers Care Doll Eye Setter Name Role Phone Tran Donald MD Primary Care Provider Belle Bourgeois MD Primary Care Provider Cornelius jorge Encounter Details Date Type Department Care Team Description 03/29/2017 Hospital Medical Records [address] [place] [address] Social History Tobacco Use Types Packs/Day Years [...] on filedocumented in this encounter Care Teams Doll Eye Setter Relationship Specialty Start Date End Date Tran Donald MD PCP - General Internal Medicine 09/04/16 11/16/21 Belle Juan MD PCP - General Internal Medicine 11/17/21 documented as of this encounter
--- OUTSIDE RECORDS SUMMARY | 2025-08-30 12:55 | XMS_ITS | Encounter Summary ---
Author Organization [facility] Address [address] [place] [address] Care Team Providers Care Auto Tech Name Role Phone Jose Donald MD Primary Care Provider Belle Bourgeois MD Primary Care Provider Cornelius jorge Reason for Visit * Reason Onset Date Comments medication problems 02/18/2020 Encounter Details Date Type Department Care Team Description 02/18/2020 Telephone Allergy [place] [address] [place] [phone] Joanna Licea MD medication problems Social History Tobacco Use [...] encounter Miscellaneous Notes * Telephone Encounter - Zenia Giron M.A. - 02/18/2020 2:44 PM EDT Called patient and relayed message. She agrees and will consider the sinus rinse because she is hesistant if she will be able to tolerate. She will call back with any questions or concerns. * Telephone Encounter - Andie Lobato PA-C - 02/18/2020 2:25 PM EDT Please let the patient know that I will send a low dose of Prednisone 20 mg once daily with breakfast for 1 week. This will bring down swelling while bridging onto her nasal sprays. She can also try sinus rinses with boiled/cooled or distilled water prior to using the nasal sprays if there is a lotof mucus and congestion. Please review side effects of Prednisone including moodiness, insomnia, increased thirst and appetite. She has tolerated it okay historically. Thank you * Telephone Encounter - Mima Anne - 02/18/2020 1:51 PM EDT What is the name of the medication patient is having a problem with?: azelastine What is the problem?: patient states her sinuses are so swollen she is having a hard time getting the spray nozzle far enough into her nose to effectively spray. She said whenever she does spray is just drips back down. Is the patient calling about the problem? YES If the patient is not the caller who is? N/a Is this a NEW medication?: YES How long has the patient been taking this medication? Just started today Who prescribed this medication for the patient? Dr. Licea Who is patients PCP?: JOSE DONALD Payor: [facility] [employer] M[employer] / Plan: ONE [facility] / Product Type: HMO [id number] documented in this encounter Plan of Treatment Not on file documented as of this encounter Visit Diagnoses Not on filedocumented in this encounter Care Teams Auto Tech Relationship Specialty Start Date End Date Jose Donald MD PCP - General Internal Medicine 09/04/16 11/16/21 Belle Juan MD PCP - General Internal Medicine 11/17/21 documented as of this encounter
--- OUTSIDE RECORDS SUMMARY | 2025-08-30 12:55 | XMS_ITS | Encounter Summary ---
Author Organization [facility] Address [address] [place] [address] Care Team Providers Care Geographic Information System Surveyor Name Role Phone Tran Donald MD Primary Care Provider Belle Bourgeois MD Primary Care Provider Cornelius jorge Reason for Visit * Reason Onset Date Comments APPOINTMENT 04/28/2020 Encounter Details Date Type Department Care Team Description 04/28/2020 Telephone Allergy [place] [address] [place] [phone] Andie Lobato PA-C APPOINTMENT Social History Tobacco Use Types Packs/Day [...] encounter Miscellaneous Notes * Telephone Encounter - Nay Torres - 05/19/2020 1:56 PM EDT Left message to call and reschedule * Telephone Encounter - Nay Torres - 04/28/2020 11:11 AM EDT Call patient to reschedule testing appointment when testing schedule teplate is built documented in this encounter Plan of Treatment Not on file documented as of this encounter Visit Diagnoses Not on filedocumented in this encounter Care Teams Geographic Information System Surveyor Relationship Specialty Start Date End Date Tran Donald MD PCP - General Internal Medicine 09/04/16 11/16/21 Belle Juan MD PCP - General Internal Medicine 11/17/21 documented as of this encounter
--- OUTSIDE RECORDS SUMMARY | 2025-08-30 12:55 | XMS_ITS | Encounter Summary ---
Author Organization [facility] Address [address] [place] [address] Care Team Providers Care Spiral Spring Winder Name Role Phone Tran Donald MD Primary Care Provider Belle Bourgeois MD Primary Care Provider Cornelius jorge Encounter Details Date Type Department Care Team Description 11/06/2018 Night Triage Doc Medical Records [address] [place] [address] Abstract, Provider Social History Tobacco Use Types [...] on filedocumented in this encounter Care Teams Spiral Spring Winder Relationship Specialty Start Date End Date Tran Donald MD PCP - General Internal Medicine 09/04/16 11/16/21 Belle Juan MD PCP - General Internal Medicine 11/17/21 documented as of this encounter
--- OUTSIDE RECORDS SUMMARY | 2025-08-30 12:55 | XMS_ITS | Encounter Summary ---
Author Organization [facility] Address [address] [place] [address] Care Team Providers Care Cad Application Support Specialist Name Role Phone Tran Donald MD Primary Care Provider Belle Bourgeois MD Primary Care Provider Cornelius jorge Encounter Details Date Type Department Care Team Description 09/23/2019 Sign Carpenter Report Medical Records [address] [place] [address] Social History Tobacco Use Types Packs/Day Years [...] on filedocumented in this encounter Care Teams Cad Application Support Specialist Relationship Specialty Start Date End Date Tran Donald MD PCP - General Internal Medicine 09/04/16 11/16/21 Belle Juan MD PCP - General Internal Medicine 11/17/21 documented as of this encounter
--- OUTSIDE RECORDS SUMMARY | 2025-08-30 12:55 | XMS_ITS | Encounter Summary ---
Author Organization [facility] Address [address] [place] [address] Care Team Providers Care Centralized Traffic Control Operator Name Role Phone Tran Donald MD Primary Care Provider Belle Bourgeois MD Primary Care Provider Cornelius jorge Encounter Details Date Type Department Care Team Description 01/26/2020 Release of Information Medical Records [address] [place] [address] Abstract, Provider Social History Tobacco Use Types [...] on filedocumented in this encounter Care Teams Centralized Traffic Control Operator Relationship Specialty Start Date End Date Tran Donald MD PCP - General Internal Medicine 09/04/16 11/16/21 Belle Juan MD PCP - General Internal Medicine 11/17/21 documented as of this encounter
--- OUTSIDE RECORDS SUMMARY | 2025-08-30 12:55 | XMS_ITS | Encounter Summary ---
Author Organization [facility] Address [address] [place] [address] Care Team Providers Care Cloth Checker Name Role Phone Tran Donald MD Primary Care Provider Belle Bourgeois MD Primary Care Provider Cornelius jorge Encounter Details Date Type Department Care Team Description 06/06/2021 [facility] Medical Records [address] [place] [address] Abstract, Provider Social History Tobacco Use Types [...] have Coronavirus / COVID-19? No / Unsure 05/12/2021 2:31 PM EDT documented as of this encounter Plan of Treatment Not on file documented as of this encounter Visit Diagnoses Not on filedocumented in this encounter Care Teams Cloth Checker Relationship Specialty Start Date End Date Tran Donald MD PCP - General Internal Medicine 09/04/16 11/16/21 Belle Juan MD PCP - General Internal Medicine 11/17/21 documented as of this encounter
--- OUTSIDE RECORDS SUMMARY | 2025-08-30 12:55 | XMS_ITS | Encounter Summary ---
Author Organization [facility] Address [address] [place] [address] Care Team Providers Care Ged Tutor Name Role Phone Tran Donald MD Primary Care Provider Belle Bourgeois MD Primary Care Provider Cornelius jorge Reason for Visit * Reason Onset Date Comments Medication 2021 Encounter Details Date Type Department Care Team Description 2021 Telephone [facility] - [address] [address] Devaughn Lim PA Medication Social History Tobacco Use Types Packs/Day Years [...] PM EDT documented as of this encounter Miscellaneous Notes * Telephone Encounter - Annamarie Gallegos M.A. - 06/16/2021 3:08 PM EDT Patient called and informed. She will come into the office to sign a release of information. * Telephone Encounter - Annamarie Patel - 06/02/2021 11:43 AM EDT I left a message for the patient to call. * Telephone Encounter - Devaughn Lim PA-C - 2021 4:07 PM EDT I will have to discuss this further with her psychiatrist. Preferably the medication should be managed by the psychiatrist since I would not be able to easily obtain any of their notes or or be able to monitor for her regular follow-up and its primary use is for her anxiety. The patient will be having much more frequent follow-up with a psychiatrist, therefore making more sense for this to be managed through them. To speak to the psychiatrist, she will need to do a release of information for both through us and through her psychiatrist so that we can speak. Thank you. * Telephone Encounter - Annamarie Patel - 2021 2:35 PM EDT Trudy MCDONNELL. Please advise. * Telephone Encounter - Annamarie Decker - 2021 11:19 AM EDT Patient saw Wilmar Lim on 05/12/21, discussed increasing her gabapentin. Patient spoke to her Psychiatrist and was given the ok to have Wilmar Lim increase her gabapentin. She uses [facility] [address] in [place]. documented in this encounter Plan of Treatment Not on file documented as of this encounter Visit Diagnoses Not on filedocumented in this encounter Care Teams Ged Tutor Relationship Specialty Start Date End Date Tran Donald MD PCP - General Internal Medicine 09/04/16 11/16/21 Belle Juan MD PCP - General Internal Medicine 11/17/21 documented as of this encounter
--- OUTSIDE RECORDS SUMMARY | 2025-08-30 12:55 | XMS_ITS | Encounter Summary ---
Author Organization [facility] Address [address] [place] [address] Care Team Providers Care Electron Beam Photo Mask Technician Name Role Phone Tran Donald MD Primary Care Provider Belle Bourgeois MD Primary Care Provider Cornelius jorge Reason for Visit * Reason Comments E-prescribe Rx Request Encounter Details Date Type Department Care Team Description 04/23/2019 Refill Adult Medicine [address] [address] Darcy Olivier PA-C E-prescribe Rx Request Social History Tobacco Use [...] encounter Miscellaneous Notes * Telephone Encounter - Alicia Patel - 04/23/2019 10:53 AM EDT Last ov 12/16/2018 Lab Results Component Value Date NA 139 09/23/2018 K 4.5 09/23/2018 CO2 24.4 09/23/2018 CL 102 09/23/2018 BUN 14 09/23/2018 CREAT 0.8 09/23/2018 CA 9.5 09/23/2018 GFR > 60 09/23/2018 * Telephone Encounter - Carmen Carmona - 04/23/2019 10:48 AM EDT Patient would like script to be: E-PRESCRIBED/FAXED TO PHARMACY WHEN WAS THE PATIENT'S LAST APPOINTMENT IN ADULT MEDICINE? 12/16/18 WHEN WAS THE LAST TIME THE PATIENT SAW THEIR PCP? Same as above Does patient have an upcoming appointment? No-unable to reach left [facility] to call for appointment due to refill request. Appt due (THE MEDICATION REQUESTED IS ON THE MED LIST ABOVE) All of the medications requested were on the CURRENT MEDS list Did you check the Pharmacy information above?: YES Patient wants: 90 -day supply Is this a mail order prescription request ? NO If the refill is from a FAXED refill request what is the RX # listed on the fax? N/A Patients current insurance carrier is: [place] / [place] / Product Type: MEDICARE [id number] documented in this encounter Plan of Treatment Not on file documented as of this encounter Visit Diagnoses Not on filedocumented in this encounter Care Teams Electron Beam Photo Mask Technician Relationship Specialty Start Date End Date Tran Donald MD PCP - General Internal Medicine 09/04/16 11/16/21 Belle Juan MD PCP - General Internal Medicine 11/17/21 documented as of this encounter
== END 2025-08-30 08:52 | disposition home or self-care (01) ==
LOC: HO.LNP 08:51
PROVIDERS: PCP Internal Medicine; Visit Provider Advanced Practice Midwife
DX: Z01.419 Encounter for gynecological examination (general) (routine) without abnormal findings (principal); E66.01 Morbid (severe) obesity due to excess calories; Z87.42 Personal history of other diseases of the female genital tract; Z11.51 Encounter for screening for human papillomavirus (HPV); Z68.44 Body mass index [BMI] 60.0-69.9, adult
CPT/HCPCS: 87626; 88175; 99385

== ENCOUNTER 2025-08-30 08:51 | Outpatient (AMB) | payer OTHER, SELFPAY ==
--- NOTE | 2025-08-30 08:58 | A.OFFVIS_ITS ---
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 (Rosie) Accompanied by: Self / Same As Patient Allergies carboprost (From Hemabate) Allergy (Severe, Verified 08/30/25 09:03) Anaphylaxis gluten Allergy (Mild, Verified 08/30/25 09:03) celiac disease ENVIRONMENTAL Allergy (Mild, Uncoded 11/24/24 11:22) HIVES, ITCH EYES, REDNESS Medication List - Last Reconciled 08/30/25 by Kassi Martin CNM acetaminophen 500 - 1,000 mg (1 - 2 x 500 mg) PO Q6H PRN albuterol sulfate 90 mcg/actuation 2 inhalations inhalation Q4H PRN albuterol sulfate 2.5 mg (3 mL) inhalation Q6H aripiprazole 2 mg PO DAILY budesonide 0.5 mg (2 mL) inhalation BID 30 days budesonide-formoterol 160-4.5 mcg/actuation (Symbicort) 2 puffs inhalation BID 30 days bupropion HCl XL 300 mg PO DAILY cetirizine 10 mg PO DAILY PRN clonidine HCl mg PO DAILY dupilumab 300 mg (2 mL) subcut Q2W epinephrine 0.3 mg (0.3 mL) IM Q10M PRN 30 days escitalopram oxalate 15 mg PO DAILY lisdexamfetamine (Vyvanse) 50 mg PO DAILY miscellaneous medical supply 1 ea miscellaneous DAILY montelukast 10 mg PO BEDTIME nebulizers As directed [s-ketamoine 86 mg nasal spray once a week at [facility]] Is last menstrual period known: Yes Last menstrual period: 08/05/25 Post menopausal: No Patient : No HPI HPI 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 It has been about 5 years since she has had an exam perhaps 4,. She has 1 child delivered by the labor was induced with complications of decreased fluid at 40 weeks and an infection failed induction and delivery by in [place].. She has not been sexually active in about 5 years. She used to have a Mirena IUD for about 10 years. Getting it put in was very difficult as getting it taken out was difficult as well and her insurance at the time did not cover a new 1 to be put in so she was not able to get a replacement at the same time. She was on some sort of control pill for a while but needed to come off of it because of blood pressure changes. She does not think she would be interested in a Mirena again and the 1 concern she has is that her periods are very painful especially in the 1st or 2nd day usually the 2nd and it is very heavy she has to go through several large tampons in the day she tends to alternate ibuprofen and Tylenol and uses a heating pad. She does not have sleep apnea she does not have to have diabetes she does not have high blood pressure normally she does have obesity she thinks she has gained about 100 lb in the last year so. She says her eating is tied to compulsive eating she is not at all interested in bariatric surgery because she does not think it would help her eating disorder. 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 She lives with her brother and other family members and kids and they all help each other out. She has a therapist and a psychiatrist and her primary care provider and her knitter hand that she sees for her asthma. [facility] Medical History ADD (attention deficit disorder) History of cholecystitis Fibromyalgia IBS (irritable bowel syndrome) Surgical History History of cholecystectomy H/O: History of appendectomy Family History Mother Arthritis Substance use disorder Mental health disorder Father HTN (hypertension) Substance use disorder Maternal Grandmother Cancer Social History Household Members: Family and Children Housing: House Do you presently have visiting nurse or other home services: No Alcohol intake: never Patient Tobacco Use Status: Former Tobacco user Tobacco use type: Cigarette Cigarette Packs Per Day: 2 Cigarettes Per Day: 40.0 e-Cigarette/Vaping Use: Former Use Second Hand Smoke Exposure: No service: No Current occupational status: unemployed Cognitive needs: No Hearing needs: No Vision needs: Yes (glasses) Female Reproductive History Menstrual Age of Menarche: 7 Duration of menses: 3-5 days Date of last menstrual period: 08/05/25 control method: none Total pregnancies: 2 Full term: 1 History of abnormal pap smear: No Physical Exam Vital Signs: Last Vital Signs BP 118/72 08/30/25 09:05 BMI result Body Mass Index 65.8 Const Nutritional Appearance: obese morbidly obese Other: Patient was very able to relax as much as possible with the exam there is some erythema in her groin area but she is not symptomatic she does have a antifungal powder that she uses when she needs to but she is asymptomatic currently Vagina is pink and healthy appearing moist cervix is difficult to visualize but able to be visualized anteriorly and is pink and smooth, with better visualization of simply the anterior lip brief visualization of the entire cervix Pap smear taken bimanual--cervix mobile nontender unable to palpate uterus and ovaries secondary to adipose but nontender patient did have good tone with Kegel. Speculum Exam - Vagina: normal appearance of the vagina and other Speculum Exam - Cervix: normal appearance of the cervix and Other cervical findings present (limited views) Bimanual exam- vagina & uterus: other (uterus difficult to assess 2' habitus) Bimanual Exam- Adnexa, other: Other (palpation of adnexae limited 2' habitus) Assessment & Plan Assessment & Plan (1) Morbid obesity with BMI of 60.0-69.9, adult: Code(s): E66.01 - Morbid (severe) obesity due to excess calories; Z68.44 - Body mass index [BMI] 60.0-69.9, adult Category: Medical (2) H/O dysmenorrhea: Code(s): Z87.42 - Personal history of other diseases of the female genital tract Category: Medical (3) Cervical cancer screening: Code(s): Z12.4 - Encounter for screening for malignant neoplasm of cervix Category: Medical Plan -----Discussed in this visit the following: healthy balanced diet, regular and consistent exercise, getting recommended health screens, doing the best she can for her particular health concerns, kegel exercises, pap smear screening and followup recommendations, mammography screening and SBE, normal changes in cycles in her life stage--- . Discussed her dysmenorrhea and the options available and the challenges that her size does bring in management of it all. Discussed risks and benefits of Mirena versus progestin only pills for now she is not interested in trying anything. Discussed that she may take up to 600 mg ibuprofen when needed Q 6 hours and occasionally 800 mg q.8 hours always with food in her tummy. Discussed possible ways that she might be able to incorporate some movement into her life. Hoping that Pap smear will come back adequate. We will await results and inform her of them. I wished her luck with her health challenges, and acknowledged the challenges of lifetime obesity. We discussed it in some detail. Coding Level of Care Code New Pt Prev Care 18-39yr([id number] Diagnoses Morbid obesity with BMI of 60.0-69.9, adult E66.01; Z68.44 H/O dysmenorrhea Z87.42 Cervical cancer screening Z12.4
[2025-08-30 09:05] VITALS: BMI 65.8
--- OUTSIDE RECORDS SUMMARY | 2025-08-30 09:28 | XMS_ITS | Clinical Summary ---
[facility] Address [address] [place] [address] Care Team Providers Care Harbormaster Name Role Phone Belle Juan MD Primary Care Provider [phone] Surgical History Surgery Date Site/Laterality Comments APPENDECTOMY PROCEDURE: [place] APPENDECTOMY SECTION PROCEDURE: [place] DELIVERY ONLY CHOLECYSTECTOMY PROCEDURE: HISTORICAL CHOLECYSTECTOMY; COMMENT: [facility] CHOLECYSTECTOMY PROCEDURE: HISTORICAL CHOLECYSTECTOMY Medical History Medical History Date Comments Depression DX:Depression; C OMMENT: f/u psychiatrist Dr. Lopez Insomnia DX:Insomnia Anxiety DX:Anxiety; COMM ENT: prescribed by Dr. Lopez Chronic post-traumatic stres s disorder (PTSD) DX:Chronic post-traumatic st ress disorder (PTSD) Bipolar 2 disorder, major de pressive episode ([facility] V24, [facility] V28) DX:Bipolar 2 disord er, major depressive episode (HCC) Morbid obesity with BMI of 5 0.0-59.9, adult ([facility] V24, [facility] V28) 09/27/2016 DX:Morbid obesity wit h BMI of 50.0-59.9, adult ([facility]) Borderline hypertension 10/12/2016 DX:Borde rline hypertension Borderline personality disor jamaal ([facility] V24, [facility] V28) 12/24/2016 DX:Borderline personality d isorder ([facility]) Dissociative identity disord er ([facility] V24, [facility] V28) 12/24/2016 DX:Dissociative identity di sorder ([facility]) Eczema 12/02/2017 DX:Eczema; COMME NT: [...] obesity with BMI of 4 5.0-49.9, adult ([facility] V24, [facility] V28) 02/27/2019 DX:Morbid obesity wit h BMI of 45.0-49.9, adult ([facility]) Family History Medical History Relation [...] 5 Years) and At-Risk Patients (6 to 49 Years) (2 of 2 - PCV) 08/29/2018 08/29/2017 HPV Vaccines (1 - 3-dose SCD M series) 2020 HIV Screening 10/06/2022 Hepatitis C Screening 10/06/2022 Social Influencers of Health Screening 10/06/2022 Depression Screening 10/28/2024 COVID-19 Vaccine (3 - 2024-2 6 season) 2025 12/30/2020, 12/09/2020 Influenza Vaccine (#1) 2025 8, 08/29/2017, 09/27/2016 DTaP,Tdap,and Td Vaccines (2 - Td or Tdap) 09/27/2026 09/27/2016 RSV Immunization Adult Patients (1 - 1-dose 75+ series) 2068 HIB Vaccines Aged Out No longer eligi [...] age to complete this topic Care Teams Harbormaster Relationship Specialty Start Date End Date Belle Juan MD [address] [place] [address] PCP - General Internal Medicine 11/17/21
--- OUTSIDE RECORDS SUMMARY | 2025-08-30 09:29 | XMS_ITS | Data Portability ---
Author Organization [facility] Address [address] [place] [address] Care Team Providers Care State Comptroller Name Role Phone [facility] Primary [...] Assessment and Plan as documented by the Remnant Sorter. Patient given the opportunity to ask questions. . Advised -needs to call local coordinator tomorrow -if develops CP/severe SOB/turning blue/uncontrolle d n/v/d or black/bloody emesis or stool/ AMS/ syncope/ hi fever to call 911- verbalized understanding of instructions [email or web address] Not available 06/26/2023 15:36:38 11/18/2023 11/18/2023 I provided real -time medical direction via phone for this encounter, and was available for additional phone based assistance as needed. I have reviewed and agree with the Assessment and Plan as documented by the Remnant Sorter. We discussed the diagnostic uncertainty of home [...] to call 911- verbalized understanding of instructions Not available 11/19/2023 23:31:54 Plan of Treatment Reminders Order Date Submit Date Provider Last Modified By Organization Details Last Modified Time Details Appointments None recorded. Lab rapid flu (A+B) 2023 024 [email or web address] [facility], [address] [place] [address], [phone] 4 11:42:04 rapid SARS CoV 2 Ag, QL IA, respiratory specimen 2023 024 [email or web address] [facility], [address] [place] [address], [phone] 4 11:42:03 rapid SARS CoV 2 Ag, QL IA, respiratory specimen 2022 023 [email or web address] [facility], [address] [place] [address], [phone] 3 11:55:14 rapid flu (A+B) 2022 023 [email or web address] [facility], [address] [place] [address], [phone] 3 11:55:14 rapid strep group A, throat 2022 023 [email or web address] [facility], [address] [place] [address], [id number] 3 11:55:14 Referral None recorded. Procedures None recorded. Surgeries None recorded. Imaging None recorded. Medication Orders prednisone 20 mg tablet 2023 024 [email or web address] [facility], [address] [place], [address], 4 11:48:45 prednisone 10 mg tablet 2023 024 DEVIKA [facility], [address] [place] [address], [address], 4 11:48:52 ipratropium 0.5 mg-albutero l 3 mg (2.5 mg base)/3 mL nebulizatio n soln 2023 024 [email or web address] 0 [facility], [address] [place] [address], [place], [address], 4 11:48:45 albuterol sulfate 2.5 mg/3 mL (0.083 %) solution for nebulizatio n 2023 024 [facility], [address] [place] [address], [place], [address], 4 11:48:52 benzonatate 200 mg capsule 2023 024 [facility], [address] [place] [address], [address], 4 11:53:56 doxycycline monohydrate 100 mg capsule 2022 023 [email or web address] [facility], [address] [place] [address], [place], [address], 3 15:13:20 prednisone 20 mg tablet 2022 023 [facility], [address] [place] [address], [address], 3 11:54:39 benzonatate 200 mg capsule 2022 023 [facility], [address] [place] [address], [address], 3 11:54:39 ipratropium 0.5 mg-albutero l 3 mg (2.5 mg base)/3 mL nebulizatio n soln 2022 023 [email or web address] [facility], [address] [facility], [place], [address], 3 15:14:29 benzonatate 100 mg capsule 2022 023 [email or web address] [facility], [address] [place] [address], [place], [address], 3 15:14:29 prednisone 20 mg tablet 2022 023 [email or web address] [facility], [address] [facility], [place], [address], 3 15:14:29 doxycycline monohydrate 100 mg capsule 2022 023 [email or web address] [facility], [address] [facility], [place], [address], 3 15:14:29 ipratropium 0.5 mg-albutero l 3 mg (2.5 mg base)/3 mL nebulizatio n soln 2022 023 [email or web address] [facility], [address] [facility], [place], [address], 3 20:33:19 prednisone 20 mg tablet 2022 023 [facility], [address] [facility], [place], [address], 3 21:01:46 prednisone 20 mg tablet 2022 023 [email or web address] [facility], [address] [place] [address], [place], [address], 3 10:47:43 prednisone 20 mg tablet 2022 023 [facility], [address] [facility], [place], [address], 3 10:47:46 ProAir HFA 90 mcg/actuati on aerosol inhaler 2022 023 [facility], [address] [place] [address], [address], 3 11:21:07 ipratropium 0.5 mg-albutero l 3 mg (2.5 mg base)/3 mL nebulizatio n soln 2022 023 [facility], [address] [place] [address], [address], 3 11:21:07 ipratropium 0.5 mg-albutero l 3 mg (2.5 mg base)/3 mL nebulizatio n soln 2022 023 [facility], [address] [place] [address], [address], 3 11:21:26 Patient TargetsNo targets recorded. Patient InstructionsNo instructions recorded. Reason for Referral None Reported. Results Created Date Observation Date Name Description Value Unit Range Abnormal Flag Note LastModifiedBy Organization Detail LastModifiedTime 06/26/20 23 06/26/2023 rapid strep group A, throa t Strep negati ve Not Available [facility] ed [address] [place] [address], [phone] 06/26/2023 11:54:41 06/26/20 23 06/26/2023 rapid flu (A+B) Flu negati ve Not Available [facility] ed [address] [place] [address], [address] 06/26/2023 11:54:39 06/26/20 23 06/26/2023 rapid SARS CoV 2 Ag, QL IA, respi rator y speci men rapid SARS CoV 2 Ag, QL IA, respiratory specimen negati ve Not Available [facility] ed [address] [place] [address], [address] 06/26/2023 11:54:38 11/18/19 24 11/18/2023 rapid SARS CoV 2 Ag, QL IA, respi rator y speci men rapid SARS CoV 2 Ag, QL IA, respiratory specimen negati ve Not Available [facility] ed [address] [place] [address], [phone] 11/18/2023 11:41:47 11/18/19 24 11/18/2023 rapid flu (A+B) Flu negati ve Not Available [facility] ed [address] [place] [address], [phone] 11/18/2023 11:41:46 06/26/20 23 01/24/2023 progr ess disch arge summa ry* No observ ation record ed. [email or web address] Not Available 2022 18:12:58 Result Notes None recorded. Medical Equipment None Reported. [...] Available No t Available Vitals Date Recorded Body height Body temperature Oxygen saturation Oxygen saturation in Arterial blood by Pulse oximetry Body weight Respiratory rate Heart rate Systolic And Diastolic Provider Name and Address Organization Details Last Updated DateTime 4 160.02 cm 98.5 [degF] 95 % 95 % 141790. 36 g 18 /min 118 /min 133/88 mm[Hg] Not Available [employer] 4 11:39:14 Date Recorded Body weight Respiratory rate Body temperature Heart rate Oxygen saturation Oxygen saturation in Arterial blood by Pulse oximetry Respiratory rate Heart rate Body weight Oxygen saturation Oxygen saturation in Arterial blood by Pulse oximetry Body temperature Provider Name and Address Organization Details Last Updated DateTime 3 209214. 6 g 18 /min 98.4 [degF] 89 /min 99 % 99 % 18 /min 89 /min 405947. 6 g 99 % 99 % 98.4 [degF] Not Available [facility] 3 11:29:56 Date Recorded Systolic And Diastolic Systolic And Diastolic Provider Name and Address Organization Details Last Updated DateTime 02/19/2023 146/106 mm[Hg] 146/106 mm[Hg] Not Available [employer] [facility] 02/19/2023 11:29:56 Date Recorded Heart rate Respiratory rate Oxygen saturation Oxygen saturation in Arterial blood by Pulse oximetry Systolic And Diastolic Provider Name and Address Organization Details Last Updated DateTime 3 98 /min 20 /min 97 % 97 % 139/88 mm[Hg] Not Available [employer] 3 10:45:28 Date Recorded Oxygen saturation Oxygen saturation in Arterial blood by Pulse oximetry Body weight Respiratory rate Heart rate Body temperature Heart rate Body temperature Oxygen saturation Oxygen saturation in Arterial blood by Pulse oximetry Body weight Respiratory rate Provider Name and Address Organization Details Last Updated DateTime 3 93 % 93 % 824515. 92 g 16 /min 119 /min 98.4 [degF] 119 /min 98.4 [degF] 93 % 93 % 725501. 92 g 16 /min Not Available [employer] 3 20:35:52 Date Recorded Heart rate Body temperature Oxygen saturation Oxygen saturation in Arterial blood by Pulse oximetry Respiratory rate Body weight Systolic And Diastolic Systolic And Diastolic Systolic And Diastolic Provider Name and Address Organization Details Last Updated DateTime 3 119 /min 98.4 [degF] 93 % 93 % 16 /min 607007. 92 g 135/82 mm[Hg] 135/82 mm[Hg] 135/82 mm[Hg] Not Available [employer] 3 21:15:59 Date Recorded Oxygen saturation Oxygen saturation in Arterial blood by Pulse oximetry Body temperature Body weight Body height Heart rate Respiratory rate Systolic And Diastolic Provider Name and Address Organization Details Last Updated DateTime 3 93 % 93 % 97.1 [degF] 167780. 48 g 160.02 cm 112 /min 18 /min 143/96 mm[Hg] Not Available [employer] 3 11:50:37 Social History None recorded. Functional Status None recorded. Mental Status None recorded. Family History Nothing Reported. Medical History No medical history recorded. Gynecological HistoryNo gynecological history recorded. Obstetrics History GPAL:G 0 P 0 0 0 0 Past Encounters Encounter ID Performer Location Encounter Start Date Encounter Closed Date Diagnosis/Indication Diagnosis SNOMED-CT Code Diagnosis ICD10 Code Diagnosis IMO Codes Diagnosis Note [id number] Kalyan Chase MD [facility] [address] [place] [address] 02/19/2023 10:55:35 02/21/2023 11:46:14 Asthma 702517461 J45.909 Reports a hospitaliz ation about a week ago. Has run out of her albuterol and ipratropiu m and although she has refills at the pharmacy, reports that they are on hold . Significan t triggers in the house (multiple cats, dogs, and tobacco smoke). Recently completed course of steroids. 99% on room air with mild expiratory wheezes per zone manager. Plan to give inhaled bronchodil ators, closely monitor. I will send Rx to the pharmacy in case that helps with the issue, doubt much benefit to steroids at this point given well appearance , normal sats, and finished about a week ago. [id number] Suraj Xiao MD [facility] [address] [place] [phone] 04/05/2023 10:45:24 04/08/2023 13:10:37 Exacerbation of intermittent asthma 897430214 J45.21 27yo woman with asthma presents with worsening dyspnea and wheezing in setting of her nebulizer machine breaking and poor air quality recently. No clear infection. On examinatio n by zone manager she has inspriator y and expiratory wheezing.A ssessment: asthma exacerbati on- DuoNeb administer ed with improvemen t.- Prednisone 40mg QD x 5 days; first dose given by zone manager [id number] Deanne Wells MD [facility] [address] [place] [phone] 04/26/2023 20:27:47 04/29/2023 10:19:37 Exacerbation of intermittent asthma [id number] J45.21 [id number] Hannah Ghotra MD [facility] [address] [place] [phone] 06/26/2023 11:50:34 06/26/2023 23:58:41 Moderate acute exacerbation of asthma [id number] J45.901 W/ BRONCHITIS -given that she has [...] benzonatat e is not covered by insurance [id number] Hannah Ghotra MD [facility] [address] [place] [address] 11/18/2023 11:39:11 11/21/2023 09:19:32 Viral upper respiratory tract infection [id number] J06.9 Since she is on day 5 of symptoms, would be unable to start antivirals if PCR is positive as the results would not return to late.-Advi sed to treat symptomati дмитрий. Moderate a cute exacerbation of asthma [id number] J45.901 Status post DuoNeb, patient lungs are [...] Moreno Member ID Guarantor Name 11/18/2023 1 [facility] - DOS ON OR AFTER 2023 - DUAL ELIGIBLE - ALF OPTIONS AND ONE CARE (MEDICARE REPLACEMENT/ADV ANTAGE - HMO) Sumaya Ugarte [id number] Sumaya Ugarte 04/05/2023 1 [facility] - DOS PRIOR TO 2023 - DUAL ELIGIBLE (MEDICARE REPLACEMENT/ADV ANTAGE - HMO) Sumaya Ugarte [id number] Sumaya Ugarte Notes Date Note Type Note Provider Name and Address Organization Details Recorded Time 02/19/2023 text/html HPI: Was admitted to hospital last week for asthma attack I needed oxygen. My o2 is never going above 93 even dipping to 90 at times when I m just sitting down. I don t want to go back to the [...] .................... .................... .................... .................... .................... .................... . Remnant Sorter Note From Abimael Ma: Pt presents A@Ox4 . [place] warm and dry clear airway with equal [...] .................... . Disposition: Fulfilled Kalyan Chase MD [address] [place] [address],[address], [place], [phone], [facility] 02/19/2023 12:39:18 04/05/2023 text/html ROS as noted in the HPI HPI: Short of breath/wheezing .................... .................... .................... [...] chills Verified identified Suraj Xiao MD [address] [facility],[address], [place], [address], [place] [facility] 04/05/2023 10:48:03 04/26/2023 text/html HPI: Asthma exacerbation [...] .................... .................... .................... .................... .................... .................... . Remnant Sorter Note From Leonidas Mcgee: PI CO shortness [...] .................... . Disposition: Fulfilled Deanne Wells MD [address] [place] [address],[address], [place], [phone], [employer] 04/29/2023 11:13:25 06/26/2023 text/html ROS as noted in the HPI HPI: Asthma exacerbated due to cold or [...] .................... .................... .................... .................... .................... .................... . Remnant Sorter Note From Tres Blackmon: Pt reports three days of cough, sinus pressure, runny nose and mild sore throat. Pt sts cough became productive today, producing brown sputum. Pt had one vomiting episode yesterday but denies hematemesis . Pt denies CP, SOB at rest , fevers, chills or diarrhea. Pt has local coordinator f/u tomorrow . Pt is alert, NAD. [...] mg benzonatate PO. Pt instructed to keep local coordinator appointment tomorrow and to seek emergent medical care for new or worsening sx, which are reviewed with her. .................... .................... .................... .................... .................... .................... .................... . Disposition: FulfilledSEGMD: As above.-Patient denies any possibility of . Although she vomited once yesterday post tussive, she is able to eat and drink today. She denies diarrhea she denies hematemesis, melena or hematochezia Hannah Ghotra MD [address] [place] [address],[address], [place], [address], [facility] 06/26/2023 15:37:45 11/18/2023 text/html ROS as noted in the HPI HPI: Baseline has been usual but I [...] Allergies: Unknown Comments: Called back member at 904, 28 year old female with PMH of [...] .................... .................... .................... .................... .................... .................... . Remnant Sorter Note From Jeanette Helms: Sent to a [...] times daily. Pt states she last saw Fleecer in Nov and next appt is approx 2months away. (sitting) BP:133/88, P:118 reg, RR:18, SpO2:95% RA, T:98.5; (standing) BP:126/82, P:124, SpO2:95% RA; Head: no sinus tenderness; Chest: no tenderness; Lung sounds: diminished bilaterally; Abdomen: soft, non-tender, no distention; Back: unremarkable; Extremities: no peripheral edema; Skin: pink, warm, dry; Rapid covid test: neg; Rapid flu test: neg; [facility] consulted and orders Duo Neb and Prednisone 60mg PO. [facility] sends script to pt's pharmacy for Albuterol neb solution, prednisone taper, and Tessalon Perles. Pt advised to use Budesonide BID, Albuterol nebs: 4 times daily or q 4hrs if needed. Pt advised to follow up with PCP and local coordinator leroy. Duo neb administered with improvement per pt. Lung sounds: clear bilaterally; SpO2 w/ ambulation 94-96% RA; Pt eats small snack, and prednisone 60mg PO administered without incident. Pt advised not to start prednisone prescription until tomorrow. Red flags discussed. Pt has no further questions. [facility] Lab Orders: rapid flu (A+B): Performed rapid SARS CoV 2 Ag, QL IA, respiratory specimen: Performed .................... .................... .................... .................... .................... .................... .................... . Disposition: Fulfilled Hannah Ghotra MD [address] [facility],[address], [place], [address], [facility] 11/19/2023 23:33:11 OBGyn Episode No OBEpisode recorded.
--- OUTSIDE RECORDS SUMMARY | 2025-08-30 09:29 | XMS_ITS | Clinical Summary ---
Author Organization [facility] Address [address] [place] [address] Phone Care Team Providers Care Agricultural Appraiser Name Role Phone Tran Negron MD Primary Care Provider [phone] Allergies Active Allergy Reactions Criticality Noted Date Comments Gluten Protein 09/10/2019 Medications albuterol 90 mcg/actuation inhaler Inhale 2 puffs into the lungs every 4 (four) hours as needed. Active buPROPion (WELLBUTRIN SR) 200 MG SR 12 hr tabletIndicatio ns:depression associated with bipolar disorder Take 200 mg by mouth 2 (two) times a day. Indications: DEPRESSION ASSOCIATED WITH BIPOLAR DISORDER Active cetirizine (ZYRTEC) 5 MG tablet Take 5 mg by mouth daily. Active ferrous sulfate 143 mg (45 mg elemental) TbER 143 mg daily. Active FLUTICASONE PROPIONATE (FLUTICASONE NASL) Active hydrocortisone 2.5 % cream Apply topically 2 (two) times a day. Active hydrOXYzine (VISTARIL) 50 MG capsule Take 100 mg by mouth nightly. Active lamoTRIgine (LAMICTAL) 100 MG tablet Take 100 mg by mouth 2 (two) times a day. Active LEVONORGESTREL UTRN Active prazosin (MINIPRESS) 5 MG capsule Take 10 mg by mouth nightly. Active triamcinolone acetonide 0.1 % cream Apply topically 2 (two) times a day. Active zolpidem (AMBIEN) 10 mg tablet Take 10 mg by mouth nightly as needed. Active QUEtiapine (SEROQUEL) 25 MG tablet 75 mg 2 (two) times a day. Active QUEtiapine (SEROQUEL) 100 MG tablet Take 100 mg by mouth nightly. Active topiramate (TOPAMAX) 100 MG tablet Take 100 mg by mouth 2 (two) times a day. Active levomilnacipran (FETZIMA) 20 mg Cs24 Take 60 mg by mouth daily. Active lurasidone (LATUDA) 60 mg Tab Take 120 mg by mouth Every Afternoon. Active zafirlukast (ACCOLATE) 20 MG tablet Take 20 mg by mouth 2 (two) times a day. Active OXcarbazepine (TRILEPTAL) 600 MG tablet Take 600 mg by mouth 3 (three) times a day. Active Social History Tobacco Use Types Packs/Day Years Used Date Smoking Tobacco: Never Smokeless Tobacco: Never Tobacco Cessation:Counseling Given: No Alcohol Use Standard Drinks/Week Comments No 0 (1 standard drink = 0.6 oz pur e alcohol) Education Answer Date Recorded Are you interested in more education? Not on elina e 02/22/2023 Are you concerned about learning? Not on file 02/22/2023 No 02/22/2023 No 02/22/2023 Digital Access Answer Date Recorded No 03/22/2023 No 03/22/2023 No 03/22/2023 Reliable internet access at home? Not on file 03/22/2023 Device with a working camera? Not on file Comments Unknown Sex and Gender Information Value Date Recorded Sex Assigned at Female 12/07/2017 10:09 AM EST Legal Sex Female 8:57 PM EDT Gender Identity Female 12/07/2017 10:09 AM EST Sexual Orientation Straight 12/07/2017 10 :09 AM EST Last Filed Vital Signs Vital Sign Reading Time Taken Comments Blood Pressure 165/88 09/10/2019 7:35 PM EST Pulse 90 09/10/2019 9:18 PM EST Temperature 36.7 C (98.1 F) 09/10/2019 7:35 PM EST Respiratory Rate 20 09/10/2019 9:18 PM EST Oxygen Saturation 100% 09/10/2019 7:35 PM EST Inhaled Oxygen Concentration - - Weight 136.1 kg (300 lb) 09/10/2019 8:54 PM EST Height 160 cm (5' 3 ) 09/10/2019 8:54 PM EST Body Mass Index 53.14 09/10/2019 8:54 PM EST Plan of Treatment Health Maintenance Due Date Last Done Comments DEPRESSION SCREENING 2005 HEPATITIS C SCREENING 2011 HIV ONE-TIME SCREENING (18-65 YEARS) 2011 PAP SMEAR 2014 INFLUENZA VACCINE (#1) 2025 8, 08/29/2017, 09/27/2016, Additional history exists COVID-19 VACCINE ( season) 2025 12/30/2020, 12/09/2020 Adult Td,Tdap Booster 03/28/2027 03/28/2017, 016 PNEUMOCOCCAL VACCINES (0-49 years) Aged Out 08/29/2017, 01/04/2016 No longer eligibl e based on patient's age to complete this topic SMOKING STATUS SCREENING (Once After 26 Yrs) Completed 09/10/2019 HEPATITIS A VACCINES Aged Out No long er eligible based on patient's age to complete this topic HIB VACCINES Aged Out No longer eligi ble based on patient's age to complete this topic MENINGOCOCCAL VACCINES (ACWY) Aged Out No longer eligible based on patient's age to complete this topic MENINGOCOCCAL VACCINES (B) Aged Out N o longer eligible based on patient's age to complete this topic Medical Devices Not on file Insurance [facility] [address] [address] ONE CARE MEDICARE REPLACEMENT [place] [id number] [facility] Member Subscriber Plan / Payer (Ef fective 2017-Present) Name:Sumaya Ugarte Relation to Subscriber:Self Name:Sumaya Ugarte Payer ID:[id number] Group ID:Not on file Type:Medicaid Address: [address] MEDICARE REPLACEMENT [place] [id number] [facility] Member Subscriber Plan / Payer (Ef fective 2017-Present) Name:Sumaya Ugarte Relation to Subscriber:Self Name:Sumaya Ugarte Payer ID:[id number] Group ID:Not on file Type:Medicaid Address: [address] MEDICARE REPLACEMENT [place] [id number] [facility] Member Subscriber Plan / Payer (Ef fective 2017-Present) Name:Sumaya Ugarte Relation to Subscriber:Self Name:Sumaya Ugarte Payer ID:[id number] Group ID:Not on file Type:Medicaid Address: [address] [facility] MEDICARE REPLACEMENT [place] [id number] [facility] [address] ONE CARE MEDICARE REPLACEMENT [address] CARE MEDICARE REPLACEMENT [address] CARE [place]IC[place] [address] [place] [address] Member Subscriber Plan / Payer (Ef fective 2017-Present) Name:Sumaya Ugarte Relation to Subscriber:Self Name:Sumaya Ugarte Payer ID:[id number] Group ID:Not on file Type:Medicaid Address: [place] [id number] CARE MEDICARE REPLACEMENT [facility] [address] ONE CARE MEDICARE REPLACEMENT Care Teams Agricultural Appraiser Relationship Specialty Start Date End Date Tran Negron MD PCP - General 08/13/17 Additional Source Comments The information contained in this document represents components of the legal health record. It is not the complete legal health record.[facility]
== END 2025-08-30 10:05 | disposition home or self-care (01) ==
LOC: HO.HWS 08:52
PROVIDERS: PCP Internal Medicine; Visit Provider Advanced Practice Midwife
DX: Z01.419 Encounter for gynecological examination (general) (routine) without abnormal findings (principal); E66.01 Morbid (severe) obesity due to excess calories; Z68.44 Body mass index [BMI] 60.0-69.9, adult; Z87.42 Personal history of other diseases of the female genital tract
CPT/HCPCS: 99385; 99459

== ENCOUNTER 2025-10-15 08:54 | Outpatient (AMB) | payer OTHER, SELFPAY ==
[2025-10-15 08:59] VITALS: BP 130/90; PULSE 116; O2SAT 95; BMI 72.0
--- NOTE | 2025-10-15 08:59 | MHC.OFFVIS ---
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 Apparently her asthma has been more active. She states that back in September she was evaluated in the ER and she was treated and discharged. Subsequently after that her asthma is been more active require more prednisone. In January of this year the patient ended up going to the ER and she was kept in the hospital for an asthma exacerbation. Her blood work was reviewed and no significant eosinophils noted. The viral testing was negative. Her x-ray was relatively clear although showed some errors of bronchitis when I personally reviewed. The patient has been discharged. She has been on Advair. She has wheezing every day. She uses a rescue inhaler several times a day. Feels like the Advair is no longer working. Will go ahead and optimize her respiratory therapy. In addition to that the patient continues to have daytime drowsiness. Her Orwell score is elevated 11/24. She has had a sleep study actually 2 home sleep studies. Although very fragmented sleep with this home sleep studies. She feels like she is not able to fall asleep with them. She feels like they are not accurate. She does have headaches in the morning. The patient will have an in-lab study in order to better assess her degree of sleep apnea in view of her comorbidities will be important to note to go to be over treat her. She did desaturate down to 69% during her home sleep study and she also had significant tachycardia up to 115 beats per minute while sleeping which is not normal. The patient will be optimized to Trelegy inhaler. In addition to that will follow-up after PFTs blood work and allergy testing in addition to her sleep study. 06/27/2023 the patient is here for a pulmonary follow-up visit. She has been having hard time with her asthma. Having significant chest tightness and wheezing. At times feeling like she will need to go to the ER. She did start the Trelegy inhaler. She completed the prednisone. When she was off the prednisone her symptoms were restarting. The patient did have blood work including allergy testing. She has extremely severe allergies to cats and also severe allergies to dogs. The patient does live with her brother who has a cat and the cat does going to her bedroom. The patient understands that she needs to avoid the cat and a catcher not going to her bedroom. She should also get an air purifier for now. I did provide her with a letter to see if she can find a place since her CV allergies can be detrimental. We did teach her how to use the EpiPen to have 1 available in case she has a severe reaction again. And in the meantime we also repeat her blood work she does have an elevated eosinophil count and elevated IgE count. The patient does have significant sinusitis and therefore she will benefit from starting biologic therapy. I will request Dupixent to start as soon as possible. In the meantime she will need additional prednisone because of her wheezing and will also start her on budesonide nebs to try to help augment her respiratory therapy. The patient also also having daytime drowsiness. Her Orwell score is elevated 09/20. She is scheduled to undergo an in-lab sleep study. At this point since her asthma so severe and uncontrolled will hold off on the PFTs at this time. 09/05/2023 the patient is here for a pulmonary follow-up visit. The patient has been feeling a lot better. She started the Dupixent about 6 weeks ago. No adverse reaction to the Dupixent at this time. She has been off prednisone. She has been now will to be weaned off the budesonide nebs as well. She continues on the Trelegy. Although she still requires her short-acting beta agonist as needed but less than 2 times a week. She also did undergo a in-lab sleep study. 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 The patient can consider sleep aid to try the scene pillow deeper to avoid the frequent awakenings. At this point the patient does not need CPAP therapy she can continue with positional therapy. We did talk about a wedge pillow just to help her with her airway. Patient also underwent pulmonary function studies demonstrating small airways disease consistent with her asthma but a significant response to bronchodilators noted consistent with again with her asthma otherwise PFTs are reassuring. 03/03/2024 the patient is here for a pulmonary follow-up visit. She Dupixent injections every 2 weeks have been very affecting beneficial for her. She has had a few bouts of asthma exacerbations however. Mainly due to viral syndromes. She required prednisone 20 3 times since last spoke to her. The patient continues use her Trelegy. She has not had to use her nebulizer which is reassuring. Also has been using her CPAP. CPAP therapy continues to be affecting beneficial. She does use it for more than 4 hours a night. She has been getting supplies. I will make sure that she has all her medications the pharmacy will follow-up in the springtime. If she has any worsening symptoms she will call for earlier assessment. 03/03/2025 the patient is here for a pulmonary follow-up visit. Overall she is doing very well. Dupixent injections have been very affecting beneficial. No adverse effects she can noticed. Her eyes are fine no rashes. Sometimes she does inject wrong in the medication does feel and she gets upset. But otherwise has been working very well. At some point she did stop the Trelegy but she noticed that her breathing got worse. Specially now going to the springtime she does need her inhalers again. Will go ahead and deescalate her to Symbicort and she can use it twice a day. She also needs her rescue inhaler. She denies any issues with snoring although she does have significant issues with her sleep. She sleeps only like 3-4 hours a night. She is working on making changes to her lifestyle to allow her to have better sleep quality. She did have sleep study back in 2022 which demonstrated no significant sleep apnea that point. The there was an adequate in-lab study. Patient follow-up in a year's time if she has any issues prior to that she will call for an earlier assessment. 10/15/2025 the patient is here for pulmonary follow-up visit. She is complaining of worsening shortness of breath. Moderate severity. She has had a lot of weight gain so she is attributing it to that. She has been on Dupixent in his been very effective in beneficial. She has also noticed increased snoring. She does have headaches in the morning and she is significantly drowsy in the morning with an Orwell score of 12/24. Will go ahead and repeat her sleep study at this time. She is also very tachycardic. Explained to her that this is not related to her obesity. Could be related to underlying sleep apnea and pulmonary hypertension. Will go ahead and request blood work at this time. She denies any history of any blood clots although her legs have been swollen and she did her her leg. Therefore will check a D-dimer. The patient will optimize her respiratory medication by going back to [facility]. Hopefully this allows her to breathe a little better. She is going to work on weight management and she may be a good candidate for GLP 1 inhibitors. The patient will follow-up after the sleep study. If the blood work is abnormal will do additional testing based on the forthcoming data. 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 [facility] Medical History (Updated 10/17/25 @ 22:19 by Louis Singh MD) Tachycardia Dyspnea Women's annual routine gynecological examination ADD (attention deficit disorder) History of cholecystitis Fibromyalgia IBS (irritable bowel syndrome) Surgical History History of cholecystectomy H/O: History of appendectomy Family History Mother Arthritis Substance use disorder Mental health disorder Father HTN (hypertension) Substance use disorder Maternal Grandmother Cancer Social History Household Members: Family and Children Housing: House Do you presently have visiting nurse or other home services: No Alcohol intake: never Patient Tobacco Use Status: Former Tobacco user Tobacco use type: Cigarette Cigarette Packs Per Day: 2 Cigarettes Per Day: 40.0 e-Cigarette/Vaping Use: Former Use Second Hand Smoke Exposure: No service: No Current occupational status: unemployed Cognitive needs: No Hearing needs: No Vision needs: Yes (glasses) Female Reproductive History Menstrual Age of Menarche: 7 Review of Systems Const Denies chills, Reports daytime sleepiness, Reports difficulty sleeping, Denies fatigue, Denies fever(s), Reports snoring, Reports stops breathing during sleep, Reports weight gain and Denies weight loss Eyes Denies change in vision ENT Denies dizziness Card Denies chest pain, Denies leg edema, Denies lightheadedness, Reports palpitations, Reports dyspnea on exertion, Denies orthopnea and Denies other Resp Denies cough, Reports dyspnea on exertion, Reports snoring and Reports wheezing GI Denies hematochezia and Denies change in stool character Musc Denies abnormal gait, Denies muscle weakness, Denies numbness, Denies radiating pain into limb and Denies tingling Skin/Breast Denies lesions and Denies rash Neuro Denies abnormal gait, Denies dizziness, Denies numbness and Denies tingling Endo Denies fatigue and Reports palpitations Aller/Immun Reports wheezing Physical Exam Vital Signs: Last Vital Signs Pulse 116 H 10/15/25 08:59 BP 130/90 H 10/15/25 08:59 Pulse Ox 95 10/15/25 08:59 Oxygen Delivery Method Room Air 10/15/25 08:59 BMI result Body Mass Index 72.0 Const General: comfortable HEENT Head: Yes normocephalic Neck Neck: Yes supple Chest Chest palpation & inspection: normal inspection of the chest Resp Effort & Inspection: normal respiratory effort Auscultation: no wheezes and diminished lung sounds Cardio Rate: tachycardic Rhythm: regular rhythm Heart sounds: S1 normal heart sound present and S2 normal heart sound present GI Palpation (GI): Soft to palpation Skin General skin exam: no rashes or lesions noted Extrem General: Yes no clubbing, cyanosis or edema Assessment & Plan Assessment & Plan (1) Asthma, persistent controlled: Comment: severe persistent Code(s): J45.998 - Other asthma Category: Medical (2) Environmental allergies: Code(s): Z91.09 - Other allergy status, other than to drugs and biological substances Category: Medical (3) Dyspnea: Code(s): R06.00 - Dyspnea, unspecified Category: Medical Qualifiers: Dyspnea type: dyspnea on exertion Qualified Code(s): R06.09 - Other forms of dyspnea (4) Tachycardia: Code(s): R00.0 - Tachycardia, unspecified Category: Medical (5) RAMEZ (obstructive sleep apnea): Comment: last PSG with minimal AHI Code(s): G47.33 - Obstructive sleep apnea (adult) (pediatric) Category: Medical Plan stop Symbicort start Trelegy DUY as needed has a nebulizer contiue singulair continue dupixent EKG in lab PSG Bloodwork severe allergies to cats and dogs, needs to avoid Epipen provided, teaching provided F/U 3-4 months Orders: Orders Venous Blood Gas 10/15/25 J45.998 - Other asthma, R00.0 - Tachycardia, unspecified, R06.00 - Dyspnea, unspecified Basic Metabolic Panel 10/15/25 J45.998 - Other asthma, R00.0 - Tachycardia, unspecified, R06.00 - Dyspnea, unspecified Immunoglobulin E 10/15/25 J45.998 - Other asthma, R00.0 - Tachycardia, unspecified, R06.00 - Dyspnea, unspecified D Dimer High Sensitivity 10/15/25 J45.998 - Other asthma, R00.0 - Tachycardia, unspecified, R06.00 - Dyspnea, unspecified TSH reflex Free T4 10/15/25 J45.998 - Other asthma, R00.0 - Tachycardia, unspecified, R06.00 - Dyspnea, unspecified Complete Blood Count Auto Diff 10/15/25 J45.998 - Other asthma, R00.0 - Tachycardia, unspecified, R06.00 - Dyspnea, unspecified Troponin-I High Sensitivity 10/15/25 J45.998 - Other asthma, R00.0 - Tachycardia, unspecified, R06.00 - Dyspnea, unspecified RT PSG in-lab sleep study 10/15/25 G47.33 - Obstructive sleep apnea (adult) (pediatric) ECG 12 lead EKG 10/15/25 J44.9 - Chronic obstructive pulmonary disease, unspecified Medications: New gvmhvdpunip-ffrzytain-lqsifpac 200-62.5-25 mcg (Trelegy Ellipta) 1 inh inhalation DAILY 60 ea 12RF 30 days Discontinued budesonide-formoterol 160-4.5 mcg/actuation (Symbicort) Discontinued Reason: Doctor's Order 2 puffs inhalation BID 30 days 10.2 grams 11RF J44.89 - Other specified chronic obstructive pulmonary disease Coding Level of Care Code Est Pt Level 4 (51233) Diagnoses Asthma, persistent controlled J45.998 Environmental allergies Z91.09 Dyspnea on exertion R06.09 Dyspnea type: dyspnea on exertion Tachycardia R00.0 RAMEZ (obstructive sleep apnea) G47.33 Time Spent (min) 17
--- OUTSIDE RECORDS SUMMARY | 2025-10-15 09:14 | XMS_ITS | Clinical Summary ---
Author Organization [facility] Address [address] [place] [address] Care Team Providers Care Enamel Dipper Name Role Phone Belle Juan MD Primary Care Provider [phone] Surgical History Surgery Date Site/Laterality Comments APPENDECTOMY PROCEDURE: SD APPENDECTOMY SECTION PROCEDURE: SD DELIVERY ONLY CHOLECYSTECTOMY PROCEDURE: HISTORICAL CHOLECYSTECTOMY; COMMENT: [facility] CHOLECYSTECTOMY PROCEDURE: HISTORICAL CHOLECYSTECTOMY Medical History Medical History Date Comments Depression DX:Depression; C OMMENT: f/u psychiatrist Dr. Lopez Insomnia DX:Insomnia Anxiety DX:Anxiety; COMM ENT: prescribed by Dr. Lopez Chronic post-traumatic stres s disorder (PTSD) DX:Chronic post-traumatic st ress disorder (PTSD) Bipolar 2 disorder, major de pressive episode ([facility] V24, [facility] V28) DX:Bipolar 2 disord er, major depressive episode (HCC) Morbid obesity with BMI of 5 0.0-59.9, adult ([facility] V24, [facility] V28) 09/27/2016 DX:Morbid obesity wit h BMI of 50.0-59.9, adult ([facility]) Borderline hypertension 10/12/2016 DX:Borde rline hypertension Borderline personality disor jamaal ([facility] V24, [facility] V28) 12/24/2016 DX:Borderline personality d isorder ([facility]) Dissociative identity disord er ([facility] V24, [facility] V28) 12/24/2016 DX:Dissociative identity di sorder ([facility]) Eczema 12/02/2017 DX:Eczema; COMME NT: Follows with [...] obesity with BMI of 4 5.0-49.9, adult ([facility] V24, [facility] V28) 02/27/2019 DX:Morbid obesity wit h BMI of 45.0-49.9, adult ([facility]) Family History Medical History Relation Name Comments [...] on file Sexual Orientation Not on file Last Filed Vital Signs Vital Sign Reading [...] age to complete this topic Care Teams Enamel Dipper Relationship Specialty Start Date End Date Belel Juan MD [address] [place] [address] PCP - General Internal Medicine 11/17/21
--- OUTSIDE RECORDS SUMMARY | 2025-10-15 09:15 | XMS_ITS | Clinical Summary ---
Author Organization [facility] Address [address] [place] [id number] Phone Care Team Providers Care Supervisor [employer] Name Role Phone Tran Negron MD Primary Care Provider Allergies Active Allergy Reactions Criticality Noted Date [...] topic Medical Devices Not on file Insurance [facility] [place] [address] [employer] MEDICARE REPLACEMENT [place] [id number] [facility] Member Subscriber Plan / Payer (Ef fective 2017-Present) Name:Sumaya Ugarte Relation to Subscriber:Self Name:Sumaya Ugarte Payer ID:[id number] Group ID:Not on file Type:Medicaid Address: [address] MEDICARE REPLACEMENT [place] [id number] [facility] Member Subscriber Plan / Payer (Ef fective 2017-Present) Name:Sumaya Ugarte Relation to Subscriber:Self Name:Sumaya Ugarte Payer ID:[id number] Group ID:Not on file Type:Medicaid Address: [address] MEDICARE REPLACEMENT [place] [id number] [facility] Member Subscriber Plan / Payer (Ef fective 2017-Present) Name:Sumaya Ugarte Relation to Subscriber:Self Name:Sumaya Ugarte Payer ID:[id number] Group ID:Not on file Type:Medicaid Address: [address] [facility] MEDICARE REPLACEMENT [place] [id number] [facility] [address] ONE CARE MEDICARE REPLACEMENT [address] CARE MEDICARE REPLACEMENT [address] CARE MEDICARE [place] [address] [place] [address] Member Subscriber Plan / Payer (Ef fective 2017-Present) Name:Sumaya Ugarte Relation to Subscriber:Self Name:Sumaya Ugarte Payer ID:[id number] Group ID:Not on file Type:Medicaid Address: [place] [id number] CARE MEDICARE REPLACEMENT [facility] [address] ONE [employer] MEDICARE REPLACEMENT Care Teams Supervisor [employer] Relationship Specialty Start Date End Date Tran Negron MD PCP - General 08/13/17 Additional Source Comments The information contained in this document represents components of the legal health record. It is not the complete legal health record.[facility]
== END 2025-10-15 09:25 | disposition home or self-care (01) ==
LOC: HO.HPS 08:55
PROVIDERS: PCP Internal Medicine; Visit Provider Hospitalist
DX: J45.998 Other asthma (principal); Z91.09 Other allergy status, other than to drugs and biological substances; R06.09 Other forms of dyspnea; R00.0 Tachycardia, unspecified; G47.33 Obstructive sleep apnea (adult) (pediatric)
CPT/HCPCS: 99214

== ENCOUNTER → 2025-10-15 08:54 | Outpatient (REF) | payer OTHER, SELFPAY ==
--- NOTE | 2025-10-15 09:48 | ECG_ITS ---
Test Reason : COPD Blood Pressure : */* mmHG Vent. Rate : 104 BPM Atrial Rate : 104 BPM P-R Int : 136 ms QRS Dur : 64 ms QT Int : 318 ms P-R-T Axes : 70 54 47 degrees QTcB Int : 418 ms Sinus tachycardia Low voltage QRS Borderline ECG When compared with ECG of 14-Jul-2022 20:03, No significant changes seen Referred By: Louis Singh Electronically Signed By: Main Ordonez
[2025-10-15 09:51] LABS: MANUAL DIFF FLAG NO
[2025-10-15 09:52] LABS: Venous Blood Gas Refer to POC result
[2025-10-15 09:53] LABS: VBG HCO3 28 mmol/L (22-26); VBG O2 % Saturation 61.0 %
[2025-10-15 10:01] LABS: Hematocrit 38.9 % (37.0-47.0); Hemoglobin 12.2 g/dl (12.0-16.0); Imm Gran Abs Auto 0.08 X10*3/uL (0.00-0.03); Imm Gran Pct Auto 0.8 % (0.0-0.4); Lymphocytes Absolute Auto 1.4 X10*3/uL (1.2-4.9); Mean Corpuscular HGB Conc 31.4 g/dl (31.0-35.0); Mean Corpuscular Hemoglobin 27.3 pg (27.0-33.0); Mean Corpuscular Volume 87.0 fL (80.0-98.0); NRBC Abs Auto 0.000 X10*3/uL (0.0-0.012); NRBC Pct Auto 0.0 /100WBC (0.0-0.2); Platelet Count 261 X10*3/uL (160-400); Red Blood Count 4.47 X10*6/uL (4.20-5.50); White Blood Count 9.5 X10*3/uL (4.8-10.8)
[2025-10-15 10:21] LABS: D Dimer High Sensitivity < 150 NG/ML
[2025-10-15 10:58] LABS: Troponin-I High Sensitivity < 2.7 ng/L (<3.5-17.0)
[2025-10-15 11:02] LABS: Anion Gap 11 (12-20); Blood Urea Nitrogen 17 mg/dL (9-16); Calcium 9.0 mg/dL (8.4-10.2); Carbon Dioxide 26 mmol/L (22-29); Chloride 107 mmol/L (96-108); Estimated Glomerular Filt Rate > 60; Potassium 4.3 mmol/L (3.3-5.1); Sodium 140 mmol/L (135-145)
== END ==
LOC: HO.CARD 08:54
PROVIDERS: PCP Internal Medicine; Visit Provider Hospitalist
DX: J44.89 Other specified chronic obstructive pulmonary disease (principal); J45.998 Other asthma; R06.09 Other forms of dyspnea; Z91.09 Other allergy status, other than to drugs and biological substances; R00.0 Tachycardia, unspecified; G47.33 Obstructive sleep apnea (adult) (pediatric); Z87.891 Personal history of nicotine dependence
CPT/HCPCS: 36415; 80048; 82785; 82803; 84443; 84484; 85025; 85379; 93005; 99212

== ENCOUNTER → 2025-10-15 09:48 | Outpatient (BNV) | payer OTHER, SELFPAY | PROVIDERS: PCP Internal Medicine; Visit Provider Internal Medicine Cardiovascular Disease | DX: R00.0 Tachycardia, unspecified (principal) | CPT/HCPCS: 93010 ==

== ENCOUNTER 2025-10-25 08:38 | Outpatient (AMB) | payer OTHER, SELFPAY ==
--- OUTSIDE RECORDS SUMMARY | 2025-10-25 08:40 | XMS_ITS | Data Portability ---
Author Organization [employer] [facility] Address [address] [place] [address] Care Team Providers Care Machine Specialist Name Role Phone [facility] Primary [...] Assessment and Plan as documented by the Store Team Leader. Patient given the opportunity to ask questions. . Advised -needs to call insurance risk analyst tomorrow -if develops CP/severe SOB/turning blue/uncontrolle d n/v/d or black/bloody emesis or stool/ AMS/ syncope/ hi fever to call 911- verbalized understanding of instructions [email or web address] Not available 06/26/2023 15:36:38 11/18/2023 11/18/2023 I provided real -time medical direction via phone for this encounter, and was available for additional phone based assistance as needed. I have reviewed and agree with the Assessment and Plan as documented by the Store Team Leader. We discussed the diagnostic uncertainty of home [...] to call 911- verbalized understanding of instructions [email or web address] Not available 11/19/2023 23:31:54 Plan of Treatment Reminders Order Date Submit Date Provider Last Modified By Organization Details Last Modified Time Details Appointments None recorded. Lab rapid flu (A+B) 2023 024 [email or web address] [facility], [address] [place] [address], [id number] 4 11:42:04 rapid SARS CoV 2 Ag, QL IA, respiratory specimen 2023 024 [email or web address] [facility], [address] [place] [address], [address] 4 11:42:03 rapid SARS CoV 2 Ag, QL IA, respiratory specimen 2022 023 [email or web address] 0 [facility], [address] [place] [address], [address] 3 11:55:14 rapid flu (A+B) 2022 023 [email or web address] 0 [facility], [address] [place] [address], [address] 3 11:55:14 rapid strep group A, throat 2022 023 [email or web address] [facility], [address] [place] [address], [id number] 3 11:55:14 Referral None recorded. Procedures None recorded. Surgeries None recorded. Imaging None recorded. Medication Orders prednisone 20 mg tablet 2023 024 [email or web address] [facility], [address] [place], [address], 4 11:48:45 prednisone 10 mg tablet 2023 024 DEVIKA [facility], [address] [place] [address], [address], 4 11:48:52 ipratropium 0.5 mg-albutero l 3 mg (2.5 mg base)/3 mL nebulizatio n soln 2023 024 [email or web address] [facility], [address] [place] [address], [place], [address], 4 11:48:45 albuterol sulfate 2.5 mg/3 mL (0.083 %) solution for nebulizatio n 2023 024 [facility], [address] [place] [address], [place], [address], 4 11:48:52 benzonatate 200 mg capsule 2023 024 [facility], [address] [place] [address], [address], 4 11:53:56 doxycycline monohydrate 100 mg capsule 2022 023 [email or web address] [facility], [address] [place] [address], [place], [address], 3 15:13:20 prednisone 20 mg tablet 2022 023 [facility], [address] [place] [address], [address], 3 11:54:39 benzonatate 200 mg capsule 2022 023 [facility], [address] [place] [address], [address], 3 11:54:39 ipratropium 0.5 mg-albutero l 3 mg (2.5 mg base)/3 mL nebulizatio n soln 2022 023 [email or web address] [facility], [address] [facility], [place], [address], 3 15:14:29 benzonatate 100 mg capsule 2022 023 [email or web address] [facility], [address] [place] [address], [place], [address], 3 15:14:29 prednisone 20 mg tablet 2022 023 [email or web address] [facility], [address] [facility], [place], [address], 3 15:14:29 doxycycline monohydrate 100 mg capsule 2022 023 [email or web address] [facility], [address] [facility], [place], [address], 3 15:14:29 ipratropium 0.5 mg-albutero l 3 mg (2.5 mg base)/3 mL nebulizatio n soln 2022 023 [email or web address] [facility], [address] [facility], [place], [address], 3 20:33:19 prednisone 20 mg tablet 2022 023 [facility], [address] [facility], [place], [address], 3 21:01:46 prednisone 20 mg tablet 2022 023 [email or web address] [facility], [address] [place] [address], [place], [address], 3 10:47:43 prednisone 20 mg tablet 2022 023 [facility], [address] [facility], [place], [address], 3 10:47:46 ProAir HFA 90 mcg/actuati on aerosol inhaler 2022 023 [facility], [address] [place] [address], [address], 3 11:21:07 ipratropium 0.5 mg-albutero l 3 mg (2.5 mg base)/3 mL nebulizatio n soln 2022 023 [facility], [address] [place] [address], [address], 3 11:21:07 ipratropium 0.5 mg-albutero l 3 mg (2.5 mg base)/3 mL nebulizatio n soln 2022 023 [facility], [address] [place] [address], [address], 3 11:21:26 Patient TargetsNo targets recorded. Patient InstructionsNo instructions recorded. Reason for Referral None Reported. Results Created Date Observation Date Name Description Value Unit Range Abnormal Flag Note LastModifiedBy Organization Detail LastModifiedTime 06/26/20 23 06/26/2023 rapid strep group A, throa t Strep negati ve Not Available [facility] ed [address] [place] [address], [address] 06/26/2023 11:54:41 06/26/20 23 06/26/2023 rapid flu (A+B) Flu negati ve Not Available [facility] ed [address] [place] [address], [address] 06/26/2023 11:54:39 06/26/20 23 06/26/2023 rapid SARS CoV 2 Ag, QL IA, respi rator y speci men rapid SARS CoV 2 Ag, QL IA, respiratory specimen negati ve Not Available [facility] ed [address] [place] [address], [address] 06/26/2023 11:54:38 11/18/19 24 11/18/2023 rapid SARS CoV 2 Ag, QL IA, respi rator y speci men rapid SARS CoV 2 Ag, QL IA, respiratory specimen negati ve Not Available [facility] - [facility] ed [address] [place] [address], [address] 11/18/2023 11:41:47 11/18/19 24 11/18/2023 rapid flu (A+B) Flu negati ve Not Available [facility] - [facility] ed [address] [place] [address], [address] 11/18/2023 11:41:46 06/26/20 23 01/24/2023 progr ess [...] Recorded Body height Body temperature Oxygen saturation Body weight Respiratory rate Heart rate Systolic And Diastolic Provider Name and Address Organization Details Last Updated DateTime 4 160.02 cm 98.5 [degF] 95 % 591451. 36 g 18 /min 118 /min 133/88 mm[Hg] Not Available [employer] 4 11:39:14 Date Recorded Body weight Respiratory rate Body temperature Heart rate Oxygen saturation Respiratory rate Heart rate Body weight Oxygen saturation Body temperature Systolic And Diastolic Systolic And Diastolic Provider Name and Address Organization Details Last Updated DateTime 3 677780. 6 g 18 /min 98.4 [degF] 89 /min 99 % 18 /min 89 /min 030554. 6 g 99 % 98.4 [degF] 146/106 mm[Hg] 146/106 mm[Hg] Not Available [employer] 3 11:29:56 Date Recorded Heart rate Respiratory rate Oxygen saturation Systolic And Diastolic Provider Name and Address Organization Details Last Updated DateTime 04/05/2023 98 /min 20 /min 97 % 139/88 mm[Hg] Not Available [employer] 3 10:45:28 Date Recorded Oxygen saturation Body weight Respiratory rate Heart rate Body temperature Heart rate Body temperature Oxygen saturation Body weight Respiratory rate Heart rate Body temperature Provider Name and Address Organization Details Last Updated DateTime 3 93 % 243639. 92 g 16 /min 119 /min 98.4 [degF] 119 /min 98.4 [degF] 93 % 968179. 92 g 16 /min 119 /min 98.4 [degF] Not Available [employer] 3 21:15:59 Date Recorded Oxygen saturation Respiratory rate Body weight Systolic And Diastolic Systolic And Diastolic Systolic And Diastolic Provider Name and Address Organization Details Last Updated DateTime 3 93 % 16 /min 792134. 92 g 135/82 mm[Hg] 135/82 mm[Hg] 135/82 mm[Hg] Not Available [employer] 3 21:15:59 Date Recorded Oxygen saturation Body temperature Body weight Body height Heart rate Respiratory rate Systolic And Diastolic Provider Name and Address Organization Details Last Updated DateTime 3 93 % 97.1 [degF] 179694. 48 g 160.02 cm 112 /min 18 /min 143/96 mm[Hg] Not Available [employer] 3 11:50:37 Social History None recorded. Functional [...] Codes Diagnosis Note [id number] Kalyan Chase MD [address] [address] 02/19/2023 10:55:35 02/21/2023 11:46:14 Asthma [id number] J45.909 Reports a hospitaliz ation about a week ago. Has run out of her albuterol and ipratropiu m and although she has refills at the pharmacy, reports that they are on hold . Significan t triggers in the house (multiple cats, dogs, and tobacco smoke). Recently completed course of steroids. 99% on room air with mild expiratory wheezes per washer carcass. Plan to give inhaled bronchodil ators, closely monitor. I will send Rx to the pharmacy in case that helps with the issue, doubt much benefit to steroids at this point given well appearance , normal sats, and finished about a week ago. [id number] Suraj iXao MD Main - [address] [place] [address] 04/05/2023 10:45:24 04/08/2023 13:10:37 Exacerbation of intermittent asthma [id number] J45.21 27yo woman with asthma presents with worsening dyspnea and wheezing in setting of her nebulizer machine breaking and poor air quality recently. No clear infection. On examinatio n by washer carcass she has inspriator y and expiratory wheezing.A ssessment: asthma exacerbati on- DuoNeb administer ed with improvemen t.- Prednisone 40mg QD x 5 days; first dose given by washer carcass [id number] Deanne Wells MD [facility] [address] [place] [address] 04/26/2023 20:27:47 04/29/2023 10:19:37 Exacerbation of intermittent asthma [id number] J45.21 [id number] Hannah Ghotra MD [facility] [address] [place] [address] 06/26/2023 11:50:34 06/26/2023 23:58:41 Moderate acute exacerbation of asthma 010497659 J45.901 W/ BRONCHITIS -given that she has dark phlegm I feel antibiotic s are indicated /advised to rest increase fluids- gargle with warms salt water /Status post DuoNeb the wheezing cleared and she had coarse rhonchi at the [facility] ed if symptoms continue she should be retested for COVID in 48 hours, she is always welcome to call for another visit with us as needed advised to use her nebulizer every 4 hours as needed while she is ill-she requested a cough suppressan t, she is aware that benzonatat e is not covered by insurance [id number] Hannah Ghotra MD [facility] [address] [place] [address] 11/18/2023 11:39:11 11/21/2023 09:19:32 Viral upper respiratory tract infection [id number] J06.9 Since she is on day 5 of symptoms, would be unable to start antivirals if PCR is positive as the results would not return to late.-Advi sed to treat symptomati дмитрий. Moderate a cute exacerbation of asthma [id number] J45.901 Status post DuoNeb, patient lungs are [...] Moreno Member ID Guarantor Name 11/18/2023 1 [facility] - DOS ON OR AFTER 2023 - DUAL ELIGIBLE - SNF OPTIONS AND ONE CARE (MEDICARE REPLACEMENT/ADV ANTAGE - HMO) Sumaya Ugarte [id number] Sumaya Ugarte 04/05/2023 1 [facility] - DOS PRIOR TO 2023 - DUAL ELIGIBLE (MEDICARE REPLACEMENT/ADV ANTAGE - HMO) Sumaya Ugarte [id number] Sumaya Ugarte Notes Date Note Type Note [...] .................... .................... .................... .................... .................... .................... . Store Team Leader Note From Abimael Ma: Pt presents A@Ox4 . Sumas warm and dry clear airway with equal [...] side. Sating 99% RA. C contacted and DUO neb given pt still had scme minor wheezing. Pt sts she felt some relief. Prescription for proair called in. Pt educated in signs that would indicate the ER. Pt advised to move up her appt with PCP .................... .................... .................... .................... .................... .................... .................... . Disposition: Fulfilled Kalyan Chase MD [address] [place] [address],[address] [facility], [place], [address], [employer] 02/19/2023 12:39:18 04/05/2023 text/html ROS as noted [...] fever. chills Verified identified Suraj Xiao MD [address] [place] [address],[address], [place], [address], [employer] 04/05/2023 10:48:03 04/26/2023 text/html HPI: Asthma exacerbation [...] .................... .................... .................... .................... .................... .................... . Store Team Leader Note From Leonidas Mcgee: PI PATTI shortness [...] .................... . Disposition: Fulfilled Deanne Wells MD [address] [place] [address],[address] [facility], [place], [address], [employer] 04/29/2023 11:13:25 06/26/2023 text/html ROS as noted [...] .................... .................... .................... .................... .................... .................... . Store Team Leader Note From Tres Blackmon: Pt reports three days of cough, sinus pressure, runny nose and mild sore throat. Pt sts cough became productive today, producing brown sputum. Pt had one vomiting episode yesterday but denies hematemesis . Pt denies CP, SOB at rest , fevers, chills or diarrhea. Pt has insurance risk analyst f/u tomorrow . Pt is alert, NAD. [...] mg benzonatate PO. Pt instructed to keep insurance risk analyst appointment tomorrow and to seek emergent medical care for new or worsening sx, which are reviewed with her. .................... .................... .................... .................... .................... .................... .................... . Disposition: FulfilledSEGMD: As above.-Patient denies any possibility of . Although she vomited once yesterday post tussive, she is able to eat and drink today. She denies diarrhea she denies hematemesis, melena or hematochezia Hannah Ghotra MD [address] [place] [address],[address], [place], [address], [facility] [employer] 06/26/2023 15:37:45 11/18/2023 text/html ROS as noted [...] any better, [facility] possible need for steroids for asthma exac. verified address//phone # Hpatterson ELIU .................... .................... .................... .................... .................... .................... .................... . Store Team Leader Note From Jeanette Helms: Sent to a [...] times daily. Pt states she last saw Fastener Sewing Machine Operator in Aug and next appt is approx 2months away. (sitting) BP:133/88, P:118 reg, RR:18, SpO2:95% RA, T:98.5; (standing) BP:126/82, P:124, SpO2:95% RA; Head: no sinus tenderness; Chest: no tenderness; Lung sounds: diminished bilaterally; Abdomen: soft, non-tender, no distention; Back: unremarkable; Extremities: no peripheral edema; Skin: pink, warm, dry; Rapid covid test: neg; Rapid flu test: neg; [facility] consulted and orders Duo Neb and Prednisone 60mg PO. [facility] sends script to pt's pharmacy for Albuterol neb solution, prednisone taper, and Tessalon Perles. Pt advised to use Budesonide BID, Albuterol nebs: 4 times daily or q 4hrs if needed. Pt advised to follow up with PCP and insurance risk analyst leroy. Duo neb administered with improvement per pt. Lung sounds: clear bilaterally; SpO2 w/ ambulation 94-96% RA; Pt eats small snack, and prednisone 60mg PO administered without incident. Pt advised not to start prednisone prescription until tomorrow. Red flags discussed. Pt has no further questions. [facility] Lab Orders: rapid flu (A+B): Performed rapid SARS CoV 2 Ag, QL IA, respiratory specimen: Performed .................... .................... .................... .................... .................... .................... .................... . Disposition: Fulfilled Hannah Ghotra MD [address] [facility],[address], [place], [address], [facility] [employer] 11/19/2023 23:33:11 OBGyn Episode No OBEpisode recorded.
--- OUTSIDE RECORDS SUMMARY | 2025-10-25 08:40 | XMS_ITS | Clinical Summary ---
Author Organization [facility] Address [address] [place] [address] Care Team Providers Care Test Administrator Name Role Phone Belle Juan MD Primary Care Provider [phone] Surgical History Surgery Date Site/Laterality Comments APPENDECTOMY PROCEDURE: [place] APPENDECTOMY SECTION PROCEDURE: [place] DELIVERY ONLY CHOLECYSTECTOMY PROCEDURE: HISTORICAL CHOLECYSTECTOMY; COMMENT: [facility] CHOLECYSTECTOMY PROCEDURE: HISTORICAL CHOLECYSTECTOMY Medical History Medical History Date Comments Depression DX:Depression; C OMMENT: f/u psychiatrist Dr. Lopez Insomnia DX:Insomnia Anxiety DX:Anxiety; COMM ENT: prescribed by Dr. Lopez Chronic post-traumatic stres s disorder (PTSD) DX:Chronic post-traumatic st ress disorder (PTSD) Bipolar 2 disorder, major de pressive episode ([facility] V24, [facility] V28) DX:Bipolar 2 disord er, major depressive episode (HCC) Morbid obesity with BMI of 5 0.0-59.9, adult ([facility] V24, [facility] V28) 09/27/2016 DX:Morbid obesity wit h BMI of 50.0-59.9, adult ([facility]) Borderline hypertension 10/12/2016 DX:Borde rline hypertension Borderline personality disor jamaal ([facility] V24, [facility] V28) 12/24/2016 DX:Borderline personality d isorder ([facility]) Dissociative identity disord er ([facility] V24, [facility] V28) 12/24/2016 DX:Dissociative identity di sorder ([facility]) Eczema 12/02/2017 DX:Eczema; COMME NT: Follows with [...] obesity with BMI of 4 5.0-49.9, adult ([facility] V24, [facility] V28) 02/27/2019 DX:Morbid obesity wit h BMI of 45.0-49.9, adult ([facility]) Family History Medical History Relation Name Comments [...] age to complete this topic Care Teams Test Administrator Relationship Specialty Start Date End Date Belle Juan MD [address] [place] [address] PCP - General Internal Medicine 11/17/21
--- OUTSIDE RECORDS SUMMARY | 2025-10-25 08:40 | XMS_ITS | Clinical Summary ---
Author Organization [facility] Address [address] [place] [address] Phone Care Team Providers Care Product Safety Coordinator Name Role Phone Tran Negron MD Primary Care Provider [phone] Allergies Active Allergy Reactions Criticality Noted Date [...] Medical Devices Not on file Insurance [facility] [place], [place] [id number] [place] [address] ONE CARE MEDICARE REPLACEMENT [place] [id number] [facility] Member Subscriber Plan / Payer (Ef fective 2017-Present) Name:Sumaya Ugaret Relation to Subscriber:Self Name:Sumaya Ugarte Payer ID:[id number] Group ID:Not on file Type:Medicaid Address: [address] MEDICARE REPLACEMENT [place] [id number] [facility] Member Subscriber Plan / Payer (Ef fective 2017-Present) Name:Sumaya Ugarte Relation to Subscriber:Self Name:Sumaya Ugarte Payer ID:[id number] Group ID:Not on file Type:Medicaid Address: [address] MEDICARE REPLACEMENT [place] [address] [facility] Member Subscriber Plan / Payer (Ef fective 2017-Present) Name:Sumaya Ugarte Relation to Subscriber:Self Name:Sumaya Ugarte Payer ID:[id number] Group ID:Not on file Type:Medicaid Address: [address] [facility] MEDICARE REPLACEMENT [place] [id number] [facility] [address] ONE CARE MEDICARE REPLACEMENT [address] CARE MEDICARE REPLACEMENT [address] CARE MEDICARE RE[place] [address] Member Subscriber Plan / Payer (Ef fective 2017-Present) Name:Sumaya Ugarte Relation to Subscriber:Self Name:Sumaya Ugarte Payer ID:[id number] Group ID:Not on file Type:Medicaid Address: [place] [id number] CARE MEDICARE REPLACEMENT Member Subscriber Plan / Payer (Ef fective 2018-Present) Name:Sumaya Ugarte Relation to Subscriber:Self Name:Sumaya Ugarte Payer ID:[id number] (NAIC) Group ID:Not on file Type:Medicare Address: [address] [facility] [address] ONE CARE MEDICARE REPLACEMENT Care Teams Product Safety Coordinator Relationship Specialty Start Date End Date Tran Negron MD PCP - General 08/13/17 Additional Source Comments The information contained in this document represents components of the legal health record. It is not the complete legal health record.[facility]
--- NOTE | 2025-10-25 09:04 | AM.OFFWIN_ITS ---
Intake Vital Signs 10/25/25 09:05 Height 5 ft 2 in Weight 400 lb BMI 73.2 BP 126/78 Blood Pressure Location Lt radial Position Sitting Pulse 112 H Pulse Source Pulse Oximeter Pulse Oximetry (%) 97 Oxygen Delivery Method Room Air Intake Visit Reasons: EP Right elbow pain after fall Intake Note: Patient presents c/o right elbow pain x2 weeks related to a fall. Patient Tobacco Use Status: Former Tobacco user Allergies carboprost (From Hemabate) Allergy (Severe, Verified 10/25/25 09:09) Anaphylaxis gluten Allergy (Mild, Verified 10/25/25 09:09) celiac disease environmental allergies Allergy (Verified 10/25/25 09:09) hives, itchy eyes, redness HPI HPI Comments History of Present Illness Details this is a 30-year-old female presenting for evaluation of right elbow pain. Patient states that she fell onto the concrete and front of her home on October 15 striking her right arm on the ground. Patient has been using cold compresses only without relief of her symptoms and no [id number] medication. Patient states that she can straighten her arm at her elbow but indicates that she has pain on the volar surface of her right upper extremity in the right antecubital fossa. Patient denies having any pain in her right shoulder or right wrist. [facility] Medical History (Updated 10/25/25 @ 09:34 by Kitty Grayson PA-C) Tachycardia Dyspnea Women's annual routine gynecological examination ADD (attention deficit disorder) History of cholecystitis Fibromyalgia IBS (irritable bowel syndrome) Surgical History History of cholecystectomy H/O: History of appendectomy Family History Mother Arthritis Substance use disorder Mental health disorder Father HTN (hypertension) Substance use disorder Maternal Grandmother Cancer Social History Household Members: Family and Children Housing: House Do you presently have visiting nurse or other home services: No Alcohol intake: never Patient Tobacco Use Status: Former Tobacco user Tobacco use type: Cigarette Cigarette Packs Per Day: 2 Cigarettes Per Day: 40.0 e-Cigarette/Vaping Use: Former Use Second Hand Smoke Exposure: No service: No Current occupational status: unemployed Cognitive needs: No Hearing needs: No Vision needs: Yes (glasses) Female Reproductive History Menstrual Age of Menarche: 7 Review of Systems Const All systems reviewed & are unremarkable except as noted in HPI and below Reports as per HPI and Reports no additional complaints Musc Reports arthralgias (right elbow), Denies numbness, Denies tingling and Reports other (pain right forearm) Skin/Breast Reports system reviewed and no additional complaints, except as documented Neuro Reports no additional complaints, Denies numbness, Denies tingling and Denies paresthesias Psych Reports no additional complaints Endo Reports no additional complaints Physical Exam Vital Signs: Last Vital Signs Pulse 112 H 10/25/25 09:05 BP 126/78 10/25/25 09:05 Pulse Ox 97 10/25/25 09:05 Oxygen Delivery Method Room Air 10/25/25 09:05 BMI result Body Mass Index 73.2 Const General: cooperative and comfortable; No ill appearing Nutritional Appearance: obese Orientation/consciousness: patient oriented x3 Limitations: no limitations Skin General skin exam: no rashes or lesions noted Neuro General: patient oriented x3 Extrem Right upper extremity: normal to inspection, full ROM, normal capillary refill, no joint enlargement and elbow/forearm (Pain to palpation proximal aspect of the right forearm, volar surface) Details: normal to inspection, normal ROM and other (no pain to palpation of ROM right olecranon); no swelling, no unusual warmth, no abrasions, no lacerations, no ecchymosis, no crepitus and no deformity; no cyanosis and no edema Psych Appearance: grossly normal Mental Status: mental status grossly normal Insight: Good insight present (Psych) Judgement: Good judgement present (Psych) Assessment & Plan Assessment & Plan (1) Tendinitis of right forearm: Comment: Patient is evaluated; she is in no acute distress. Patient's history coupled with her examination is consistent with a tendonitis of the right forearm. No imaging is warranted at this time. Patient will be discharged home with Naprosyn. Code(s): M77.8 - Other enthesopathies, not elsewhere classified Plan: Naprosyn 500 mg q.12 hours times 7-10 days. Patient will follow up with primary care provider as an outpatient if her symptoms do not completely resolve. Coding Level of Care Code Est Pt Level 3 (69385) Diagnoses Tendinitis of right forearm M77.8 Time Spent (min) 20
[2025-10-25 09:05] VITALS: BP 126/78; PULSE 112; O2SAT 97; BMI 73.2
== END 2025-10-25 09:47 | disposition home or self-care (01) ==
PROVIDERS: PCP Internal Medicine; Visit Provider Physician Assistant
DX: M77.8 Other enthesopathies, not elsewhere classified (principal)

== ENCOUNTER → 2025-10-25 08:38 | Outpatient (BNVA) | payer OTHER, SELFPAY | PROVIDERS: PCP Internal Medicine; Visit Provider Physician Assistant | DX: M77.8 Other enthesopathies, not elsewhere classified (principal) | CPT/HCPCS: 99212 ==